=== PATIENT | female | born 1985 | race Caucasian/White ===

== ENCOUNTER 2023-05-28 19:14 | Emergency (ER) | payer OTHER, SELFPAY ==
[2023-05-28 19:17] VITALS: BP 128/92; PULSE 118; RESP 18; TEMP 36.4; O2SAT 99; BMI 18.2
[2023-05-28 19:20] VITALS: BP 128/92
--- NOTE | 2023-05-28 19:26 | ED.GENADUL1 ---
HPI - General Adult General Chief complaint: Extremity Problem, Nontraumatic Stated complaint: Lower leg Pain Time Seen by Provider: 05/28/23 19:17 Source: patient Mode of arrival: walk-in Limitations: no limitations History of Present Illness HPI narrative: Patient presents with bruising to both thighs that suddenly appeared today. She has been evaluated by other provider for bruising that she developed on her feet but no one has made a diagnosis . She denied any recent injury - no fall or accidents. She said that she is essentially sedentary at home, her mother takes her anywhere she need to go, but she feeds herself and cooks for herself. her description of her oral intake sounds way too low, from a caloric and fluid standpoint, for her age. Patient told me that she has numerous complaints for which she is either being currently evaluated or has previously been evaluated - without getting any answers. Symptoms and complaints include syncopal episodes, persistent tachycardia, diffuse weakness, especially of the lower extremities, hypokalemia, decreased appetite and chronic pain. She is also on suboxone. All of her evaluations have been done at OSHs. No recent visits to [facility]. This includes out-patient MRI in [place], EMG studies at [facility] in [place], Cardiology evals in [place], Numerous out-patient tests - none of which, according to the patient, are indicating why she is having these symptoms and findings. Related Data Home Medications Medication Instructions Recorded Confirmed atorvastatin 40 mg tablet 40 mg PO DAILY 05/28/23 05/28/23 baclofen 20 mg tablet 20 mg 05/28/23 buprenorphine 2 mg-naloxone 0.5 mg 1 tab sublingual DAILY 05/28/23 05/28/23 sublingual tablet cholecalciferol (vitamin D3) 50 50 mcg PO BID 05/28/23 05/28/23 mcg (2,000 unit) tablet desogestrel 0.15 mg-ethinyl tab 05/28/23 estradiol 0.03 mg tablet (Enskyce) dextroamphetamine-amphetamine 20 20 mg PO BID 05/28/23 05/28/23 mg tablet diltiazem HCl 120 mg 120 mg PO DAILY 05/28/23 05/28/23 capsule,extended release 24 hr, controlled (DILT-XR) folic acid 1 mg tablet 1 mg PO DAILY 05/28/23 05/28/23 gabapentin 800 mg tablet 800 mg PO TID 05/28/23 05/28/23 levalbuterol tartrate 45 inhalation 05/28/23 mcg/actuation aerosol inhaler (Xopenex HFA) magnesium oxide 400 mg (241.3 mg 400 mg PO DAILY 05/28/23 05/28/23 magnesium) tablet midodrine 10 mg tablet 10 mg PO TID 05/28/23 05/28/23 potassium chloride 20 mEq 20 meq PO BID 05/28/23 05/28/23 tablet,extended release prednisone 5 mg tablet mg 05/28/23 pyridostigmine bromide 30 mg tablet 30 mg PO TID 05/28/23 05/28/23 venlafaxine 150 mg 150 mg PO DAILY 05/28/23 05/28/23 capsule,extended release 24 hr Allergies Allergy/AdvReac Type Severity Reaction Status Date / Time No Known Drug Allergies Allergy Verified 05/28/23 19:22 [facility] Social History Smoking status: Current some day smoker Exam Narrative Exam Narrative: Nurses notes and vital signs reviewed and patient is not hypoxic. afebrile General: Well-appearing and in no apparent distress. Skin: Warm, dry, no pallor noted. Numerous small areas of ecchymosis to the forearms, thighs and fading ecchymosis on both feet. no petechiae. No bulla. No pustules or vesicles. No erythema or erythematous rash Head: Normocephalic, atraumatic. Neck: Supple, no meningismus. Eye: Pupils are equal, round and EOMI. No scleral icterus. Ears, Nose, Mouth, and Throat: Oral mucosa is dry Cardiovascular: tachycardia without murmur, gallop or rub. Respiratory: No accessory muscle use or respiratory distress. Lungs are clear to auscultation, no wheezing, rales or rhonchi Musculoskeletal: normal ROM, no calf or popliteal tenderness, no lower extremity edema/swelling GI: Abdomen is soft, non-distended. Normal bowel sounds. No masses appreciated. No tenderness to palpation. No rebound, guarding, or rigidity noted. Neurological: A&O x4. No cranial nerve dysfunction observed. No truncal ataxia. Moves all extremities. Sensation intact. Psychiatric: Cooperative and interactive. Normal mood and affect. Constitutional Vital Signs, click to edit/add: Last Vital Signs Temp 97.5 F L 05/28/23 19:17 Pulse 94 H 05/28/23 20:40 Resp 20 05/28/23 20:40 BP 128/92 H 05/28/23 19:20 Pulse Ox 100 05/28/23 20:40 O2 Del Method Room Air 05/28/23 19:17 Course Vital Signs Vital signs: Vital Signs Temperature 97.5 F L 05/28/23 19:17 Pulse Rate 118 H 05/28/23 19:17 Respiratory Rate 18 05/28/23 19:17 Blood Pressure 128/92 H 05/28/23 19:17 Pulse Oximetry 99 05/28/23 19:17 Oxygen Delivery Method Room Air 05/28/23 19:17 Temperature 97.5 F L 05/28/23 19:17 Pulse Rate 94 H 05/28/23 20:40 Respiratory Rate 20 05/28/23 20:40 Blood Pressure 128/92 H 05/28/23 19:20 Pulse Oximetry 100 05/28/23 20:40 Oxygen Delivery Method Room Air 05/28/23 19:17 Medical Decision Making MDM Narrative Medical decision making narrative: the patient has undergone extensive evaluation on an outpatient basis for her other complaints. We will be focusing today on the patient's ecchymosis, which she says new-onset. Since these appeared she has not had any blood testing - instead her bioinformatician, who 1st noticed these, told her that she might have a vascular problem and referred her to a vascular surgeon. The patient says that her appointment is in the [facility] in a few weeks. Patient was placed on ekg monitor tech and EKG obtained. Blood drawn and sent for evaluation. evaluation was essentially negative. She has mild elevation of white blood cell count at 12k with left shift noted but no identifiable source of infection. Sedimentation rate and CRP are elevated. She said that this is chronic. PT, PTT and INR all normal. LFTs are normal. Lactate was negative. Electrolytes and kidney function were also normal as was her glucose. Her tachycardia resolved once she received a liter of normal saline IV fluid. I had a talk with the patient about nutrition, proper hydration, following up with the specialists as already scheduled and recommended. She was understanding and appreciative of our ability to rule out certain worrisome conditions. She was discharged home. No change in medication at this time. . Lab Data Lab results reviewed: Yes I reviewed the patient's lab results Labs: Lab Results 05/28/23 Range/Units 19:40 WBC 12.0 H (4.0-11.0) 10^3/uL RBC 4.23 (4.20-5.40) 10^6/uL Hgb 13.1 (12.0-16.0) g/dL Hct 39.8 (36.0-48.0) % MCV 94.1 (81.0-99.0) fL MCH 31.0 (26.7-34.0) pg MCHC 32.9 (29.9-35.2) g/dL RDW 12.6 (11.0-15.0) % Plt Count 369 (150-450) 10^3/uL MPV 9.2 L (9.5-13.5) fL Neut % (Auto) 84.5 H (43.0-75.0) % Lymph % (Auto) 7.4 L (20.5-60.0) % Scurry % (Auto) 6.8 (1.7-12.0) % Eos % (Auto) 0.3 L (0.9-7.0) % Baso % (Auto) 0.6 (0.2-2.0) % Neut # (Auto) 10.1 H (1.4-6.5) 10^3/uL Lymph # (Auto) 0.9 L (1.2-3.8) 10^3/uL Scurry # (Auto) 0.8 (0.3-0.8) 10^3/uL Eos # (Auto) 0.0 (0.0-0.7) 10^3/uL Baso # (Auto) 0.1 (0.0-0.1) 10^3/uL Abs Immat Gran (auto) 0.05 H (0.00-0.03) 10^3/uL Imm/Tot Granulo (auto) 0.4 (0.0-0.5) % ESR 47 H (<=20) mm/hr PT 9.3 (9.0-11.6) sec INR <0.93 APTT 23.2 (22.3-36.2) sec Sodium 136 (136-145) mmol/L Potassium 3.9 (3.5-5.1) mmol/L Chloride 100 (98-107) mmol/L Carbon Dioxide 22.4 (21.0-32.0) mmol/L Anion Gap 17.5 BUN 17.0 (7.0-18.0) mg/dL Creatinine 0.92 (0.55-1.02) mg/dL Est GFR ( Amer) >60 (>=60) Est GFR (Non-Af Amer) >60 (>=60) BUN/Creatinine Ratio 18.5 Glucose 103 (74-106) mg/dL Lactate 1.6 (0.4-2.0) mmol/L Calcium 8.7 (8.5-10.1) mg/dL Total Bilirubin 0.2 (0.2-1.0) mg/dL AST 29 (15-37) U/L ALT 35 (14-59) U/L Alkaline Phosphatase 72 (46-116) U/L C-Reactive Protein 0.41 H (<=0.30) mg/dL Total Protein 7.7 (6.4-8.2) g/dL Albumin 3.5 (3.4-5.0) g/dL Globulin 4.2 g/dL Albumin/Globulin Ratio 0.8 Discharge Plan Discharge Chief Complaint: Extremity Problem, Nontraumatic Clinical Impression: Acute dehydration, Orthostasis, Ecchymosis Time of Disposition Decision: 21:30 Prescriptions / Home Meds: No Action diltiazem HCl [DILT-XR] 120 mg capsule,ext.rel 24h degradable 120 mg PO DAILY magnesium oxide 400 mg (241.3 mg magnesium) tablet 400 mg PO DAILY baclofen 20 mg tablet 20 mg potassium chloride 20 mEq tablet extended release 20 meq PO BID venlafaxine 150 mg capsule,extended release 24hr 150 mg PO DAILY levalbuterol tartrate [Xopenex HFA] 45 mcg/actuation HFA aerosol inhaler INHALATION folic acid 1 mg tablet 1 mg PO DAILY midodrine 10 mg tablet 10 mg PO TID pyridostigmine bromide 30 mg tablet 30 mg PO TID cholecalciferol (vitamin D3) 50 mcg (2,000 unit) tablet 50 mcg PO BID atorvastatin 40 mg tablet 40 mg PO DAILY desogestrel-ethinyl estradiol [Enskyce] 0.15-0.03 mg tablet buprenorphine-naloxone 2-0.5 mg tablet, sublingual 1 tab SUBLINGUAL DAILY prednisone 5 mg tablet dextroamphetamine-amphetamine 20 mg tablet 20 mg PO BID gabapentin 800 mg tablet 800 mg PO TID Instructions: Ecchymosis (ED) Stand Alone Forms: Portal Instructions Referrals: David Schaefer MD [Primary Care Provider] - 1 week
[2023-05-28] MEDS: 0.9 % SODIUM CHLORIDE 1,000 ML 1000 ML IV (19:43)
--- NOTE | 2023-05-28 19:52 | PC.NURSE ---
Patient comes today for unusual bruising to lower extremities. patient states she was taking her weekly bath when she noticed increased bruising to bilateral legs from foot to groin and a couple on her arms. she is concerned because she states she is normally on bedrest due to increased weakness so she states it is unusual for her to have bruising caused by injury. light healing bruising noticed on bilateral ankles. no petechiae noticed. light bumps on legs appear to be similar to razor burn, light red raised bumps on legs. patient is on many medications and sees many specialist. normal pedal pulses. denies pain
--- NOTE | 2023-05-28 20:03 | ECG_ITS ---
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
[2023-05-28 20:12] VITALS: PULSE 97; RESP 22
[2023-05-28 20:14] LABS: Basophils Absolute Auto 0.1 10^3/uL (0.0-0.1); Basophils Percent Auto 0.6 % (0.2-2.0); Eosinophils Percent Auto 0.3 % (0.9-7.0); Hematocrit 39.8 % (36.0-48.0); Hemoglobin 13.1 g/dL (12.0-16.0); Immature Granulocytes Abs Auto 0.05 10^3/uL (0.00-0.03); Immature Granulocytes Pct Auto 0.4 % (0.0-0.5); Lymphocytes Absolute Auto 0.9 10^3/uL (1.2-3.8); Lymphocytes Percent Auto 7.4 % (20.5-60.0); Mean Corpuscular HGB Conc 32.9 g/dL (29.9-35.2); Mean Corpuscular Volume 94.1 fL (81.0-99.0); Mean Platelet Volume 9.2 fL (9.5-13.5); Monocytes Absolute Auto 0.8 10^3/uL (0.3-0.8); Monocytes Percent Auto 6.8 % (1.7-12.0); Neutrophils Absolute Auto 10.1 10^3/uL (1.4-6.5); Neutrophils Percent Auto 84.5 % (43.0-75.0); Platelet Count 369 10^3/uL (150-450); Red Blood Count 4.23 10^6/uL (4.20-5.40); Red Cell Distribution Width 12.6 % (11.0-15.0)
[2023-05-28 20:20] VITALS: PULSE 90; RESP 14; O2SAT 100
[2023-05-28 20:22] LABS: Erythrocyte Sedimentation Rate 47 mm/hr (<=20)
[2023-05-28 20:25] LABS: Prothrombin Time 9.3 sec (9.0-11.6)
[2023-05-28 20:28] LABS: INR <0.93; Lactate/Lactic Acid 1.6 mmol/L (0.4-2.0); Partial Thromboplastin Time 23.2 sec (22.3-36.2)
[2023-05-28 20:30] VITALS: PULSE 98; RESP 21; O2SAT 99
[2023-05-28 20:35] LABS: Alanine Aminotransferase 35 U/L (14-59); Albumin Globulin Ratio 0.8; Albumin Level 3.5 g/dL (3.4-5.0); Alkaline Phosphatase 72 U/L (46-116); Anion Gap 17.5; Aspartate Amino Transferase 29 U/L (15-37); BUN Creatinine Ratio 18.5; Bilirubin Total 0.2 mg/dL (0.2-1.0); Calcium 8.7 mg/dL (8.5-10.1); Carbon Dioxide 22.4 mmol/L (21.0-32.0); Chloride 100 mmol/L (98-107); Estimated GFR (African America >60 (>=60); Estimated GFR (Non-African Ame >60 (>=60); Globulin 4.2 g/dL; Glucose 103 mg/dL (74-106); Potassium 3.9 mmol/L (3.5-5.1); Sodium 136 mmol/L (136-145); Total Protein 7.7 g/dL (6.4-8.2)
[2023-05-28 20:40] VITALS: PULSE 94; RESP 20; O2SAT 100
[2023-06-08 08:43] LABS: C Reactive Protein <0.50 mg/dL (<=0.50)
== END 2023-05-28 21:41 | disposition home or self-care (01) ==
LOC: ER 19:19
PROVIDERS: Emergency Provider Emergency Medicine; PCP Family Medicine
DX: E86.0 Dehydration (principal); I95.1 Orthostatic hypotension; R58 Hemorrhage, not elsewhere classified; Z79.899 Other long term (current) drug therapy; F17.210 Nicotine dependence, cigarettes, uncomplicated
CPT/HCPCS: 36415; 80053; 83605; 85025; 85610; 85652; 85730; 86140; 87040; 93005; 96360; 99285

== ENCOUNTER 2023-11-20 14:01 | Outpatient (OUT) | payer OTHER, SELFPAY ==
--- NOTE | 2023-11-20 14:04 | US_ITS ---
The [address] [address] Patient Name: KALEN PLAZA MRN: [id number] date: 1985 Sex: F Assigned Patient Location: US Current Patient Location: Accession/Order Number: [id number] Exam Date: 11/20/2023 14:49 Report Date: 11/21/2023 06:54 At the request of: LANEY PENN Procedure: US pelvis w/ transvaginal EXAMINATION: US pelvis w/ transvaginal HISTORY: Menorrhagia with regular cycle N92.0 COMPARISON: No relevant comparison available. TECHNIQUE: Transabdominal and/or transvaginal sonographic examination was performed as indicated by examination type. FINDINGS: UTERUS: Normal size and appearance. Small nabothian cysts within cervix. Uterus size: 7.4 x 3.3 x 4.1 cm ENDOMETRIUM: Thin linear slightly hypoechoic heterogeneous area within endometrial cavity, possibly blood products. Endometrial thickness: 8 mm RIGHT OVARY: Contains a 1.2 cm dominant follicle versus cyst. Duplex Doppler demonstrates normal waveform and flow; resistive index 0.5. Ovary size: 3.4 x 2.3 x 2.9 cm LEFT OVARY: Normal size and appearance. Duplex Doppler demonstrates normal waveform and flow; resistive index 0.6. Ovary size: 2.6 x 1.4 x 1.8 cm CUL-DE-SAC: Unremarkable. No significant free fluid. BLADDER: Unremarkable. OTHER: None. US/US pelvis w/ transvaginal IMPRESSION: 1. Nonspecific hypoechoic area or material within endometrial cavity, likely blood products. Given patient's history consider follow-up imaging in 6 weeks to document clearing. Electronically authenticated by: GERI CARABALLO Date: 11/21/2023 06:54
== END 2023-11-20 14:02 | disposition home or self-care (01) ==
LOC: US 14:01
PROVIDERS: PCP Family Medicine; Visit Provider Obstetrics & Gynecology
DX: N92.0 Excessive and frequent menstruation with regular cycle (principal); R10.2 Pelvic and perineal pain
CPT/HCPCS: 76830; 76856

== ENCOUNTER 2024-01-29 15:52 | Outpatient (OUT) | payer OTHER, SELFPAY ==
--- NOTE | 2024-01-29 15:57 | US_ITS ---
The [address] [address] Patient Name: KALEN PLAZA MRN: [id number] date: 1985 Sex: F Assigned Patient Location: Current Patient Location: Accession/Order Number: [id number] Exam Date: 01/29/2024 16:30 Report Date: 01/30/2024 07:12 At the request of: LANEY PENN Procedure: US pelvis w/ transvaginal EXAMINATION: US pelvis w/ transvaginal HISTORY: Female Pelvic Pain R10.2 COMPARISON: 11/20/2023 FINDINGS: The uterus is normal in size, contour and echotexture measuring 7.4 x 3.0 x 4.1 cm, anteverted. No focal myometrial mass. The endometrium measures 3.6 mm, within normal limits The right ovary measures 2.2 x 1.6 x 1.6 cm. Normal color and Doppler flow. 1.2 cm area of anechoic echogenicity, cyst versus follicle The left ovary is not visualized No free fluid US/US pelvis w/ transvaginal IMPRESSION: Nonvisualization of the left ovary, otherwise normal exam Electronically authenticated by: MITCH LEVIN Date: 01/30/2024 07:12
== END 2024-01-29 15:53 | disposition home or self-care (01) ==
LOC: US 15:53
PROVIDERS: PCP Obstetrics & Gynecology; Visit Provider Obstetrics & Gynecology
DX: R10.2 Pelvic and perineal pain (principal); N92.0 Excessive and frequent menstruation with regular cycle
CPT/HCPCS: 76830; 76856

== ENCOUNTER 2024-04-05 13:54 | Outpatient (OUT) | payer OTHER, SELFPAY ==
--- NOTE | 2024-04-05 13:58 | US_ITS ---
The [address] [address] Patient Name: KALEN PLAZA MRN: [id number] date: 1985 Sex: F Assigned Patient Location: Current Patient Location: US Accession/Order Number: [id number] Exam Date: 04/05/2024 14:06 Report Date: 04/05/2024 16:11 At the request of: PRECIOUS KERR Procedure: US carotid duplex BI EXAM: US carotid duplex BI. HISTORY: Dizziness, Sherri Danlos Syndrome. COMPARISON: None. HISTORY / INDICATIONS: Dizziness. TECHNIQUE: Bilateral common carotid arteries, extracranial internal and external carotid arteries are evaluated with jang-scale imaging, color Doppler, and spectral analysis according to a standard protocol. ICA-CCA ratios are calculated with solar manufacturer's representative peak-systolic velocities and recorded. Vertebral arteries are evaluated in one segment to evaluate for patency and character of flow. Comparison with previous evaluation is performed when available. Unless otherwise specified, all velocities are measured in cm/sec. Carotid stenosis is reported according to validated velocity parameters, similar to NASCET criteria. FINDINGS: Right Carotid: Mild plaque was noted. Velocity measurements as follows: Internal Carotid Artery 85/27 and 93/35. ICA to CCA ratio: 1.4. Left Carotid: Mild plaque was noted. Velocity measurements as follows: Internal Carotid Artery 104/39 and 100/43. ICA to CCA ratio: 1.2. Antegrade flow was seen in both vertebral arteries. CONCLUSION: 1. Less than 50% stenosis of the right ICA. 2. Less than 50% stenosis of the left ICA. 3. Vertebral arteries are patent and demonstrate antegrade flow. Electronically authenticated by: Heather GEE Date: 04/05/2024 16:11
--- OUTSIDE RECORDS SUMMARY | 2024-04-05 14:08 | XMS_ITS | CCD ---
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 Name Role Phone Omley, Tayo H Unavailable Unavailable Omley, Tayo H Unavailable Unavailable Provider, None Unavailable Unavailable Omley, Tayo H Unavailable Unavailable Omley, Tayo H Unavailable Unavailable Provider, None Unavailable Unavailable David Laguerre Unavailable Unavailable Unavailable DAVID LAGUERRE Primary Care Physician SHADE, DR DAVID Hunter Admitting Unavailable NADEREMiriam, DR DAVID Hunter Attending Unavailable NADSUNDAR, DR DAVID Hunter Primary Care Unavailable SHADE, DR DAVID Hunter Consulting Unavailable REMEDIOS, DR DAVISON Admitting Unavailable REMEDIOS, DR DAVISON Attending Unavailable NADSUNDAR, DR DAVID Hunter Primary Care Unavailable REMEDIOS, DR DAVISON Consulting Unavailable Traboulpraful, Dr. Huynh Attending Unavaila ble Shade, Dr. David Yang Primary Care Martha Suazo, Dr. Huynh Attending Unavaila ble Shade, Dr. David Yang Primary Care Martha Laguerre, Dr. David Yang Primary Care Corryvaivett Suazo, Dr. Huynh Attending Unavaila ble Gabriele, Dr. Huynh Referring Unavaila David Finley MD Primary Care Provider Robbie Disla Unavailable YOU Cabrera Attending Provider MD David Laguerre Primary Care Provider MD David Laguerre Referring Provider David Laguerre MD Primary Care Provider MD Robbie Disla Attending Provider [phone] YOU Cabrera Attending Provider MD David Laguerre Primary Care Provider [phone] MD David Laguerre Referring Provider [phone] MD Robbie Disla Attending Provider Keira Heller CNP Unavailable David Laguerre Primary Care Provider David Laguerre Primary Care Provider KEIRA HELLER Referring Unavailable KEIRA HELLER Primary Care Unavailable ROSMERY MACK Attending Unavailable DHRUV BUSTILLOS Attending Unavailable NADEREMiriam, DAVID Referring Unavailable NADEREMiriam, DAVID Primary Care Unavailable KIKA EDMONDS Attending Unavailable DAVID LAGUERRE Referring Unavailable SHADE, DAVID Primary Care Unavailable MD David Laguerre Primary Care Provider MD Robbie Disla Attending Provider Mauricio KITCHEN Attending Unavailable DANY TOVAR Attending Unavailab Mauricio Garcia Attending Unavailable REMEDIOS, BRENT Attending Unavailable NADEREMiriam, DAVID Attending Unavailable REMEDIOS, BRENT Attending Unavailable NADEREMiriam, DAVID Attending Unavailable REMEDIOS, BRENT Attending Unavailable NADERER, DAVID Attending Unavailable KEIRA HELLER Attending Unavailable REMEDIOS, BRENT Attending Unavailable FRANCIS LEVINE Attending Unavailable SHADE, DAVID Referring Unavailable PRASANNAEREMiriam, DAVID Primary Care Unavailable FRANCIS LEVINE Attending Unavailable DAVID LAGUERRE Referring Unavailable SHADE, DAVID Primary Care Unavailable MD David Laguerre Primary Care Provider MD David Laguerre Referring Provider DO Tayo Barajas II Attending Provider DANIEL Heller Attending Provider DANIEL Heller Referring Provider Robbie Disla Attending Unavailable David Laguerre Primary Care Unavailable Robbie Disla Admitting Unavailable Keira Heller Admitting Unavailable Keira Heller Attending Unavailable Keira Heller Referring Unavailable Naderer, David Primary Care Unavailable Naderer, David Primary Care Unavailable NadererDavid Referring Unavailable Adamowicz II, Tayo J Admitting Unavaila ble Adamowicz II, Tayo J Attending Unavaila ble Asaad, Imad Admitting Unavailable Asaad, Imad Attending Unavailable Naderer, David Primary Care Unavailable Asaad, Imad Admitting Unavailable Asaad, Imad Attending Unavailable Shade, David Primary Care Unavailable MARTY RICHARDSON Attending Unavailable NADEREDAVID Pineda Referring Unavailable NADERER, DAVID Primary Care Unavailable CHLOE TESFAYE Attending Unavailable NADERER, DAVID Referring Unavailable NADERER, DAVID Primary Care Unavailable REF PROV, NOT IN SYSTEM Referring Unavaila ble NADEREMiriam, DAVID Primary Care Unavailable KEIRA HELLER Referring Unavailable NADERER, DAVID Primary Care Unavailable DHRUV BUSTILLOS Referring Unavailable PRASANNAERER, DAVID Primary Care Unavailable TAYO BARAJAS Referring Unavailable NADERER, DAVID Primary Care Unavailable KIKA EDMONDS Referring Unavailable NADERER, DAVID Primary Care Unavailable NADEREDAVID Pineda Referring Unavailable NADERER, DAVID Primary Care Unavailable NADERERDAVID Referring Unavailable NADERER, DAVID Primary Care Unavailable NADERER, DAVID Primary Care Unavailable ZULMA CUELLO Attending Unavailable ZULMA CUELLO Attending Unavailable ZULMA CUELLO Referring Unavailable NADERER, DAVID Primary Care Unavailable MICHELL HART Referring Unavailable PRASANNAERER, DAVID Primary Care Unavailable FRANCIS LEVINE Referring Unavailable PRASANNAEREDAVID Pineda Primary Care Unavailable MARTY RICHARDSON Attending Unavailable DAVID LAGUERRE Referring Unavailable NADERER, DAVID Primary Care Unavailable KEIRA HELLER Referring Unavailable NADERER, DAVID Primary Care Unavailable MARTY RICHARDSON Attending Unavailable DAVID LAGUERRE Referring Unavailable NADERER, DAVID Primary Care Unavailable ASAAD, IMAD Referring Unavailable NADEREMiriam, DAVID Primary Care Unavailable NADEREMiriam, DAVID Referring Unavailable NADERER, DAVID Primary Care Unavailable NADERER, DAVID Referring Unavailable NADERER, DAVID Primary Care Unavailable NADERER, DAVID Referring Unavailable NADERER, DAVID Primary Care Unavailable LEEROY, AHMAD F Referring Unavailable NADERER, DAVID Primary Care Unavailable KEIRA HELLER Referring Unavailable NADERER, DAVID Primary Care Unavailable NADERER, DAVID Primary Care Unavailable DONI MIMS Attending Unavailable DONI MIMS Attending Unavailable DONI MIMS Referring Unavailable DAVID LAGUERRE Primary Care Unavailable Allergies Allergy Classification Reported Allergen(s) Allergy Type Date of Onset Reaction(s) Facility (1 source) No Known Medication Allergies; Translations: [No Known Medication Allergies] Propensity to adverse reactions to drug (disorder) [facility] Repository Medications Current Medications Medication Drug Class(es) Dates Sig (Normalized) Sig (Original) amphetamine aspartate 5 mg / amphetamine sulfate 5 mg / dextroamphetamine saccharate 5 mg / dextroamphetamine sulfate 5 mg oral tablet (20 sources) Central Nervous System Stimulant Start: 08-11-2023 take 2 tablets by mouth once daily in the morning, then take 1 tablet by mouth once amphetamine-dextr oamphetamine (Adderall) 20 MG tablet Indications: Postural orthostatic tachycardia syndrome 2 PO every morning, 1 PO every afternoon 90 tablet 0 08/11/2023 Active Start: 07-05-2023 Dextroamphetam ine-Amphetamine (Adderall) 20 mg Tablet Active 20 MG PO As Directed July 05, 2023 1:00am Start: 06-13-2022 Adderall Oral, BID, Refill(s) 0 Start Date: 06/13/22 Status: Ordered Start: 02-01-2022 [facility] Amphetamine-Dextroamphet ER 20 MG Oral Capsule Extended Release 24 Hour TAKE 1 CAPSULE DAILY FOR ADHD. Quantity: 0 Refills: 0 Ordered: 03-Feb-2022 DO Start : 01-Feb-2022 Active Comment on above: As Directed ARIPiprazole 5 mg oral tablet (2 sources) Atypical Antipsychotic Start: 2 take 1 mg by mouth once daily Abilify 5 mg Tab mg tab(s), Oral, Daily, Refills(s) 0 Start Date: 06/13/22 Status: Ordered atorvastatin 40 mg oral tablet (20 sources) HMG-CoA Reductase Inhibitor Start: 4 take 40 mg by mouth once daily Atorvastatin Active 40 MG PO Daily July 05, 2023 1:00am Atorvastatin Ronaldo cium 40mg Active Comment on above: Take 40 mg by mouth daily at bedtime. bisoprolol fumarate 5 mg oral tablet (17 sources) beta-Adrenergic Ayad Start: 4 take 5 mg by mouth once daily Bisoprolol Fumarate Active 5 MG PO daily July 28, 2023 1:00am Comment on above: Take 5 mg by mouth e very morning. buprenorphine 2 mg / naloxone 0.5 mg sublingual film (20 sources) Partial Opioid Agonist, Opioid Antagonist Start: buprenorphine-nalox one (SUBOXONE) 2-0.5 mg film dissolve 1/8 FILM under the tongue once daily if needed 0 10/03/2023 Active Start: 08-22-2023 Buprenorphine- Naloxone Active 0.25 FILM SUBLINGUAL Daily August 22, 2023 1:00am FreeTextSi film under the tongue and allow to dissolve Sublingual Once a day; Note: Source Status: Taking; Provider: Naif Avalos ( ) Start: 07-05-2023 End: 08-22-2023 Buprenorphine-Naloxone (Subo xone) 2-0.5 mg Tablet, Sublingual Discontinued 1 TAB SUBLINGUAL Daily July 05, 2023 1:00am August 22, 2023 1:40pm Start: 06-13-2022 Suboxone SubLi ngual, Daily, Refill(s) 0 Start Date: 06/13/22 Status: Ordered Start: 10-06-2021 Buprenorphine HCl-Naloxone HCl - 2-0.5 MG Sublingual Tablet Sublingual 1/4 tablet daily Quantity: 0 Refills: 0 Ordered: 06-Oct-2021 DO Start : 06-Oct-2021 Active buprenorphine-na loxone (SUBOXONE) 2-0.5 mg per SL tablet Place 1 tablet under the tongue in the morning. 0 Active buprenorphine-na loxone (Suboxone) 2-0.5 MG per sublingual film 1 (one) time each day at the same time. 0 Active Comment on above: dissolve 1/8 FILM un pito the tongue once daily if needed cholecalciferol 0.05 mg oral tablet (12 sources) Vitamin D Start: 07-05-19 take 1 tablet by mouth once daily Cholecalciferol (Vitamin D3) (Vitamin D3) 50 mcg (2,000 unit) Tablet Active 50 MCG PO Daily July 05, 2023 1:00am Start: 09-28-2021 take 1 tablet by once daily Vitamin D3 50 MCG (2000 UT) Oral Tablet Take 1 tablet daily Quantity: 0 Refills: 0 Ordered: 30-Sep-2021 DO Start : 28-Sep-2021 Active take 1 tablet by fabricio th every twenty-four hours Vitamin D 25 MCG (1000 UT) 1 tablet Orally Once a day 50mcg Active Comment on above: Daily cholecalciferol (Vitamin D3) 200 Unit tablet split tablet (3 sources) cholecalciferol (Vitamin D3) 200 Unit tablet split tablet Take 50 mcg by mouth in the morning. 0 Active cholecalciferol, vitamin D3, (VITAMIN D3 ORAL) (7 sources) take 50 ug by mouth in the morning cholecalciferol, vitamin D3, (VITAMIN D3 ORAL) Take 50 mcg by mouth in the morning. 0 Active Cyclosporine (Restasis) 0.05 % dropperette (3 sources) Start: 09-28-2023 take 1 drop(s) into the eye(s) every twelve hours Cyclosporine (Restasis) 0.05 % dropperette Active 1 DROPS EYE-BOTH Every 12 hours September 28, 2023 12:00am cycloSPORINE (RESTASIS) 0.05 % ophthalmic emulsion (6 sources) Start: 09-28-2023 cycloSPORINE (RESTASIS) 0.05 % ophthalmic emulsion Every 12 hours 0 09/28/2023 Active take 1 drop(s) into the eye(s) in the morning cycloSPORINE (RESTASIS) 0.05 % ophthalmi c emulsion Administer 1 drop to both eyes in the morning and 1 drop before bedtime. 0 Active Comment on above: Every 12 hours Desogestrel / Ethinyl Estradiol (16 sources) Progestin, Estrogen Start: 08-07-2023 take 1 tablet by mouth once daily ENSKYCE 0.15-0.03 mg per tablet take 1 tablet by mouth once daily 0 08/07/2023 Active Start: 07-05-2023 Desogestrel-Et hinyl Estradiol (Enskyce) 0.15-0.03 mg tablet Active 1 TAB PO Daily July 05, 2023 1:00am Start: 07-05-2023 Desogestrel-Et hinyl Estradiol (Enskyce) 0.15-0.03 mg tablet Active 1 TAB PO Daily July 05, 2023 12:00am take 1 tablet by fabricio th once daily in the morning, then take 0.15 tablet by mouth once Desogestrel-Ethinyl Estradiol (ENSKYCE) 0.15-0.03 mg per tablet Take 1 tablet by mouth every morning. 0 Active take 1 tablet by fabricio th in the morning Enskyce 0.15-30 MG-MCG tablet Take 1 tablet by mouth in the morning. 0 Active Comment on above: Take 1 tablet by fabricio th every morning. Estradiol (7 sources) Estrogen take 1 tablet by mouth in the morning ESTRADIOL ORAL Take 1 tablet by mouth in the morning. 0 Active fludrocortisone acetate 0.1 mg oral tablet (3 sources) Start: 06-13-20 take 1 mg by mouth once daily fludrocortisone 0.1 mg Tab mg tab(s), Oral, Daily, Refills(s) 0 Start Date: 06/13/22 Status: Ordered Start: 02-24-2022 take 1 tablet by fabricio th once daily Fludrocortisone Acetate 0.1 MG Oral Tablet Take 1 tablet daily Quantity: 90 Refills: 3 Ordered: 24-Feb-2022 Lino Suazo MD Start : 24-Feb-2022 Active New start folic acid 1 mg oral tablet (20 sources) Start: 01-09-2023 take 1 mg by mouth once daily Folic Acid Active 1 MG PO Daily July 05, 2023 1:00am Folic Acid 1mg A ctive Comment on above: Take 1 tablet by fabricoi th every afternoon. gabapentin 800 mg oral tablet (20 sources) Anti-epileptic Agent Start: 06-13-2022 gabapentin Oral, Refills(s) 0 Start Date: 06/13/22 Status: Ordered Start: 07-14-2021 take 800 mg by mouth three times daily Gabapentin Active 800 MG PO Three times daily July 05, 2023 1:00am take 1 tablet by fabricio th every twenty-four hours Gabapentin 800 MG 1 tablet Orally Once a day tid Active Comment on above: Take 800 mg by mouth three times a day. 200 actuat levalbuterol 0.045 mg/actuat metered dose inhaler (17 sources) beta2-Adrenergic Agonist Start: 07-05-2023 Levalbuterol Tartrate (Xopenex Hfa) 45 mcg/actuation HFA aerosol inhaler Active 2 PUFF INHALATION As Directed July 05, 2023 1:00am Start: 04-23-2023 levalbuterol t artrate HFA 45 mcg/actuation inhaler As Directed 0 04/23/2023 Active take 2 puff(s) by in halation once daily as needed levalbuterol (Xopenex) 45 MCG/ACT inhaler Inhale 2 puffs Daily as needed. 0 Active Xopenex Active Comment on above: As Directed levalbuterol tartrate (XOPENEX HFA INHL) (7 sources) levalbuterol tar trate (XOPENEX HFA INHL) Inhale 2 puffs as needed. 0 Active Magnesium (1 source) Magnesium 400 MG as directed Orally Active magnesium oxide 400 mg oral tablet (20 sources) Start: 3 take 400 mg by mouth once daily Magnesium Oxide Active 400 MG PO Daily July 05, 2023 1:00am midodrine hydrochloride 10 mg oral tablet (20 sources) alpha-Adrenergic Agonist Start: 4 take 10 mg by mouth three times daily Midodrine Active 10 MG PO Three times daily July 05, 2023 1:00am take 1 tablet by fabricio th every twelve hours Midodrine HCl 10 MG 1 tablet Orally Twic e a day Active Comment on above: Take 10 mg by mouth three times a day. mirtazapine 30 mg oral tablet (3 sources) Start: 06-13-2022 take 1 mg by mouth once daily at bedtime mirtazapine 30 mg Tab mg tab(s), Oral, Once a day (at bedtime), Refills(s) 0 Start Date: 06/13/22 Status: Ordered Start: 12-29-2021 Mirtazapine 45 MG Oral Tablet Disintegrating TAKE 1 TABLET AT NIGHT NEEDED Quantity: 0 Refills: 0 Ordered: 02-Feb-2022 DO Start : 29-Dec-2021 Active Multi Vitamin+ (2 sources) Start: 06-13-2022 Multi Vitamin+ Refill(s) 0 Start Date: 06/13/22 Status: Ordered Polyethylene Glycol 3350 (Miralax) 17 gram/dose powder (2 sources) Start: 11-22-2023 Polyethylene G lycol 3350 (Miralax) 17 gram/dose powder Active 17 GM PO Twice daily 1020 30 November 22, 2023 12:00am potassium chloride 20 meq extended release oral tablet (20 sources) Start: 07-18-2023 take 1 tablet by mouth every twelve hours potassium chloride 20 mEq TbER Take 1 tablet by mouth every 12 hours. 0 07/18/2023 Active Start: 07-05-2023 take 20 mEq by mouth twice jovani ly Potassium Chloride Active 20 MEQ PO Twice daily July 05, 2023 1:00am take 1 tablet by fabricio th in the morning, then take 2 tablets by mouth once daily potassium chloride (KLOR-CON) 20 mEq packet Take 1 packet (20 mEq total) by mouth in the morning. 2 tablets daily. 0 Active Potassium Chlori de 20mg Active Comment on above: Take 1 tablet by fabricio th every 12 hours. predniSONE 5 mg oral tablet (20 sources) Start: 02-03-2022 Prednisone Active 5 MG PO As Directed July 05, 2023 1:00am prednisone 5mg A ctive Comment on above: take 1 tablet by fabricio th every morning then take 1/2 tablet every evening pyridostigmine bromide 30 mg oral tablet (20 sources) Start: 4 take 1 tablet by mouth once daily in the morning, then take 1 tablet by mouth once daily in the evening, then take 1 tablet by mouth at bedtime pyRIDostigmine bromide 30 mg tab take 1 tablet by mouth every morning 1 tablet every evening and 1 tablet at bedtime 0 10/03/2023 Active Start: 07-05-2023 take 30 mg by mouth three times daily Pyridostigmine [place] Active 30 MG PO Three times daily July 05, 2023 1:00am take 1 tablet by fabricio th five times daily pyRIDostigmine [place] 30 MG 1 tablet Orally Five times a day tid Active Comment on above: take 1 tablet by fabricio th every morning 1 tablet every evening and 1 tablet at bedtime varenicline 1 mg oral tablet (18 sources) Partial Cholinergic Nicotinic Agonist Start: take 1 tablet by mouth every twelve hours varenicline (CHANTIX) 1 mg tablet Take 1 tablet by mouth every 12 hours. 0 07/13/2023 Active Start: 07-05-2023 take 1 tablet by fabricio th once daily Varenicline (Chantix) 1 mg Tablet Active 1 MG PO Daily July 05, 2023 1:00am Chantix 1mg bid Active varenicline (DOE NTIX TALIA) 0.5 mg (11)- 1 mg (42) tablet Indications: smoking cessation Take 0.5 tablets by mouth in the morning and 0.5 tablets before bedtime. Indications: stop smoking. Take 0.5 mg one daily on days 1-3 and 0.5 mg twice daily on days 4-7. Then 1 mg twice daily for a total of 12 weeks.. 0 Active Comment on above: [facility] 24 hr venlafaxine 150 mg extended release oral capsule (20 sources) Serotonin and Norepinephrine Reuptake Inhibitor Start: 07-27-2023 End: 07-26-2024 venlafaxine ER (EFFEXOR XR) 150 mg 24 hr capsule Start: 07-05-2023 take 150 mg by mouth once jacob y Venlafaxine Active 150 MG PO Daily July 05, 2023 1:00am Start: 03-02-2023 [facility]four hours in the morning venlafaxine XR (EFFEXOR XR) 75 mg 24 hr capsule Take 1 capsule (75 mg total) by mouth in the morning. 0 03/02/2023 Active Effexor 150mg Ac tive Vitamin D 1000 intl units (25 mcg) Tab (2 sources) Start: 06-13-2022 take 1 tablet by mouth once daily Vitamin D 1000 intl units (25 mcg) Tab mcg tab(s), Oral, Daily, Refills(s) 0 Start Date: 06/13/22 Status: Ordered Completed/Discontinued Medications Medication Drug Class(es) Dates Sig (Normalized) Sig (Original) baclofen 20 mg oral tablet (14 sources) gamma-Aminobutyri c Acid-ergic Agonist Start: 03-20-2023 End: 08-22-2023 Baclofen Discontinued 20 MG PO As Directed July 05, 2023 1:00am August 22, 2023 1:39pm take 1 dose by mouth three times daily as needed Baclofen 20 MG 1 packet as needed Orally Three times a day Active ciprofloxacin 500 mg oral tablet (1 source) Quinolone Antimicrobial Start: 06-15-2022 take 1 tablet by mouth every twenty-four hours Cipro 500 mg Tab 500 mg = 1 tab(s), Oral, q24hr, Take 1 pill the day before the procedure and 1 pill after the procedure., # 2 tab(s), Refills(s) 0, Pharmacy: [facility] #[id number], 162, cm, 06/13/22 14:55:00 EST, Height/Length Dosing, 50, kg, 06/13/22 14:55:00 EST, Weight Dosing Start Date: 06/15/22 Status: Ordered dilTIAZem hydrochloride 120 mg oral tablet (9 sources) Calcium Channel Ayad Start: 07-05-2023 End: 08-22-2023 take 120 mg by mouth once daily Diltiazem Hcl Discontinued 120 MG PO Daily July 05, 2023 1:00am August 22, 2023 1:41pm Start: 05-15-2023 End: 07-19-2023 take 1 capsule by mouth every twenty-four hours in the morning dilTIAZem XR (DILACOR XR) 120 mg 24 hr capsule Take 1 capsule (120 mg total) by mouth in the morning. 30 capsule 11 05/15/2023 07/19/2023 Discontinued pantoprazole 40 mg delayed release oral tablet (13 sources) Proton Pump Inhibitor Start: 08-23-2023 End: 01-26-2024 take 40 mg by mouth once daily Pantoprazole Discontinued 40 MG PO Daily 30 November 22, 2023 12:00am January 26, 2024 2:11pm Comment on above: Take 1 tablet by fabricio th every afternoon. polyethylene glycol 3350 33685 mg powder for oral solution (6 sources) Osmotic Laxative Start: 09-26-2023 End: 09-28-2023 Polyethylene Glycol 3350 (Miralax) 17 gram/dose powder Discontinued 17 GM PO Daily 238 September 26, 2023 12:00am September 28, 2023 8:48am Problems Active Problems Problem Classification Problem Date Documented Da te Episodic/Chronic Anxiety disorders (6 sources) Generalized anxiety disorder; Translations: [Generalized anxiety disorder] Onset: 06-13-2023 06-13-2023 Chronic Attention-deficit, conduct, and disruptive behavior disorders (1 source) Attention deficit hyperactivity disorder; Translations: [Attention deficit disorder with hyperactivity] Chronic Cancer of cervix (3 sources) High grade squamous intraepithelial lesion on cervical Papanicolaou smear; Translations: [High grade squamous intraepithelial lesion on cytologic smear of cervix (HGSIL)] Onset: 06-13-2023 06-13-2023 Episodic Cardiac dysrhythmias (20 sources) Postural orthostatic tachycardia syndrome ; Translations: [POTS (postural orthostatic tachycardia syndrome)] Onset: 05-18-2023 05-18-2023 Chronic Coagulation and hemorrhagic disorders (1 source) Spontaneous ecchymoses; Translations: [Spontaneous ecchymoses] Onset: 02-07-2024 Episodic Conditions associated with dizziness or vertigo (3 sources) Dizziness; Translations: [Dizziness and giddiness] Onset: 08-05-2023 Episodic Diseases of white blood cells (1 source) Elevated white blood cell count, unspecified; Translations: [Elevated white blood cell count, unspecified] Onset: 07-07-2023 Chronic Disorders of lipid metabolism (8 sources) Mixed hyperlipidemia; Translations: [Mixed hyperlipidemia] Onset: 06-13-2023 07-19-2023 Chronic Fluid and electrolyte disorders (3 sources) Hypokalemia; Translations: [Hypokalemia] Onset: 06-13-2023 06-13-2023 Episodic Genitourinary symptoms and ill-defined conditions (11 sources) Proteinuria; Translations: [Proteinuria, unspecified] Onset: 05-05-2022 Episodic Headache; including migraine (1 source) Headache; including migraine; Translations: [Headache, unspecified] Onset: 08-05-2023 Immunity disorders (7 sources) Ethan light chain disease; Translations: [Other specified disorders involving the immune mechanism, not elsewhere classified] Onset: 06-13-2023 06-13-2023 Chronic Immunizations and screening for infectious disease (15 sources) Encounter for screening for human papillomavirus (HPV); Translations: [Other specified abnormal immunological findings in serum] Onset: 07-14-2022 07-07-2023 Episodic Mood disorders (12 sources) Depressed bipolar I disorder; Translations: [Bipolar disorder, unspecified] Onset: 06-13-2023 06-13-2023 Chronic Nonspecific chest pain (2 sources) Other chest pain; Translations: [Chest pain, unspecified] Onset: 02-24-2024 Episodic Nutritional deficiencies (6 sources) Vitamin D deficiency; Translations: [Vitamin D deficiency, unspecified] Onset: 06-13-2023 06-13-2023 Chronic Other circulatory disease (1 source) History of hypotension; Translations: [Personal history of other diseases of circulatory system] Episodic Other connective tissue disease (3 sources) Muscle pain; Translations: [Myalgia, unspecified site] Onset: 06-13-2023 06-13-2023 Episodic Other diseases of veins and lymphatics (1 source) Venous insufficiency of leg; Translations: [Venous insufficiency (chronic) (peripheral)] 07-30-2023 Episodic Other endocrine disorders (1 source) Stewart's disease; 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 Other endocrine disorders (6 sources) 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 disorder; 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] Onset: 06-13-2023 06-13-2023 Chronic Other endocrine disorders (1 source) Other adrenocortical insufficiency; 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] Onset: 08-02-2023 Chronic Other eye disorders (1 source) Disorder of eye region; Translations: [Ocular pain, bilateral] 10-18-2023 Episodic Other female genital disorders (3 sources) Abnormal uterine bleeding; Translations: [Other specified abnormal uterine and vaginal bleeding] Onset: 06-13-2023 06-13-2023 Chronic Other gastrointestinal disorders (1 source) Diarrhea; Translations: [Diarrhea, unspecified] Episodic Other gastrointestinal disorders (1 source) Constipation; Translations: [Constipation, unspecified] Episodic Other gastrointestinal disorders (2 sources) Chronic constipation; Translations: [Other constipation] 11-22-2023 Episodic Other gastrointestinal disorders (2 sources) Mucus in stool; Translations: [Other fecal abnormalities] 11-22-2023 Episodic Other liver diseases (1 source) Lesion of liver; Translations: [Liver disease, unspecified] Chronic Other liver diseases (2 sources) Liver disease, unspecified; Translations: [Liver disease, unspecified] Onset: 07-20-2023 Chronic Other lower respiratory disease (2 sources) Rib pain Onset: 02-24-2024 Episodic Other lower respiratory disease (1 source) Chronic cough; Translations: [Chronic cough] Onset: 02-07-2024 Episodic Other nervous system disorders (4 sources) Paresthesia; Translations: [Paresthesia of skin] Onset: 06-13-2023 06-13-2023 Episodic Other nervous system disorders (1 source) Tremor; Translations: [Tremor, unspecified] 10-18-2023 Episodic Other nervous system disorders (1 source) Other lack of coordination; Translations: [Other lack of coordination] Onset: 03-15-2024 Episodic Other non-traumatic joint disorders (3 sources) Joint pain; Translations: [Pain in unspecified joint] Onset: 06-13-2023 06-13-2023 Episodic Other nutritional; endocrine; and metabolic disorders (1 source) Body mass index less than 20; Translations: [Body mass index (BMI) 19.9 or less, adult] Episodic Other screening for suspected conditions (not mental disorders or infectious disease) (4 sources) Encounter for screening for malignant neoplasm of cervix; Translations: [ENC SCREENING MALIG NEOPLASM CERV] Onset: 07-12-2022 Episodic Residual codes; unclassified (3 sources) Hypersomnia; Translations: [Hypersomnia, unspecified] Onset: 06-13-2023 06-13-2023 Chronic Residual codes; unclassified (3 sources) Obstructive sleep apnea syndrome; Translations: [Obstructive sleep apnea (adult) (pediatric)] Onset: 09-05-2023 09-05-2023 Chronic Residual codes; unclassified (2 sources) Obstructive sleep apnea (adult) (pediatric); Translations: [Obstructive sleep apnea (adult) (pediatric)] Onset: 09-05-2023 Chronic Spondylosis; intervertebral disc disorders; other back problems (6 sources) Cervical radiculopathy; Translations: [Radiculopathy, cervical region] Onset: 06-13-2023 06-13-2023 Episodic Substance-related disorders (9 sources) Smoker; Translations: [Tobacco use disorder] Onset: 06-13-2023 08-02-2022 Chronic Comment on above: 1 ppd; Added secondary to d ocumentation in Social History. 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, unspecified] Onset: 10-26-2023 Unclassified (1 source) Bilateral Feet Swelling and Pain Onset: 10-26-2023 Urinary tract infections (3 sources) Urinary tract infectious disease; Translations: [Urinary tract infection, site not specified] Onset: 06-13-2022 Episodic Past or Other Problems Problem Classification Problem Date Documented Da te Episodic/Chronic Abdominal pain (8 sources) Generalized abdominal pain; Translations: [Pain in female pelvis] Onset: 07-20-2023 Episodic Cardiac dysrhythmias (12 sources) Tachycardia; Translations: [Tachycardia, unspecified] Onset: 05-15-2023 05-15-2023 Episodic Headache; including migraine (1 source) Headache Onset: 08-05-2023 Episodic Malaise and fatigue (4 sources) Fatigue; Translations: [Other fatigue] Onset: 06-13-2023 06-13-2023 Episodic Nausea and vomiting (4 sources) Nausea; Translations: [Nausea] Onset: 07-20-2023 Episodic Nutritional deficiencies (6 sources) Folic acid deficiency (non anemic); Translations: [Deficiency of other specified B group vitamins] Onset: 06-13-2023 06-13-2023 Episodic Other circulatory disease (1 source) Postural orthostatic tachycardia syndrome ; Translations: [Postural orthostatic tachycardia syndrome (POTS)] Onset: 05-18-2023 Episodic Other circulatory disease (1 source) Other specified symptoms and signs involving the circulatory and respiratory systems; Translations: [Other specified symptoms and signs involving the circulatory and respiratory systems] Onset: 07-18-2023 Episodic Other connective tissue disease (1 source) Pain in leg, unspecified; Translations: [Pain in leg, unspecified] Onset: 07-18-2023 Episodic Other connective tissue disease (1 source) Other specified soft tissue disorders; Translations: [Other specified soft tissue disorders] Onset: 07-18-2023 Episodic Other connective tissue disease (1 source) Other symptoms and signs involving the musculoskeletal system; Translations: [Other symptoms and signs involving the musculoskeletal system] Onset: 07-10-2023 Episodic Other gastrointestinal disorders (2 sources) Change in bowel habit; Translations: [Change in bowel habit] Onset: 07-20-2023 Episodic Other gastrointestinal disorders (2 sources) Other constipation; Translations: [Constipation, unspecified] Onset: 11-22-2023 11-22-2023 Episodic Other gastrointestinal disorders (1 source) Constipation, unspecified; Translations: [Constipation, unspecified] Onset: 09-28-2023 Episodic Other nutritional; endocrine; and metabolic disorders (2 sources) Abnormal weight loss; Translations: [Abnormal weight loss] Onset: 07-20-2023 Episodic Other skin disorders (1 source) Disorder of pigmentation, unspecified; Translations: [Disorder of pigmentation, unspecified] Onset: 07-18-2023 Episodic Varicose veins of lower extremity (9 sources) Varicose veins of lower extremity; Translations: [Varicose veins of bilateral lower extremities with pain] Onset: 05-15-2023 05-15-2023 Episodic Results Test Name Value Interpretation Reference Range Facility MR head/brain wo/w conon MR head/brain wo/w con [facility] [place] [address] MRI Report Signed Patient: Kalen Plzaa MR#: [id number] : 1985 Acct:[id number] Age/Sex: 38 / F ADM Date: 03/15/24 Loc: MR Room: Type: [facility] Attending Dr: Keira SANCHEZ Copies to: DANIEL Turner Ordering Provider: DANIEL Turner Date of Service: 03/15/24 MR/MR head/brain wo/w con: R20.2 MR head/brain wo/w con 03/15/2024 7:22 AM SIGN AND SYMPTOMS: Syncopal episodes, migraine headaches, pressure in ears and eyes PROTOCOL: Multiplanar multisequence MR images of the brain were obtained with and without IV contrast CONTRAST: 10 mL of intravenous ProHance COMPARISON: 08/05/2023 and 10/14/2022 FINDINGS: Extra axial spaces: Age appropriate. Hemorrhage: None. Ventricular system: Within normal limits. Basal cisterns: Within normal limits and not effaced. Cerebral parenchyma: Normal in signal. Midline shift: None.. Cerebellum: Within normal limits. Brainstem: Within normal limits. OTHER: Calvarium: Normal marrow signal. Vascular system: Satisfactory flow voids within the anterior and posterior circulation. 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 This is better demonstrated on the current study most likely secondary to the use of a 3 Laura imaging system and improved technique. Visualized Paranasal sinuses: Their is polypoid mucosal thickening in the left sphenoid sinus. Visualized Orbits: Within normal limits. Visualized upper cervical spine: Within normal limits. Sella and skull base: Within normal limits. MR/MR head/brain wo/w con IMPRESSION: No acute intracranial pathology or abnormal postcontrast enhancement. 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 This is better demonstrated on the current study most likely secondary to the use of a 3 Laura imaging system and improved technique. Impression dictated by: Duran Rodríguez M.D.03/15/2024 9:22 AM Dictation Location: [place] [address] Transcribed By: [facility] 03/15/24921 Dictated By: Duran Rodríguez II, MD 03/15/2448 Signed By: 03/15/24921 Normal [facility] BASIC METABOLIC PANLon 02-25 Anion gap [Moles/Vol] 11 mmol/L Normal 5-15 [facility] Comment on above: Performed By: #### C BCA, 4679-7, 2063-10, CMP, FEPR, 2532-0, 2276-4, 2284-8, 2132-9, LLPH #### [facility] ([id number]) [address] [place] [address], [address] [place] [address] #### 11527-9, 9622-2 #### [facility] ([id number]) [address] [place] [address] 04206 Calcium [Mass/Vol] 9.1 mg/dL Normal 8.5-10.[address] [facility] Comment on above: Performed By: #### C BCA, 4679-7, 2063-10, CMP, FEPR, 2532-0, 2276-4, 2284-8, 2-9, LLPH #### [facility] ([id number]) [address] [place] [address], [address] [place] [address] #### 89238-9, 9622-2 #### [facility] ([id number]) [address] [place] [address] 68754 Chloride [Moles/Vol] 102 mmol/L Normal 98-109 [facility] Comment on above: Performed By: #### C BCA, 4679-7, 2064-4, CMP, FEPR, 2532-0, 2276-4, 2284-8, 2-9, LLPH #### [facility] ([id number]) [address], [address] [place] [address] #### 57092-2, 9622-2 #### [facility] ([id number]) [address] [place] [address] 33802 CO2 [Moles/Vol] 26 mmol/L Normal 22-32 [facility] Comment on above: Performed By: #### C BCA, 4679-7, 2063-4, CMP, FEPR, 2532-0, 2276-4, 2284-8, 2131-9, LLPH #### [facility] ([id number]) [address] [place] [address], [address] [address] #### 44354-7, 9622-2 #### [facility] ([id number]) [address] [place] [address] 53467 Creatinine [Mass/Vol] 0.94 mg/dL Normal 0.40-1.00 [facility] Comment on above: Result Comment: METH OD TRACEABLE TO IDMS STANDARD Performed By: #### C BCA, 4679-7, 2063-4, CMP, FEPR, 2532-0, 2276-4, 2284-8, 2-9, LLPH #### [facility] ([id number]) [address] [place] [address], [address] [place] [address] #### 20608-7, 9622-2 #### [facility] ([id number]) [address] [place] [address] 50077 GFR/1.73 sq M.predicted among non-blacks MDRD (S/P/Bld) [Vol rate/Area] 80 mL/min/{1.73_m2} Normal >59 [facility] Comment on above: Result Comment: Reported eGFR is based on the CKD-EPI 2020 equation that does not use a race coefficient. Performed By: #### C BCA, 4679-7, 2063-4, CMP, FEPR, 2532-0, 2276-4, 2283-8, 9, LLPH #### [facility] ([id number]) [address], [address] [place] [address] #### 15746-3, 9622-2 #### [facility] ([id number]) [address] [place] [address] 62204 Glucose [Mass/Vol] 103 mg/dL High 65-[address] [facility] Comment on above: Performed By: #### C BCA, 4679-7, 4, CMP, FEPR, 2532-0, 6-4, 2283-8, 2132-03, LLPH #### [facility] ([id number]) [address] [facility] [facility], [address] [place] [address] #### 98880-3, 9622-2 #### [facility] ([id number]) [address] [place] [address] 67578 Potassium [Moles/Vol] 3.4 mmol/L Low 3.5-5.0 [facility] Comment on above: Performed By: #### C BCA, 4679-7, 2063-10, CMP, FEPR, 2532-0, 6-4, 2283-8, 2132-03, LLPH #### [facility] ([id number]) [address] [facility] [facility], [address] [place] [address] #### 83416-4, 9622-2 #### [facility] ([id number]) [address] [place] [address] 05202 Sodium [Moles/Vol] 139 mmol/L Normal 134-[address] [facility] Comment on above: Performed By: #### C BCA, 4679-7, 4, CMP, FEPR, 2532-0, 2276-4, 2284-8, 2132-9, LLPH #### [facility] ([id number]) [address], [address] [place] [address] #### 22174-7, 9622-2 #### [facility] ([id number]) [address] [place] [address] 13717 Urea nitrogen [Mass/Vol] 16 mg/dL Normal 5-23 [facility] Comment on above: Performed By: #### C BCA, 4679-7, 2063-4, CMP, FEPR, 2532-0, 2276-4, 2284-8, 2131-9, LLPH #### [facility] ([id number]) [address], [address] [place] [address] #### 60674-5, 9622-2 #### [facility] ([id number]) [address] [place] [address] 89933 PROTEIN CREAT RATIOon 2023 RANDOM URINE PROTEIN 250 mg/L High <120 [facility] Comment on above: Performed By: #### C BCA, 4679-7, 2063-4, CMP, FEPR, 2532-0, 2276-4, 4-8, 2131-9, LLPH #### [facility] ([id number]) [address], [address] [place] [address] #### 30437-7, 9622-2 #### [facility] ([id number]) [address] [place] [address] 37596 U/PRO/ANALYST BUSINESS ANALYSIS RATIO CALC 0.08 Normal <0.2 [facility] Comment on above: Result Comment: Neph rotic Syndrome is associated with ratios >3.5 Performed By: #### C BCA, 4679-7, 2063-4, CMP, FEPR, 2532-0, 2276-4, 2284-8, 2-9, LLPH #### [facility] ([id number]) [address], [address] [place] [address] #### 96053-9, 9622-2 #### [facility] ([id number]) [address] [place] [address] 47032 URINE CREATININE,RDM 330.55 mg/dL Normal [facility] Comment on above: Performed By: #### C BCA, 4679-7, 4-4, CMP, FEPR, 2532-0, 2276-4, 4-8, 2131-9, LLPH #### [facility] ([id number]) [address], [address] [place] [address] #### 82510-4, 9622-2 #### [facility] ([id number]) [address] [place] [address] 49434 URINALYSISon 02-26-2024 Bilirubin Ql (U) Negative Normal NEG [facility] Comment on above: Performed By: #### C BCA, 4679-7, 2063-4, CMP, FEPR, 2532-0, 2276-4, 4-8, 2131-9, LLPH #### [facility] ([id number]) [address], [address] [place] [address] #### 70033-2, 9622-2 #### [facility] ([id number]) [address] [place] [address] 36954 BLOOD/HGB Small Abnormal NEG [facility] Comment on above: Performed By: #### C BCA, 4679-7, 4-4, CMP, FEPR, 2532-0, 2276-4, 4-8, 2131-9, LLPH #### [facility] ([id number]) [address], [address] [place] [address] #### 44931-0, 9622-2 #### [facility] ([id number]) [address] [place] [address] 47241 CA OXALATE CRYSTALS PRESENT Abnormal NONE [facility] Comment on above: Performed By: #### C BCA, 4679-7, 4, CMP, FEPR, 2532-0, 2276-4, 2284-8, 2132-9, LLPH #### [facility] ([id number]) [address], [address] [place] [address] #### 14494-5, 9622-2 #### [facility] ([id number]) [address] [place] [address] 48435 Color (U) YELLOW Normal YELLOW [facility] Comment on above: Performed By: #### C ESTHRE, 4678-, 2063-10, CMP, FEPR, 2532-0, 2276-4, 2284-8, 2-9, LLPH #### [facility] ([id number]) [address] [facility] [facility], [address] [place] [address] #### 80735-2, 9622-2 #### [facility] ([id number]) [address] [place] [address] 03807 Glucose Ql (U) Negative Normal NEG [facility] Comment on above: Performed By: #### C ESTHER, 46-, 2063-10, CMP, FEPR, 2532-0, 2276-4, 2284-8, 2132-9, LLPH #### [facility] ([id number]) [address], [address] [place] [address] #### 86135-1, 9622-2 #### [facility] ([id number]) [address] [place] [address] 29559 Ketones Ql (U) Negative Normal NEG [facility] Comment on above: Performed By: #### C BCA, 4679-7, 2064-4, CMP, FEPR, 2532-0, 2276-4, 2284-8, 2132-9, LLPH #### [facility] ([id number]) [address], [address] [place] [address] #### 50718-4, 9622-2 #### [facility] ([id number]) [address] [place] [address] 08806 Leukocyte esterase Test strip Ql (U) Negative Normal NEG [facility] Comment on above: Performed By: #### C BCA, 4679-7, 4-4, CMP, FEPR, 2532-0, 2276-4, 2284-8, 2132-9, LLPH #### [facility] ([id number]) [address], [address] [place] [address] #### 00088-5, 9622-2 #### [facility] ([id number]) [address] [place] [address] 56847 MUCOUS PRESENT Abnormal NONE [facility] Comment on above: Performed By: #### C BCA, 4679-7, 4-4, CMP, FEPR, 2532-0, 2276-4, 2284-8, 2132-9, LLPH #### [facility] ([id number]) [address], [address] [place] [address] #### 13867-6, 9622-2 #### [facility] ([id number]) [address] [place] [address] 23859 Nitrite Ql (U) Negative Normal NEG [facility] Comment on above: Performed By: #### C BCA, 4679-7, 4-4, CMP, FEPR, 2532-0, 2276-4, 2284-8, 2132-9, LLPH #### [facility] ([id number]) [address], [address] [place] [address] #### 27548-7, 9622-2 #### [facility] ([id number]) [address] [place] [address] 31076 pH (U) 6.0 [pH] Normal 5.0-8.5 [facility] Comment on above: Performed By: #### C BCA, 4679-7, 4-4, CMP, FEPR, 2532-0, 2276-4, 2284-8, 2132-9, LLPH #### [facility] ([id number]) [address], [address] [place] [address] #### 66105-1, 9622-2 #### [facility] ([id number]) [address] [place] [address] 55216 Protein Ql (U) 50 mg/dL Abnormal NEG [facility] Comment on above: Performed By: #### C BCA, 4679-7, 2063-4, CMP, FEPR, 2532-0, 2276-4, 2284-8, 2-9, LLPH #### [facility] ([id number]) [address], [address] [place] [address] #### 02216-3, 9622-2 #### [facility] ([id number]) [address] [place] [address] 73343 R.B.CELLS 1 /hpf Normal 0-5 [facility] Comment on above: Performed By: #### C BCA, 4679-7, 4-4, CMP, FEPR, 2532-0, 2276-4, 2284-8, 2132-9, LLPH #### [facility] ([id number]) [address], [address] [place] [address] #### 48226-4, 9622-2 #### [facility] ([id number]) [address] [place] [address] 34649 Specific gravity (U) [Rel density] 1.033 Normal 1.003-1.03 5 [facility] Comment on above: Performed By: #### C ESTHER, 4679-7, 2063-10, CMP, FEPR, 2532-0, 2276-4, 2284-8, 2-9, LLPH #### [facility] ([id number]) [address], [address] [place] [address] #### 63794-5, 9622-2 #### [facility] ([id number]) [address] [place] [address] 96131 SQUAMOUS EPITHELIUM 1 /hpf Normal 0-5 [facility] Comment on above: Performed By: #### C ESTHER, 79-, 2063-10, CMP, FEPR, 2532-0, 2276-4, 2284-8, 2131-9, LLPH #### [facility] ([id number]) [address], [address] [place] [address] #### 39992-8, 9622-2 #### [facility] ([id number]) [address] [place] [address] 33839 TURBIDITY CLOUDY Abnormal CLEAR [facility] Comment on above: Performed By: #### C ESTHER, 4679-7, 2063-10, CMP, FEPR, 2532-0, 2276-4, 4-8, 2131-9, LLPH #### [facility] ([id number]) [address], [address] [place] [address] #### 61353-9, 9622-2 #### [facility] ([id number]) [address] [place] [address] 71730 Urobilinogen (U) [Mass/Vol] mg/dL Normal <1.1 [facility] Comment on above: Performed By: #### C ESTHER, 4679-7, 2063-4, CMP, FEPR, 2532-0, 2276-4, 2284-8, 2131-9, LLPH #### [facility] ([id number]) [address] [facility], [address] [place] [address] #### 97741-7, 9622-2 #### [facility] ([id number]) [address] [place] [address] 43785 W.B.CELLS 2 /hpf Normal 0-5 [facility] Comment on above: Performed By: #### C BCA, 4679-7, 2063-4, CMP, FEPR, 2532-0, 2276-4, 4-8, 2131-9, LLPH #### [facility] ([id number]) [address] [place] [address], [place] [address] #### 41351-5, 9622-2 #### [facility] ([id number]) [address] [place] [address] 60489 CBC AND AUTO DIFFon 24- 24 ABSOLUTE BASOPHIL 0.0 X10E9/L Normal 0.0-0.[address] [facility] Comment on above: Performed By: #### C BCA, 4679-7, 2063-4, CMP, FEPR, 2532-0, 2276-4, 4-8, 2131-9, LLPH #### [facility] ([id number]) [address] [place] [address], [address] [place] [address] #### 18056-5, 9622-2 #### [facility] ([id number]) [address] [place] [address] 99160 ABSOLUTE NEUTROPHIL 6.8 X10E9/L High 1.5-6.6 [facility] Comment on above: Performed By: #### C BCA, 4679-7, 2063-4, CMP, FEPR, 2532-0, 2276-4, 2284-8, 2131-9, LLPH #### [facility] ([id number]) [address], [address] [address] #### 17441-2, 9622-2 #### [facility] ([id number]) [address] [place] [address] 14111 Basophils/100 WBC (Bld) 0.6 % Normal [facility] Comment on above: Performed By: #### C BCA, 4679-7, 2063-4, CMP, FEPR, 2532-0, 2276-4, 2284-8, 2131-9, LLPH #### [facility] ([id number]) [address] [facility], [address] [address] #### 88692-0, 9622-2 #### [facility] ([id number]) [address] [place] [address] 92460 Eosinophils (Bld) [#/Vol] 0.0 10*3/uL Normal 0.0-0.4 [facility] Comment on above: Performed By: #### C BCA, 4679-7, 2063-10, CMP, FEPR, 2532-0, 2276-4, 2284-8, 2131-9, LLPH #### [facility] ([id number]) [address], [address] [address] #### 45505-6, 9622-2 #### [facility] ([id number]) [address] [place] [address] 38518 Eosinophils/100 WBC (Bld) 0.5 % Normal [facility] Comment on above: Performed By: #### C BCA, 4679-7, 2063-4, CMP, FEPR, 2532-0, 2276-4, 2284-8, 2-9, LLPH #### [facility] ([id number]) [address], [address] [place] [address] #### 04234-1, 9622-2 #### [facility] ([id number]) [address] [place] [address] 12618 Erythrocyte distribution width (RBC) [Ratio] 12.7 % Normal 11.5-15.0 [facility] Comment on above: Performed By: #### C BCA, 4679-7, 2063-4, CMP, FEPR, 2532-0, 2276-4, 2284-8, 2132-9, LLPH #### [facility] ([id number]) [address], [address] [place] [address] #### 06295-6, 9622-2 #### [facility] ([id number]) [address] [place] [address] 55468 Hematocrit (Bld) [Volume fraction] 37.5 % Normal 35-47 [facility] Comment on above: Performed By: #### C BCA, 4679-7, 2063-4, CMP, FEPR, 2532-0, 2276-4, 2284-8, 2131-9, LLPH #### [facility] ([id number]) [address], [address] [place] [address] #### 21131-2, 9622-2 #### [facility] ([id number]) [address] [place] [address]1146 Hemoglobin (Bld) [Mass/Vol] 12.8 g/dL Normal 11.7-15.5 [facility] Comment on above: Performed By: #### C BCA, 4679-7, 2063-4, CMP, FEPR, 2532-0, 2276-4, 2284-8, 2132-9, LLPH #### [facility] ([id number]) [address], [address] [place] [address] #### 10254-0, 9622-2 #### [facility] ([id number]) [address] [place] [address]8213 Lymphocytes (Bld) [#/Vol] 0.7 10*3/uL Low 1.0-3.5 [facility] Comment on above: Performed By: #### C BCA, 4679-7, 4-4, CMP, FEPR, 2532-0, 2276-4, 2284-8, 2132-9, LLPH #### [facility] ([id number]) [address], [address] [place] [address] #### 30369-9, 9622-2 #### [facility] ([id number]) [address] [place] [address] Lymphocytes/100 WBC (Bld) 8.9 % Normal [facility] Comment on above: Performed By: #### C BCA, 4679-7, 2063-4, CMP, FEPR, 2532-0, 2276-4, 2284-8, 2131-9, LLPH #### [facility] ([id number]) [address] [facility], [address] [place] [address] #### 00975-8, 9622-2 #### [facility] ([id number]) [address] [place] [address] 96487 MCH (RBC) [Entitic mass] 30.2 pg Normal 27-34 [facility] Comment on above: Performed By: #### C BCA, 4679-7, 4-4, CMP, FEPR, 2532-0, 2276-4, 2284-8, 2132-9, LLPH #### [facility] ([id number]) [address], [address] [place] [address] #### 06191-2, 9622-2 #### [facility] ([id number]) [address] [place] [address] 60943 MCHC (RBC) [Mass/Vol] 34.2 g/dL Normal 32-36 [facility] Comment on above: Performed By: #### C ESTHER, 4679-7, 2063-4, CMP, FEPR, 2532-0, 2276-4, 4-8, 2131-9, LLPH #### [facility] ([id number]) [address], [address] [place] [address] #### 55116-1, 9622-2 #### [facility] ([id number]) [address] [place] [address] 13272 MCV (RBC) [Entitic vol] 88 fL Normal 80-100 [facility] Comment on above: Performed By: #### C ESTHER, 4679-7, 2063-10, CMP, FEPR, 2532-0, 6-4, 2283-8, 9, LLPH #### [facility] ([id number]) [address], [address] [place] [address] #### 99593-3, 9622-2 #### [facility] ([id number]) [address] [place] [address] 32766 Monocytes (Bld) [#/Vol] 0.5 10*3/uL Normal 0-0.9 [facility] Comment on above: Performed By: #### C ESTHER, 4679-7, 2063-10, CMP, FEPR, 2532-0, 2276-4, 4-8, 2131-9, LLPH #### [facility] ([id number]) [address], [address] [place] [address] #### 69853-8, 9622-2 #### [facility] ([id number]) [address] [place] [address] 98202 Monocytes/100 WBC (Bld) 5.8 % Normal [facility] Comment on above: Performed By: #### C BCA, 4679-7, 2063-4, CMP, FEPR, 2532-0, 2276-4, 2284-8, 2131-9, LLPH #### [facility] ([id number]) [address], [address] [place] [address] #### 67053-0, 9622-2 #### [facility] ([id number]) [address] [place] [address] 74068 Neutrophils/100 WBC (Bld) 84.2 % Normal [facility] Comment on above: Performed By: #### C BCA, 4679-7, 2063-4, CMP, FEPR, 2532-0, 2276-4, 2283-8, 9, LLPH #### [facility] ([id number]) [address], [address] [place] [address] #### 03098-6, 9622-2 #### [facility] ([id number]) [address] [place] [address] 19901 Platelet mean volume (Bld) [Entitic vol] 7.0 fL Normal 7-12 [facility] Comment on above: Performed By: #### C BCA, 4679-7, 2063-4, CMP, FEPR, 2532-0, 2276-4, 2283-8, 2132-03, LLPH #### [facility] ([id number]) [address], [address] [place] [address] #### 90241-1, 9622-2 #### [facility] ([id number]) [address] [place] [address] 52407 Platelets (Bld) [#/Vol] 381 10*3/uL Normal 150-450 [facility] Comment on above: Performed By: #### C BCA, 4679-7, 2063-4, CMP, FEPR, 2532-0, 2276-4, 2284-8, 2132-9, LLPH #### [facility] ([id number]) [address], [address] [place] [address] #### 66832-3, 9622-2 #### [facility] ([id number]) [address] [place] [address] RBC COUNT 4.25 X10E12/L Normal 3.80-5.20 [facility] Comment on above: Performed By: #### C BCA, 4679-7, 4-4, CMP, FEPR, 2532-0, 2276-4, 2284-8, 2-9, LLPH #### [facility] ([id number]) [address], [address] [place] [address] #### 86002-3, 9622-2 #### [facility] ([id number]) [address] [place] [address] 88313 WBC (Bld) [#/Vol] 8.0 10*3/uL Normal 4.0-11.[address] [facility] Comment on above: Performed By: #### C BCA, 4679-7, 4-4, CMP, FEPR, 2532-0, 2276-4, 2284-8, 2132-9, LLPH #### [facility] ([id number]) [address], [address] [place] [address] #### 10751-9, 9622-2 #### [facility] ([id number]) [address] [place] [address] 23281 COMPREHENSIVE METABOLIC PANE Cyrus 02-24-2024 Albumin [Mass/Vol] 4.0 g/dL Normal 3.2-5.[address] [facility] Comment on above: Performed By: #### C BCA, 4679-7, 4-4, CMP, FEPR, 2532-0, 2276-4, 2284-8, 2132-9, LLPH #### [facility] ([id number]) [address], [address] [place] [address] #### 64663-0, 9622-2 #### [facility] ([id number]) [address] [place] [address] 24162 ALP [Catalytic activity/Vol] 104 U/L Normal 39-130 [facility] Comment on above: Performed By: #### C BCA, 4679-7, 4-4, CMP, FEPR, 2532-0, 2276-4, 2284-8, 2131-9, LLPH #### [facility] ([id number]) [address], [address] [place] [address] #### 92992-8, 9622-2 #### [facility] ([id number]) [address] [place] [address] 75014 ALT [Catalytic activity/Vol] 34 U/L High 0-31 [facility] Comment on above: Performed By: #### C BCA, 4679-7, 2063-4, CMP, FEPR, 2532-0, 2276-4, 2284-8, 2131-9, LLPH #### [facility] ([id number]) [address], [address] [place] [address] #### 49717-0, 9622-2 #### [facility] ([id number]) [address] [place] [address] 99367 Anion gap [Moles/Vol] 6 mmol/L Normal 5-15 [facility] Comment on above: Performed By: #### C BCA, 4679-7, 4-4, CMP, FEPR, 2532-0, 2276-4, 2284-8, 2131-9, LLPH #### [facility] ([id number]) [address], [address] [place] [address] #### 08294-8, 9622-2 #### [facility] ([id number]) [address] [place] [address] 38953 AST [Catalytic activity/Vol] 40 U/L Normal 0-41 [facility] Comment on above: Performed By: #### C BCA, 4679-7, 4-4, CMP, FEPR, 2532-0, 2276-4, 2284-8, 2132-9, LLPH #### [facility] ([id number]) [address], [address] [place] [address] #### 57286-8, 9622-2 #### [facility] ([id number]) [address] [place] [address] 18226 Bilirubin [Mass/Vol] 0.3 mg/dL Normal 0.3-1.2 [facility] Comment on above: Performed By: #### C BCA, 4679-7, 2063-4, CMP, FEPR, 2532-0, 2276-4, 2284-8, 2-9, LLPH #### [facility] ([id number]) [address], [address] [place] [address] #### 16546-4, 9622-2 #### [facility] ([id number]) [address] [place] [address] 10438 Calcium [Mass/Vol] 9.2 mg/dL Normal 8.5-10.[address] [facility] Comment on above: Performed By: #### C BCA, 4679-7, 4-4, CMP, FEPR, 2532-0, 2276-4, 2284-8, 2132-9, LLPH #### [facility] ([id number]) [address], [address] [place] [address] #### 63393-8, 9622-2 #### [facility] ([id number]) [address] [place] [address] Chloride [Moles/Vol] 99 mmol/L Normal 98-109 [facility] Comment on above: Performed By: #### C BCA, 4679-7, 2063-4, CMP, FEPR, 2532-0, 2276-4, 2284-8, 2132-9, LLPH #### [facility] ([id number]) [address] [facility] [place] [address] #### 52583-8, 9622-2 #### [facility] ([id number]) [address] [place] [address] 19033 CO2 [Moles/Vol] 26 mmol/L Normal 22-32 [facility] Comment on above: Performed By: #### C BCA, 4679-7, 2063-4, CMP, FEPR, 2532-0, 2276-4, 2284-8, 2132-9, LLPH #### [facility] ([id number]) [address] [facility] [facility] [place] [address] #### 72137-5, 9622-2 #### [facility] ([id number]) [address] [place] [address] 96837 Creatinine [Mass/Vol] 0.89 mg/dL Normal 0.40-1.00 [facility] Comment on above: Result Comment: METH OD TRACEABLE TO IDMS STANDARD Performed By: #### C BCA, 4679-7, 2063-4, CMP, FEPR, 2532-0, 2276-4, 2284-8, 2132-9, LLPH #### [facility] ([id number]) [address], [address] [place] [address] #### 26337-2, 9622-2 #### [facility] ([id number]) [address] [place] [address] 25353 GFR/1.73 sq M.predicted among non-blacks MDRD (S/P/Bld) [Vol rate/Area] 85 mL/min/{1.73_m2} Normal >59 [facility] Comment on above: Result Comment: Reported eGFR is based on the CKD-EPI 2020 equation that does not use a race coefficient. Performed By: #### C BCA, 4679-7, 4-4, CMP, FEPR, 2532-0, 2276-4, 2284-8, 2131-9, LLPH #### [facility] ([id number]) [address], [address] [place] [address] #### 61154-1, 9622-2 #### [facility] ([id number]) [address] [place] [address] 33071 Glucose [Mass/Vol] 104 mg/dL High 65-[address] [facility] Comment on above: Performed By: #### C BCA, 4679-7, 2063-4, CMP, FEPR, 2532-0, 2276-4, 4-8, 2131-9, LLPH #### [facility] ([id number]) [address] [facility], [address] [place] [address] #### 33104-9, 9622-2 #### [facility] ([id number]) [address] [place] [address] 15303 Potassium [Moles/Vol] 4.7 mmol/L Normal 3.5-5.0 [facility] Comment on above: Performed By: #### C BCA, 4679-7, 2063-4, CMP, FEPR, 2532-0, 2276-4, 2284-8, 2131-9, LLPH #### [facility] ([id number]) [address] [facility] [place] [address] #### 00548-8, 9622-2 #### [facility] ([id number]) [address] [place] [address] 04404 Protein [Mass/Vol] 8.0 g/dL Normal 6.0-8.[address] [facility] Comment on above: Performed By: #### C BCA, 4679-7, 4-4, CMP, FEPR, 2532-0, 2276-4, 2284-8, 2132-9, LLPH #### [facility] ([id number]) [address], [address] [place] [address] #### 53490-0, 9622-2 #### [facility] ([id number]) [address] [place] [address] 81043 Sodium [Moles/Vol] 131 mmol/L Low 134-[address] [facility] Comment on above: Performed By: #### C BCA, 4679-7, 2063-4, CMP, FEPR, 2532-0, 2276-4, 2284-8, 2-9, LLPH #### [facility] ([id number]) [address], [address] [place] [address] #### 26264-3, 9622-2 #### [facility] ([id number]) [address] [place] [address] 34314 Urea nitrogen [Mass/Vol] 16 mg/dL Normal 5-23 [facility] Comment on above: Performed By: #### C BCA, 4679-7, 2063-4, CMP, FEPR, 2532-0, 2276-4, 2284-8, 2-9, LLPH #### [facility] ([id number]) [address], [address] [place] [address] #### 55286-7, 9622-2 #### [facility] ([id number]) [address] [place] [address] 15233 Fibrin D-dimer DDU (PPP) [Ma ss/Vol]on 02-24-2024 D DIMER <150 Normal <255 [facility] Comment on above: Result Comment: Results <255 ng/mL DDU: The presence of a VTE can safely be excluded with a negative D-Dimer result and Wells score. A negative result doesn't exclude the possibility of DIC. The test be repeated along with other diagnostic tests if the patient's symptoms persist or worsen. [email or web address] Performed By: #### C BCA, 4679-7, 2063-4, CMP, FEPR, 2532-0, 2276-4, 2284-8, 2132-9, LLPH #### [facility] ([id number]) [address] [place] [address], [address] [place] [address] #### 59834-6, 9622-2 #### [facility] ([id number]) [address] [place] [address] 69749 Troponin I.cardiac High sens itivity method [Mass/Vol]on 02-24-2024 TROPONIN I, HIGH SENSITIVITY <2 Normal <16 [facility] Comment on above: Performed By: #### C BCA, 4679-7, 2063-4, CMP, FEPR, 2532-0, 2276-4, 2284-8, 2132-9, LLPH #### [facility] ([id number]) [address] [place] [address], [address] [place] [address] #### 83103-4, 9622-2 #### [facility] ([id number]) [address] [place] [address] 61320 XR CHEST 1 VWon 02-24-2024 XR CHEST 1 VW XR CHEST 1 VW HISTORY: Chest pain COMPARISON: Chest x-ray 02/07/2024 FINDINGS: Portable AP upright view of the chest was performed. Cardiac silhouette is within normal limits. No airspace consolidation or vascular congestion. No pleural effusion or pneumothorax. IMPRESSION: * No acute abnormality. Finalized by Giovanni Phelan MD on 02/24/2024 9:08 PM Normal [facility] XR CHEST 2 VWSon 02-08-2024 XR CHEST 2 VWS XR CHEST 2 VWS Clinical history: Chronic cough. Comparisons: 08/13/2017 through 12/25/2022. Findings: 2 views of the chest obtained. Heart size and pulmonary vasculature appear within normal limits. There is no pulmonary parenchymal consolidation. No pleural effusion nor pneumothorax. IMPRESSION: No evidence for acute cardiopulmonary disease. Finalized by Wicho Frank MD on 02/08/2024 12:53 PM Normal [facility] CBC AND AUTO DIFFon 02-07-20 ABSOLUTE BASOPHIL 0.1 X10E9/L Normal 0.0-0.[address] [facility] Comment on above: Performed By: #### C ESTHER, 4679-7, 2063-10, CMP, FEPR, 2532-0, 2276-4, 2284-8, 2132-9, LLPH #### [facility] ([id number]) [address] [place] [address], [address] [place] [address] #### 70336-8, 9622-2 #### [facility] ([id number]) [address] [place] [address] 92254 ABSOLUTE NEUTROPHIL 7.3 X10E9/L High 1.5-6.6 [facility] Comment on above: Performed By: #### C ESTHER, 4679-7, 2063-10, CMP, FEPR, 2532-0, 2276-4, 2284-8, 2132-9, LLPH #### [facility] ([id number]) [address] [facility], [address] [place] [address] #### 21792-8, 9622-2 #### [facility] ([id number]) [address] [place] [address] 65940 Basophils/100 WBC (Bld) 1.1 % Normal [facility] Comment on above: Performed By: #### C ESTHER, 4679-7, 2064-4, CMP, FEPR, 2532-0, 2276-4, 2284-8, 2132-9, LLPH #### [facility] ([id number]) [address] [place] [address], [address] [place] [address] #### 81240-9, 9622-2 #### [facility] ([id number]) [address] [place] [address] 30586 Eosinophils (Bld) [#/Vol] 0.1 10*3/uL Normal 0.0-0.4 [facility] Comment on above: Performed By: #### C BCA, 4679-7, 4, CMP, FEPR, 2532-0, 2276-4, 2284-8, 2131-9, LLPH #### [facility] ([id number]) [address] [place] [address], [address] [place] [address] #### 96996-6, 9622-2 #### [facility] ([id number]) [address] [place] [address] 55362 Eosinophils/100 WBC (Bld) 0.9 % Normal [facility] Comment on above: Performed By: #### C BCA, 4679-7, 2063-4, CMP, FEPR, 2532-0, 2276-4, 2284-8, 2131-9, LLPH #### [facility] ([id number]) [address] [place] [address], [address] [place] [address] #### 93270-9, 9622-2 #### [facility] ([id number]) [address] [place] [address] 34780 Erythrocyte distribution width (RBC) [Ratio] 12.7 % Normal 11.5-15.0 [facility] Comment on above: Performed By: #### C BCA, 4679-7, 2063-4, CMP, FEPR, 2532-0, 2276-4, 2284-8, 2132-9, LLPH #### [facility] ([id number]) [address], [address] [place] [address] #### 07467-4, 9622-2 #### [facility] ([id number]) [address] [place] [address] 69312 Hematocrit (Bld) [Volume fraction] 38.2 % Normal 35-47 [facility] Comment on above: Performed By: #### C BCA, 4679-7, 2063-4, CMP, FEPR, 2532-0, 2276-4, 2284-8, 9, LLPH #### [facility] ([id number]) [address], [address] [place] [address] #### 71540-8, 9622-2 #### [facility] ([id number]) [address] [place] [address] 59482 Hemoglobin (Bld) [Mass/Vol] 12.8 g/dL Normal 11.7-15.5 [facility] Comment on above: Performed By: #### C BCA, 4679-7, 2063-4, CMP, FEPR, 2532-0, 2276-4, 4-8, 9, LLPH #### [facility] ([id number]) [address], [address] [place] [address] #### 87003-3, 9622-2 #### [facility] ([id number]) [address] [place] [address] 42988 Lymphocytes (Bld) [#/Vol] 1.0 10*3/uL Normal 1.0-3.5 [facility] Comment on above: Performed By: #### C BCA, 4679-7, 2063-4, CMP, FEPR, 2532-0, 2276-4, 2284-8, 2131-9, LLPH #### [facility] ([id number]) [address] [place] [address] #### 89754-5, 9622-2 #### [facility] ([id number]) [address] [place] [address] 02562 Lymphocytes/100 WBC (Bld) 11.3 % Normal [facility] Comment on above: Performed By: #### C BCA, 4679-7, 4-4, CMP, FEPR, 2532-0, 2276-4, 2284-8, 2-9, LLPH #### [facility] ([id number]) [address], [address] [place] [address] #### 22797-1, 9622-2 #### [facility] ([id number]) [address] [place] [address] 39507 MCH (RBC) [Entitic mass] 30.5 pg Normal 27-34 [facility] Comment on above: Performed By: #### C BCA, 4679-7, 2063-4, CMP, FEPR, 2532-0, 2276-4, 2284-8, 2131-9, LLPH #### [facility] ([id number]) [address], [address] [place] [address] #### 03499-1, 9622-2 #### [facility] ([id number]) [address] [place] [address] 98956 MCHC (RBC) [Mass/Vol] 33.6 g/dL Normal 32-36 [facility] Comment on above: Performed By: #### C BCA, 4679-7, 4-4, CMP, FEPR, 2532-0, 2276-4, 2284-8, 2132-9, LLPH #### [facility] ([id number]) [address], [address] [place] [address] #### 35204-7, 9622-2 #### [facility] ([id number]) [address] [place] [address] 99368 MCV (RBC) [Entitic vol] 91 fL Normal 80-100 [facility] Comment on above: Performed By: #### C BCA, 4679-7, 4-4, CMP, FEPR, 2532-0, 2276-4, 2284-8, 2132-9, LLPH #### [facility] ([id number]) [address] [place] [address], [address] [place] [address] #### 24870-2, 9622-2 #### [facility] ([id number]) [address] [place] [address] 79325 Monocytes (Bld) [#/Vol] 0.6 10*3/uL Normal 0-0.9 [facility] Comment on above: Performed By: #### C BCA, 4679-7, 2063-4, CMP, FEPR, 2532-0, 2276-4, 2284-8, 2131-9, LLPH #### [facility] ([id number]) [address] [place] [address], [address] [address] #### 20182-7, 9622-2 #### [facility] ([id number]) [address] [place] [address] 92756 Monocytes/100 WBC (Bld) 6.5 % Normal [facility] Comment on above: Performed By: #### C BCA, 4679-7, 2063-4, CMP, FEPR, 2532-0, 2276-4, 2284-8, 2131-9, LLPH #### [facility] ([id number]) [address] [place] [address], [address] [place] [address] #### 47716-4, 9622-2 #### [facility] ([id number]) [address] [place] [address] 91974 Neutrophils/100 WBC (Bld) 80.2 % Normal [facility] Comment on above: Performed By: #### C ESTHER, 4679-7, 2063-4, CMP, FEPR, 2532-0, 2276-4, 2284-8, 2-9, LLPH #### [facility] ([id number]) [address], [address] [place] [address] #### 07170-3, 9622-2 #### [facility] ([id number]) [address] [place] [address] 52846 Platelet mean volume (Bld) [Entitic vol] 7.9 fL Normal 7-12 [facility] Comment on above: Performed By: #### C ESTHER, 4679-7, 2063-4, CMP, FEPR, 2532-0, 2276-4, 2284-8, 2131-9, LLPH #### [facility] ([id number]) [address], [address] [place] [address] #### 68527-1, 9622-2 #### [facility] ([id number]) [address] [place] [address] 62421 Platelets (Bld) [#/Vol] 389 10*3/uL Normal 150-450 [facility] Comment on above: Performed By: #### C ESTHER, 4679-7, 2063-4, CMP, FEPR, 2532-0, 2276-4, 2284-8, 2131-9, LLPH #### [facility] ([id number]) [address] [place] [address] #### 82222-0, 9622-2 #### [facility] ([id number]) [address] [place] [address] 24119 RBC COUNT 4.21 X10E12/L Normal 3.80-5.20 [facility] Comment on above: Performed By: #### C ESTHER, 4679-7, 2063-4, CMP, FEPR, 2532-0, 2276-4, 2284-8, 2-9, LLPH #### [facility] ([id number]) [address] [facility], [address] [place] [address] #### 42942-4, 9622-2 #### [facility] ([id number]) [address] [place] [address] 33442 WBC (Bld) [#/Vol] 9.1 10*3/uL Normal 4.0-11.[address] [facility] Comment on above: Performed By: #### C BCA, 4679-7, 2063-4, CMP, FEPR, 2532-0, 2276-4, 2284-8, 2131-9, LLPH #### [facility] ([id number]) [address] [place] [address], [address] [place] [address] #### 18573-3, 9622-2 #### [facility] ([id number]) [address] [place] [address]1082 M. tuberculosis stim IFN-g p yara (Bld)on 02-07-2024 Mitogen minus Nil Result 1.20 IU/mL Normal [facility] Comment on above: Performed By: #### C BCA, 4679-7, 2063-4, CMP, FEPR, 2532-0, 2276-4, 2284-8, 2131-9, LLPH #### [facility] ([id number]) [address] [place] [address], [address] [place] [address] #### 47833-1, 9622-2 #### [facility] ([id number]) [address] [place] [address] Nil Result 0.01 IU/mL Normal [facility] Comment on above: Result Comment: NOTE Test Performed by: [facility]– [place][Note 2] [address] [place] [address] Printer Floor Covering Assistant: Kimberly York Ph.D.; [facility]# [id number] Performed By: #### C BCA, 4679-7, 2063-4, CMP, FEPR, 2532-0, 2276-4, 4-8, 9, LLPH #### [facility] ([id number]) [address] [facility] [address], [address] [place] [address] #### 39149-5, 9622-2 #### [facility] ([id number]) [address] [place] [address] 61009 QuantiFERON-Tb Gold Plus Result Negative Normal Negative [facility] Comment on above: Result Comment: NOTE No interferon-gamma response to M. tuberculosis antigens was detected. Latent infection with M. tuberculosis is unlikely. A single negative result does not exclude infection with M. tuberculosis. In patients at high risk for M.tuberculosis infection, a second test should be considered in accordance with the 2017 ATS/IDSA/CDC Clinical Practice Guidelines for Diagnosis of Tuberculosis in Adults and Children [Amy INTERIANO et. al. Clin. Infect. Dis. 2017;64(2):111-115]. The reference range for the 'TB1 Ag minus Nil Result' and 'TB2 Ag minus Nil Result' is an Interferon-gamma level <0.35 IU/mL. Performed By: #### C BCA, 4679-7, 4, CMP, FEPR, 2532-0, 2276-4, 2283-8, 2132-03, LLPH #### [facility] ([id number]) [address] [facility], [address] [place] [address] #### 28836-6, 9622-2 #### [facility] ([id number]) [address] [place] [address] 42069 TB1 Ag minus Nil Result 0.01 IU/mL Normal [facility] Comment on above: Performed By: #### C BCA, 4679-7, 2063-4, CMP, FEPR, 2532-0, 2276-4, 2283-8, 2131-9, LLPH #### [facility] ([id number]) [address], [address] [place] [address] #### 40461-0, 9622-2 #### [facility] ([id number]) [address] [place] [address] 11348 TB2 Ag minus Nil Result 0.00 IU/mL Normal [facility] Comment on above: Performed By: #### C BCA, 4679-7, 2063-4, CMP, FEPR, 2532-0, 2276-4, 2284-8, 2131-9, LLPH #### [facility] ([id number]) [address] [facility], [place] [id number] #### 78862-1, 9622-2 #### [facility] ([id number]) [address] [place] [address]959 PROTIME AND INRon 02-07-2024 INR Coag (PPP) [Relative time] 0.9 {INR} Normal 0.8-1.1 [facility] Comment on above: Performed By: #### C BCA, 4679-7, 2063-4, CMP, FEPR, 2532-0, 2276-4, 2284-8, 2131-9, LLPH #### [facility] ([id number]) [address], [address] [place] [address] #### 05307-9, 9622-2 #### [facility] ([id number]) [address] [place] [address] 71131 PT Coag (PPP) [Time] 10.8 s Normal 9.8-13.2 [facility] Comment on above: Result Comment: NEW REFERENCE RANGE Performed By: #### C BCA, 4679-7, 2063-4, CMP, FEPR, 2532-0, 2276-4, 2284-8, 2132-9, LLPH #### [facility] ([id number]) [address], [address] [address] #### 15479-2, 9622-2 #### [facility] ([id number]) [address] [place] [address] 47524 aPTT Coag (PPP) [Time]on aPTT Coag (Bld) [Time] 30 s Normal 26-37 [facility] Comment on above: Result Comment: NEW REFERENCE RANGE Performed By: #### C BCA, 4679-7, 2063-4, CMP, FEPR, 2532-0, 2276-4, 2284-8, 2131-9, LLPH #### [facility] ([id number]) [address] [facility], [place] [id number] #### 33091-5, 9622-2 #### [facility] ([id number]) [address] [place] [address] 70502 CBC AND AUTO DIFFon 01-24-20 ABSOLUTE BASOPHIL 0.1 X10E9/L Normal 0.0-0.[address] [facility] Comment on above: Performed By: #### C BCA, 4679-7, 2063-4, CMP, FEPR, 2532-0, 2276-4, 2284-8, 2131-9, LLPH #### [facility] ([id number]) [address] [facility] [facility], [address] [address] #### 58800-4, 9622-2 #### [facility] ([id number]) [address] [place] [address] 85926 ABSOLUTE NEUTROPHIL 5.4 X10E9/L Normal 1.5-6.6 [facility] Comment on above: Performed By: #### C BCA, 4679-7, 2063-4, CMP, FEPR, 2532-0, 2276-4, 2284-8, 2132-9, LLPH #### [facility] ([id number]) [address], [address] [place] [address] #### 60604-0, 9622-2 #### [facility] ([id number]) [address] [place] [address] 95353 Basophils/100 WBC (Bld) 0.9 % Normal [facility] Comment on above: Performed By: #### C BCA, 4679-7, 2063-4, CMP, FEPR, 2532-0, 2276-4, 4-8, 2132-03, LLPH #### [facility] ([id number]) [address], [address] [place] [id number] #### 47941-3, 9622-2 #### [facility] ([id number]) [address] [place] [address] 45657 Eosinophils (Bld) [#/Vol] 0.2 10*3/uL Normal 0.0-0.4 [facility] Comment on above: Performed By: #### C BCA, 4679-7, 2063-4, CMP, FEPR, 2532-0, 2276-4, 4-8, 2132-03, LLPH #### [facility] ([id number]) [address], [address] [place] [address] #### 20164-6, 9622-2 #### [facility] ([id number]) [address] [place] [address] 47821 Eosinophils/100 WBC (Bld) 2.4 % Normal [facility] Comment on above: Performed By: #### C BCA, 4679-7, 2063-4, CMP, FEPR, 2532-0, 2276-4, 4-8, 2131-9, LLPH #### [facility] ([id number]) [address], [address] [place] [address] #### 30586-8, 9622-2 #### [facility] ([id number]) [address] [place] [address] 82977 Erythrocyte distribution width (RBC) [Ratio] 12.3 % Normal 11.5-15.0 [facility] Comment on above: Performed By: #### C BCA, 4679-7, 4-4, CMP, FEPR, 2532-0, 2276-4, 2284-8, 2132-9, LLPH #### [facility] ([id number]) [address], [address] [place] [address] #### 42575-5, 9622-2 #### [facility] ([id number]) [address] [place] [address] 90697 Hematocrit (Bld) [Volume fraction] 38.2 % Normal 35-47 [facility] Comment on above: Performed By: #### C BCA, 4679-7, 2063-4, CMP, FEPR, 2532-0, 2276-4, 2284-8, 2131-9, LLPH #### [facility] ([id number]) [address], [address] [place] [address] #### 47446-3, 9622-2 #### [facility] ([id number]) [address] [place] [address] 76167 Hemoglobin (Bld) [Mass/Vol] 13.1 g/dL Normal 11.7-15.5 [facility] Comment on above: Performed By: #### C BCA, 4679-7, 4-4, CMP, FEPR, 2532-0, 2276-4, 2284-8, 2-9, LLPH #### [facility] ([id number]) [address], [address] [place] [address] #### 79257-7, 9622-2 #### [facility] ([id number]) [address] [place] [address] 22061 Lymphocytes (Bld) [#/Vol] 2.2 10*3/uL Normal 1.0-3.5 [facility] Comment on above: Performed By: #### C BCA, 4679-7, 4-4, CMP, FEPR, 2532-0, 2276-4, 2284-8, 2132-9, LLPH #### [facility] ([id number]) [address], [address] [place] [address] #### 62016-8, 9622-2 #### [facility] ([id number]) [address] [place] [address] 48792 Lymphocytes/100 WBC (Bld) 25.9 % Normal [facility] Comment on above: Performed By: #### C BCA, 4679-7, 2063-4, CMP, FEPR, 2532-0, 2276-4, 2284-8, 2131-9, LLPH #### [facility] ([id number]) [address], [address] [place] [address] #### 47327-3, 9622-2 #### [facility] ([id number]) [address] [place] [address] 16084 MCH (RBC) [Entitic mass] 31.0 pg Normal 27-34 [facility] Comment on above: Performed By: #### C BCA, 4679-7, 2063-4, CMP, FEPR, 2532-0, 2276-4, 2284-8, 2132-9, LLPH #### [facility] ([id number]) [address], [address] [place] [address] #### 52586-9, 9622-2 #### [facility] ([id number]) [address] [place] [address] 55600 MCHC (RBC) [Mass/Vol] 34.4 g/dL Normal 32-36 [facility] Comment on above: Performed By: #### C ESTHER, 4679-7, 2063-4, CMP, FEPR, 2532-0, 2276-4, 4-8, 2131-9, LLPH #### [facility] ([id number]) [address], [address] [place] [address] #### 62792-9, 9622-2 #### [facility] ([id number]) [address] [place] [address] 89298 MCV (RBC) [Entitic vol] 90 fL Normal 80-100 [facility] Comment on above: Performed By: #### C ESTHER, 4679-, 2063-10, CMP, FEPR, 2532-0, 6-4, 2283-8, 2131-9, LLPH #### [facility] ([id number]) [address], [address] [place] [address] #### 98368-6, 9622-2 #### [facility] ([id number]) [address] [place] [address] 74040 Monocytes (Bld) [#/Vol] 0.5 10*3/uL Normal 0-0.9 [facility] Comment on above: Performed By: #### C ESTHER, 4679-7, 2063-10, CMP, FEPR, 2532-0, 2276-4, 4-8, 2131-9, LLPH #### [facility] ([id number]) [address], [address] [place] [address] #### 15821-0, 9622-2 #### [facility] ([id number]) [address] [place] [address] 73759 Monocytes/100 WBC (Bld) 5.7 % Normal [facility] Comment on above: Performed By: #### Bro SANTANA, 4679-7, 4-4, CMP, FEPR, 2532-0, 2276-4, 2284-8, 2-9, LLPH #### [facility] ([id number]) [address], [address] [place] [address] #### 05621-6, 9622-2 #### [facility] ([id number]) [address] [place] [address] 68939 Neutrophils/100 WBC (Bld) 65.1 % Normal [facility] Comment on above: Performed By: #### C BCA, 4679-7, 2063-4, CMP, FEPR, 2532-0, 2276-4, 2284-8, 2131-9, LLPH #### [facility] ([id number]) [address], [address] [place] [address] #### 12018-9, 9622-2 #### [facility] ([id number]) [address] [place] [address] 40167 Platelet mean volume (Bld) [Entitic vol] 7.3 fL Normal 7-12 [facility] Comment on above: Performed By: #### C BCA, 4679-7, 2063-4, CMP, FEPR, 2532-0, 2276-4, 2284-8, 2131-9, LLPH #### [facility] ([id number]) [address], [address] [place] [address] #### 11499-1, 9622-2 #### [facility] ([id number]) [address] [place] [address] 89981 Platelets (Bld) [#/Vol] 480 10*3/uL High 150-450 [facility] Comment on above: Performed By: #### C BCA, 4679-7, 2063-4, CMP, FEPR, 2532-0, 2276-4, 2284-8, 2131-9, LLPH #### [facility] ([id number]) [address], [address] [place] [address] #### 73591-0, 9622-2 #### [facility] ([id number]) [address] [place] [address] RBC COUNT 4.24 X10E12/L Normal 3.80-5.20 [facility] Comment on above: Performed By: #### C BCA, 4679-7, 4-4, CMP, FEPR, 2532-0, 2276-4, 2284-8, 2131-9, LLPH #### [facility] ([id number]) [address], [address] [place] [address] #### 14104-0, 9622-2 #### [facility] ([id number]) [address] [place] [address] 04565 WBC (Bld) [#/Vol] 8.4 10*3/uL Normal 4.0-11.[address] [facility] Comment on above: Performed By: #### C BCA, 4679-7, 2063-4, CMP, FEPR, 2532-0, 2276-4, 2284-8, 2131-9, LLPH #### [facility] ([id number]) [address], [address] [place] [address] #### 24504-0, 9622-2 #### [facility] ([id number]) [address] [place] [address] 46576 COMPREHENSIVE METABOLIC PANE Cyrus 01-24-2024 Albumin [Mass/Vol] 4.2 g/dL Normal 3.2-5.[address] [facility] Comment on above: Performed By: #### C BCA, 4679-7, 4-4, CMP, FEPR, 2532-0, 2276-4, 2284-8, 2131-9, LLPH #### [facility] ([id number]) [address], [address] [place] [address] #### 41879-4, 9622-2 #### [facility] ([id number]) [address] [place] [address] 51679 ALP [Catalytic activity/Vol] 87 U/L Normal 39-130 [facility] Comment on above: Performed By: #### C BCA, 4679-7, 4-4, CMP, FEPR, 2532-0, 2276-4, 2284-8, 2131-9, LLPH #### [facility] ([id number]) [address], [address] [place] [address] #### 11477-2, 9622-2 #### [facility] ([id number]) [address] [place] [address] 72005 ALT [Catalytic activity/Vol] 17 U/L Normal 0-31 [facility] Comment on above: Performed By: #### C BCA, 4679-7, 2063-4, CMP, FEPR, 2532-0, 2276-4, 2284-8, 2131-9, LLPH #### [facility] ([id number]) [address], [address] [place] [address] #### 09103-8, 9622-2 #### [facility] ([id number]) [address] [place] [address] 90765 Anion gap [Moles/Vol] 10 mmol/L Normal 5-15 [facility] Comment on above: Performed By: #### C BCA, 4679-7, 4-4, CMP, FEPR, 2532-0, 2276-4, 2284-8, 2131-9, LLPH #### [facility] ([id number]) [address], [address] [place] [address] #### 40379-9, 9622-2 #### [facility] ([id number]) [address] [place] [address] 17818 AST [Catalytic activity/Vol] 22 U/L Normal 0-41 [facility] Comment on above: Performed By: #### C BCA, 4679-7, 2064-4, CMP, FEPR, 2532-0, 2276-4, 2284-8, 2132-9, LLPH #### [facility] ([id number]) [address], [address] [place] [address] #### 07426-9, 9622-2 #### [facility] ([id number]) [address] [place] [address] 93770 Bilirubin [Mass/Vol] 0.3 mg/dL Normal 0.3-1.2 [facility] Comment on above: Performed By: #### C BCA, 4679-7, 4-4, CMP, FEPR, 2532-0, 2276-4, 2284-8, 2132-9, LLPH #### [facility] ([id number]) [address] [facility] [place] [address] #### 36975-2, 9622-2 #### [facility] ([id number]) [address] [place] [address] 34675 Calcium [Mass/Vol] 9.1 mg/dL Normal 8.5-10.[address] [facility] Comment on above: Performed By: #### C BCA, 4679-7, 4-4, CMP, FEPR, 2532-0, 2276-4, 2284-8, 2132-9, LLPH #### [facility] ([id number]) [address], [address] [place] [address] #### 26503-0, 9622-2 #### [facility] ([id number]) [address] [place] [address] 75764 Chloride [Moles/Vol] 100 mmol/L Normal 98-109 [facility] Comment on above: Performed By: #### C BCA, 4679-7, 2063-4, CMP, FEPR, 2532-0, 2276-4, 2284-8, 2132-9, LLPH #### [facility] ([id number]) [address], [address] [place] [address] #### 05998-7, 9622-2 #### [facility] ([id number]) [address] [place] [address] 37375 CO2 [Moles/Vol] 29 mmol/L Normal 22-32 [facility] Comment on above: Performed By: #### C BCA, 4679-7, 2063-4, CMP, FEPR, 2532-0, 2276-4, 2284-8, 2132-9, LLPH #### [facility] ([id number]) [address], [address] [place] [address] #### 47428-7, 9622-2 #### [facility] ([id number]) [address] [place] [address] 37369 Creatinine [Mass/Vol] 0.94 mg/dL Normal 0.40-1.00 [facility] Comment on above: Result Comment: METH OD TRACEABLE TO IDMS STANDARD Performed By: #### C BCA, 4679-7, 2063-4, CMP, FEPR, 2532-0, 2276-4, 2284-8, 2132-9, LLPH #### [facility] ([id number]) [address], [address] [place] [address] #### 68495-6, 9622-2 #### [facility] ([id number]) [address] [place] [address] 91201 GFR/1.73 sq M.predicted among non-blacks MDRD (S/P/Bld) [Vol rate/Area] 80 mL/min/{1.73_m2} Normal >59 [facility] Comment on above: Result Comment: Reported eGFR is based on the CKD-EPI 2020 equation that does not use a race coefficient. Performed By: #### C BCA, 4679-7, 2063-4, CMP, FEPR, 2532-0, 2276-4, 2284-8, 2131-9, LLPH #### [facility] ([id number]) [address] [place] [address], [facility] [address] [place] [address] #### 42028-3, 9622-2 #### [facility] ([id number]) [address] [place] [address] 40903 Glucose [Mass/Vol] 97 mg/dL Normal 65-[address] [facility] Comment on above: Performed By: #### C BCA, 4679-7, 4, CMP, FEPR, 2532-0, 2276-4, 2284-8, 2131-9, LLPH #### [facility] ([id number]) [address] [place] [address], [address] [address] #### 98150-4, 9622-2 #### [facility] ([id number]) [address] [place] [address] 97464 Potassium [Moles/Vol] 3.1 mmol/L Low 3.5-5.0 [facility] Comment on above: Performed By: #### C BCA, 4679-7, 2063-4, CMP, FEPR, 2532-0, 2276-4, 2284-8, 213-9, LLPH #### [facility] ([id number]) [address] [place] [address], [address] [place] [address] #### 35376-0, 9622-2 #### [facility] ([id number]) [address] [place] [address] 16098 Protein [Mass/Vol] 7.4 g/dL Normal 6.0-8.[address] [facility] Comment on above: Performed By: #### C BCA, 4679-7, 4-4, CMP, FEPR, 2532-0, 2276-4, 2284-8, 2132-9, LLPH #### [facility] ([id number]) [address], [address] [place] [address] #### 21152-9, 9622-2 #### [facility] ([id number]) [address] [place] [address] 08342 Sodium [Moles/Vol] 139 mmol/L Normal 134-[address] [facility] Comment on above: Performed By: #### C BCA, 4679-7, 4-4, CMP, FEPR, 2532-0, 2276-4, 2284-8, 2-9, LLPH #### [facility] ([id number]) [address], [address] [place] [address] #### 42676-4, 9622-2 #### [facility] ([id number]) [address] [place] [address] 69130 Urea nitrogen [Mass/Vol] 13 mg/dL Normal 5-23 [facility] Comment on above: Performed By: #### C BCA, 4679-7, 4-4, CMP, FEPR, 2532-0, 2276-4, 2284-8, 2132-9, LLPH #### [facility] ([id number]) [address] [place] [address] #### 61279-3, 9622-2 #### [facility] ([id number]) [address] [place] [address] 32679 ESR Photometric method (Bld) [Velocity]on 01-24-2024 ESR, ERYTHROCYTE SEDIMENTATION RATE 7 mm/h Normal 0-20 [facility] Comment on above: Performed By: #### C BCA, 4679-7, 4, CMP, FEPR, 2532-0, 2276-4, 4-8, 2131-9, LLPH #### [facility] ([id number]) [address] [place] [address] #### 69339-7, 9622-2 #### [facility] ([id number]) [address] [place] [address] 95447 FREE LIGHT CHAINSon 01-23- 24 FREE KAYCEE/LAMBD RATIO 1.32 Normal 0.26-1.65 [facility] Comment on above: Performed By: #### C BCA, 4679-7, 2063-10, CMP, FEPR, 2532-0, 6-4, 4-8, 9, LLPH #### [facility] ([id number]) [address], [address] [place] [address] #### 48921-1, 9622-2 #### [facility] ([id number]) [address] [place] [address] 68525 FREE KAPPA LT CHAINS 2.17 mg/dL High 0.33-1.94 [facility] Comment on above: Performed By: #### C BCA, 4679-7, 2063-10, CMP, FEPR, 2532-0, 6-4, 2283-8, 9, LLPH #### [facility] ([id number]) [address] [place] [address] #### 38918-8, 9622-2 #### [facility] ([id number]) [address] [place] [address] 99822 FREE LAMBDA LT CHAINS 1.64 mg/dL Normal 0.57-2.63 [facility] Comment on above: Performed By: #### C BCA, 4679-7, 2064-4, CMP, FEPR, 2532-0, 2276-4, 2284-8, 2132-9, LLPH #### [facility] ([id number]) [address] [place] [address] #### 04966-3, 9622-2 #### [facility] ([id number]) [address] [place] [address] 24127 IMMUNOGLOBULINSon 01-24-2024 IgA [Mass/Vol] 183 mg/dL Normal 68-378 [facility] Comment on above: Performed By: #### C BCA, 4679-7, 2063-4, CMP, FEPR, 2532-0, 2276-4, 2284-8, 2132-9, LLPH #### [facility] ([id number]) [address], [address] [place] [address] #### 22289-2, 9622-2 #### [facility] ([id number]) [address] [place] [address] 01272 IgG [Mass/Vol] 1042 mg/dL Normal 635-1741 [facility] Comment on above: Performed By: #### C BCA, 4679-7, 2063-4, CMP, FEPR, 2532-0, 2276-4, 2284-8, 2132-9, LLPH #### [facility] ([id number]) [address], [address] [place] [address] #### 98248-0, 9622-2 #### [facility] ([id number]) [address] [place] [address] 74004 IgM [Mass/Vol] 67 mg/dL Normal 45-281 [facility] Comment on above: Performed By: #### C BCA, 4679-7, 4-4, CMP, FEPR, 2532-0, 2276-4, 2284-8, 2132-9, LLPH #### [facility] ([id number]) [address] [place] [address], [facility] [address] [place] [address] #### 54408-4, 9622-2 #### [facility] ([id number]) [address] [place] [address] 85421 LDH [Catalytic activity/Vol] on 01-24-2024 LDH 194 U/L Normal 100-235 [facility] Comment on above: Performed By: #### C BCA, 4679-7, 2063-4, CMP, FEPR, 2532-0, 2276-4, 2284-8, 213-9, LLPH #### [facility] ([id number]) [address] [place] [address], [address] [address] #### 08507-8, 9622-2 #### [facility] ([id number]) [address] [place] [address] 19541 SERUM PROTEIN ELECTROPHORESI Son 01-24-2024 Albumin [Mass/Vol] 4.0 g/dL Normal 3.4-5.[address] [facility] Comment on above: Performed By: #### C BCA, 4679-7, 4, CMP, FEPR, 2532-0, 2276-4, 2284-8, 2131-9, LLPH #### [facility] ([id number]) [address] [place] [address], [facility] [address] [place] [address] #### 01723-0, 9622-2 #### [facility] ([id number]) [address] [place] [address] 21158 ALPHA 1 GLOBULIN 0.4 g/dL Normal 0.1-0.4 [facility] Comment on above: Performed By: #### C BCA, 4679-7, 2063-4, CMP, FEPR, 2532-0, 2276-4, 2284-8, 2132-9, LLPH #### [facility] ([id number]) [address] [place] [address], [address] [place] [address] #### 66877-4, 9622-2 #### [facility] ([id number]) [address] [place] [address] 28919 ALPHA 2 GLOBULIN 0.8 g/dL Normal 0.4-1.1 [facility] Comment on above: Performed By: #### C BCA, 4679-7, 2063-4, CMP, FEPR, 2532-0, 2276-4, 2284-8, 2131-9, LLPH #### [facility] ([id number]) [address] [place] [address] #### 79013-9, 9622-2 #### [facility] ([id number]) [address] [place] [address] 52570 BETA GLOBULIN 0.9 g/dL Normal 0.5-1.2 [facility] Comment on above: Performed By: #### C BCA, 4679-7, 2063-4, CMP, FEPR, 2532-0, 2276-4, 2284-8, 2131-9, LLPH #### [facility] ([id number]) [address] [place] [address] #### 52408-0, 9622-2 #### [facility] ([id number]) [address] [place] [address] 06727 GAMMA GLOBULIN 1.0 g/dL Normal 0.5-1.6 [facility] Comment on above: Performed By: #### C BCA, 4679-7, 2063-4, CMP, FEPR, 2532-0, 2276-4, 2284-8, 2131-9, LLPH #### [facility] ([id number]) [address] [place] [address] #### 77097-5, 9622-2 #### [facility] ([id number]) [address] [place] [address] PROT. ELECTROPHORESIS INTERP Unremarkable protein distribution, no monoclonal bands. Normal [facility] Comment on above: Performed By: #### C BCA, 4679-7, 2063-4, CMP, FEPR, 2532-0, 2276-4, 2284-8, 2132-9, LLPH #### [facility] ([id number]) [address] [place] [address], [address] [place] [address] #### 19239-1, 9622-2 #### [facility] ([id number]) [address] [place] [id number] Protein [Mass/Vol] 7.1 g/dL Normal 6.0-8.[address] [facility] Comment on above: Performed By: #### C BCA, 4679-7, 2063-4, CMP, FEPR, 2532-0, 2276-4, 2284-8, 2132-9, LLPH #### [facility] ([id number]) [address] [place] [address], [address] [place] [address] #### 35077-7, 9622-2 #### [facility] ([id number]) [address] [place] [id number] Auth for Release of Medical Recordson 12-27-2023 Auth for Release of Medical Records [id number] Normal [facility] Thyrotropin [Units/volume] i n Serum or PlasmaOrdered By: Robbie Disla on 11-22-2023 TSH Qn 1.31 m[IU]/L Normal 0.45-5.33 [facility] Comment on above: Result Comment: PERF ORMED BY: [address] [place] [address] PATHOLOGIST LEI SELLER ADELINE CHANDRA M.D. Performed By: #### T SH3 #### [address] [place] [address] [facility] Mine 10-25-2023 CNPN Telephone ([facility]) KALEN PLAZA ([id number]) 1985 F Date Time Provider Department 10/25/23 ROSMERY MACK [facility] During your visit today, we recorded the following information about you: Carola Funez MA 10/25/2023 3:48 PM Signed Patient records received via electronic fax. Uploaded to eOriginal via [employer]. Please review in scanned documents tab of chart review. Please view--- Medical Records-[facility] IncVivek Funez MA Allergies As of Date: 10/25/2023 (No Known Allergies) Date Reviewed: 10/18/2023 Reviewed by: Magi Cristina MA - Fully Assessed Reason for Visit: Medical Records-[facility] [Other] Prescriptions as of 10/25/2023 - gabapentin (NEURONTIN) 800 mg tablet Take 800 mg by mouth three times a day. - buprenorphine-naloxone (SUBOXONE) 2-0.5 mg film dissolve 1/8 FILM under the tongue once daily if needed - midodrine (PROAMATINE) 10 mg tablet Take 10 mg by mouth three times a day. - cycloSPORINE (RESTASIS) 0.05 % ophthalmic emulsion Every 12 hours - Desogestrel-Ethinyl Estradiol (ENSKYCE) 0.15-0.03 mg per tablet Take 1 tablet by mouth every morning. - pantoprazole DR (PROTONIX) 40 mg tablet Take 1 tablet by mouth every afternoon. - bisoprolol (ZEBETA) 5 mg tablet Take 5 mg by mouth every morning. - varenicline (CHANTIX) 1 mg tablet Take 1 tablet by mouth every 12 hours. - magnesium oxide (MAG-OX) 400 mg (241.3 mg magnesium) tablet - potassium chloride 20 mEq TbER Take 1 tablet by mouth every 12 hours. - levalbuterol tartrate HFA 45 mcg/actuation inhaler As Directed - venlafaxine ER (EFFEXOR XR) 150 mg 24 hr capsule - folic acid 1 mg tablet Take 1 tablet by mouth every afternoon. - pyRIDostigmine bromide 30 mg tab take 1 tablet by mouth every morning 1 tablet every evening and 1 tablet at bedtime - cholecalciferol (VITAMIN D3) 50 mcg (2,000 unit) tablet Daily - atorvastatin (LIPITOR) 40 mg tablet Take 40 mg by mouth daily at bedtime. - predniSONE (DELTASONE) 5 mg tablet take 1 tablet by mouth every morning then take 1/2 tablet every evening - dextroamphetamine-amphetamine (ADDERALL) 20 mg tablet As Directed Problem List As Of Date: 10/25/2023 (None) Encounter Status:Closed by CAROLA FUNEZ on 10/25/23 [facility] Mine 10-19-2023 LUBNAN Telephone ([facility]) KALEN PLAZA ([id number]) 1985 F Date Time Provider Department 10/19/23 ROSMERY MACK During your visit today, we recorded the following information about you: Valerie Perez RN 10/19/2023 9:12 AM Signed Letter printed and mailed as requested by provider. Allergies As of Date: 10/19/2023 (No Known Allergies) Date Reviewed: 10/18/2023 Reviewed by: Magi Cristina MA - Fully Assessed Reason for Visit: Letter [Other] Prescriptions as of 10/19/2023 - gabapentin (NEURONTIN) 800 mg tablet Take 800 mg by mouth three times a day. - buprenorphine-naloxone (SUBOXONE) 2-0.5 mg film dissolve 1/8 FILM under the tongue once daily if needed - midodrine (PROAMATINE) 10 mg tablet Take 10 mg by mouth three times a day. - cycloSPORINE (RESTASIS) 0.05 % ophthalmic emulsion Every 12 hours - Desogestrel-Ethinyl Estradiol (ENSKYCE) 0.15-0.03 mg per tablet Take 1 tablet by mouth every morning. - pantoprazole DR (PROTONIX) 40 mg tablet Take 1 tablet by mouth every afternoon. - bisoprolol (ZEBETA) 5 mg tablet Take 5 mg by mouth every morning. - varenicline (CHANTIX) 1 mg tablet Take 1 tablet by mouth every 12 hours. - magnesium oxide (MAG-OX) 400 mg (241.3 mg magnesium) tablet - potassium chloride 20 mEq TbER Take 1 tablet by mouth every 12 hours. - levalbuterol tartrate HFA 45 mcg/actuation inhaler As Directed - venlafaxine ER (EFFEXOR XR) 150 mg 24 hr capsule - folic acid 1 mg tablet Take 1 tablet by mouth every afternoon. - pyRIDostigmine bromide 30 mg tab take 1 tablet by mouth every morning 1 tablet every evening and 1 tablet at bedtime - cholecalciferol (VITAMIN D3) 50 mcg (2,000 unit) tablet Daily - atorvastatin (LIPITOR) 40 mg tablet Take 40 mg by mouth daily at bedtime. - predniSONE (DELTASONE) 5 mg tablet take 1 tablet by mouth every morning then take 1/2 tablet every evening - dextroamphetamine-amphetamine (ADDERALL) 20 mg tablet As Directed Problem List As Of Date: 10/19/2023 (None) Encounter Status:Closed by VALERIE PEREZ on 10/19/23 [facility] Angeli 10-18-2023 LUCRETIA Office Visit (GEMMA ) KALEN PLAZA ([id number]) 1985 F Date Time Provider Department 10/18/23 1:00 PM ROSMERY MACK During your visit today, we recorded the following information about you: Temperature Pulse Blood pressure Weight 96.8 degrees 73/minute 113/69 50.6 kg Height Last Period 1.65 m 09/27/23 Rosmery Mack MD 10/18/2023 9:18 PM Signed [facility] New Patient Evaluation Consulting Provider: Keira Heller [address] [facility] [address] The patient presents with a chief complaint as listed below and is seen in consultation requested by HEALTH SERVICES MANAGER . Keira Heller for an opinion regarding these symptoms. My final recommendations will be communicated back to the requesting physician by way of shared medical record or letter via US mail. Dear Keira Heller, Thank you for the referral. Please let me know if you have any questions. Individuals who were included in, or assisted with the encounter were: Kalen Plaza Rosmery Mack MD Chief Complaint/Issues: Kalen Plaza is a 38 year old RH female with hx of ADHD, HLD, history of depression, fatigue and all these symptoms below, seen in the [facility] for: Paresthesia Fatigue Tremoring in the legs Fainting Eye and Ear pressure, was told that she may have intracranial HTN and want an LP HPI: 2 yrs ago had lightheadedness, Tremoring in legs, muscle pain and weakness in legs and feet, some vertigo and numbness in her hands. Now she has eye pressure and ear pressure bilateral and bad headaches. Fainting now, they initially thought it was POTS but now not thought to be POTS. She is not working because she faints. She has been going to multiple doctors and no one can figure out what is going on with her. She tried physical therapy for 11 weeks and it did not do anything except make her worse and she is still fatigued. She has sleep apnea apparently obstructive sleep apnea and she is supposed to get CPAP soon. While talking she often throws out possible or suspected diagnosis as she claims she may have narcolepsy and rem behavior disorder but no records and assessment that I can look at. [facility] and saw Keira Laguerre and also saw physician there - MRI of brain, Cspine, Tspine and Lumbar spine and emg/ncs was apparently abnormal. She was worried about a L/S spine and a mass there, it looks like a cyst and in 2014 Mri of Lumbar spine, she had the same thing. She denies eating disorder including bulimia, and she has lost weight so seeing gastro. She was also sent to a cancer center and has high kappa light chains and tested for myeloma and leukemia are negative and no kidney issues. She saw a vascular doctor also nothing was found. No family hx of neurological disorder or mental health disorders. She has been on Suboxone for opiate use in the past and is being weaned off with help of Gabapentin. 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 She denies physical abuse. 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 General Examination: BP 113/69 (BP Site: Right Arm, BP Position: Sitting, BP Cuff Size: Regular Adult) Pulse 73 Temp 36 ?C (96.8 ?F) Ht 165 cm (5' 4.96 ) Wt 50.6 kg (111 lb 8.8 oz) LMP 09/27/2023 BMI 18.59 kg/m? General: Awake, alert, interactive, no acute distress, good nutritional status, normal development, well-kept No tremoring of legs Neurological Exam Mental Status Alert, fully oriented, attentive, with normal cognition, memory, speech and affect. Cranial Nerves Visual pittman intact. Fundi with normal discs and vasculature. Pupils reactive. Extraocular movements conjugate and full. No ptosis. No nystagmus. Facial sensation intact. Face symmetric and strong. Palate and tongue normal. XI normal. Motor Examination and Coordination Motor examination with normal bulk, strength and tone. No drift. Normal rapid alternating movements and coordination. No adventitious movements or significant tremor. As I examine her legs she starts tremoring, and it comes and goes during exam, stops when I am not examining her. Reflexes Deep tendon reflexes graded by MRC Deep Tendon Reflexes Right Left Biceps 2 2 Triceps 2 2 Brachioradialis 2 2 Patellar 2 2 Achilles 2 2 Plantar Downgoing Downgoing Sensation Sensation intact to light touch, pinprick, proprioception and vibration. Gait Arises easily. Casual gait, tandem, and Romberg are normal. Can rise on heels and toes. CV: RRR without any murmurs and clicks and no carotid bruit. Assessment AND Plan 10/18/2023 - General Neurology, Rosmery Mack MD ASSESSMENT Leg tremor Generalized weakness and fatigue Paresthesias PLAN (more content not included)... Normal [facility] Mine 10-18-2023 VISHAL Telephone (GEMMA) KALEN PLAZA ([id number]) 1985 F Date Time Provider Department 10/18/23 ROSMERY MACK During your visit today, we recorded the following information about you: Pedro Calle OCCA 10/18/2023 2:28 PM Signed Faxed a request for medical records (authorization to disclose) because they couldn't be reached on the phone including: MRI of spine and brain, sleep study and cardiology testing... transmission OK Allergies As of Date: 10/18/2023 (No Known Allergies) Date Reviewed: 10/18/2023 Reviewed by: Magi Cristina MA - Fully Assessed Prescriptions as of 10/19/2023 - gabapentin (NEURONTIN) 800 mg tablet Take 800 mg by mouth three times a day. - buprenorphine-naloxone (SUBOXONE) 2-0.5 mg film dissolve 1/8 FILM under the tongue once daily if needed - midodrine (PROAMATINE) 10 mg tablet Take 10 mg by mouth three times a day. - cycloSPORINE (RESTASIS) 0.05 % ophthalmic emulsion Every 12 hours - Desogestrel-Ethinyl Estradiol (ENSKYCE) 0.15-0.03 mg per tablet Take 1 tablet by mouth every morning. - pantoprazole DR (PROTONIX) 40 mg tablet Take 1 tablet by mouth every afternoon. - bisoprolol (ZEBETA) 5 mg tablet Take 5 mg by mouth every morning. - varenicline (CHANTIX) 1 mg tablet Take 1 tablet by mouth every 12 hours. - magnesium oxide (MAG-OX) 400 mg (241.3 mg magnesium) tablet - potassium chloride 20 mEq TbER Take 1 tablet by mouth every 12 hours. - levalbuterol tartrate HFA 45 mcg/actuation inhaler As Directed - venlafaxine ER (EFFEXOR XR) 150 mg 24 hr capsule - folic acid 1 mg tablet Take 1 tablet by mouth every afternoon. - pyRIDostigmine bromide 30 mg tab take 1 tablet by mouth every morning 1 tablet every evening and 1 tablet at bedtime - cholecalciferol (VITAMIN D3) 50 mcg (2,000 unit) tablet Daily - atorvastatin (LIPITOR) 40 mg tablet Take 40 mg by mouth daily at bedtime. - predniSONE (DELTASONE) 5 mg tablet take 1 tablet by mouth every morning then take 1/2 tablet every evening - dextroamphetamine-amphetamine (ADDERALL) 20 mg tablet As Directed Problem List As Of Date: 10/18/2023 (None) Encounter Status:Closed by PEDRO CALLE on 10/18/23 Normal [facility] Amphetamine Screen Ql (U)Ord ered By: Robbie Disla on 09-28-2023 Amphetamines Ql (U) Positive Negative [facility] Barbiturates [Presence] in U rine by Screen methodOrdered By: Robbie Disla on 09-28-2023 Barbiturates Screen Ql (U) Negative Negative [facility] Benzodiazepines Screen Ql (U )Ordered By: Robbie Disla on 09-28-2023 Benzodiazepines Ql (U) Negative Negative [facility] Benzoylecgonine [Presence] i n Urine by Screen methodOrdered By: ron Disla on 09-28-2023 Benzoylecgonine Screen Ql (U) Negative Negative [facility] Cannabinoids [Presence] in U rine by Screen methodOrdered By: Robbie Disla on 09-28-2023 Cannabinoids Screen Ql (U) Negative Negative [facility] Comment on above: These are unconfirme d results and should not be used for legal purposes. Drug Cut-Off Concentration: AMPH 1000 ng/mL PAULA 200 ng/mL ISAAC 200 ng/mL COCM 300 ng/mL OP 300 ng/mL PCP 25 ng/mL THC 20 ng/mL Drug Screen,Urineon 09-28-19 Amphetamine Screen,Urine Positive High Negative [facility] Comment on above: Performed By: #### U RDS #### [facility] [address] Barbiturate Screen,Urine Negative Normal Negative [facility] Comment on above: Performed By: #### U RDS #### [place] [address] [place] Benzodiazepines Screen,Urine Negative Normal Negative [facility] Comment on above: Performed By: #### U RDS #### [address] Cannabinoid Screen,Urine Negative Normal Negative [facility] Comment on above: Result Comment: Thes e are unconfirmed results and should not be used for legal purposes. Drug Cut-Off Concentration: AMPH 1000 ng/mL PAULA 200 ng/mL ISAAC 200 ng/mL COCM 300 ng/mL OP 300 ng/mL PCP 25 ng/mL THC 20 ng/mL PERFORMED BY: [place] [address] PATHOLOGIST LEI SELLER ADELINE CHANDRA M.D. Performed By: #### U RDS #### [place] [address] [place] Cocaine Screen,Urine Negative Normal Negative [facility] Comment on above: Performed By: #### U RDS #### [place] [address] [place] Opiate Screen,Urine Negative Normal Negative [facility] Comment on above: Performed By: #### U RDS #### [address] Phencyclidine Screen,Urine Negative Normal Negative [facility] Comment on above: Performed By: #### U RDS #### [place] [address] [place] HCG ( test) IA.rapi d Ql (U)Ordered By: Robbie Asaad on 09-28-2023 HCG ( test) Ql (U) Negative [facility] HCG,Urineon 09-28-2023 Beta HCG ( test) Ql (U) Negative Normal [facility] Comment on above: Result Comment: PERF ORMED BY: [place] [address] PATHOLOGIST LEI SELLER ADELINE CHANDRA M.D. Performed By: #### U HCG #### [address] [place] [address] [place] Opiates [Presence] in Urine by Screen methodOrdered By: Imad Asaad on 09-28-2023 Opiates Screen Ql (U) Negative Negative [facility] Phencyclidine Screen Ql (U)O rdered By: Imad Asaad on 09-28-2023 Phencyclidine Ql (U) Negative Negative [facility] Amphetamine Screen Ql (U)Ord ered By: Imad Asaad on 08-23-2023 Amphetamines Ql (U) Positive Negative [facility] Barbiturates [Presence] in U rine by Screen methodOrdered By: Imad Asaad on 08-23-2023 Barbiturates Screen Ql (U) Negative Negative [facility] Benzodiazepines Screen Ql (U )Ordered By: Imad Asaad on 08-23-2023 Benzodiazepines Ql (U) Negative Negative [facility] Benzoylecgonine [Presence] i n Urine by Screen methodOrdered By: Imad Asaad on 08-23-2023 Benzoylecgonine Screen Ql (U) Negative Negative [facility] Cannabinoids [Presence] in U rine by Screen methodOrdered By: Imad Asaad on 08-23-2023 Cannabinoids Screen Ql (U) Negative Negative [facility] Comment on above: These are unconfirme d results and should not be used for legal purposes. Drug Cut-Off Concentration: AMPH 1000 ng/mL PAULA 200 ng/mL ISAAC 200 ng/mL COCM 300 ng/mL OP 300 ng/mL PCP 25 ng/mL THC 20 ng/mL Drug Screen,Urineon 08-23-19 24 Amphetamine Screen,Urine Positive High Negative [facility] Comment on above: Performed By: #### U RDS #### [facility] [address] Barbiturate Screen,Urine Negative Normal Negative [facility] Comment on above: Performed By: #### U RDS #### [facility] [address] Benzodiazepines Screen,Urine Negative Normal Negative [facility] Comment on above: Performed By: #### U RDS #### [facility] [address] [place] [address] Cannabinoid Screen,Urine Negative Normal Negative [facility] Comment on above: Result Comment: Thes e are unconfirmed results and should not be used for legal purposes. Drug Cut-Off Concentration: AMPH 1000 ng/mL PAULA 200 ng/mL ISAAC 200 ng/mL COCM 300 ng/mL OP 300 ng/mL PCP 25 ng/mL THC 20 ng/mL PERFORMED BY: [place] [address] PATHOLOGIST LEI SELLER ADELINE CHANDRA M.D. Performed By: #### U RDS #### [address] Cocaine Screen,Urine Negative Normal Negative [facility] Comment on above: Performed By: #### U RDS #### [address] Opiate Screen,Urine Negative Normal Negative [facility] Comment on above: Performed By: #### U RDS #### [address] Phencyclidine Screen,Urine Negative Normal Negative [facility] Comment on above: Performed By: #### U RDS #### [address] HCG ( test) IA.rapi d Ql (U)Ordered By: Robbie Disla on 08-23-2023 HCG ( test) Ql (U) Negative [facility] HCG,Urineon 08-23-2023 Beta HCG ( test) Ql (U) Negative Normal [facility] Comment on above: Result Comment: PERF ORMED BY: [place] [address] PATHOLOGIST LEI SELLER ADELINE CHANDRA M.D. Performed By: #### U HCG #### [place] [address] [place] Cyrus 08-23-2023 L Specimen: [id number] R eceived: 08/23/23-1026 Status: SOUT Req Num: [id number] Spec Type: Surgical Subm Dr: Robbie Disla MD Tissues: A Colon Biopsy (DUODENAL BX R/O CELIAC) B GASTRIC FOR HP (GASTIRC BX R/O H.PYLORI) C Esophagus Biopsy (ESOPHAGUS BX R/O EOE) D Colon Biopsy (RANDOM COLON R/O MICROSCOPIC) Procedures: HE/8, Gross/Micro L4/4, H PYLORI Age/ Patient Sex Location Account Attending Physician Kalen Plaza 37/F [id number] Robbie Disla MD SPEC NUM: [id number] RECD: 08/23/23 STATUS: JOANNE MORRIS NUM: [id number] MONTY: 08/23/[address] [facility] [address]: Robbie Disla MD ENTERED: 08/23/[address] [facility] [address]: SPEC TYPE: Surgical DEPT: S ORDERED: HE/8, Gross/Micro L4/4, H PYLORI ORDERED: HE/8, Gross/Micro L4/4, H PYLORI Pathological Diagnosis A, duodenal biopsy: -Duodenal mucosa with minor degree of chronic duodenitis, but still with some preserved villous structures in at least 1 fragment, otherwise without active erosion, or any obvious lymphocytic exocytosis noted, therefore also no features or evidence of celiac sprue identified B, gastric biopsy: -Antral and oxyntic mucosa with mild chronic reactive gastropathy, including minor congestion of the lamina propria, otherwise without erosion, intestinal metaplasia, or any significant stromal chronic inflammation observed -H. pylori immunostain with appropriate control is also negative for identified Helicobacter organisms C, esophagus biopsy: -Esophageal squamous mucosa with mild squamous acanthosis and the occasionally associated lymphocytic exocytosis, otherwise without eosinophilic exocytosis or any other specific histopathological changes observed D, random colon biopsy: -Colonic mucosa with adequate mucosal glandular architecture including occasional small lymphoid aggregates, otherwise without any abnormal stromal chronic inflammation, or any other specific features of microscopic colitis identified ----- Specimen: [id number] Received: 08/23/23 Status: JOANNE Morris Num: [id number] Spec Type: Surgical Subm Dr: Robbie Disla MD Tissues: A Colon Biopsy (DUODENAL BX R/O CELIAC) B GASTRIC FOR HP (GASTIRC BX R/O H.PYLORI) C Esophagus Biopsy (ESOPHAGUS BX R/O EOE) D Colon Biopsy (RANDOM COLON R/O MICROSCOPIC) Procedures: HE/8, Gross/Micro L4/4, H PYLORI ----- Patient: Kalen Plaza [id number] (Continued) ----- Specimen: [id number] Received: 08/23/23 (Continued) Signed (signature on file) Pineda Bright MD 08/24/23 1424 ----- Specimen: [id number] Received: 08/23/23 Status: JOANNE Morris Num: [id number] Spec Type: Surgical Subm Dr: Robbie Disla MD Tissues: A Colon Biopsy (DUODENAL BX R/O CELIAC) B GASTRIC FOR HP (GASTIRC BX R/O H.PYLORI) C Esophagus Biopsy (ESOPHAGUS BX R/O EOE) D Colon Biopsy (RANDOM COLON R/O MICROSCOPIC) Procedures: HE/8, Gross/Micro L4/4, H PYLORI ----- Patient: Kalen Plaza [id number] (Continued) ----- Specimen: [id number] Received: 08/23/23-102 (Continued) Clinical Information Nausea, weight loss, change in bowel habits, abdominal pain; rule out celiac (A); rule out H. pylori (B); rule out EOE (C); rule out microscopic colitis (D) Gross Description A. Received in formalin labeled with the patient's name, date of and duodenal biopsy are 3 monet soft tissue fragments, 0.2-0.4 cm in greatest dimensions. Entirely submitted in one cassette labeled A1. B. Received in formalin labeled with the patient's name, date of and gastric biopsy are 2 monet soft tissue fragments, 0.4 and 0.5 cm in greatest dimensions. Entirely submitted in one cassette labeled B1. C. Received in formalin labeled with the patient's name, date of and esophagus biopsy are 4 white translucent soft tissue fragments, 0.2-0.5 cm in greatest dimensions. Entirely submitted in one cassette labeled C1. D. Received in formalin labeled with the patient's name, date of and random colon biopsy are 2 monet soft tissue fragments, each 0.4 cm in greatest dimensions. Entirely submitted in one cassette labeled D1. CPT Codes 52719a9 40881 ----- ----- Specimen: [id number] Received: (more content not included)... Normal [facility] Opiates [Presence] in Urine by Screen methodOrdered By: Robbie Disla on 08-23-2023 Opiates Screen Ql (U) Negative Negative [facility] Phencyclidine Screen Ql (U)O rdered By: Robbie Disla on 08-23-2023 Phencyclidine Ql (U) Negative Negative [facility] CT BRAIN WO CONTon CT BRAIN WO CONT CT BRAIN WO CONT Noncontrast head CT, 08/05/2023 History: Chronic headache with new features, ocular pressure Comparison: CT brain 06/05/2022 Technique: Multi-detector CT performed through the brain without IV contrast. Automated exposure control was utilized. Findings: There is no intracranial hemorrhage, extra-axial fluid collection, mass effect, or hydrocephalus. There is no midline shift. Basilar cisterns are patent. Ellis-white matter differentiation is appropriate. No definite acute infarct identified. The visualized orbits, paranasal sinuses and mastoid air cells are unremarkable. Osseous structures are intact. IMPRESSION: 1. No acute intracranial process. All CT scans at this facility use dose modulation, iterative reconstruction, and/or weight based dosing when appropriate to reduce radiation dose to as low as reasonably achievable. Finalized by Giovanni Phelan MD on 08/05/2023 8:50 PM Normal [facility] CBC AND AUTO DIFFon 08-02-19 ABSOLUTE BASOPHIL 0.1 X10E9/L Normal 0.0-0.[address] [facility] Comment on above: Performed By: #### C BCA, 4679-7, 2063-4, CMP, FEPR, 2532-0, 2276-4, 2284-8, 2132-9, LLPH #### [facility] ([id number]) [address] [place] [address], [place] [address] #### 10226-6, 9622-2 #### [facility] ([id number]) [address] [place] [address] ABSOLUTE NEUTROPHIL 5.1 X10E9/L Normal 1.5-6.6 [facility] Comment on above: Performed By: #### C BCA, 4679-7, 2063-10, CMP, FEPR, 2532-0, 2276-4, 2284-8, 2132-9, LLPH #### [facility] ([id number]) [address] [place] [address] #### 85943-7, 9622-2 #### [facility] ([id number]) [address] [place] [address] Basophils/100 WBC (Bld) 1.0 % Normal [facility] Comment on above: Performed By: #### C BCA, 4679-7, 2063-4, CMP, FEPR, 2532-0, 2276-4, 2284-8, 2132-9, LLPH #### [facility] ([id number]) [address] [place] [address], [facility] [address] [place] [address] #### 99352-7, 9622-2 #### [facility] ([id number]) [address] [place] [address] Eosinophils (Bld) [#/Vol] 0.1 10*3/uL Normal 0.0-0.4 [facility] Comment on above: Performed By: #### C BCA, 4679-7, 2063-4, CMP, FEPR, 2532-0, 2276-4, 2284-8, 2131-9, LLPH #### [facility] ([id number]) [address], [address] [place] [address] #### 22475-0, 9622-2 #### [facility] ([id number]) [address] [place] [address] 14945 Eosinophils/100 WBC (Bld) 1.4 % Normal [facility] Comment on above: Performed By: #### C ESTHER, 4679-, 2063-10, CMP, FEPR, 2532-0, 2276-4, 4-8, 2131-9, LLPH #### [facility] ([id number]) [address], [address] [place] [address] #### 03593-3, 9622-2 #### [facility] ([id number]) [address] [place] [address] Erythrocyte distribution width (RBC) [Ratio] 12.5 % Normal 11.5-15.0 [facility] Comment on above: Performed By: #### C ESTHER, 4679-7, 2063-10, CMP, FEPR, 2532-0, 2276-4, 4-8, 2131-9, LLPH #### [facility] ([id number]) [address], [address] [place] [address] #### 55211-4, 9622-2 #### [facility] ([id number]) [address] [place] [address] 10436 Hematocrit (Bld) [Volume fraction] 39.5 % Normal 35-47 [facility] Comment on above: Performed By: #### C ESTHER, 4679-7, 2063-4, CMP, FEPR, 2532-0, 2276-4, 2284-8, 2131-9, LLPH #### [facility] ([id number]) [address] [place] [address], [address] [place] [address] #### 65739-7, 9622-2 #### [facility] ([id number]) [address] [place] [address] Hemoglobin (Bld) [Mass/Vol] 13.5 g/dL Normal 11.7-15.5 [facility] Comment on above: Performed By: #### C BCA, 4679-7, 2063-4, CMP, FEPR, 2532-0, 2276-4, 4-8, 2131-9, LLPH #### [facility] ([id number]) [address] [place] [address], [address] [place] [address] #### 49490-6, 9622-2 #### [facility] ([id number]) [address] [place] [address] Lymphocytes (Bld) [#/Vol] 2.2 10*3/uL Normal 1.0-3.5 [facility] Comment on above: Performed By: #### C BCA, 4679-7, 4, CMP, FEPR, 2532-0, 2276-4, 4-8, 2131-9, LLPH #### [facility] ([id number]) [address] [place] [address], [address] [place] [address] #### 56390-6, 9622-2 #### [facility] ([id number]) [address] [place] [address] 38460 Lymphocytes/100 WBC (Bld) 27.4 % Normal [facility] Comment on above: Performed By: #### C BCA, 4679-7, 2063-4, CMP, FEPR, 2532-0, 2276-4, 2284-8, 2131-9, LLPH #### [facility] ([id number]) [address], [address] [place] [address] #### 20502-5, 9622-2 #### [facility] ([id number]) [address] [place] [address] 15920 MCH (RBC) [Entitic mass] 31.2 pg Normal 27-34 [facility] Comment on above: Performed By: #### C BCA, 4679-7, 2063-4, CMP, FEPR, 2532-0, 2276-4, 4-8, 2131-9, LLPH #### [facility] ([id number]) [address], [place] [address] #### 38997-6, 9622-2 #### [facility] ([id number]) [address] [place] [address] 68640 MCHC (RBC) [Mass/Vol] 34.0 g/dL Normal 32-36 [facility] Comment on above: Performed By: #### C BCA, 4679-7, 2063-4, CMP, FEPR, 2532-0, 2276-4, 4-8, 2131-9, LLPH #### [facility] ([id number]) [address] [place] [address] #### 44915-9, 9622-2 #### [facility] ([id number]) [address] [place] [address] 42582 MCV (RBC) [Entitic vol] 92 fL Normal 80-100 [facility] Comment on above: Performed By: #### C BCA, 4679-7, 2063-4, CMP, FEPR, 2532-0, 2276-4, 2284-8, 2132-9, LLPH #### [facility] ([id number]) [address] [place] [address] #### 51207-4, 9622-2 #### [facility] ([id number]) [address] [place] [address] 75743 Monocytes (Bld) [#/Vol] 0.6 10*3/uL Normal 0-0.9 [facility] Comment on above: Performed By: #### C BCA, 4679-7, 4-4, CMP, FEPR, 2532-0, 2276-4, 2284-8, 2132-9, LLPH #### [facility] ([id number]) [address] [place] [address] #### 64858-0, 9622-2 #### [facility] ([id number]) [address] [place] [address] 53852 Monocytes/100 WBC (Bld) 7.3 % Normal [facility] Comment on above: Performed By: #### C BCA, 4679-7, 4-4, CMP, FEPR, 2532-0, 2276-4, 2284-8, 2131-9, LLPH #### [facility] ([id number]) [address], [address] [place] [address] #### 39779-7, 9622-2 #### [facility] ([id number]) [address] [place] [address] 22253 Neutrophils/100 WBC (Bld) 62.9 % Normal [facility] Comment on above: Performed By: #### C BCA, 4679-7, 4-4, CMP, FEPR, 2532-0, 2276-4, 2284-8, 2-9, LLPH #### [facility] ([id number]) [address], [address] [place] [address] #### 30978-2, 9622-2 #### [facility] ([id number]) [address] [place] [address] 09121 Platelet mean volume (Bld) [Entitic vol] 8.2 fL Normal 7-12 [facility] Comment on above: Performed By: #### C BCA, 4679-7, 4-4, CMP, FEPR, 2532-0, 2276-4, 2284-8, 2132-9, LLPH #### [facility] ([id number]) [address] [place] [address], [address] [place] [address] #### 31363-5, 9622-2 #### [facility] ([id number]) [address] [place] [address] 46157 Platelets (Bld) [#/Vol] 424 10*3/uL Normal 150-450 [facility] Comment on above: Performed By: #### C BCA, 4679-7, 2063-4, CMP, FEPR, 2532-0, 2276-4, 2284-8, 2132-9, LLPH #### [facility] ([id number]) [address] [place] [address], [address] [place] [address] #### 24643-0, 9622-2 #### [facility] ([id number]) [address] [place] [address] 67861 RBC COUNT 4.31 X10E12/L Normal 3.80-5.20 [facility] Comment on above: Performed By: #### C BCA, 4679-7, 4-4, CMP, FEPR, 2532-0, 2276-4, 2284-8, 2132-9, LLPH #### [facility] ([id number]) [address] [place] [address], [address] [place] [address] #### 26149-4, 9622-2 #### [facility] ([id number]) [address] [place] [address] 01858 WBC (Bld) [#/Vol] 8.1 10*3/uL Normal 4.0-11.[address] [facility] Comment on above: Performed By: #### C BCA, 4679-7, 4-4, CMP, FEPR, 2532-0, 2276-4, 2284-8, 2132-9, LLPH #### [facility] ([id number]) [address], [address] [place] [address] #### 43767-6, 9622-2 #### [facility] ([id number]) [address] [place] [address] 14909 COMPREHENSIVE METABOLIC PANE Cyrus 08-02-2023 Albumin [Mass/Vol] 4.4 g/dL Normal 3.2-5.[address] [facility] Comment on above: Performed By: #### C BCA, 4679-7, 2063-4, CMP, FEPR, 2532-0, 2276-4, 2284-8, 2132-9, LLPH #### [facility] ([id number]) [address], [address] [place] [address] #### 56699-3, 9622-2 #### [facility] ([id number]) [address] [place] [address] 39459 ALP [Catalytic activity/Vol] 58 U/L Normal 39-130 [facility] Comment on above: Performed By: #### C BCA, 4679-7, 2063-4, CMP, FEPR, 2532-0, 2276-4, 2284-8, 2132-9, LLPH #### [facility] ([id number]) [address], [address] [place] [address] #### 24233-6, 9622-2 #### [facility] ([id number]) [address] [place] [address] 72406 ALT [Catalytic activity/Vol] 21 U/L Normal 0-31 [facility] Comment on above: Performed By: #### C BCA, 4679-7, 2063-4, CMP, FEPR, 2532-0, 2276-4, 2284-8, 2-9, LLPH #### [facility] ([id number]) [address], [address] [place] [address] #### 21640-5, 9622-2 #### [facility] ([id number]) [address] [place] [address] 63564 Anion gap [Moles/Vol] 10 mmol/L Normal 5-15 [facility] Comment on above: Performed By: #### C BCA, 4679-7, 2063-4, CMP, FEPR, 2532-0, 2276-4, 4-8, 2131-9, LLPH #### [facility] ([id number]) [address], [address] [place] [address] #### 36442-3, 9622-2 #### [facility] ([id number]) [address] [place] [address] 43665 AST [Catalytic activity/Vol] 23 U/L Normal 0-41 [facility] Comment on above: Performed By: #### C BCA, 4679-7, 2063-4, CMP, FEPR, 2532-0, 2276-4, 2284-8, 2131-9, LLPH #### [facility] ([id number]) [address], [address] [place] [address] #### 74899-0, 9622-2 #### [facility] ([id number]) [address] [place] [address] 32981 Bilirubin [Mass/Vol] 0.4 mg/dL Normal 0.3-1.2 [facility] Comment on above: Performed By: #### C BCA, 4679-7, 2063-4, CMP, FEPR, 2532-0, 2276-4, 2284-8, 2132-9, LLPH #### [facility] ([id number]) [address], [address] [place] [address] #### 18612-6, 9622-2 #### [facility] ([id number]) [address] [place] [address] 28717 Calcium [Mass/Vol] 9.3 mg/dL Normal 8.5-10.[address] [facility] Comment on above: Performed By: #### C BCA, 4679-7, 2063-4, CMP, FEPR, 2532-0, 2276-4, 2284-8, 2131-9, LLPH #### [facility] ([id number]) [address], [address] [place] [address] #### 00473-3, 9622-2 #### [facility] ([id number]) [address] [place] [address] 97112 Chloride [Moles/Vol] 104 mmol/L Normal 98-109 [facility] Comment on above: Performed By: #### C BCA, 4679-7, 2063-4, CMP, FEPR, 2532-0, 2276-4, 2284-8, 2-9, LLPH #### [facility] ([id number]) [address], [address] [place] [address] #### 71093-8, 9622-2 #### [facility] ([id number]) [address] [place] [address] 35313 CO2 [Moles/Vol] 26 mmol/L Normal 22-32 [facility] Comment on above: Performed By: #### C BCA, 4679-7, 2063-4, CMP, FEPR, 2532-0, 2276-4, 2284-8, 2132-9, LLPH #### [facility] ([id number]) [address] [place] [address], [address] [place] [address] #### 81623-6, 9622-2 #### [facility] ([id number]) [address] [place] [address] 65827 Creatinine [Mass/Vol] 0.93 mg/dL Normal 0.40-1.00 [facility] Comment on above: Result Comment: METH OD TRACEABLE TO IDMS STANDARD Performed By: #### C BCA, 4679-7, 2063-4, CMP, FEPR, 2532-0, 2276-4, 2284-8, 9, LLPH #### [facility] ([id number]) [address] [place] [address], [address] [place] [address] #### 63524-7, 9622-2 #### [facility] ([id number]) [address] [place] [address] 81515 GFR/1.73 sq M.predicted among non-blacks MDRD (S/P/Bld) [Vol rate/Area] 81 mL/min/{1.73_m2} Normal >59 [facility] Comment on above: Result Comment: Reported eGFR is based on the CKD-EPI 2020 equation that does not use a race coefficient. Performed By: #### C BCA, 4679-7, 2063-4, CMP, FEPR, 2532-0, 2276-4, 2283-8, 2132-03, LLPH #### [facility] ([id number]) [address] [place] [address], [address] [place] [address] #### 31619-7, 9622-2 #### [facility] ([id number]) [address] [place] [address] 43336 Glucose [Mass/Vol] 87 mg/dL Normal 65-[address] [facility] Comment on above: Performed By: #### C BCA, 4679-7, 2063-4, CMP, FEPR, 2532-0, 2276-4, 2284-8, 2131-9, LLPH #### [facility] ([id number]) [address], [address] [place] [address] #### 18803-6, 9622-2 #### [facility] ([id number]) [address] [place] [address] 34673 Potassium [Moles/Vol] 3.7 mmol/L Normal 3.5-5.0 [facility] Comment on above: Performed By: #### C BCA, 4679-7, 4-4, CMP, FEPR, 2532-0, 2276-4, 4-8, 2131-9, LLPH #### [facility] ([id number]) [address], [address] [place] [address] #### 19782-3, 9622-2 #### [facility] ([id number]) [address] [place] [address] 06907 Protein [Mass/Vol] 7.7 g/dL Normal 6.0-8.[address] [facility] Comment on above: Performed By: #### C BCA, 4679-7, 4-4, CMP, FEPR, 2532-0, 2276-4, 4-8, 2131-9, LLPH #### [facility] ([id number]) [address], [address] [place] [address] #### 92123-5, 9622-2 #### [facility] ([id number]) [address] [place] [address] 42773 Sodium [Moles/Vol] 140 mmol/L Normal 134-[address] [facility] Comment on above: Performed By: #### C BCA, 4679-7, 4-4, CMP, FEPR, 2532-0, 2276-4, 2284-8, 2131-9, LLPH #### [facility] ([id number]) [address], [address] [address] #### 01732-0, 9622-2 #### [facility] ([id number]) [address] [place] [address] 15953 Urea nitrogen [Mass/Vol] 11 mg/dL Normal 5-23 [facility] Comment on above: Performed By: #### C BCA, 4679-7, 2063-4, CMP, FEPR, 2532-0, 2276-4, 2284-8, 2131-9, LLPH #### [facility] ([id number]) [address], [address] [address] #### 99893-2, 9622-2 #### [facility] ([id number]) [address] [place] [address] 71200 ESR Photometric method (Bld) [Velocity]on 08-02-2023 ESR, ERYTHROCYTE SEDIMENTATION RATE 8 mm/h Normal 0-20 [facility] Comment on above: Performed By: #### C BCA, 4679-7, 2063-4, CMP, FEPR, 2532-0, 2276-4, 2284-8, 2131-9, LLPH #### [facility] ([id number]) [address] [address] #### 27952-6, 9622-2 #### [facility] ([id number]) [address] [place] [address] 67534 FREE LIGHT CHAINSon 08-02-19 24 FREE KAYCEE/LAMBD RATIO 1.61 Normal 0.26-1.65 [facility] Comment on above: Performed By: #### C BCA, 4679-7, 2063-4, CMP, FEPR, 2532-0, 2276-4, 2284-8, 2132-9, LLPH #### [facility] ([id number]) [address], [address] [place] [address] #### 04218-8, 9622-2 #### [facility] ([id number]) [address] [place] [address] FREE KAPPA LT CHAINS 2.81 mg/dL High 0.33-1.94 [facility] Comment on above: Performed By: #### C BCA, 4679-7, 2063-4, CMP, FEPR, 2532-0, 2276-4, 2284-8, 2132-9, LLPH #### [facility] ([id number]) [address] [facility], [address] [place] [address] #### 84541-8, 9622-2 #### [facility] ([id number]) [address] [place] [address] 65930 FREE LAMBDA LT CHAINS 1.74 mg/dL Normal 0.57-2.63 [facility] Comment on above: Performed By: #### C BCA, 4679-7, 2063-4, CMP, FEPR, 2532-0, 2276-4, 2284-8, 2132-9, LLPH #### [facility] ([id number]) [address], [address] [place] [address] #### 57497-5, 9622-2 #### [facility] ([id number]) [address] [place] [address] 67875 Insulin-like growth factor-I [Mass/Vol]on 08-02-2023 IGF 1 See Below Normal [facility] Comment on above: Result Comment: NOTE TEST RESULT FLAG UNIT REF.RANGE ---- Insulin Lik Gr Fac 1 175 ng/mL 80-277 Test Performed By: [place] [address] Hot [employer] Press Operator: Americo Flanagan III, M.D. CLIA #[id number] Performed By: #### C BCA, 4679-7, 2063-4, CMP, FEPR, 2532-0, 2276-4, 2284-8, 2131-9, LLPH #### [facility] ([id number]) [address] [place] [address], [facility] [address] [place] [address] #### 59173-4, 9622-2 #### [facility] ([id number]) [address] [place] [address] 67099 LDH [Catalytic activity/Vol] on 08-02-2023 LDH 139 U/L Normal 100-235 [facility] Comment on above: Performed By: #### C ESTHER, 4679-7, 2063-10, CMP, FEPR, 2532-0, 2276-4, 2283-8, 2132-03, LLPH #### [facility] ([id number]) [address] [place] [address], [address] [address] #### 77016-7, 9622-2 #### [facility] ([id number]) [address] [place] [address] 04111 PROTIME AND INRon 08-02-2023 INR Coag (PPP) [Relative time] 0.9 {INR} Normal 0.8-1.1 [facility] Comment on above: Performed By: #### C BCA, 4679-7, 4, CMP, FEPR, 2532-0, 2276-4, 2284-8, 2131-9, LLPH #### [facility] ([id number]) [address] [place] [address], [address] [place] [address] #### 00906-5, 9622-2 #### [facility] ([id number]) [address] [place] [address] 10769 PT Coag (PPP) [Time] 10.6 s Normal 9.8-13.2 [facility] Comment on above: Result Comment: NEW REFERENCE RANGE Performed By: #### C BCA, 4679-7, 4-4, CMP, FEPR, 2532-0, 2276-4, 2284-8, 2132-9, LLPH #### [facility] ([id number]) [address], [address] [place] [address] #### 77105-5, 9622-2 #### [facility] ([id number]) [address] [place] [address] 71604 SERUM IMMUNOFIXATIONon 08-02 IgA [Mass/Vol] 191 mg/dL Normal 68-378 [facility] Comment on above: Performed By: #### C BCA, 4679-7, 2063-4, CMP, FEPR, 2532-0, 2276-4, 2284-8, 2132-9, LLPH #### [facility] ([id number]) [address] [facility], [address] [place] [address] #### 40926-5, 9622-2 #### [facility] ([id number]) [address] [place] [address] 61361 IgG [Mass/Vol] 1057 mg/dL Normal 635-1741 [facility] Comment on above: Performed By: #### C BCA, 4679-7, 4-4, CMP, FEPR, 2532-0, 2276-4, 2284-8, 2132-9, LLPH #### [facility] ([id number]) [address], [address] [place] [address] #### 22490-7, 9622-2 #### [facility] ([id number]) [address] [place] [address] 28020 IgM [Mass/Vol] 72 mg/dL Normal 45-281 [facility] Comment on above: Performed By: #### C BCA, 4679-7, 2063-4, CMP, FEPR, 2532-0, 2276-4, 2284-8, 2-9, LLPH #### [facility] ([id number]) [address], [address] [place] [address] #### 64339-2, 9622-2 #### [facility] ([id number]) [address] [place] [address] 09931 IMMUNE PROFILE INTERP Unremarkable pattern and quantitation, no monoclonal bands. Normal [facility] Comment on above: Performed By: #### C BCA, 4679-7, 2063-10, CMP, FEPR, 2532-0, 2276-4, 2284-8, 2131-9, LLPH #### [facility] ([id number]) [address], [address] [place] [address] #### 94795-6, 9622-2 #### [facility] ([id number]) [address] [place] [address] 31734 Somatotropin [Mass/Vol]on GROWTH HORMONE 0.963 ng/mL Normal 0.010-3.60 7 [facility] Comment on above: Result Comment: This assay is calibrated to the WHO 2nd International Standard for Human Growth Hormone (98/754) Performed By: #### C BCA, 4679-7, 2063-4, CMP, FEPR, 2532-0, 2276-4, 2284-8, 2-9, LLPH #### [facility] ([id number]) [address], [address] [place] [address] #### 40320-9, 9622-2 #### [facility] ([id number]) [address] [place] [address] 99435 aPTT Coag (PPP) [Time]on aPTT Coag (Bld) [Time] 29 s Normal 26-37 [facility] Comment on above: Result Comment: NEW REFERENCE RANGE Performed By: #### C BCA, 4679-7, 2064-4, CMP, FEPR, 2532-0, 2276-4, 2284-8, 2132-9, LLPH #### [facility] ([id number]) [address] [facility], [address] [place] [address] #### 62417-2, 9622-2 #### [facility] ([id number]) [address] [facility] [place] [address] MR ABDOMEN W WO CONTon 07-30 MR ABDOMEN W WO CONT MR ABDOMEN W WO CONT CLINICAL INFORMATION: MRI is requested for further characterization of. Liver lesion identified on CT TECHNIQUE: Multiplanar, multisequence MR imaging of the abdomen was performed with and without intravenous contrast. COMPARISON: CT abdomen pelvis 12/25/2022 FINDINGS: Lung bases clear. Heart size normal. No pericardial effusion. Normal hepatic morphology. No focal intrahepatic lesions. Gallbladder is present. No biliary dilatation. Normal pancreaticobiliary junction. Pancreas and spleen are normal. The adrenal glands and kidneys are normal. Abdominal aorta nonaneurysmal. IVC right-sided. No enlarged abdominal lymph nodes. No bowel dilatation. No ascites. No peritoneal nodularity. Lung bases clear. No aggressive osseous lesions. Syrinx is redemonstrated in the visualized thoracic cord. IMPRESSION: * Negative MRI of the abdomen, specifically no hepatic lesions are identified. No follow-up imaging is indicated. * Partially visualized known syrinx in the thoracic cord. Finalized by Lopez Foss MD on 07/30/2023 9:11 AM Normal [facility] US PELVIC WITH TRANSVAGINALo n 07-25-2023 US PELVIC WITH TRANSVAGINAL US PELVIC WITH TRANSVAGINAL History: Elbow pain Exam/Technique: Pelvic ultrasound (transabdominal and endovaginal) Comparison: None Findings: The uterus appears normal with no focal endometrial or myometrial abnormalities. Overall dimensions of the uterus are 6.7 x 5.1 x 3.4 cm. Endometrial thickness is measured at 8 mm. Both ovaries appear normal. The right measures 4.4 x 2.3 x 2.1 cm and the left ovary 3.1 x 2.2 x 1.4 cm. There is no free intraperitoneal fluid, and no abnormal fluid collections or additional pelvic abnormalities. IMPRESSION: Normal pelvic ultrasound. Finalized by Mj Cohen MD on 07/25/2023 12:40 PM Normal [facility] CRP [Mass/Vol]on 07-20-2023 C REACTIVE PROTEIN 0.2 mg/dL Normal 0.000-0.7 4 4 [facility] Comment on above: Performed By: #### C BCA, 4679-7, 2064-4, CMP, FEPR, 2532-0, 2276-4, 2284-8, 2132-9, LLPH #### [facility] ([id number]) [address] [place] [address], [address] [place] [address] #### 09522-7, 9622-2 #### [facility] ([id number]) [address] [place] [address], [place] [address] Calprotectin (Stl) [Mass/Mas s]on 07-20-2023 CALPROTECTIN STOOL See Below Normal [facility] Comment on above: Result Comment: NOTE TEST RESULT FLAG UNIT REF.RANGE ---- CALPROTECTIN, FECAL QUANTITATIVE 10.9 ug/g <50 CALPROTECTIN, FECAL INTERP Normal Normal On November 22, 2022, [facility] [employer] implemented a new fecal calprotectin method, the [employer] Calprotectin assay. For assistance with interpretation of results in patients undergoing serial monitoring, contact Client Services at [phone] or [phone] to discuss options, preferably within 7 days of issuing this report. Interpretation: <50.0 ug/g: Normal 50.0 ug/g - 120.0 ug/g: Borderline elevated. Re-evaluation in 4-6 weeks is recommended if clinically indicated. >120.0 ug/g: Elevated Test Performed By: [place] [address] [place] [address] Hot Die Press Operator: Junie Morton IIIIA #[id number] Performed By: #### C BCA, 4679-7, 4, CMP, FEPR, 2532-0, 2276-4, 2284-8, 2131-9, LLPH #### [facility] ([id number]) [address] [facility], [address] [place] [address] #### 18917-0, 9622-2 #### [facility] ([id number]) [address] [place] [address] 74377 Cancer Ag 19-9 Qnon 07-20-19 24 CA 19 9 32.0 U/mL Normal 0.0-35.0 [facility] Comment on above: Result Comment: The method used for this test is [email or web address] DXI chemiluminescent immunoassay. Values obtained by different assay methods cannot be used interchangeably. Performed By: #### C BCA, 4679-7, 2063-10, CMP, FEPR, 2532-0, 2276-4, 2284-8, 2132-03, LLPH #### [facility] ([id number]) [address] [facility], [address] [place] [address] #### 31055-9, 9622-2 #### [facility] ([id number]) [address] [place] [address] 50559 HAV Ab IA Ql (S)on 4 Anti Hep A IgG Negative Normal NEG [facility] Comment on above: Performed By: #### C BCA, 4679-7, 2063-4, CMP, FEPR, 2532-0, 2276-4, 2284-8, 2139, LLPH #### [facility] ([id number]) [address] [place] [address], [address] [place] [address] #### 51446-5, 9622-2 #### [facility] ([id number]) [address] [place] [address] HAV IgM IA Qlon 07-20-2023 HEPATITIS A IGM Non-Reactive Normal [facility] Comment on above: Performed By: #### C BCA, 4679-7, 2063-10, CMP, FEPR, 2532-0, 6-4, 2283-8, 2132-03, LLPH #### [facility] ([id number]) [address] [place] [address], [address] [place] [address] #### 93204-7, 9622-2 #### [facility] ([id number]) [address] [place] [address] 25890 IgA [Mass/Vol]on 07-20-2023 CELIAC DISEASE SEROLOGY [place] SEE COMMENTS 07/21/2023 10:20 PM Normal [facility] Comment on above: Result Comment: NOTE Test Result Flag Unit RefValue Celiac Disease Serology [place] Immunoglobulin A (IgA), S 196 mg/dL 61 - 356 Celiac Disease Interpretation See Note See Comment: Negative serology. Celiac disease unlikely. However, approximately 10% of patients with celiac disease are seronegative. Also, patients who are already adhering to a gluten-free diet may be seronegative. If celiac disease is highly clinically suspected, consider HLA-DQ typing. Test Performed by: [facility] [place][Note 2] [address] [place] [address] Printer Floor Covering Assistant: Pedro Mitchell M.D. Ph.D.; CLIA# [id number] Performed By: #### C BCA, 4679-7, 4, CMP, FEPR, 2532-0, 2276-4, 2283-8, 2131-9, LLPH #### [facility] ([id number]) [address], [address] [place] [address] #### 48084-4, 9622-2 #### [facility] ([id number]) [address] [place] [address] Laboratory comment Florian (Antonio [email or web address])on 07-20-2023 UNLISTED LAB TEST Sent to reference lab Normal [facility] Comment on above: Performed By: #### C BCA, 4679-7, 4-4, CMP, FEPR, 2532-0, 2276-4, 2283-8, 2131-9, LLPH #### [facility] ([id number]) [address], [address] [place] [address] #### 29495-7, 9622-2 #### [facility] ([id number]) [address] [place] [address] [facility] GENERIC ORDERon TEST NAME A1APP ALPHA 1 ANTITRYPSIN Normal [facility] TEST RESULT SEE COMMENTS 024 01:51 PM Abnormal [facility] Comment on above: Result Comment: NOTE Test Result Flag Unit RefValue Ziztn-1-Lghdcpxaavy Phenotype MM bands A single M isoform is detected. In the context of a normal hltty-3-dolpodgroez concentration, this is consistent with an MM phenotype. ADDITIONAL INFORMATION Method: Isoelectric Focusing, This assay identifies the phenotype of the circulating brzem-7-oknjoyuwhud (A1A) protein. If the patient is on replacement therapy or has been recently transfused, the phenotype will detect patient and replacement or transfused plasma A1A protein. This test also cannot detect a null allele which could be responsible for an A1A deficiency. Riqfd-0-Gzkxbkjlebv, S 216 H mg/dL 100 - 190 ADDITIONAL INFORMATION Method: Nephelometry Test Performed by: [facility] [place][Note 2] [address] [id number] Printer Floor Covering Assistant: Pedro Mitchell M.D. Ph.D.; CLIA# [id number] Reference Lab Test IDon 07-[address] See Below Normal [facility] Comment on above: Result Comment: NOTE TEST RESULT FLAG UNIT REF.RANGE ---- Elastase-1 Concentration >800 ug/g >=200 Interpretation: <100 ug/g: Severe Exocrine Pancreatic Insufficiency 100-199 ug/g: Mild to Moderate Exocrine Pancreatic Insufficiency >=200 ug/g: Normal Elastase Interpretation Normal Normal Test Performed By: [facility] [address] [place] [address] Hot Die Press Operator: Americo Flanagan III, M.D. CLIA #[id number] Performed By: #### C BCA, 4679-7, 4-4, CMP, FEPR, 2532-0, 2276-4, 2284-8, 2132-9, LLPH #### [facility] ([id number]) [address] [place] [address], [address] [place] [address] #### 00823-3, 9622-2 #### [facility] ([id number]) [address] [place] [address], [place] [address] tTG IgA IA Qn (S)on 07-20-19 24 TTG AB IGA <1.2 Normal <4.0 (Negative) [facility] Comment on above: Result Comment: NOTE Test Performed by: [facility] [place][Note 2] [address] [place] [address] Printer Floor Covering Assistant: Pedro Mitchell M.D. Ph.D.; CLIA# [id number] Performed By: #### C BCA, 4679-7, 2063-4, CMP, FEPR, 2532-0, 2276-4, 2284-8, 2131-9, LLPH #### [facility] ([id number]) [address] [facility], [address] [place] [address] #### 97080-0, 9622-2 #### [facility] ([id number]) [address] [place] [address] POCT EKGon 07-19-2023 [facility] CBC AND AUTO DIFFon 07-07-19 ABSOLUTE BASOPHIL 0.1 X10E9/L Normal 0.0-0.[address] [facility] Comment on above: Performed By: #### C BCA, 4679-7, 2063-4, CMP, FEPR, 2532-0, 2276-4, 2284-8, 2131-9, LLPH #### [facility] ([id number]) [address], [address] [place] [address] #### 31742-6, 9622-2 #### [facility] ([id number]) [address] [place] [address] ABSOLUTE NEUTROPHIL 6.6 X10E9/L Normal 1.5-6.6 [facility] Comment on above: Performed By: #### C BCA, 4679-7, 2063-4, CMP, FEPR, 2532-0, 2276-4, 2284-8, 2131-9, LLPH #### [facility] ([id number]) [address] [facility], [address] [place] [address] #### 88322-0, 9622-2 #### [facility] ([id number]) [address] [place] [address] 51488 Basophils/100 WBC (Bld) 1.1 % Normal [facility] Comment on above: Performed By: #### C BCA, 4679-7, 4-4, CMP, FEPR, 2532-0, 2276-4, 2284-8, 2132-9, LLPH #### [facility] ([id number]) [address], [address] [place] [address] #### 59281-3, 9622-2 #### [facility] ([id number]) [address] [place] [address] 23950 Eosinophils (Bld) [#/Vol] 0.1 10*3/uL Normal 0.0-0.4 [facility] Comment on above: Performed By: #### C BCA, 4679-7, 2063-4, CMP, FEPR, 2532-0, 2276-4, 2284-8, 2-9, LLPH #### [facility] ([id number]) [address], [address] [place] [address] #### 18242-9, 9622-2 #### [facility] ([id number]) [address] [place] [address] 98762 Eosinophils/100 WBC (Bld) 1.2 % Normal [facility] Comment on above: Performed By: #### C BCA, 4679-7, 4-4, CMP, FEPR, 2532-0, 2276-4, 2284-8, 2132-9, LLPH #### [facility] ([id number]) [address], [address] [place] [address] #### 00894-1, 9622-2 #### [facility] ([id number]) [address] [place] [address] 88091 Erythrocyte distribution width (RBC) [Ratio] 12.6 % Normal 11.5-15.0 [facility] Comment on above: Performed By: #### C BCA, 4679-7, 2063-4, CMP, FEPR, 2532-0, 2276-4, 2284-8, 2132-9, LLPH #### [facility] ([id number]) [address], [address] [place] [address] #### 29411-3, 9622-2 #### [facility] ([id number]) [address] [place] [address] 99248 Hematocrit (Bld) [Volume fraction] 38.1 % Normal 35-47 [facility] Comment on above: Performed By: #### C BCA, 4679-7, 2063-4, CMP, FEPR, 2532-0, 2276-4, 2284-8, 2131-9, LLPH #### [facility] ([id number]) [address], [address] [place] [address] #### 63555-9, 9622-2 #### [facility] ([id number]) [address] [place] [address] 40619 Hemoglobin (Bld) [Mass/Vol] 13.1 g/dL Normal 11.7-15.5 [facility] Comment on above: Performed By: #### C BCA, 4679-7, 2063-4, CMP, FEPR, 2532-0, 2276-4, 2284-8, 2132-9, LLPH #### [facility] ([id number]) [address], [address] [place] [address] #### 57797-4, 9622-2 #### [facility] ([id number]) [address] [place] [address] 01928 Lymphocytes (Bld) [#/Vol] 1.7 10*3/uL Normal 1.0-3.5 [facility] Comment on above: Performed By: #### C BCA, 4679-7, 2063-, CMP, FEPR, 2532-0, 2276-4, 4-8, 2131-9, LLPH #### [facility] ([id number]) [address], [address] [place] [address] #### 59293-6, 9622-2 #### [facility] ([id number]) [address] [place] [address] 45554 Lymphocytes/100 WBC (Bld) 18.5 % Normal [facility] Comment on above: Performed By: #### C BCA, 4679-7, 2063-10, CMP, FEPR, 2532-0, 2276-4, 2283-8, 2132-03, LLPH #### [facility] ([id number]) [address], [address] [place] [address] #### 10528-6, 9622-2 #### [facility] ([id number]) [address] [place] [address] 37867 MCH (RBC) [Entitic mass] 31.5 pg Normal 27-34 [facility] Comment on above: Performed By: #### C BCA, 4679-7, 2063-10, CMP, FEPR, 2532-0, 2276-4, 2283-8, 9, LLPH #### [facility] ([id number]) [address], [address] [place] [address] #### 80815-6, 9622-2 #### [facility] ([id number]) [address] [place] [address] 62529 MCHC (RBC) [Mass/Vol] 34.4 g/dL Normal 32-36 [facility] Comment on above: Performed By: #### C BCA, 4679-7, 2064-4, CMP, FEPR, 2532-0, 2276-4, 2284-8, 2131-9, LLPH #### [facility] ([id number]) [address], [address] [place] [address] #### 76045-3, 9622-2 #### [facility] ([id number]) [address] [place] [address] 75248 MCV (RBC) [Entitic vol] 92 fL Normal 80-100 [facility] Comment on above: Performed By: #### C BCA, 4679-7, 2063-4, CMP, FEPR, 2532-0, 2276-4, 2283-8, 2132-03, LLPH #### [facility] ([id number]) [address] [facility] [facility], [place] [address] #### 63213-5, 9622-2 #### [facility] ([id number]) [address] [place] [address] 63482 Monocytes (Bld) [#/Vol] 0.6 10*3/uL Normal 0-0.9 [facility] Comment on above: Performed By: #### C BCA, 4679-7, 2063-4, CMP, FEPR, 2532-0, 2276-4, 2283-8, 9, LLPH #### [facility] ([id number]) [address] [place] [address], [address] [place] [address] #### 45277-7, 9622-2 #### [facility] ([id number]) [address] [place] [address] 98412 Monocytes/100 WBC (Bld) 6.7 % Normal [facility] Comment on above: Performed By: #### C BCA, 4679-7, 2063-4, CMP, FEPR, 2532-0, 2276-4, 2284-8, 2131-9, LLPH #### [facility] ([id number]) [address], [address] [place] [address] #### 64961-3, 9622-2 #### [facility] ([id number]) [address] [place] [address] 71017 Neutrophils/100 WBC (Bld) 72.5 % Normal [facility] Comment on above: Performed By: #### C BCA, 4679-7, 4-4, CMP, FEPR, 2532-0, 2276-4, 2284-8, 2131-9, LLPH #### [facility] ([id number]) [address], [address] [place] [address] #### 44755-0, 9622-2 #### [facility] ([id number]) [address] [place] [address] 75027 Platelet mean volume (Bld) [Entitic vol] 7.8 fL Normal 7-12 [facility] Comment on above: Performed By: #### C BCA, 4679-7, 2063-4, CMP, FEPR, 2532-0, 2276-4, 2284-8, 2131-9, LLPH #### [facility] ([id number]) [address], [address] [place] [address] #### 76994-1, 9622-2 #### [facility] ([id number]) [address] [place] [address] 04916 Platelets (Bld) [#/Vol] 384 10*3/uL Normal 150-450 [facility] Comment on above: Performed By: #### C BCA, 4679-7, 2063-4, CMP, FEPR, 2532-0, 2276-4, 2284-8, 2-9, LLPH #### [facility] ([id number]) [address], [address] [place] [address] #### 05698-0, 9622-2 #### [facility] ([id number]) [address] [place] [address] 09222 RBC COUNT 4.17 X10E12/L Normal 3.80-5.20 [facility] Comment on above: Performed By: #### C BCA, 4679-7, 4-4, CMP, FEPR, 2532-0, 2276-4, 2284-8, 2132-9, LLPH #### [facility] ([id number]) [address], [address] [place] [address] #### 36555-8, 9622-2 #### [facility] ([id number]) [address] [place] [address] 36321 WBC (Bld) [#/Vol] 9.1 10*3/uL Normal 4.0-11.[address] [facility] Comment on above: Performed By: #### C BCA, 4679-7, 4-4, CMP, FEPR, 2532-0, 2276-4, 2284-8, 2-9, LLPH #### [facility] ([id number]) [address], [address] [place] [address] #### 22425-8, 9622-2 #### [facility] ([id number]) [address] [place] [address] 03839 COMPREHENSIVE METABOLIC PANE Cyrus 07-07-2023 Albumin [Mass/Vol] 4.2 g/dL Normal 3.2-5.[address] [facility] Comment on above: Performed By: #### C BCA, 4679-7, 4-4, CMP, FEPR, 2532-0, 2276-4, 2284-8, 2132-9, LLPH #### [facility] ([id number]) [address], [address] [place] [address] #### 37305-2, 9622-2 #### [facility] ([id number]) [address] [place] [address] 90701 ALP [Catalytic activity/Vol] 79 U/L Normal 39-130 [facility] Comment on above: Performed By: #### C BCA, 4679-7, 4-4, CMP, FEPR, 2532-0, 2276-4, 2284-8, 2132-9, LLPH #### [facility] ([id number]) [address] [facility], [address] [place] [address] #### 11444-3, 9622-2 #### [facility] ([id number]) [address] [place] [address] 78471 ALT [Catalytic activity/Vol] 36 U/L High 0-31 [facility] Comment on above: Performed By: #### C BCA, 4679-7, 4-4, CMP, FEPR, 2532-0, 2276-4, 2284-8, 2-9, LLPH #### [facility] ([id number]) [address], [address] [place] [address] #### 87084-5, 9622-2 #### [facility] ([id number]) [address] [place] [address] 32924 Anion gap [Moles/Vol] 9 mmol/L Normal 5-15 [facility] Comment on above: Performed By: #### C BCA, 4679-7, 4-4, CMP, FEPR, 2532-0, 2276-4, 2284-8, 2132-9, LLPH #### [facility] ([id number]) [address] [facility], [address] [place] [address] #### 97834-1, 9622-2 #### [facility] ([id number]) [address] [place] [address] 27954 AST [Catalytic activity/Vol] 33 U/L Normal 0-41 [facility] Comment on above: Performed By: #### C BCA, 4679-7, 2063-4, CMP, FEPR, 2532-0, 2276-4, 2284-8, 2-9, LLPH #### [facility] ([id number]) [address], [address] [place] [address] #### 33129-9, 9622-2 #### [facility] ([id number]) [address] [place] [address] 69534 Bilirubin [Mass/Vol] 0.4 mg/dL Normal 0.3-1.2 [facility] Comment on above: Performed By: #### C BCA, 4679-7, 2063-, CMP, FEPR, 2532-0, 2276-4, 2284-8, 2131-9, LLPH #### [facility] ([id number]) [address], [address] [place] [address] #### 18005-5, 9622-2 #### [facility] ([id number]) [address] [place] [address] 25924 Calcium [Mass/Vol] 9.0 mg/dL Normal 8.5-10.[address] [facility] Comment on above: Performed By: #### C BCA, 4679-7, 2063-10, CMP, FEPR, 2532-0, 2276-4, 2284-8, 2131-9, LLPH #### [facility] ([id number]) [address], [address] [place] [address] #### 86305-5, 9622-2 #### [facility] ([id number]) [address] [place] [address] 76395 Chloride [Moles/Vol] 101 mmol/L Normal 98-109 [facility] Comment on above: Performed By: #### C BCA, 4679-7, 4-4, CMP, FEPR, 2532-0, 2276-4, 2284-8, 2132-9, LLPH #### [facility] ([id number]) [address] [place] [address] #### 25421-1, 9622-2 #### [facility] ([id number]) [address] [place] [address] 57193 CO2 [Moles/Vol] 28 mmol/L Normal 22-32 [facility] Comment on above: Performed By: #### C BCA, 4679-7, 2063-4, CMP, FEPR, 2532-0, 2276-4, 2284-8, 2131-9, LLPH #### [facility] ([id number]) [address], [address] [place] [address] #### 93331-2, 9622-2 #### [facility] ([id number]) [address] [place] [address] 57630 Creatinine [Mass/Vol] 1.05 mg/dL High 0.40-1.00 [facility] Comment on above: Result Comment: METH OD TRACEABLE TO IDMS STANDARD Performed By: #### C BCA, 4679-7, 4-4, CMP, FEPR, 2532-0, 2276-4, 2284-8, 2131-9, LLPH #### [facility] ([id number]) [address], [address] [place] [address] #### 45542-9, 9622-2 #### [facility] ([id number]) [address] [place] [address] 92364 GFR/1.73 sq M.predicted among non-blacks MDRD (S/P/Bld) [Vol rate/Area] 70 mL/min/{1.73_m2} Normal >59 [facility] Comment on above: Result Comment: Reported eGFR is based on the CKD-EPI 2020 equation that does not use a race coefficient. Performed By: #### C BCA, 4679-7, 2063-10, CMP, FEPR, 2532-0, 2276-4, 4-8, 9, LLPH #### [facility] ([id number]) [address] [facility] [facility] [place] [address] #### 70410-1, 9622-2 #### [facility] ([id number]) [address] [place] [address] 64277 Glucose [Mass/Vol] 138 mg/dL High 65-[address] [facility] Comment on above: Performed By: #### C BCA, 46-, 2063-10, CMP, FEPR, 2532-0, 6-4, 2283-8, 2132-03, LLPH #### [facility] ([id number]) [address] [facility] [facility], [address] [place] [address] #### 96296-0, 9622-2 #### [facility] ([id number]) [address] [place] [address] 34051 Potassium [Moles/Vol] 3.4 mmol/L Low 3.5-5.0 [facility] Comment on above: Performed By: #### C BCA, 46-, 2063-10, CMP, FEPR, 2532-0, 2276-4, 2283-8, 9, LLPH #### [facility] ([id number]) [address] [facility] [facility], [address] [place] [address] #### 91583-3, 9622-2 #### [facility] ([id number]) [address] [place] [address] 11389 Protein [Mass/Vol] 6.9 g/dL Normal 6.0-8.[address] [facility] Comment on above: Performed By: #### C BCA, 4679-7, 2064-4, CMP, FEPR, 2532-0, 2276-4, 2284-8, 2132-9, LLPH #### [facility] ([id number]) [address], [address] [place] [address] #### 11278-8, 9622-2 #### [facility] ([id number]) [address] [place] [address] 50902 Sodium [Moles/Vol] 138 mmol/L Normal 134-[address] [facility] Comment on above: Performed By: #### C BCA, 4679-7, 2063-4, CMP, FEPR, 2532-0, 2276-4, 2284-8, 2131-9, LLPH #### [facility] ([id number]) [address] [facility], [address] [place] [address] #### 13390-5, 9622-2 #### [facility] ([id number]) [address] [place] [address] 31412 Urea nitrogen [Mass/Vol] 13 mg/dL Normal 5-23 [facility] Comment on above: Performed By: #### C BCA, 4679-7, 2063-4, CMP, FEPR, 2532-0, 2276-4, 2284-8, 2-9, LLPH #### [facility] ([id number]) [address] [place] [address] #### 11052-6, 9622-2 #### [facility] ([id number]) [address] [place] [address] 36020 Ceruloplasmin [Mass/Vol]on 0 07-07-2023 CERULOPLASMIN 31 mg/dL Normal 18-58 [facility] Comment on above: Performed By: #### C BCA, 4679-7, 4-4, CMP, FEPR, 2532-0, 2276-4, 2284-8, 2132-9, LLPH #### [facility] ([id number]) [address] [place] [address], [address] [place] [address] #### 27866-5, 9622-2 #### [facility] ([id number]) [address] [facility] [place] [address] Clinical Pathology Blood Sme ar Reviewon 07-07-2023 Clinical Pathology Blood Smear Review Normal [facility] Comment on above: Result Comment: [facility] [address] [place] [address] Clinical Pathology Report Patient Name:KALEN PLAZA:1985 (Age: 37)Gender:FTaken:4Reported:07/11/2023hysician(s):Barbara Cabrera, [facility] To: Rec. #:[id number]: #[id number] Final Pathologic Diagnosis Peripheral blood smear: Essentially unremarkable peripheral blood smear. Report Electronically Signed Out sps/07/11/2023Desiree Santos MD Interpretation performed at [facility] [place] [address], License number: [id number]. Clinical History D72.829 BLOOD SMEAR EVALUATION CBC (07/07/2023 1443): WBC = 9.1 X10E9/L; HGB = 13.1 g/dL; HCT = 38.1%; MCV = 92 fL; PLT = 384 X10E9/L BLOOD SMEAR: Leukocytes: The lymphocytic, monocytic and granulocytic cells are morphologically unremarkable. There is no left shifting, toxic granulation or blasts. Erythrocytes: Normochromic, normocytic Platelets: Morphologically unremarkable, no clumping. Specimen(s) Received Blood Smear Review Fee Codes(s): 1; 76385 Copper [Mass/Vol]on 07-07-19 24 COPPER 115 ug/dL Normal 80-155 [facility] Comment on above: Result Comment: NOTE This test was developed and its performance characteristics determined by [facility] [place] [facility]). It has not been cleared or approved by the FDA. [facility] is regulated under CLIA as qualified to perform high-complexity testing. This test is used for clinical purposes. It should not be regarded as investigational or for research. Test Performed By: [place] [address] [employer] Operator: Americo Flanagan III, M.D. CLIA #[id number] Performed By: #### C BCA, 4679-7, 2063-4, CMP, FEPR, 2532-0, 2276-4, 2284-8, 2132-9, LLPH #### [facility] ([id number]) [address] [place] [address], [place] [address] #### 50765-1, 9622-2 #### [facility] ([id number]) [address] [place] [address] 18673 FERRITINon 07-07-2023 Ferritin [Mass/Vol] 28 ng/mL Normal 11-307 [facility] Comment on above: Performed By: #### C BCA, 4679-7, 2063-4, CMP, FEPR, 2532-0, 2276-4, 2284-8, 2132-9, LLPH #### [facility] ([id number]) [address] [place] [address], [address] [place] [address] #### 58341-5, 9622-2 #### [facility] ([id number]) [address] [place] [address] 39081 FLOW CYTOMETRYon 07-07-2023 FLOW CYTOMETRY SEE SEPARATE REPORT, REVIEWED BY PATHOLOGIST Normal [facility] Comment on above: Performed By: #### C BCA, 4679-7, 2063-4, CMP, FEPR, 2532-0, 2276-4, 2284-8, 2132-9, LLPH #### [facility] ([id number]) [address] [place] [address], [address] [place] [address] #### 66085-9, 9622-2 #### [facility] ([id number]) [address] [place] [address] 81372 Folate [Mass/Vol]on 07-07-19 24 FOLIC ACID >25.0 Normal >5.8 [facility] Comment on above: Result Comment: NEW REFERENCE RANGE Performed By: #### C BCA, 4679-7, 4-4, CMP, FEPR, 2532-0, 2276-4, 2284-8, 2132-9, LLPH #### [facility] ([id number]) [address], [address] [place] [address] #### 77407-2, 9622-2 #### [facility] ([id number]) [address] [place] [address] 06653 IRON PROFILEon 07-07-2023 Iron [Mass/Vol] 111 ug/dL Normal 50-170 [facility] Comment on above: Performed By: #### C BCA, 4679-7, 4-4, CMP, FEPR, 2532-0, 2276-4, 2284-8, 2132-9, LLPH #### [facility] ([id number]) [address], [address] [place] [address] #### 97355-5, 9622-2 #### [facility] ([id number]) [address] [place] [address] 16494 IRON BINDING 325 ug/dL Normal 250-425 [facility] Comment on above: Performed By: #### C BCA, 4679-7, 4-4, CMP, FEPR, 2532-0, 2276-4, 2284-8, 2132-9, LLPH #### [facility] ([id number]) [address] [place] [address] #### 83742-2, 9622-2 #### [facility] ([id number]) [address] [place] [address] 12477 IRON SATURATION 34 % SATURATION Normal 15-50 [facility] Comment on above: Performed By: #### C BCA, 4679-7, 2063-4, CMP, FEPR, 2532-0, 2276-4, 2284-8, 2132-9, LLPH #### [facility] ([id number]) [address] [place] [address], [address] [place] [address] #### 61945-8, 9622-2 #### [facility] ([id number]) [address] [place] [address] 30610 LDH [Catalytic activity/Vol] on 07-07-2023 LDH 159 U/L Normal 100-235 [facility] Comment on above: Performed By: #### C BCA, 4679-7, 2063-10, CMP, FEPR, 2532-0, 2276-4, 2284-8, 2132-9, LLPH #### [facility] ([id number]) [address] [place] [address], [address] [place] [address] #### 37874-5, 9622-2 #### [facility] ([id number]) [address] [place] [address] 87815 Narrative diagnostic report Molgen Florian (Bld/Tiss) [Interp]on 07-07-2023 BCR/ABL PCR w/Reflex SEE COMMENTS 07/11/2023 03:25 PM Normal [facility] Comment on above: Result Comment: NOTE Test Result Flag Unit RefValue BCR/ABL1 Reflex, Qual/Quant Specimen Type EDTA WHOLE BLOOD BCR/ABL1 Reflex Result see interpretation Interpretation See Note Peripheral blood, BCR/ABL1 mRNA analysis, qualitative: Negative. No BCR/ABL1 mRNA transcripts were detected. Method summary: The presence or absence of BCR/ABL1 mRNA transcripts was evaluated using a qualitative, reverse director marketing analytics PCR-based assay. The assay detects nearly all published and theoretical BCR/ABL1 fusion forms including the common e13/e14-a2 (p210) and e1-a2 (p190) transcripts, as well as other rarer variants (e.g. e19-a2 (p230), e13/e14-a3, e1-a3, etc.). The limit of detection for this assay is 0.1%. Please contact the lab at [phone] with questions or if additional testing is required. See [facility] [employer] Test Catalog for additional method details. Signing Pathologist: Jeannette Hoffman M.D. ADDITIONAL INFORMATION This test was developed and its performance characteristics determined by [facility] in a manner consistent with CLIA requirements. This test has not been cleared or approved by the U.S. Food and Drug Administration. Test Performed by: [facility] [place] [address] Printer Floor Covering Assistant: Pedro Mitchell M.D. Ph.D.; CLIA# [id number] Performed By: #### C BCA, 4679-7, 2064-4, CMP, FEPR, 2532-0, 2276-4, 2284-8, 2132-9, LLPH #### [facility] ([id number]) [address] [place] [address], [address] [place] [address] #### 70751-7, 9622-2 #### [facility] ([id number]) [address] [place] [address], [place] [address] comment (Bld) [Interp]on 07-07-2023 STAFF REVIEW NOTE Normal [facility] Comment on above: Result Comment: [facility] [address] [place] [address] Clinical Pathology Report Patient Name:KALEN PLAZA:1985 (Age: 37)Gender:FTaken:07/07/2023eported:07/11/2023hysician(s):Barbara Cabrera, [facility]Copy To: Rec. #:[id number]: #[id number] Final Pathologic Diagnosis Peripheral blood smear: Essentially unremarkable peripheral blood smear. Report Electronically Signed Out sps/07/11/2023Desiree Santos MD Interpretation performed at [facility], [address] [place] [address], License number: [id number]. Clinical History D72.829 BLOOD SMEAR EVALUATION CBC (07/07/2023 1443): WBC = 9.1 X10E9/L; HGB = 13.1 g/dL; HCT = 38.1%; MCV = 92 fL; PLT = 384 X10E9/L BLOOD SMEAR: Leukocytes: The lymphocytic, monocytic and granulocytic cells are morphologically unremarkable. There is no left shifting, toxic granulation or blasts. Erythrocytes: Normochromic, normocytic Platelets: Morphologically unremarkable, no clumping. Specimen(s) Received Blood Smear Review Fee Codes(s): 1; 04061 Phytonadione [Mass/Vol]on VITAMIN K1 0.56 nmol/L Normal 0.22-4.88 [facility] Comment on above: Result Comment: NOTE INTERPRETIVE INFORMATION: Vitamin K1, Serum Vitamin K concentration is reported as nanomoles per liter (nmol/L). To convert concentration to nanograms per milliliter (ng/mL), multiply the result by 0.45. This test was developed and its performance characteristics determined by [facility]. It has not been cleared or approved by the [place] Food and Drug Administration. This test was performed in a CLIA certified laboratory and is intended for clinical purposes. Performed By: [facility] [address] [place] [address] Hot Die Press Operator: Fan Cordoba MD, PhD CLIA Number: [id number] Performed By: #### C BCA, 4679-7, 2063-4, CMP, FEPR, 2532-0, 2276-4, 2284-8, 2132-9, LLPH #### [facility] ([id number]) [address] [place] [address], [address] [place] [address] #### 66193-6, 9622-2 #### [facility] ([id number]) [address] [place] [address] Reticulocytes/100 RBC (Bld)o n 07-07-2023 RETICULOCYTE COUNT 0.6 % Normal 0.4-2.[address] [facility] Comment on above: Performed By: #### C BCA, 4679-7, 2063-, CMP, FEPR, 2532-0, 2276-4, 2284-8, 2131-9, LLPH #### [facility] ([id number]) [address] [place] [address], [address] [place] [address] #### 92719-7, 9622-2 #### [facility] ([id number]) [address] [place] [address] Surgical Pathologyon 024 Surgical Pathology Normal [facility] Comment on above: Result Comment: [facility] [address] [address] Flow Cytometry Patient Name:KALEN PLAZAAccession #:[id number]. Rec. #:[id number]:[facility] FrTaken:4DOB:1985 (Age: 37)Location:LAB ([facility]) Received:07/08/2023Gender: FBill. Type:Outreach (E)Reported:Priority:RBilling #:[id number] Class:OFC Special Procedure OnlyPhysician(s): Physician Unknown Copy To: Specimen(s) Received Blood for Flowcytometry Status: Signed Out Interpretation Normal peripheral blood immunophenotyping study. Flow cytometric analysis of the peripheral blood leukocytes demonstrates mature hematolymphoid elements. Blasts are not increased on CD45/side scatter analysis or CD34 staining, immature cells are inconspicuous, and aberrant patterns of antigen expression are not seen. [place] on the lymphoid population demonstrates a mixed population of phenotypically unremarkable T-cells, natural killer cells, and polyclonal B-cells, without a detectable monoclonal population. Immunophenotyping antibodies tested: CD2, CD3, CD4, CD5, CD7, CD8, CD10, CD13, CD16, CD19, CD20, CD23, CD33, CD34, CD38, CD43, CD45, CD56, CD117, CD123, CD138, Ethan, and Lambda. Immunophenotyping Comment: Immunophenotyping has been used in this diagnostic evaluation. This test was developed and its performance characteristics determined by the [facility] Clinical Laboratories Department. It has not been cleared or approved by the U.S. Food and Drug Administration. The FDA has determined that such clearance or approval is not necessary. This test is used for clinical purposes. It should not be regarded as investigational or for research. This laboratory is certified under the Clinical Laboratory Improvement Amendments of 1988 ( CLIA ) as qualified to perform high-complexity clinical testing. Electronically Signed Out wa/07/08/2023 Marcus Monsalve MD VITAMIN B12on 07-07-2023 Cobalamin (Vitamin B12) [Mass/Vol] 670 pg/mL Normal 180-914 [facility] Comment on above: Performed By: #### C BCA, 4679-7, 2064-4, CMP, FEPR, 2532-0, 2276-4, 2284-8, 2132-9, LLPH #### [facility] ([id number]) [address] [place] [address], [address] [place] [address] #### 18141-6, 9622-2 #### [facility] ([id number]) [address] [facility], [place] [address] Ambulatory Visit Summaryon 07-23-2022 Ambulatory Visit Summary KALEN PLAZA :1985 Visit Date:05/23/2023 Ambulatory Visit Instructions Your Diagnosis Recurrent UTI Tests Performed Urnls Dip Stick Auto w/o Microscopy POC 24084 Your Care Team Attending Physician - FIDELINA SNOW, Mauricio Pineda Primary Care Physician - DAVID LAGUERRE MD This Is Your Medications List amphetamine-dextroamphetamine (Adderall) aripiprazole (Abilify 5 mg Tab) buprenorphine-naloxone (Suboxone) cholecalciferol (Vitamin D 1000 intl units (25 mcg) Tab) ciprofloxacin (Cipro 500 mg Tab) fludrocortisone (fludrocortisone 0.1 mg Tab) gabapentin mirtazapine (mirtazapine 30 mg Tab) multivitamin (Multi Vitamin+) predniSONE (predniSONE 5 mg Tab) Procedures Performed Cystoscopy (08/02/2022), Lymph, Tonsillectomy. What to do next Scheduled Follow-Up Appointments Monday 2:30 PM EST With: FIDELINA SNOW, Mauricio Pineda Where: [facility] Auth for Release of Medical Recordson 05-19-2023 Auth for Release of Medical Records [id number]#[id number] [facility] Consultation Noteon 05-17-20 23 Consultation Note [id number]#[id number] [facility] Transfer Inon 05-12-2023 Transfer In [id number]#1.00TIFF [facility] PAP ACOG PANEL 2: 30 to 65on 07-16-2022 . . [facility] Comment on above: Result Comment: Perf ormed at: WB Performed By: #### 4 [id number] #### [facility] [address] [address] [address] Eri Bright Age Gdln ACOG Testing 30-65 [facility] Comment on above: Performed By: #### 4 [id number] #### [facility] [address] [address] [address] Eri Bright DIAGNOSIS: Comment [facility] Comment on above: Result Comment: NEGA TIVE FOR INTRAEPITHELIAL LESION OR MALIGNANCY. Performed at: WB Performed By: #### 4 [id number] #### [facility] [address] [place] [address] Dr. Eri Bright HPV Aptima Negative Normal Negative [facility] Comment on above: Result Comment: This nucleic acid amplification test detects fourteen high-risk HPV types (16,18,31,33,35,39,45,51,52,56,58,59,66,68) without differentiation. Performed at: =G Performed By: #### 4 [id number] #### [facility] [address] [place] [address] Dr. Eri Bright HPV Genotype Reflex Comment Normal [facility] Comment on above: Result Comment: Crit eria not met, HPV Genotype not performed. Performed at: WB Performed By: #### 4 [id number] #### [facility] [address] [place] [address] Dr. Eri Bright Methodology: Comment Normal [facility] Comment on above: Result Comment: This liquid based ThinPrep(R) pap test was screened with the use of an image guided system. Performed at: WB Performed By: #### 4 [id number] #### [facility] [address] [place] [address] Dr. Eri Bright Note: Comment Normal [facility] Comment on above: Result Comment: The Pap smear is a screening test designed to aid in the detection of premalignant and malignant conditions of the uterine cervix. It is not a diagnostic procedure and should not be used as the sole means of detecting cervical cancer. Both false-positive and false-negative reports do occur. . Performed at: WB Performed By: #### 4 [id number] #### [facility] [address] [place] [address] Dr. Eri Bright Performed by: Comment Normal [facility] Comment on above: Result Comment: [employer] (ASCP) Performed at: WB Performed By: #### 4 [id number] #### [facility] [address] [place] [address] Dr. Eri Bright Specimen adequacy: Comment Normal [facility] Comment on above: Result Comment: Sati sfactory for evaluation. Endocervical and/or squamous metaplastic cells (endocervical component) are present. Performed at: WB Performed By: #### 4 [id number] #### [facility] [address] [address] [address] Eri Bright CULTURE URINEon 05-05-2022 CULTURE URINE Culture Observations : NO GROWTH. Normal [facility] Comment on above: Performed By: #### U RCX #### [facility] [address] [address] [address] 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 Though it is not easy, more than half of all adult smokers have quit. We encourage you to write down all the reasons you should quit smoking and set a quit date for yourself. Ask us how we can help. You may also call 1-357-IAHFNOW for free resources and assistance.; Status:Complete - Retrospective Authorization; Done: [id number] Tobacco Use Screening; Status:Complete; Done: [id number] Patient Instructions Please bring all medicines, vitamins, and herbal supplements with you when you come to the office. Prescriptions will not be filled unless you are compliant with your follow up appointments or have a follow up appointment scheduled as per instruction of your physician. Refills should be requested at the time of your visit. Increase sodium intake Increase fluids by drinking 1 liter to a gallon daily. Follow up in 2-3 months Chief Complaint KALEN PLAZA is being seen for an initial evaluation of dizziness. History of Present Illness Patient is here for cardiovascular evaluation for symptoms of dizziness, lightheadedness and presyncope. Patient is 36-year-old white female who had been complaining of recurrent episodes of lightheadedness, dizziness and a presyncopal symptomatology all of it is orthostatic in nature. The patient underwent extensive work-up and according to her she was diagnosed with hypoadrenal lesion. She had been started on prednisone but does not seem like this resulted in good improvement. The patient reported losing close to 30 pounds over the last several years. She reported relatively poor diet and poor oral intake. Patient described vague symptoms of lightheadedness palpitation tingling sensation with her episode. During the office visit the patient appears mildly orthostatic. Patient brought a copy of her work-up in the past including an echocardiogram that showed normal LV systolic function. Holter monitor showed mainly mild sinus tachycardia by noted significant tacky or bradycardia arrhythmia. Assessment 1. Dizziness, presyncope and orthostatic hypotension very likely to be due to adrenal insufficiency 2. Mildly underweight 3. Tobacco use 4. Patient report history of ADHD 5. Recent diagnosis of adrenal insufficiency unclear with his primary or secondary to followed by local desulfurizer machine Plan 1. I advised the patient to increase her fluid intake to 4-5 L/day and her salt intake to 15 g/day 2. I advised the patient to change her position gradually 3. I recommended the patient to initiated treatment with Florinef 0.1 mg daily 4. Considering the patient is symptomatic with clear orthostatic hypotension I told her that her table test will unlikely change our management decision. 5. Patient was advised to notify me if there is no improvement of her symptoms with the above recommendation 6. We will see her back in 2 to 3 months in follow-up Surgical History Problems Denied: History of Complete colonoscopy History of Neck tumor removal History of Tonsillectomy History of Uterine surgery Current Meds Medication NameInstruction Amphetamine-Dextroamphet ER 20 MG Oral Capsule Extended Release 24 HourTAKE 1 CAPSULE DAILY FOR ADHD. Buprenorphine HCl-Naloxone HCl - 2-0.5 MG Sublingual Tablet Sublingual1/4 tablet daily Gabapentin 800 MG Oral TabletTAKE 1 TABLET 3 TIMES DAILY. Mirtazapine 45 MG Oral Tablet DisintegratingTAKE 1 TABLET AT NIGHT NEEDED predniSONE 5 MG Oral TabletTAKE 1 TABLET DIRECTED. Vitamin D3 50 MCG (2000 UT) Oral TabletTake 1 tablet daily Patient did not bring medication list or bottles. Updated verbally with patient Allergies Medication No Known Drug Allergies Recorded By: Jacklyn Connors; 02/24/2022 1:52:50 PM Family History Mother Family history of hypothyroidism (V18.19) (Z83.49) Family history of schizophrenia (V17.0) (Z81.8) Father Family history of hepatitis (V18.8) (Z83.79) Sister Family history of hypothyroidism (V18.19) (Z83.49) Social History Problems Current smoker (305.1) (F17.200) 1 ppd Daily caffeine consumption pop 3 cans daily coffee 1 cup daily No alcohol use No illicit drug use Review of Systems Constitutional: not feeling tired. Eyes: no eyesight problems. ENT: no hearing loss and no nosebleeds. Cardiovascular: palpitations, but no intermittent leg claudication and as noted in HPI. Respiratory: shortness of breath, but no (more content not included)... Normal [employer] PHQ-2 VITALSon 02-24-2022 Adult depression screening assessment No [facility] stickK 250 DO Work Phone: Tobacco use status [facility]S a) Yes [facility] stickK 250 DO Work Phone: PHQ[facility]2 VITALS [facility] Phone: Outside Recordson 07-06-2017 Outside Records [id number]#[id number] [facility] Coding Summaryon 04-12-2017 Coding Summary CODING DATE: 017 [facility] STATUS: Home PAYOR: Medicaid HMO ADMIT DX: REASON FOR VISIT DX: R10.31 Right lower quadrant pain FINAL DX: PRINCIPAL: R10.2 Pelvic and perineal pain SECONDARY: PROCEDURES DOCTOR NAME DATE NOTE: The code number assigned matches the documented diagnosis and / or procedure in the patient's chart. However, the narrative phrase printed from the coding software may appear abbreviated, or result in slightly different terminology. Coded By: Juany Szymanski Date Saved: 04/12/2017 07:06 am [facility] Coding Summary CODING DATE: 017 [facility] STATUS: Eloped PAYOR: Medicaid HMO ADMIT DX: REASON FOR VISIT DX: R10.31 Right lower quadrant pain FINAL DX: PRINCIPAL: R10.2 Pelvic and perineal pain SECONDARY: PROCEDURES DOCTOR NAME DATE NOTE: The code number assigned matches the documented diagnosis and / or procedure in the patient's chart. However, the narrative phrase printed from the coding software may appear abbreviated, or result in slightly different terminology. Coded By: Juany Szymanski Date Saved: 04/12/2017 07:06 am Normal [facility] C Urineon 04-01-2017 C Urine Urine Culture ordere d as a result of parameters set on specific urine dip and urine microsopic results. 60,000 cfu/ml Mixed skin, or urogenital allan. Clinically insignificant [facility] Comment on above: Performed By: #### 3 [id number], [id number] ####[facility] (DEFAULT)[address] [place] [address] ED Clinical Summaryon 2016 ED Clinical Summary [facility] Emergency [address] [place] [address] ed Clinical SummaryPERSON INFORMATIONName: KALEN PLAZA Dale Age: 31 Years Sex: FEMALEDOB: [birth year] MRN: Acct#:Visit Reason: Pelvic pain; Pelvic pain; PELVIC PAIN Arrival:03/30/17 22:14:00 Discharge: 03/30/17 23:30:00LOS: 000 01:16 Check In: 03/30/17 22:14:00 Checkout:03/30/17 23:30:00Address:[address] [facility] [address]BVN: Provider, NonePROVIDER INFORMATIONProvider Role Assigned UnassignedJodee Martinez ED Nurse 03/30/17 22:17:20Tayo Smith DO ED Provider 03/30/17 22:50:26VITALS INFORMATIONVital Sign Triage LatestTemperature TympanicTemperature Temporal ArteryPulse Rate 111 bpm 111 bpmO2 Sat 100 % 100 %Respiratory Rate 20 br/min 20 br/minBlood Pressure 107 mmHg/79 mmHg 107 mmHg/79 mmHgMEDICAL INFORMATIONMedications Given:Allergy Information:No Known Medication AllergiesPHYSICIAN DOCUMENTATIONDISCHARGE INFORMATION:Discharge Disposition: ElopedDischarge Location: HomePATIENT EDUCATION INFORMATIONInstructions:Follo w-Up:DIAGNOSIS:Pain pelvicComment: Normal [facility] ED Note - Physicianon 2016 ED Note - Physician Patient: CONCHITA PLAZA : 31 years Sex: FEMALE : [birth year]Associated Diagnoses: Pain pelvicAuthor: Doraherrera Tayo Tonya DOBasic InformationTime seen: Date & time 03/30/17 22:51:00.History source: Patient.Arrival mode: Private vehicle.History limitation: None.History of Present IllnessThe patient presents with Patient notes pain that began today, stabbing pain, right lower quad, and typical of what she has experienced in the past; she took 3 Percocet today, and 2 Vicodin today, and it is not touching the pain; she is out of herPercocet;She denies fever, chills, uti sx; states she is not bleeding, that the pain is every month, and starts just before her period; she states that she was offerred surgery, but deferred.She admits to STD age 15, and not since;She states she and her boyfriend are 'safe' .Review of SystemsConstitutional symptoms: No fever, no chills.Skin symptoms: No jaundice,Eye symptoms: Vision unchanged.ENMT symptoms: No ear pain, no sore throat.Respiratory symptoms: No shortness of breath,Cardiovascular symptoms: No chest pain,Gastrointestinal symptoms: Abdominal pain, no nausea, no vomiting, no diarrhea, no constipation, no rectal bleeding.Genitourinary symptoms: No dysuria, no hematuria.Musculoskeletal symptoms: No back pain, no Muscle pain.Neurologic symptoms: No headache,Psychiatric symptoms: No anxiety,Endocrine symptoms: No polyuria,Hematologic/Lymphati c symptoms: Bleeding tendency negative,Allergy/immunologic symptoms: No seasonal allergies,Past Medical/ Family/ Social HistoryMedical history: Negative.Surgical history: endometriosis, no sx for same.Physical Examination Vital SignsPleasant, alert, oriented, rather contorted on the guerny in room no 8, open door exam;heent nl, face symmetric, pupils 3.0 mm arline, no nystagmus, phayrnx symmetric, lungs cta, hrrr, no m, abd softe, not tender except vague suprapubic. No rebound, not rigid;This was a pleasant conversation, but the patient decided to leave since we would provide no more narcotics..Medical Decision MakingOrders Launch OrdersLaboratory: Test Urine 1 (Order): Urine, Stat collect, 03/30/17 22:51 EDT, Nurse collectUrinalysis with Culture, if indicated Standard (Order): Urine, Stat collect, 03/30/17 22:51 EDT, Nurse collect.Results review: Interpretation Abnormal results clue cells in urine, patient informed she needed an antibiotic.Reexamination/ ReevaluationInterventions: Stood right up, got dressed and walked out in a fast manner, no distress, no ambulatory distress. 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 .Disposition: Eloped.Counseled: Patient, Friend, Regarding diagnosis, Regarding diagnostic results, Regarding treatment plan, Regarding prescription, Patient indicated understanding of instructions.[Electronically Signed on: 03/31/2017 01:54 EDT] Tayo Smith DO[Verified on: 03/31/2017 01:54 EDT] Tayo Smith DO [facility] ED Note-Nursingon 03-31-2017 ED Note-Nursing Patient leaves after speaking with doctor. Doctor Sarah states he would give her a shot of toradol for pain and she did not think that would help her pain. Patient leaves with boyfriend. No further needs. [facility] ED Note-Nursing Urine sent to lab. D madonna Smith in to see patient. [facility] ED Note-Nursing Patient arrives with c/o right sided pelvic pain that started today with the start of her menstrual cycle. Patient states history of endometriosis. Pain 04/11. Patient took 3 percocet and 2 vicodin this morning with no relief. Vitals stable. Informed doctor will be in to see her. No furt her needs. [facility] ED Patient Education Noteon 03-31-2017 ED Patient Education Note Education Materials [facility] ED Patient Summaryon 017 ED Patient Summary [facility] [address] [place], [place] [address] pATIENT DISCHARGE INSTRUCTIONSPatient InformationName: KALEN PLAZA Dale Age: 31 YearsDate of : [birth year]MRN: [id number] For Visit: Pelvic pain; Pelvic pain; PELVIC PAINArrival Time: 03/30/17 22:14:00Phone: [facility] Physician: Provider, NoneAttending Physician: Tayo Smith DOComment:Visit Diagnosis:Diagnoses This Visit Pain pelvic (R10.2) Pelvic pain ([id number]) Pelvic pain ([id number])If you received any narcotics, sedation, or any other medication that causes drowsiness for the next 24 hours, unless otherwise directed:? Do not drive a car.? Do not operate machinery such as power tools, lawn mowers, drills, sewing machines, or stoves? Avoid alcoholic beverages and drugs for allergies, nerves, or sleep? Do not make important personal or business decisions or sign any legal documentsMedication Information:The exam and treatment you received today in the [facility] Emergency Department were for an urgent problem and are not intended as complete care. It is important for you to follow up with a doctor, nurse practitioner, or physician?s assistant professor nurse education for ongoing care. If your symptoms become worse or you do not improve as expected and you are unable to reach your usual health care provider, you should return to the Emergency Department, we are available 24 hours a day.For those patients who have received Radiology results, the interpretation of your X-ray as given to you by our Emergency Department physician is only a preliminary report. The Radiologist will review your films and if there is a change in the diagnosis you will be notified by phone. Please make sure you have provided a working phone number so we can reach you if necessary.In the event that you had a lab culture while you were a patient in the Emergency Department, you will be notified by phone if there is a need to change your antibiotic. Please make sure you have provided a working phone number so we can reach you if necessary.[facility] Emergency Department has provided you with a complete list of medications post discharge. 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 Any specific questions regarding your chronic medications and dosages should be discussed with your primary care physician(s) and/or pharmacist. Medications to Continue That Have Not ChangedOther Medicationsacetaminophen-hydr ocodone (Vicodin) 1 tab(s) Oral every 6 hours.acetaminophen-oxycodone (Percocet 5/325) 1 tab(s) Oral every 6 hours.Visit InformationAllergies:Substanc e Reaction Symptoms Type CommentsNo Known Medication Allergies DrugVital Signs: Vitals and Measurements this Visit (last charted value for your 03/30/2017 visit) Vital Signs This Visit Temperature Temporal: 36.7 DegC Peripheral Pulse Rate: 111 bpm Respiratory Rate: 20 br/min Systolic Blood Pressure: 107 mmHg Diastolic Blood Pressure: 79 mmHg SpO2: 100 % Oxygen Therapy: Room air Measurements This Visit Height/Length Dosin.000 cm Height/Length Estimated: 162.000 cm Weight Dosin.990 kg Weight Estimated: 48.990 kgProblems List:Problem Onset CommentsNo Problems foundPatient Education Viruses or BacteriaWhat?s got you sick?Antibiotics only treat bacterial infections. Viral illnesses cannot be treated with antibiotics. When an antibiotic is not prescribed, ask your healthcare professional for tips on how to relieve symptoms and feel better. Usual CauseIllnessVirusesBacteria Antibiotic NeededCold/Runny Nose NOBronchitis/Chest Cold (in otherwise healthy children and adults) NOWhooping Cough YesFlu NOStrep Throat YesSore Throat (except strep) NOFluid in the middle ear (otitis media with effusion) NOUrinary Tract Infection YesAntibiotics Aren?t Always the Answerwww.cdc.gov/getsmart GET SMART Know When Antibiotics Millicent.S. Department of Health and Human ServicesCenters for Disease Control and Prevention March 2014 [facility] Test Urine 1on U Preg Negative [facility] Comment on above: Performed By: #### 3 [id number], [id number], [id number] ####[facility] (DEFAULT)[address] [place] [address] U Preg Internal Control Pass [facility] Comment on above: Performed By: #### 3 [id number] ####[facility] (DEFAULT)[address] [place] [address] UA [id number] 03-31-2017 UA Bacteria 1+ [facility] Comment on above: Order Comment: Urina lysis Microscopic order added on by Endra Expert Rules system. Performed By: #### 3 [id number] ####[facility] (DEFAULT)[address] [place] [id number] UA Comment. Clue Cells Seen [facility] Comment on above: Order Comment: Urina lysis Microscopic order added on by Endra Expert Rules system. Performed By: #### 3 [id number] ####[facility] (DEFAULT)[address] [place] [address] UA Squam Epi Moderate [facility] Comment on above: Order Comment: Urina lysis Microscopic order added on by Endra Expert Rules system. Performed By: #### 3 [id number] ####[facility] (DEFAULT)[address] [place] [address] UA WBC 0-2 Normal [facility] Comment on above: Order Comment: Urina lysis Microscopic order added on by Endra Expert Rules system. Performed By: #### 3 [id number] ####[facility] (DEFAULT)[address] [place] [address] Urine, erythrocytes 0-5 Normal [facility] Comment on above: Order Comment: Urina lysis Microscopic order added on by Endra Expert Rules system. Performed By: #### 3 [id number] ####[facility] (DEFAULT)[address] [place] [address] UA w Culture if Ind Standard on 03-31-2017 Breakpoint UA [facility] Comment on above: Performed By: #### 3 [id number] ####[facility] (DEFAULT)[address] [place] [address] Culture? Indicated Invalid Interpretation Code [facility] Comment on above: Performed By: #### 3 [id number] ####[facility] (DEFAULT)[address] [place] [address] Micro? Indicated Invalid Interpretation Code [facility] Comment on above: Performed By: #### 3 [id number] ####[facility] (DEFAULT)[address] [place] [address] UA Bilirubin Negative Normal [facility] Comment on above: Performed By: #### 3 [id number] ####[facility] (DEFAULT)[address] [place] [address] UA Blood TRACE Abnormal NEGATIVE [facility] Comment on above: Performed By: #### 3 [id number] ####[facility] (DEFAULT)[address] [place] [address] UA Clarity SL CLOUDY Abnormal CLEAR [facility] Comment on above: Performed By: #### 3 [id number] ####[facility] (DEFAULT)[address] [place] [address] UA Leuk Est Negative Normal NEGATIVE [facility] Comment on above: Performed By: #### 3 [id number] ####[facility] (DEFAULT)[address] [place] [address] UA Nitrite Negative Normal NEGATIVE [facility] Comment on above: Performed By: #### 3 [id number] ####[facility] (DEFAULT)[address] [place] [address] UA pH 6.0 Invalid Interpretation Code 5-8 [facility] Comment on above: Performed By: #### 3 [id number] ####[facility] (DEFAULT)[address] [place] [address] UA Protein Negative Normal [facility] Comment on above: Performed By: #### 3 [id number] ####[facility] (DEFAULT)[address] [place] [address] UA Spec Grav <=1.005 Invalid Interpretation Code 1.001-1.[address] [place] [address] Comment on above: Performed By: #### 3 [id number] ####[facility] (DEFAULT)[address] [place] [address] UA Urobilinogen 0.2 mg/dL Normal 0.2-1.0 [facility] Comment on above: Performed By: #### 3 [id number] ####[facility] (DEFAULT)[address] [place] [address] Urine Source Clean Catch Normal [facility] Comment on above: Performed By: #### 3 [id number] ####[facility] (DEFAULT)[address] [place] [address] Urine, color YELLOW Invalid Interpretation Code [facility] Comment on above: Performed By: #### 3 [id number] ####[facility] (DEFAULT)[address] [place] [address] Urine, glucose Negative Invalid Interpretation Code [facility] Comment on above: Performed By: #### 3 [id number] ####[facility] (DEFAULT)[address] [place] [address] Urine, ketones presence Negative Invalid Interpretation Code [facility] Comment on above: Performed By: #### 3 [id number] ####[facility] (DEFAULT)[address] [place] [address] Vital Signs Date Time Vital Sign Value Performing Clinician Temo hoffmann 03-15-2024 07:17-0400 Body height 162.56 cm MD David Laguerre Work Phone: [facility] 03-15-2024 07:17-0400 Body weight 49.89 kg MD David Laguerre Work Phone: [facility] 01-26-2024 13:58-0400 Body height 162.56 cm MD David Laguerre Work Phone: [facility] 01-26-2024 13:58-0400 Body mass index (BMI) [Ratio] 19.7 kg/m2 MD David Laguerre Work Phone: [facility] 01-26-2024 13:58-0400 Body temperature 97.2 [degF] MD David Laguerre Work Phone: [facility] 01-26-2024 13:58-0400 Body weight 52.16 kg MD David Laguerre Work Phone: [facility] 01-26-2024 13:58-0400 Diastolic blood pressure 81 mm[Hg] MD David Laguerre Work Phone: [facility] 01-26-2024 13:58-0400 Heart rate 88 /min MD David Laguerre Work Phone: [facility] 01-26-2024 13:58-0400 Respiratory rate 16 /min MD David Laguerre Work Phone: [facility] 01-26-2024 13:58-0400 SaO2% (BldA) [Mass fraction] 99 % MD David Laguerre Work Phone: [facility] 01-26-2024 13:58-0400 Systolic blood pressure 125 mm[Hg] MD David Laguerre Work Phone: [facility] 11-22-2023 13:54-0400 Body height 162.56 cm MD David Laguerre Work Phone: [facility] 11-22-2023 13:54-0400 Body mass index (BMI) [Ratio] 18.8 kg/m2 MD David Laguerre Work Phone: [facility] 11-22-2023 13:54-0400 Body weight 49.89 kg MD David Laguerre Work Phone: [facility] 11-22-2023 13:54-0400 Diastolic blood pressure 66 mm[Hg] MD David Laguerre Work Phone: [facility] 11-22-2023 13:54-0400 Heart rate 94 /min MD David Laguerre Work Phone: [facility] 11-22-2023 13:54-0400 Systolic blood pressure 105 mm[Hg] MD David Laguerre Work Phone: [facility] 10-18-2023 13:04-0400 Body height 165 cm Rosmery Mack MD Work Phone: [facility] 10-18-2023 13:04-0400 Body temperature 96.8 [degF] Rosmery Mack MD Work Phone: [facility] 10-18-2023 13:04-0400 Body weight 50.6 kg Rosmery Mack MD Work Phone: [facility] 10-18-2023 13:04-0400 Diastolic blood pressure 69 mm[Hg] Rosmery Mack MD Work Phone: [facility] 10-18-2023 13:04-0400 Heart rate 73 /min Rosmery Mack MD Work Phone: [facility] 10-18-2023 13:04-0400 Systolic blood pressure 113 mm[Hg] Rosmery Mack MD Work Phone: [facility] 09-28-2023 11:30-0400 Diastolic blood pressure 73 mm[Hg] MD David Laguerre Work Phone: [facility] 09-28-2023 11:30-0400 Heart rate 78 /min MD David Laguerre Work Phone: [facility] 09-28-2023 11:30-0400 Respiratory rate 16 /min MD David Laguerre Work Phone: [facility] 09-28-2023 11:30-0400 SaO2% (BldA) [Mass fraction] 98 % MD David Laguerre Work Phone: [facility] 09-28-2023 11:30-0400 Systolic blood pressure 93 mm[Hg] MD David Laguerre Work Phone: [facility] 09-28-2023 08:50-0400 Body height 162.56 cm MD David Laguerre Work Phone: [facility] 09-28-2023 08:50-0400 Body weight 49.89 kg MD David Laguerre Work Phone: [facility] 09-15-2023 08:57-0400 Body height 162.6 cm Marty Richardson MD Work Phone: [facility] 09-15-2023 08:57-0400 Body mass index (BMI) [Ratio] 19.19 kg/m2 Marty Richardson MD Work Phone: [facility] 09-15-2023 08:57-0400 Body weight 50.71 kg Marty Richardson MD Work Phone: [facility] 09-15-2023 08:57-0400 Diastolic blood pressure 76 mm[Hg] Marty Richardson MD Work Phone: [facility] 09-15-2023 08:57-0400 Heart rate 88 /min Marty Richardson MD Work Phone: [facility] 09-15-2023 08:57-0400 SaO2% (BldA) [Mass fraction] 99 % Marty Richardson MD Work Phone: [facility] 09-15-2023 08:57-0400 Systolic blood pressure 108 mm[Hg] Marty Richardson MD Work Phone: [facility] 08-23-2023 10:28-0500 Diastolic blood pressure 70 mm[Hg] MD David Laguerre Work Phone: [facility] 08-23-2023 10:28-0500 Heart rate 63 /min MD David Laguerre Work Phone: [facility] 08-23-2023 10:28-0500 Respiratory rate 16 /min MD David Laguerre Work Phone: [facility] 08-23-2023 10:28-0500 SaO2% (BldA) [Mass fraction] 100 % MD David Laguerre Work Phone: [facility] 08-23-2023 10:28-0500 Systolic blood pressure 126 mm[Hg] MD David Laguerre Work Phone: [facility] 08-23-2023 08:19-0500 Body height 162.56 cm MD David Laguerre Work Phone: [facility] 08-23-2023 08:19-0500 Body weight 49.89 kg MD David Laguerre Work Phone: [facility] 07-28-2023 14:54-0500 Body height 162.56 cm MD David Laguerre Work Phone: [facility] 07-28-2023 14:54-0500 Body mass index (BMI) [Ratio] 18.8 kg/m2 MD David Laguerre Work Phone: [facility] 07-28-2023 14:54-0500 Body temperature 98 [degF] MD David Laguerre Work Phone: [facility] 07-28-2023 14:54-0500 Body weight 49.89 kg MD David Laguerre Work Phone: [facility] 07-28-2023 14:54-0500 Diastolic blood pressure 81 mm[Hg] MD David Laguerre Work Phone: [facility] 07-28-2023 14:54-0500 Heart rate 88 /min MD David Laguerre Work Phone: [facility] 07-28-2023 14:54-0500 Respiratory rate 20 /min MD David Laguerre Work Phone: [facility] 07-28-2023 14:54-0500 SaO2% (BldA) [Mass fraction] 98 % MD David Laguerre Work Phone: [facility] 07-28-2023 14:54-0500 Systolic blood pressure 128 mm[Hg] MD David Laguerre Work Phone: [facility] 07-27-2023 14:17-0500 Diastolic blood pressure 82 mm[Hg] Kika Edmonds MD Work Phone: [facility] 07-27-2023 14:17-0500 Heart rate 76 /min Kika Edmonds MD Work Phone: [facility] [employer] 07-27-2023 14:17-0500 Systolic blood pressure 116 mm[Hg] Kika Edmonds MD Work Phone: [facility] 07-27-2023 14:16-0500 Body height 162.6 cm Kika Edmonds MD Work Phone: [facility] [employer] 07-27-2023 14:16-0500 Body mass index (BMI) [Ratio] 18.81 kg/m2 Kika Edmonds MD Work Phone: [facility] [employer] 07-27-2023 14:16-0500 Body weight 49.71 kg Kika Edmonds MD Work Phone: [facility] 07-27-2023 14:16-0500 Respiratory rate 18 /min Kika Edmonds MD Work Phone: [facility] [employer] 07-19-2023 14:15-0500 Body height Imad Asaad Other [employer] [facility] [employer] Other 07-19-2023 14:15-0500 Body height 162.56 cm MD David Laguerre Work Phone: [facility] 07-19-2023 14:15-0500 Body mass index (BMI) [Ratio] 19.81 kg/m2 Imad Asaad Other [employer] Other 07-19-2023 14:15-0500 Body weight 52.35 kg Imad Asaad Other [employer] Other 07-19-2023 14:15-0500 Body weight 52.34 kg MD David Laguerre Work Phone: [facility] 07-19-2023 09:09-0500 Body height 162.6 cm Marty Richardson MD Work Phone: [facility] 07-19-2023 09:09-0500 Body mass index (BMI) [Ratio] 19.57 kg/m2 Marty Richardson MD Work Phone: [facility] 07-19-2023 09:09-0500 Body weight 51.71 kg Marty Richardson MD Work Phone: [facility] 07-19-2023 09:09-0500 Diastolic blood pressure 80 mm[Hg] Marty Richardson MD Work Phone: [facility] 07-19-2023 09:09-0500 Heart rate 125 /min Marty Richardson MD Work Phone: [facility] 07-19-2023 09:09-0500 SaO2% (BldA) [Mass fraction] 98 % Marty Richardson MD Work Phone: [facility] 07-19-2023 09:09-0500 Systolic blood pressure 110 mm[Hg] Marty Richardson MD Work Phone: [facility] 07-05-2023 13:13-0500 Body temperature 98.5 [degF] MD David Laguerre Work Phone: [facility] 07-05-2023 13:13-0500 Diastolic blood pressure 75 mm[Hg] MD David Laguerre Work Phone: [facility] 07-05-2023 13:13-0500 Heart rate 105 /min MD David Laguerre Work Phone: [facility] 07-05-2023 13:13-0500 Respiratory rate 20 /min MD David Laguerre Work Phone: [facility] 07-05-2023 13:13-0500 SaO2% (BldA) [Mass fraction] 100 % MD David Laguerre Work Phone: [facility] 07-05-2023 13:13-0500 Systolic blood pressure 112 mm[Hg] MD David Laguerre Work Phone: [facility] 06-13-2022 14:52-0500 Blood Pressure Location Mauricio KITCHEN [facility] 06-13-2022 14:52-0500 Diastolic blood pressure 89 mm[Hg] Mauricio KITCHEN [facility] 06-13-2022 14:52-0500 Heart rate 103 /min Mauricio KITCHEN [facility] 06-13-2022 14:52-0500 Systolic blood pressure 124 mm[Hg] Mauricio KITCHEN [facility] 02-24-2022 14:10-0400 Diastolic blood pressure 70 mm[Hg] David Gaviriaerer Work Phone: [facility] DO Work Phone: 02-24-2022 14:10-0400 Diastolic blood pressure 60 mm[Hg] David Gaviriaerer Work Phone: [facility] 250 DO Work Phone: 02-24-2022 14:10-0400 Systolic blood pressure 100 mm[Hg] David Gaviriaerer Work Phone: [facility] 250 DO Work Phone: 02-24-2022 14:10-0400 Systolic blood pressure 90 mm[Hg] David Gaviriaerer Work Phone: [facility] 250 DO Work Phone: 02-24-2022 14:01-0400 Diastolic blood pressure 80 mm[Hg] David Hunter Naderer Work Phone: [facility] 250 DO Work Phone: 02-24-2022 14:01-0400 Systolic blood pressure 104 mm[Hg] David Hunter Naderer Work Phone: [facility] 250 DO Work Phone: 02-24-2022 13:56-0400 Body height 162.56 cm David Hunter Naderer Work Phone: [facility] 250 DO Work Phone: 02-24-2022 13:56-0400 Body mass index (BMI) [Ratio] 19.91 kg/m2 David Hunter Naderer Work Phone: [facility] 250 DO Work Phone: 02-24-2022 13:56-0400 Body surface area Derived from formula 1.55 m2 David Hunter Naderer Work Phone: [facility] 250 DO Work Phone: 02-24-2022 13:56-0400 Body weight 52.62 kg David Hunter Naderer Work Phone: [facility] DO Work Phone: 02-24-2022 13:56-0400 Diastolic blood pressure 88 mm[Hg] David Dale Naderer Work Phone: [facility] DO Work Phone: 02-24-2022 13:56-0400 Heart rate 97 /min David Dale Naderer Work Phone: [facility] 250 DO Work Phone: 02-24-2022 13:56-0400 Systolic blood pressure 110 mm[Hg] David A Naderer Work Phone: [facility] DO Work Phone: Encounters Encounter Date Encounter Type Care Provider Facility Start: 04-01-2024 End: 04-01-2024 ambulatory MARTY Mata HEVER [facility] Start: 03-20-2024 End: 03-22-2024 ambulatory FRANCIS [facility] Start: 03-15-2024 End: 03-15-2024 Patient encounter procedure MD David Laguerre Work Phone: [facility] Work Phone: Start: 03-15-2024 End: 03-15-2024 ambulatory MD David Laguerre Work Phone: [facility] Work Phone: Start: 03-07-2024 End: 03-07-2024 ambulatory [facility] Start: 02-26-2024 End: 02-26-2024 ambulatory MICHELL Miriam HART [facility] Start: 02-24-2024 End: 02-25-2024 Emergency department patient visit ZULMA Dale CUELLO [facility] Start: 02-21-2024 End: 02-21-2024 ambulatory KEIRA HELLER Not Available Start: 02-07-2024 End: 02-07-2024 ambulatory DAVID LAGUERRE [facility] Start: 02-07-2024 End: 02-07-2024 ambulatory DAVID LAGUERRE Not Available Start: 01-26-2024 End: 01-26-2024 Patient encounter procedure MD David Laguerre Work Phone: [facility] Work Phone: Start: 01-26-2024 Registered Recurring MD David joiner Work Phone: [facility] Work Phone: Start: 01-26-2024 ambulatory David Laguerre Facility:[facility] Start: 01-24-2024 End: 01-24-2024 ambulatory TAYO BARAJAS [facility] Start: 12-07-2023 End: 12-07-2023 ambulatory BRENT WHITTAKER Not Available Start: 11-28-2023 End: 11-28-2023 ambulatory [facility] Start: 11-22-2023 End: 11-22-2023 Patient encounter procedure MD David Laguerre Work Phone: [facility] Work Phone: Start: 11-22-2023 End: 11-22-2023 ambulatory MD David Laguerre Work Phone: [facility] Work Phone: Start: 11-22-2023 End: 11-22-2023 Patient encounter procedure MD David Laguerre Work Phone: [facility] Gastroenterology Work Phone: Start: 11-06-2023 End: 11-06-2023 ambulatory DAVID LAGUERRE Not Available Start: 10-26-2023 End: 10-26-2023 ambulatory [facility] Start: 10-25-2023 Telephone encounter Rosmery Mack MD Work Phone: [facility] Comment on above: Medical Records-[facility] Start: 10-19-2023 Telephone encounter Rosmery Mack MD Work Phone: [facility] Comment on above: Letter Start: 10-18-2023 End: 10-18-2023 ambulatory KEIRA PINA Facility:[facility] Start: 10-18-2023 Telephone encounter Rosmery Mack MD Work Phone: [facility] Start: 10-18-2023 End: 10-18-2023 Patient encounter procedure Rosmery Mack MD Work Phone: [facility] Comment on above: Paresthesia (Primary Dx); POTS (postural orthostatic tachycardia syndrome); Syncope, unspecified syncope type; Tremor, unspecified; Retro-orbital pain of both eyes Start: 09-28-2023 Non-patient / Non-visit MD David Laguerre Work Phone: [facility] Gastroenterology Work Phone: Start: 09-28-2023 End: 09-28-2023 Admission to same day surgery center MD David Laguerre Work Phone: [facility] Work Phone: Start: 09-28-2023 End: 09-28-2023 ambulatory MD David Laguerre Work Phone: [facility] Work Phone: Start: 09-18-2023 Telephone encounter Jeniffer PENA [facility] Start: 09-15-2023 End: 09-15-2023 Office outpatient visit 15 minutes Marty Richardson MD Work Phone: [facility] Comment on above: Sinus tachycardia (P rimary Dx) Start: 09-15-2023 End: 09-15-2023 ambulatory MARTY RICHARDSON [facility] Start: 09-14-2023 Telephone encounter [facility] Start: 09-05-2023 End: 09-05-2023 ambulatory [facility] Start: 08-23-2023 Non-patient / Non-visit MD David Laguerre Work Phone: [facility] Gastroenterology Work Phone: Start: 08-23-2023 End: 08-23-2023 Admission to same day surgery center MD David Laguerre Work Phone: [facility] Work Phone: Start: 08-23-2023 End: 08-23-2023 ambulatory MD David Laguerre Work Phone: [facility] Work Phone: Start: 08-14-2023 End: 08-14-2023 Phys/qhp telephone evaluation 5-10 min Brentluis Rusho DO Work Phone: [facility] Comment on above: Pelvic pain in femal e (Primary Dx) Start: 08-14-2023 End: 08-14-2023 ambulatory BRENT REMEDIOS Not Available Start: 08-11-2023 Refill David Ríos Work Phone: [facility] Comment on above: Postural orthostatic tachycardia syndrome Start: 08-07-2023 End: 08-07-2023 ambulatory DAVID LAGUERRE Not Available Start: 08-05-2023 End: 08-06-2023 Emergency department patient visit DONI MIMS [facility] Start: 08-03-2023 End: 09-01-2023 ambulatory KEIRA MANANMary HELLER [facility] Start: 08-02-2023 End: 08-02-2023 ambulatory ALEJANDRA UMAÑA [facility] Start: 07-28-2023 End: 07-28-2023 ambulatory MD David Laguerre Work Phone: [facility] Work Phone: Start: 07-28-2023 End: 07-28-2023 Patient encounter procedure MD David Laguerre Work Phone[facility] [place] [facility] Work Phone: Start: 07-28-2023 End: 07-28-2023 ambulatory DAVID LAGUERRE [facility] Start: 07-28-2023 Registered Recurring MD David joiner [facility] [place] [facility] Work Phone: Start: 07-27-2023 End: 07-29-2023 ambulatory [facility] Start: 07-27-2023 End: 07-27-2023 Office outpatient visit 15 minutes Kika Edmonds MD Work Phone: [facility] Comment on above: Varicose veins of bi lateral lower extremities with pain (Primary Dx); Sinus tachycardia; POTS (postural orthostatic tachycardia syndrome); PVC's (premature ventricular contractions); PAC (premature atrial contraction); Venous insufficiency of both lower extremities Start: 07-25-2023 End: 07-25-2023 ambulatory DANY TOVAR Facility:[facility] Start: 07-24-2023 End: 07-24-2023 ambulatory DAVID LAGUERRE [facility] Start: 07-20-2023 End: 07-20-2023 ambulatory [facility] Start: 07-19-2023 Office outpatient ne w 60 minutes [facility] Start: 07-19-2023 End: 07-19-2023 Office outpatient visit 25 minutes Marty Richardson MD Work Phone: [facility] Comment on above: Tachycardia (Primary Dx); PVC's (premature ventricular contractions); PAC (premature atrial contraction); Syncope, unspecified syncope type; Sinus tachycardia Start: 07-19-2023 End: 07-19-2023 ambulatory [facility] Other Start: 07-19-2023 End: 07-19-2023 Patient encounter procedure MD David Laguerre Work Phone: [facility] Start: 07-18-2023 Telephone encounter [facility]n [facility] Start: 07-18-2023 End: 07-18-2023 ambulatory KIKA EDMONDS [facility] Start: 07-10-2023 End: 08-03-2023 ambulatory KEIRA MANAN [facility] Start: 07-07-2023 End: 07-07-2023 ambulatory NOT IN SYSTEM REF PROV [facility] Start: 06-22-2023 End: 07-03-2023 ambulatory CHLOE TESFAYE [facility] Start: 06-15-2023 End: 07-03-2023 ambulatory KEIRA HINKLE [facility] Start: 05-23-2023 End: 05-23-2023 ambulatory Mauricio KITCHEN Facility:[facility] Start: 05-23-2023 End: 05-23-2023 Patient encounter procedure Mauricio R FIDELINA [facility] Start: 05-16-2023 End: 05-16-2023 ambulatory BRENT WHITTAKER Not Available Start: 02-03-2023 ambulatory Mauricio KITCHEN Facili ty:[facility] Start: 07-20-[address] Lino Suazo Facility: Start: 07-12-2022 End: 07-12-[address] BRENT WHITTAKER Facility: Start: 06-13-2022 End: 06-13-2022 Patient encounter procedure Mauricio Miriam KICTHEN [facility] Start: 05-31-[address] Lino Suazo Facility: Start: 05-05-2022 End: 05-05-[address] DAVID LAGUERRE Facility: Start: 02-24-[address] David Laguerre Facility: Start: 02-24-2022 Office outpatient ne w 60 minutes David Laguerre Work Phone: [facility] 250 DO Work Phone: Start: 03-31-2017 End: 03-31-2017 Ambulatory [facility] Facility:[facility] Start: 03-31-2017 End: 03-31-2017 Emergency department patient visit [facility] Facility:[facility] Procedures Date Procedure Procedure Detail Performing Clinician Start: 03-15-2024 MRI of head MD David mcclendon Work Phone: Start: 09-28-2023 Colonoscopy MD David mcclendon Work Phone: Start: 09-15-2023 Follow-up visit Follow-up MARTY RICHARDSON Start: 08-23-2023 Esophagogastroduodenoscopy MD David Laguerre Work Phone: Start: 07-27-2023 Follow-up visit Follow-up KIKA EDMONDS Start: 07-19-2023 Ecg routine ecg w/le ast 12 lds w/i&r Marty Richardson MD Work Phone: Start: 08-02-2022 Cystoscopy Mauriciomiller URIBE Start: 07-12-2022 Microscopic observat ion [Identifier] in Cervix by Cyto stain Kika Edmonds MD Work Phone: Excision of neoplasm David Laguerre Work Phone: Lymphocytes (Bld) [#/Vol] William KITCHEN Operation on uterus David joiner Work Phone: Tonsillectomy David Laguerre Work Phone: Tonsillectomy Mauriciomiller KITCHEN NEGATED: Highlighted row has not occurred! Total colonoscopy David Laguerre Work Phone: Plan of Treatment Date Care Activity Detail Author Start: 07-12-2027 Screening for malign ant neoplasm of cervix [facility] Start: 07-12-2025 Screening for malign ant neoplasm of cervix Pap Smear [facility] Start: 09-14-2024 Adult BMI Screening Adult BMI Screen ing [facility] Start: 09-14-2024 Tobacco Screening Tobacco Screening [facility] Start: 09-04-2024 Tobacco Screening Tobacco Screening [facility] Start: 08-05-2024 Adult BMI Screening Adult BMI Screen ing [facility] Start: 07-27-2024 Adult BMI Screening Adult BMI Screen ing [facility] Start: 07-27-2024 Tobacco Screening Tobacco Screening [facility] Start: 07-19-2024 Adult BMI Screening Adult BMI Screen ing [facility] Start: 07-19-2024 Tobacco Screening Tobacco Screening [facility] Start: 06-15-2024 Adult BMI Screening Adult BMI Screen ing [facility] Start: 06-02-2024 Tobacco Screening Tobacco Screening [facility] Start: 04-01-2024 End: 04-01-2024 Patient encounter procedure 04/01/2024 8:00 AM EDT Office Visit [facility] [address] [place] [id number] John Evans MD [address] [place] [address] [facility] Start: 03-03-2024 Influenza vaccination Influenz a Vaccine (Season Ended) [facility] Start: 01-10-2024 End: 01-10-2024 Patient encounter procedure 01/10/2024 2:00 PM EDT Office Visit [facility] [address] [place] [phone] Nadine Jimenez, SHOE HANDLER-HEALTH SERVICES MANAGER [address] [address] [facility] Start: 12-27-2023 End: 12-27-2023 Patient encounter procedure 12/27/2023 12:00 PM EDT Office Visit Neurology [facility] [address] [place], [place] [id number] [place] [address] [place] [address] Return in about 2 months (around 12/18/2023). [facility] Comment on above: Return in about 2 mo nths (around 12/18/2023). Start: 11-14-2023 End: 11-14-2023 Patient encounter procedure 11/14/2023 2:00 PM EDT Office Visit [facility] [address] [place] [place] [phone] Brent Whittaker, [address] [place] [address] [facility] Start: 11-06-2023 End: 11-06-2023 Patient encounter procedure 11/06/2023 1:30 PM EDT Office Visit [facility] [address] [place] [address] David Laguerre MD [address] [place] [address] [facility] Start: 10-26-2023 End: 10-26-2023 Patient encounter procedure 10/26/2023 11:10 AM EDT Office Visit [facility] [address] [place] [address] Dhruv Bustillos MD [address], [facility] [address] [place] [address] [facility] Start: 09-28-2023 [facility] Start: 09-15-2023 End: 09-15-2023 Patient encounter procedure 09/15/2023 9:15 AM EDT Office Visit [facility] [address] [facility] [address] [place] [phone] Marty Richardson MD [address] [place] [address] [facility] Start: 08-23-2023 [facility] Start: 08-14-2023 End: 08-14-2023 Telemedicine consultation with patient 08/14/2023 3:30 PM EST Telemedicine [facility] [address] [facility] [address] [place] [address] Airam Matthew MD [address] [facility] [address] [place] [address] [facility] Start: 08-03-2023 End: 08-03-2023 Patient encounter procedure 08/03/2023 1:45 PM EST Appointment [facility] [address] [place] [phone] [facility] Start: 07-27-2023 End: 07-27-2023 Patient encounter procedure 07/27/2023 10:50 AM EST Office Visit [facility] [address] [place] [address] Kika Edmonds MD [address] [place] [address] [facility] Start: 07-19-2023 End: 07-19-2023 Patient encounter procedure 07/19/2023 9:30 AM EST Office Visit [facility] [address] [facility] [address] [place] [address] Marty Richardson MD [address] [place] [address] [facility] Start: 07-18-2023 Subsequent hospital visit by physician 07/18/2023 2:00 PM EST Hospital Encounter [facility] [address] [place] [phone] [facility] Start: 07-03-2023 Behavioral Health Screening Behavioral Health Screening [facility] Start: 03-03-2023 Covid-19 Vaccine ( season) Covid-19 Vaccine ( season) [facility] Start: 03-03-2023 Influenza vaccination [facility] Start: 05-31-2022 FUV, Provider: Lino Suazo, Status: Pen, Time: 3:20 PM FUV, Provider: Lino Suazo, Status: Pen, Time: 3:20 PM [place] [address] DO Work Phone: Start: 10-08-2015 Screening for malign ant neoplasm of cervix HPV Testing [facility] Start: 2006 Screening for malign ant neoplasm of cervix [facility] Start: 2004 DTaP,Tdap and Td Vaccines (1 - Tdap) DTaP,Tdap and Td Vaccines (1 - Tdap) [facility] Start: 2004 Hepatitis B Vaccine (1 of 3 - 19+ 3-dose series) Hepatitis B Vaccine (1 of 3 - 19+ 3-dose series) [facility] Start: 2004 Urine microalbumin profile DTaP,Tdap,Td Vaccine (1 - Tdap) [facility] Start: 10-08-2003 HIV screening HIV Screening [facility] Start: 1997 Depression Screening Depression Scre kathryn [facility] Start: 1985 Tobacco Counseling Tobacco Counselin g [facility] aPTT in Platelet poo r plasma by Coagulation assay [facility] Ceruloplasmin [Mass/volume] in Serum or Plasma [facility] Comprehensive metabo lic 1999 panel - Serum or Plasma [facility] Comprehensive metabo lic 1999 panel - Serum or Plasma [facility] Copper measurement [facility] Patient Education [facility] ([place]) [facility] Work Phone: Phytonadione [Mass/volume] in Serum or Plasma [facility] Serum vitamin K measurement [facility] Immunizations Immunization Date Immunization Notes Care Provider Génesis griffith NEGATED: Highlighted row has not occurred!06-13-2022 SARS-CoV-2 mRNA (tozinameran 5y-11y) vaccine Mauricio KITCHEN [facility] Payers Date Payer Category Payer Self-pay [id number] 2017 Medicaid [id number] 2017 Unknown 2017 Medicaid [id number] 2. [id number] 1985 Unknown [id number] 2.16.84 0.1.088369.3.579.2.593 1985 Unknown [id number] 2.16.84 0.1.348895.3.579.2.593 1985 Unknown [id number] 2.16. 840.1.571192.3.579.2.356 1985 Unknown [id number] 2.16. 840.1.743543.3.579.2.356 1985 Unknown [id number] 2.16. 840.1.651421.3.579.2.356 1985 Unknown [id number] 2.16.8 40.1.793577.3.579.2.1286 1985 Unknown [id number] 2.16.8 40.1.381458.3.579.2.1286 1985 Unknown [id number] 2.16.8 40.1.145709.3.579.2.727 1985 Unknown [id number] 2.16.8 40.1.134189.3.579.2.727 1985 Unknown [id number] 2.16.8 40.1.912974.3.579.2.727 1985 Unknown [id number] 2.16.84 0.1.415597.3.579.2.1259 1985 Unknown [id number] 2.16.84 0.1.468119.3.579.2.1259 1985 Unknown [id number] 2.16.84 0.1.746234.3.579.2.1259 1985 Unknown [id number] 2.16.84 0.1.483672.3.579.2.1259 1985 Unknown [id number] 2.16.84 0.1.324992.3.579.2.1258 1985 Unknown [id number] 2.16.84 0.1.986099.3.579.2.1258 1985 Unknown [id number] 2.16.84 0.1.571106.3.579.2.1258 1985 Unknown [id number] 2.16.840. 1.654031.3.579.2.1258 1985 Unknown [id number] 2.16.8 40.1.358005.3.579.2.1285 1985 Unknown [id number] 2.16.8 40.1.073921.3.579.2.1285 1985 Unknown [id number] 2.16.8 40.1.259267.3.579.2.1285 1985 Unknown [id number] 2.16.8 40.1.198226.3.579.2.1285 1985 Unknown [id number] 2.16.8 40.1.064660.3.579.2.1285 1985 Unknown [id number] 2.16.8 40.1.711864.3.579.2.1285 1985 Unknown [id number] 2.16.8 40.1.017775.3.579.2.1285 1985 Unknown [id number] 2.16.8 40.1.720458.3.579.2.1285 1985 Unknown [id number] 2.16.8 40.1.739255.3.579.2.1285 1985 Unknown [id number] 2.16.8 40.1.118077.3.579.2.1285 1985 Unknown [id number] 2.16.8 40.1.352389.3.579.2.1285 1985 Unknown [id number] 2.16.8 40.1.955560.3.579.2.1285 1985 Unknown [id number] 2.16.8 40.1.009932.3.579.2.1285 1985 Unknown [id number] 2.16.8 40.1.467486.3.579.2.1285 1985 Unknown [id number] 2.16.8 40.1.830656.3.579.2.1285 1985 Unknown [id number] 2.16.8 40.1.416457.3.579.2.1285 1985 Unknown [id number] 2.16.8 40.1.185342.3.579.2.1285 1985 Unknown [id number] 2.16.8 40.1.316931.3.579.2.1285 1985 Unknown [id number] 2.16.84 0.1.873722.3.579.2.1285 1985 Unknown [id number] 2.16.84 0.1.656542.3.579.2.1285 1985 Unknown [id number] 2.16.84 0.1.940606.3.579.2.1285 1985 Unknown [id number] 2.16.84 0.1.833317.3.579.2.1285 1985 Unknown [id number] 2.16.8 40.1.660415.3.579.2.1285 1985 Unknown [id number] 2.16.84 0.1.249477.3.579.2.1285 1985 Unknown [id number] 2.16.84 0.1.091551.3.579.2.1285 1985 Unknown [id number] 2.16.84 0.1.728256.3.579.2.1285 1959 Medicaid [id number] Unknown [id number] 2.16.8 40.1.598400.3.579.2.531 Unknown [id number] 2.16.8 40.1.187866.3.579.2.531 Unknown [id number] 2.16.8 40.1.961847.3.579.2.531 Unknown [id number] 2.16.8 40.1.172328.3.579.2.531 Unknown [id number] 2.16.8 40.1.163938.3.579.2.531 Social History Date Type Detail Facility Start: 10-24-2022 End: 10-18-2023 No alcohol use No alcohol use [facility] Comment on above: pop 3 cans daily cof fee 1 cup daily; 1 ppd; Start: 06-13-2022 End: 08-02-2022 Tobacco smoking status Heavy tobacco smoker (finding) [facility] Start: 06-02-2023 End: 10-18-2023 Sex Assigned At Female [facility] End: 07-03-2023 Tobacco smoking status Smoker (finding) [facility] Tobacco smoking status Never [facility] Start: 07-05-2023 Tobacco smoking stat us NHIS Current some day smoker [facility] Start: 1985 Sex Assigned At Female [facility] Start: 10-24-2022 End: 08-07-2023 Tobacco smoking status NHIS Smokes tobacco daily [facility] End: 07-03-2023 History of tobacco use Cigarette Smoker [facility] Start: 10-24-2022 End: 10-18-2023 Tobacco use and exposure Smokeless tobacco non-user [facility] Start: 06-06-2023 End: 09-15-2023 Alcohol intake Current drinker of alcohol (finding) [facility] Start: 11-19-2020 Alcohol Comment RARELY [facility] Start: 1985 Sex Assigned At Not on file P [facility] Start: 08-23-2023 End: 01-26-2024 Tobacco smoking status NHIS Ex-smoker (finding) [facility] Start: 10-18-2023 Alcohol intake Lifetime non-d xenia (finding) [facility] Goals Date Patient Goal Desired Activity /State Functional Status Date Assessment Result Facility 06-13-2022 Functional Status N/A [facility] Clinical Notes 06-13-2022 to 11-22-2023 Note Date & Type Note Facility 11-22-2023 Evaluation note Authored November 22, 2023 2:29p m 38-year-old female referred to the gastroenterology clinic for evaluation of diarrhea Patient reports 1 loose bowel movement every 3 to 4 days. She also reports abdominal pain and nausea. She reports 25 pound unintentional weight loss over the last 1 to 2 years. She states that she has deficiencies in multiple electrolytes and vitamins and she is concerned that she has a malabsorption syndrome. CT in 12/2022 showed 0.8 cm indeterminate liver lesion and showed an opacity within the cecum which thought to be a pill. It also showed Mild asymmetric fullness right renal pelvis and ureter, indeterminate etiology. MRI on 07/28/23 showed no hepatic lesions. Colonoscopy was done on 08/23/2023 and 09/28/2023 and showed normal cecum however there was large amount of liquid stool throughout the colon and both colonoscopies. Random colonic biopsies were unremarkable. EGD on 08/23/2023 showed gastritis and LA grade a esophagitis, gastric biopsies were negative for H. pylori, duodenal biopsies were negative for celiac CRP fecal calprotectin and fecal elastase were normal Patient already follows with urology for abnormal urologic CT findings -There is no laboratory, imaging, endoscopic and histologic evidence of malabsorption syndrome. -I think patient has constipation leading to poor prep and infrequent bowel movements. Will recommend the patient to take tablespoon of Metamucil once daily, avoid dehydration, can add Miralax 17gm PO Qday and titrate up to twice or three times daily if needed. [facility] Work Phone: 1(217) 679-163004-24-2024 Telephone encounter Note* Telephone Encounter - Carola Funez MA - 10/25/2023 3:46 PM EDT Patient records received via electronic fax. Uploaded to eOriginal via [employer]. Please review in scanned documents tab of chart review. Please view--- Medical Records-[facility] Carola Funez MA [facility]04-24-2024 Miscellaneous Notes* Telephone Encounter - Carola Funez MA - 10/25/2023 3:46 PM EDT Patient records received via electronic fax. Uploaded to [employer]Original via [employer]. Please review in scanned documents tab of chart review. Please view--- Medical Records-[facility] Williamrukhsana Funez MARIANA documented in this encounter[facility]24 Miscellaneous Notes* Telephone Encounter - Valerie Perez RN - 10/19/2023 9:12 AM EDTSummary: Letter Letter printed and mailed as requested by provider. documented in this encounterOhio[facility]04-17-2024 NoteHNO ID: [id number] Author: ROSMERY MACK MD Service: ? Author Type: Physician Type: Progress Notes Filed: 10/18/2023 21:18 Note Text: [facility] New Patient Evaluation Consulting Provider: Keira Heller [address] [place] [address] The patient presents with a chief complaint as listed below and is seen in consultation requested by LUBNA Heller for an opinion regarding these symptoms. My final recommendations will be communicated back to the requesting physician by way of shared medical record or letter via US mail. Dear Ms. Keira Heller, Thank you for the referral. Please let me know if you have any questions. Individuals who were included in, or assisted with the encounter were: Kalen Plaza Rosmery Mack MD Chief Complaint/Issues: Kalen Plaza is a 38 year old RH female with hx of ADHD, HLD, history of depression, fatigue and all these symptoms below, seen in the [facility] for: Paresthesia Fatigue Tremoring in the legs Fainting Eye and Ear pressure, was told that she may have intracranial HTN and want an LP HPI: 2 yrs ago had lightheadedness, Tremoring in legs, muscle pain and weakness in legs and feet, some vertigo and numbness in her hands. Now she has eye pressure and ear pressure bilateral and bad headaches. Fainting now, they initially thought it was POTS but now not thought to be POTS. She is not working because she faints. She has been going to multiple doctors and no one can figure out what is going on with her. She tried physical therapy for 11 weeks and it did not do anything except make her worse and she is still fatigued. She has sleep apnea apparently obstructive sleep apnea and she is supposed to get CPAP soon. While talking she often throws out possible or suspected diagnosis as she claims she may have narcolepsy and rem behavior disorder but no records and assessment that I can look at. [facility] and saw Keira Laguerre and also saw physician there - MRI of brain, Cspine, Tspine and Lumbar spine and emg/ncs was apparently abnormal. She was worried about a L/S spine and a mass there, it looks like a cyst and in 2014 Mri of Lumbar spine, she had the same thing. She denies eating disorder including bulimia, and she has lost weight so seeing gastro. She was also sent to a cancer center and has high kappa light chains and tested for myeloma and leukemia are negative and no kidney issues. She saw a vascular doctor also nothing was found. No family hx of neurological disorder or mental health disorders. She has been on Suboxone for opiate use in the past and is being weaned off with help of Gabapentin. 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 She denies physical abuse. 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 General Examination: BP 113/69 (BP Site: Right Arm, BP Position: Sitting, BP Cuff Size: Regular Adult) Pulse 73 Temp 36 ?C (96.8 ?F) Ht 165 cm (5' 4.96 ) Wt 50.6 kg (111 lb 8.8 oz) LMP 09/27/2023 BMI 18.59 kg/m? General: Awake, alert, interactive, no acute distress, good nutritional status, normal development, well-kept No tremoring of legs Neurological Exam Mental Status Alert, fully oriented, attentive, with normal cognition, memory, speech and affect. Cranial Nerves Visual pittman intact. Fundi with normal discs and vasculature. Pupils reactive. Extraocular movements conjugate and full. No ptosis. No nystagmus. Facial sensation intact. Face symmetric and strong. Palate and tongue normal. XI normal. Motor Examination and Coordination Motor examination with normal bulk, strength and tone. No drift. Normal rapid alternating movements and coordination. No adventitious movements or significant tremor. As I examine her legs she starts tremoring, and it comes and goes during exam, stops when I am not examining her. Reflexes Deep tendon reflexes graded by MRC Deep Tendon Reflexes Right Left Biceps 2 2 Triceps 2 2 Brachioradialis 2 2 Patellar 2 2 Achilles 2 2 Plantar Downgoing Downgoing Sensation Sensation intact to light touch, pinprick, proprioception and vibration. Gait Arises easily. Casual gait, tandem, and Romberg are normal. Can rise on heels and toes. CV: RRR without any murmurs and clicks and no carotid bruit. Assessment AND Plan 10/18/2023 - General Neurology, Rosmery Mack MD ASSESSMENT Leg tremor Generalized weakness and fatigue Paresthesias PLAN She has come for a consult and we cannot get through to her neurologist's office to get her records, she has not brought any discs with images, she shows me the images on her phone and her MRI head is normal. She shows me results of the MRI of thoracic spine and lumbar spine on her phone and the thoracic spine syrinx has be (more content not included)...[facility]04-17-2024 Miscellaneous Notes* Telephone Encounter - Pedro Calle OCCA - 10/18/2023 2:23 PM EDT Faxed a request for medical records (authorization to disclose) because they couldn't be reached onthe phone including: MRI of spine and brain, sleep study and cardiology testing... transmission OK documented in this encounterOhiohealth [facility]04-17-2024 History of Present illness Narrative* Rosmery Mack MD - 10/18/2023 1:00 PM EDT Images from the original note were not included. [facility] New Patient Evaluation Consulting Provider: Keira Heller [address] [place] [address] The patient presents with a chief complaint as listed below and is seen in consultation requested by HEALTH SERVICES MANAGER Keira Heller for an opinion regarding these symptoms. My final recommendations will be communicated back to the requesting physician by way of shared medical record or letter via [place] mail. Dear MsVivek Keira Heller, Thank you for the referral. Please let me know if you have any questions. Individuals who were included in, or assisted with the encounter were: Kalen Plaza Rosmery Mack MD Chief Complaint/Issues: Kalen Plaza is a 38 year old RH female with hx of ADHD, HLD, history of depression, fatigue and all these symptoms below, seen in the [facility] for: Paresthesia Fatigue Tremoring in the legs Fainting Eye and Ear pressure, was told that she may have intracranial HTN and want an LP HPI: 2 yrs ago had lightheadedness, Tremoring in legs, muscle pain and weakness in legs and feet, some vertigo and numbness in her hands. Now she has eye pressure and ear pressure bilateral and bad headaches. Fainting now, they initially thought it was POTS but now not thought to be POTS. She is not working because she faints. She has been going to multiple doctors and no one can figureout what is going on with her. She tried physical therapy for 11 weeks and it did not do anything except make her worse and she is still fatigued. She has sleep apnea apparently obstructive sleep apnea and she is supposed to get CPAP soon. While talking she often throws out possible or suspected diagnosis as she claims she may have narcolepsy and rem behavior disorder but no records and assessment that I can look at. [facility] and saw Keira Shade and also saw physician there - MRI of brain,Cspine, Tspine and Lumbar spine and emg/ncs was apparently abnormal. She was worried about a L/S spine and a mass there, it looks like a cyst and in 2014 Mri of Lumbar spine, she had the same thing. She denies eating disorder including bulimia, and she has lost weight so seeing gastro. She was also sent to a cancer center and has high kappa light chains and tested for myeloma and leukemia are negative and no kidney issues. She saw a vascular doctor also nothing was found. No family hx of neurological disorder or mental health disorders. She has been on Suboxone for opiate use in the past and is being weaned off with help of Gabapentin. 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 She denies physical abuse. 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 General Examination: BP 113/69 (BP Site: Right Arm, BP Position: Sitting, BP Cuff Size: Regular Adult) Pulse 73 Temp36 C (96.8 F) Ht 165 cm (5' 4.96 ) Wt 50.6 kg (111 lb 8.8 oz) LMP 09/27/2023 BMI 18.59 kg/m General: Awake, alert, interactive, no acute distress, good nutritional status, normal development,well-kept No tremoring of legs Neurological Exam Mental Status Alert, fully oriented, attentive, with normal cognition, memory, speech and affect. Cranial Nerves Visual pittman intact. Fundi with normal discs and vasculature. Pupils reactive. Extraocular movements conjugate and full. No ptosis. No nystagmus. Facial sensation intact. Face symmetric and strong. Palate and tongue normal. XI normal. Motor Examination and Coordination Motor examination with normal bulk, strength and tone. No drift. Normal rapid alternating movementsand coordination. No adventitious movements or significant tremor. As I examine her legs she startstremoring, and it comes and goes during exam, stops when I am not examining her. Reflexes Deep tendon reflexes graded by MRC Deep Tendon Reflexes Right Left Biceps 2 2 Triceps 2 2 Brachioradialis 2 2 Patellar 2 2 Achilles 2 2 Plantar Downgoing Downgoing Sensation Sensation intact to light touch, pinprick, proprioception and vibration. Gait Arises easily. Casual gait, tandem, and Romberg are normal. Can rise on heels and toes. CV: RRR without any murmurs and clicks and no carotid bruit. Assessment & Plan 10/18/2023 - General Neurology, Rosmery Mack MD ASSESSMENT Leg tremor Generalized weakness and fatigue Paresthesias PLAN She has come for a consult and we cannot get through to her neurologist's office to get her records, she has not brought any discs with images, she shows me the images on her phone and her MRI head is normal. 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 She was worried about the mass in her Lumbar spine and she has had a cyst noted in the 2015 MR of Lumbar spine. Patient was told to collect everything and come back one more time to see me and indeed if all the workup has been done after my review and her exam is normal then she will be sent to Functional Neurology. We discussed that after my review of everything she may not clinically need an LP. She wants an LP to rule it out. Will see when she comes back. Encounter Diagnosis ICD-10-CM 1. Paresthesia R20.2 2. POTS (postural orthostatic tachycardia syndrome) G90.A 3. Syncope, unspecified syncope type R55 4. Tremor, unspecified R25.1 5. Retro-orbital pain of both eyes H57.13 Return in about 2 months (around 12/18/2023). Data Review Objective Current Outpatient Medications Medication Sig gabapentin (NEURONTIN) 800 mg tablet Take 800 mg by mouth three times a day. buprenorphine-naloxone (SUBOXONE) 2-0.5 mg film dissolve 1/8 FILM under the tongue once daily if needed midodrine (PROAMATINE) 10 mg tablet Take 10 mg by mouth three times a day. cycloSPORINE (RESTASIS) 0.05 % ophthalmic emulsion Every 12 hours Desogestrel-Ethinyl Estradiol (ENSKYCE) 0.15-0.03 mg per tablet Take 1 tablet by mouth every morning. pantoprazole DR (PROTONIX) 40 mg tablet Take 1 tablet by mouth every afternoon. bisoprolol (ZEBETA) 5 mg tablet Take 5 mg by mouth every morning. varenicline (CHANTIX) 1 mg tablet Take 1 tablet by mouth every 12 hours. magnesium oxide (MAG-OX) 400 mg (241.3 mg magnesium) tablet potassium chloride 20 mEq TbER Take 1 tablet by mouth every 12 hours. levalbuterol tartrate HFA 45 mcg/actuation inhaler As Directed venlafaxine ER (EFFEXOR XR) 150 mg 24 hr capsule folic acid 1 mg tablet Take 1 tablet by mouth every afternoon. pyRIDostigmine bromide 30 mg tab take 1 tablet by mouth every morning 1 tablet every evening and 1 tablet at bedtime cholecalciferol (VITAMIN D3) 50 mcg (2,000 unit) tablet Daily atorvastatin (LIPITOR) 40 mg tablet Take 40 mg by mouth daily at bedtime. predniSONE (DELTASONE) 5 mg tablet take 1 tablet by mouth every morning then take 1/2 tablet every evening dextroamphetamine-amphetamine (ADDERALL) 20 mg tablet As Directed No current facility-administered medications for this visit. There is no problem list on file for this patient. No past medical history on file. No past surgical history on file. Social History Tobacco Use Smoking status: Former Types: Cigarettes Quit date: 07/2023 Years since quittin.2 Smokeless tobacco: Never Vaping Use Vaping Use: Never used Substance Use Topics Alcohol use: Never Drug use: Not Currently Types: Marijuana, Opiates Comment: 7yrs ago No family history on file. Review of Systems Constitutional: Negative. Positive for recent unintentional weight loss. Skin: Negative. HENT: Negative. Musculoskeletal: Positive for back pain. Eyes: Negative. Respiratory: Negative. Cardiovascular: Negative. Gastrointestinal: Negative. Gastritis and esophagitis Endocrine: Negative. Genitourinary: Strong smelling, foamy and high protein and sometimes leaks, she is seeing a trim stencil maker at [facility] Hematologic/Lymphatic: Negative. Allergic/Immunologic: Negative. Psychiatric: Positive for dysphoric mood. Lab and Test Review: General Medical Labs: Last 3 sets of CBC, CMP, Lipids, HBA1C, TSH No data to display No data to display No data to display No data to display No data to display Common Neurology Labs: Last 3 sets of ESR, CRP, CK, Vitamin B12, MMA, Folate, Vitamin D, Copper No data to display No data to display No data to display No data to display No data to display No data to display No data to display No data to display MRI Head/Brain - Last 2 Impressions MRI BRAIN WO/W IVCON Exam End: 10/14/2022 1:10 PM (Final result) MRI Lumbar Spine - Last 2 Impressions MRI LUMBAR SPINE WO IVCON Exam End: 05/19/2023 8:31 AM (Final result) MRI LUMBAR SPINE WO/W IVCON Exam End: 01/28/2015 2:18 AM (Final result) MRI Thoracic Spine - Last 2 Impressions MRI THORACIC SPINE WO/W IVCON Exam End: 02/16/2023 4:23 PM (Final result) MRI THORACIC SPINE WO/W IVCON Exam End: 01/28/2015 2:18 AM (Final result) Outside Data/Labs: Subjective Patient-Entered Data: 10/17/23 - GENERAL NEUROLOGY SCORES No data to display No data to display No data to display No data to display No data to display I spent a total of 45 minutes on the date of the service which included preparing to see the patient, [id number] patient care, completing clinical documentation, obtaining and/or reviewing separately obtained history, performing a medically appropriate examination, counseling and educating the pat ient/family/caregiver, and communicating with other HCPs (not separately reported). Rosmery Mack MD documented in this encounterOhio[facility]-28-[facility] Miscellaneous Notes* Telephone Encounter - Jeniffer Valdez LPN - 09/18/2023 4:18 PM EDT Spoke with patient and apologized that Auto PAP order had not been faxed to [facility] in [facility] 09/05/23 after her video visit with SAURABH. Patient understanding and verified DME company of [facility] in [place] and notified that order will be faxed now. Auto PAP: 5-20 and supplies order, demographics, last office notes and PSG results faxed to [facility]. At [phone] documented in this encounterC[facility]03-18-2024 Telephone encounter Note* Telephone Encounter - Jeniffer Valdez LPN - 09/18/2023 4:18 PM EDT Spoke with patient and apologized that Auto PAP order had not been faxed to [facility] in [facility] 09/05/23 after her video visit with SAURABH. Patient understanding and verified DME company of [facility] in [place] and notified that order will be faxed now. Auto PAP: 5-20 and supplies order, demographics, last office notes and PSG results faxed to [facility] in [place]. At [phone] [facility] [id number] History of Present illness Narrative* Marty Richardson MD - 09/15/2023 9:15 AM EDT Kalen Plaza Date of visit: 09/15/2023 Date of : 1985 Age: 37 y.o. Patient Active Problem List Diagnosis Varicose veins of bilateral lower extremities with pain Sinus tachycardia POTS (postural orthostatic tachycardia syndrome) PVC's (premature ventricular contractions) PAC (premature atrial contraction) Syncope Mixed hyperlipidemia Depressed bipolar I disorder ([facility]) Folic acid deficiency (non anemic) Generalized anxiety disorder Ethan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[facility]) MDD (major depressive disorder), recurrent episode, mild ([facility]) Opioid abuse ([facility]) Secondary adrenal insufficiency ([facility]) Vitamin D deficiency POLO (obstructive sleep apnea) No Known Allergies Current Outpatient Medications Medication Sig Dispense Refill atorvastatin (LIPITOR) 40 mg tablet Take 1 tablet (40 mg total) by mouth in the morning. baclofen (LIORESAL) 20 mg tablet Take 1 tablet (20 mg total) by mouth daily as needed. bisoprolol (ZEBETA) 5 mg tablet Take 1 tablet (5 mg total) by mouth in the morning. 90 tablet 3 buprenorphine-naloxone (SUBOXONE) 2-0.5 [address] tablet [address] 1 tablet under the tongue in the morning. cholecalciferol, vitamin D3, (VITAMIN D3 ORAL) Take 50 mcg by mouth in the morning. cycloSPORINE (RESTASIS) 0.05 % ophthalmic emulsion Administer 1 drop to both eyes in the morning and 1 drop before bedtime. dextroamphetamine-amphetamine (ADDERALL) 20 mg tablet Take 1 tablet (20 mg total) by mouth in the morning. Takes 2 tablet in the am and 20 mg in pm.. ENSKYCE 0.15-0.03 mg per tablet take 1 tablet by mouth once daily ESTRADIOL ORAL Take 1 tablet by mouth in the morning. folic acid (FOLVITE) 1 mg tablet Take 1 tablet (1,000 mcg total) by mouth in the morning. gabapentin (NEURONTIN) 800 mg tablet Take 1 tablet (800 mg total) by mouth 3 (three) times a day. levalbuterol tartrate (XOPENEX HFA INHL) Inhale 2 puffs as needed. magnesium oxide (MAGOX) 400 mg tablet Take 1 tablet (400 mg total) by mouth in the morning. 90 tablet 3 midodrine (PROAMATINE) 10 mg tablet Take 1 tablet (10 mg total) by mouth 3 (three) times a day. pantoprazole (PROTONIX) 40 mg EC tablet Take 1 tablet (40 mg total) by mouth. potassium chloride (KLOR-CON) 20 mEq packet Take 1 packet (20 mEq total) by mouth in the morning. 2tablets daily. predniSONE (DELTASONE) 5 mg tablet Take 1 tablet (5 mg total) by mouth in the morning. Take 5 mg inthe am and 1/2 tablet in pm. pyRIDostigmine bromide 30 mg tablet Take 30 mg by mouth 3 (three) times a day. varenicline (CHANTIX TALIA) 0.5 mg (11)- 1 mg (42) tablet Take 0.5 tablets by mouth in the morning and 0.5 tablets before bedtime. Indications: stop smoking. Take 0.5 mg one daily on days 1-3 and 0.5 mg twice daily on days 4-7. Then 1 mg twice daily for a total of 12 weeks.. venlafaxine XR (EFFEXOR XR) 75 mg 24 hr capsule Take 1 capsule (75 mg total) by mouth in the morning. No current facility-administered medications for this visit. Chief Complaint Patient presents with Follow-up OV F/U SOB, SWEATING, HR ISSUES PER PT NO TESTS L/S LLD SCHED W/PT History of Present Illness I last saw this 37-year-old in July. She was seen in the ER in August for headache. She has been evaluated by Pulmonary for sleep and started auto PAP. She has previously shared that she has been off of nonprescription drugs (cocaine/methamphetamines/heroin) for eight years She is troubled by tachycardia with syncope. She has not tolerated the diltiazem with nausea She has stopped smoking which is to be congratulated She denies chest pain. She has intermittent shortness of breath and palpitations . She feels improved on the bisoprolol as to heart rate. She is not having episodes of presyncope that she associates with drops in her SpO2. Unrelated to heart rate or symptoms she is occasionally having diaphoresis She is unaccompanied today CV TESTING HISTORY: ECHO: Echo complete W/O contrast Result Date: 03/24/2023 Left Ventricle: Systolic function is normal with an ejection fraction of 55-60%. No obvious regional wall motion abnormalities. Right Ventricle: Systolic function is low normal. Abnormal tricuspid annular plane systolic excursion. Tricuspid Valve: The right ventricular systolic pressure normal. RVSP calculated at 16 mmHg. RVSP is based on RA pressure of 3 mmHg. STRESS: No results found. HOLTER: No results found. CARDIAC CATH: No results found. CAROTID: No results found. CXR: No results found. Lipid Profile: Lab Results Component Value Date Cholesterol 198 11/16/2022 Cholesterol:HDL Ratio 2.6 11/16/2022 HDL Cholesterol 76 11/16/2022 Triglycerides 93 11/16/2022 LDL (calc) 103 11/16/2022 Past Medical History: Diagnosis Date Anxiety Bipolar 1 disorder ([facility]) Depression Dyspareunia, female Endometriosis Endometriosis Gardnerella vaginitis Gastroenteritis, acute H/O LEEP Heroin addiction ([facility]) HPV (human papilloma virus) infection Lump of breast, right Opioid abuse with withdrawal ([facility]) Palpitations Right ovarian cyst Seizure disorder ([facility]) Past Surgical History: Procedure Laterality Date DILATION AND CURETTAGE OF UTERUS LAPAROSCOPY LYMPH NODE DISSECTION OVARIAN CYST REMOVAL TONSILLECTOMY Family History Problem Relation Age of Onset Hypertension Mother Hyperlipidemia Mother Bipolar disorder Mother Thyroid disease Mother Heart disease Father Hypertension Father Hepatitis Father Hyperlipidemia Father Kidney disease Father Thyroid disease Sister Breast cancer Neg Hx Social History Socioeconomic History Marital status: Single Spouse name: Not on file Number of children: Not on file Years of education: Not on file Highest education level: Not on file Occupational History Not on file Tobacco Use Smoking status: Former Packs/day: 1 Types: Cigarettes Quit date: 06/2023 Years since quittin.2 Smokeless tobacco: Never Vaping Use Vaping Use: Never used Substance and Sexual Activity Alcohol use: Yes Comment: RARELY Drug use: Not Currently Types: Cocaine, Methamphetamines, Heroin Comment: history of use, denies current Sexual activity: Defer Other Topics Concern Caffeine Use Yes Social History Narrative Not on file Social Determinants of Health Financial Resource Strain: Not on file Food Insecurity: No Food Insecurity (09/15/2023) Hunger Screening Food Insecurity - Worry: Never True Food Insecurity - Inability: Never True Transportation Needs: Not on file Physical Activity: Not on file Stress: Not on file Social Connections: Not on file Interpersonal Safety: Not on file Housing Instability: Not on file Review of Systems Review of Systems Constitutional: Positive for fever and malaise/fatigue. HENT: Negative. Eyes: Positive for double vision. Cardiovascular: Negative. Vascular: Negative. Respiratory: Positive for shortness of breath. Endocrine: Negative. Hematologic/Lymphatic: Bruises/bleeds easily. Skin: Negative. Musculoskeletal: Positive for back pain and muscle weakness. Gastrointestinal: Positive for change in bowel habit. Genitourinary: Negative. Neurological: Positive for dizziness, light-headedness, loss of balance and numbness. Psychiatric/Behavioral: Positive for depression. Allergic/Immunologic: Negative. CARDIOVASCULAR: Please review HPI. Physical Examination General appearance: Alert, oriented and cooperative. In no acute distress. Skin: Warm and dry to touch. Head: Normocephalic, without obvious abnormality, atraumatic. Respiratory: Clear to auscultation bilaterally, no use of accessory muscles. Cardiovascular: RRR with normal S1 and S2 with no murmurs. Musculoskeletal: No peripheral edema. VITAL SIGNS: BP 108/76 (BP Site: Left Arm, BP Postition: Sitting) Pulse 88 Ht 162.6 cm (5' 4 ) Wt 50.7 kg (111 lb 12.8 oz) SpO2 99% BMI 19.19 kg/m Orders Placed or Reconciled This Encounter Medications cycloSPORINE (RESTASIS) 0.05 % ophthalmic emulsion Sig: Administer 1 drop to both eyes in the morning and 1 drop before bedtime. There are no discontinued medications. IMPRESSIONS/PLAN There are no diagnoses linked to this encounter. 1. Tachycardia - POCT EKG 2. PVC's (premature ventricular contractions) - POCT EKG 3. PAC (premature atrial contraction) - POCT EKG 4. Syncope, unspecified syncope type - POCT EKG 5. Sinus tachycardia 1. Sinus tachycardia, improved on bisoprolol --intolerance of diltiazem with nausea --tachycardia likely exacerbated by Adderall but patient notes that tachycardia predates starting Adderall 1 year ago 2. Diagnosis of POTS 3. Hyperlipidemia -on atorvastatin 4. Medications with varying affects on heart rate and blood pressure including Adderall/ProAmatine 5. Syncope --she often wears a heart rate monitor with pulse ox; she finds this helpful as she notes when her heart rate is elevated that she may pass out so she is able to sit down first. -she describes syncopal episodes as very quick. She collapses and then is awake within a second --on ProAmatine and Mestinon 6. BMI of 19 7. Bipolar 1 disorder 8. History of heroin/cocaine/methamphetamines --patient endorses clean times greater than 8 years 9. Seizure disorder --per patient occurred 2 times while a child, was on Tegretol for short time 10. Normal lower extremity vascular Doppler/SANDY 06/25/2023 --lower extremity edema/varicose veins; saw Dr. Edmonds 06/15/2023 11. Normal left ventricular systolic function without significant valvulopathy on echocardiogram 03/2023 12. Sinus tachycardia on event monitor 10/2022 13. Holter monitor 03/2022 with sinus rhythm with average heart rate of 78 beats per minute with range of 56-178 14. Mild hypokalemia 07/07/2023 15. Tobacco abuse, patient again congratulated on discontinuing several months ago 16. Intolerance of beta-blockers with shortness of breath in the past --currently tolerating bisoprolol without difficulty 17. 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 Has seen Dr. Go 03/30/2023 15. Normal thyroid studies 04/20/2023 16. 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 Obstructive sleep apnea -auto PAP -managed by Pulmonary 18. Possible optic nerve inflammation --Neurology and Ophthalmology 19. Venous insufficiency of bilateral lower extremities -per vascular -recommended compression stockings 20. Denies the possibility of Patient does not drive TODAYS ORDERS No orders of the defined types were placed in this encounter. FOLLOW UP Return in about 6 months (around 03/17/2024). PCP: DAVID LAGUERRE MD Referring Physician: David Laguerre MD [address] [place] [address] documented in this encounterC[facility]03-14-2024 Miscellaneous Notes* Telephone Encounter - Jerilyn Santos CMA - 09/14/2023 3:53 PM EDT Left message for patient to remind them to bring their most current medication list with them to their appointment. documented in this encounterCleveland [facility]03-14-2024 Telephone encounter Note* Telephone Encounter - Jerilyn Santos CMA - 09/14/2023 3:53 PM EDT Left message for patient to remind them to bring their most current medication list with them to their appointment. [id number] Procedure [facility]02-12-2024 History of Present illness Narrative* Brent Whittaker DO - 08/14/2023 4:10 PM EST Reason for Appointment: Patient ID: Kalen Plaza is a 37 y.o. female who presents for No chief complaint on file. Patient presents today via telephone call for a telehealth appointment. Patients Phone #: [phone] (mobile) Current Medications: has a current medication list which includes the following prescription(s): amphetamine-dextroamphetamine, atorvastatin, bisoprolol, buprenorphine-naloxone, cholecalciferol, enskyce, folic acid, gabapentin, levalbuterol, magnesium oxide, midodrine, potassium chloride, prednisone, pyridostigmine, venlafaxine xr, and xopenex hfa. Medical History: Active Ambulatory Problems Diagnosis Date Noted Arthralgia 06/13/2023 Depressed bipolar I disorder (CMS/HCC) 06/13/2023 Neuropathy, cervical (radicular) 06/13/2023 Dysfunctional uterine bleeding 06/13/2023 Dyslipidemia (CMS/HCC) 06/13/2023 Fatigue 06/13/2023 Folic acid deficiency (non anemic) 06/13/2023 Generalized anxiety disorder (CMS/HCC) 06/13/2023 Papanicolaou smear of cervix with high grade squamous intraepithelial lesion (HGSIL) 06/13/2023 Hypersomnia, unspecified 06/13/2023 Hypokalemia 06/13/2023 Ethan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CMS/HCC) 06/13/2023 Myalgia 06/13/2023 Opioid abuse (CMS/HCC) 06/13/2023 Paresthesia 06/13/2023 Secondary adrenal insufficiency (CMS/HCC) 06/13/2023 Thoracic radiculopathy 06/13/2023 Vitamin D deficiency 06/13/2023 POTS (postural orthostatic tachycardia syndrome) 05/18/2023 MDD (major depressive disorder), recurrent episode, mild (HCC) ([facility]) 08/07/2023 Resolved Ambulatory Problems Diagnosis Date Noted No Resolved Ambulatory Problems Past Medical History: Diagnosis Date Abnormal finding on diagnostic imaging of kidney Autonomic dysfunction Bipolar 1 disorder (CMS/HCC) Cervical neuropathic pain Endometriosis Folic acid deficiency ZANDRA (generalized anxiety disorder) (CMS/HCC) High grade squamous intraepithelial cervical dysplasia Palpitation Right ovarian cyst Seizure disorder (CMS/HCC) Syncope Tobacco user Underweight Family History Problem Relation Name Age of Onset Thyroid disease Mother Hyperlipidemia Mother Mental illness Mother Bipolar disorder Mother Hyperlipidemia Father Mental illness Father Hypertension Father Heart disease Father Kidney disease Father Hepatitis Father Thyroid disease Sister Heart failure Maternal Grandfather Social History Tobacco Use Smoking status: Every Day Packs/day: 1 Types: Cigarettes Smokeless tobacco: Never Substance Use Topics Alcohol use: Not on file Drug use: Not on file Past Surgical History: Procedure Laterality Date CERVICAL BIOPSY W/ LOOP ELECTRODE EXCISION 2010 LAPAROTOMY OOPHERECTOMY 2018 LYMPH NODE DISSECTION 2013 TONSILLECTOMY 2000 No Known Allergies Vitals: Estimated body mass index is 19.05 kg/m as calculated from the following: Height as of 08/07/23: 5' 4 . Weight as of 08/07/23: 111 lb. BP: Patient's last menstrual period was 06/21/2023. Assessment/Plan Pelvic pain, ho ovarian cyst-ultrasound reviewed, pt states no issues, feeling great, pt will call if has issue in future otherwise rto for annual exam Documented by Brent Whittaker DO on behalf of: Brent Whittaker DO documented in this encounterSainte Genevieve County Memorial [id number] History of Present illness Narrative* Kika Edmonds MD - 07/27/2023 10:50 AM EST CHIEF COMPLAINT: Chief Complaint Patient presents with Follow-up Follow up with testing completed in [place]. Patient notes vericose and spider veins. Per patient she notices more bruising to her ankle areas. HISTORY OF PRESENT ILLNESS: Kalen Plaza is a 37 y.o. female who presents to the office today for evaluation of bilaterallower extremity aching and bruising. Patient reports that she continues to have aching and bruisingin both lower extremities. Patient reports that it is slightly better than before but it is still there. Patient denies any wounds on her lower extremities. She reports some mild swelling in her lower extremities. Patient denies any chest pain or shortness breath. Patient reports that she has some varicose veins and spider veins. She tries to elevate her lower extremities. She also tries to wear compression stockings. Patient has no other complaints. ALLERGIES: No Known Allergies MEDICATIONS: Current Outpatient Medications Medication Sig Dispense Refill atorvastatin (LIPITOR) 40 mg tablet Take 1 tablet (40 mg total) by mouth in the morning. baclofen (LIORESAL) 20 mg tablet Take 1 tablet (20 mg total) by mouth daily as needed. bisoprolol (ZEBETA) 5 mg tablet Take 1 tablet (5 mg total) by mouth in the morning. 90 tablet 3 buprenorphine-naloxone (SUBOXONE) 2-0.5 mg per [address] tablet Place 1 tablet under the tongue in the morning. cholecalciferol, vitamin D3, (VITAMIN D3 ORAL) Take 50 mcg by mouth in the morning. dextroamphetamine-amphetamine (ADDERALL) 20 mg tablet Take 1 tablet (20 mg total) by mouth in the morning. Takes 2 tablet in the am and 20 mg in pm.. ESTRADIOL ORAL Take 1 tablet by mouth in the morning. folic acid (FOLVITE) 1 mg tablet Take 1 tablet (1,000 mcg total) by mouth in the morning. gabapentin (NEURONTIN) 800 mg tablet Take 1 tablet (800 mg total) by mouth 3 (three) times a day. levalbuterol tartrate (XOPENEX HFA INHL) Inhale 2 puffs as needed. magnesium oxide (MAGOX) 400 mg tablet Take 1 tablet (400 mg total) by mouth in the morning. 90 tablet 3 midodrine (PROAMATINE) 10 mg tablet Take 1 tablet (10 mg total) by mouth 3 (three) times a day. potassium chloride (KLOR-CON) 20 mEq packet Take 1 packet (20 mEq total) by mouth in the morning. 2tablets daily. predniSONE (DELTASONE) 5 mg tablet Take 1 tablet (5 mg total) by mouth in the morning. Take 5 mg inthe am and 1/2 tablet in pm. pyRIDostigmine bromide 30 mg tablet Take 30 mg by mouth 3 (three) times a day. varenicline (CHANTIX TALIA) 0.5 mg (11)- 1 mg (42) tablet Take 0.5 tablets by mouth in the morning and 0.5 tablets before bedtime. Indications: stop smoking. Take 0.5 mg one daily on days 1-3 and 0.5 mg twice daily on days 4-7. Then 1 mg twice daily for a total of 12 weeks.. venlafaxine XR (EFFEXOR XR) 75 mg 24 hr capsule Take 1 capsule (75 mg total) by mouth in the morning. No current facility-administered medications for this visit. SOCIAL HISTORY: Social History Tobacco Use Smoking status: Every Day Packs/day: 1 Types: Cigarettes Smokeless tobacco: Never Substance Use Topics Alcohol use: Yes Comment: RARELY REVIEW OF SYSTEMS: Review of Systems Constitutional: Negative for activity change, appetite change, chills, fatigue, fever and unexpected weight change. HENT: Negative for facial swelling and trouble swallowing. Eyes: Negative for visual disturbance. Respiratory: Negative for chest tightness and shortness of breath. Cardiovascular: Positive for leg swelling. Negative for chest pain. Gastrointestinal: Negative for abdominal pain. Genitourinary: Negative for flank pain and frequency. Musculoskeletal: Positive for arthralgias and myalgias. Negative for back pain and joint swelling. Skin: Positive for color change. Negative for pallor, rash and wound. Neurological: Negative for dizziness, syncope, facial asymmetry, speech difficulty, weakness, light-headedness and numbness. Hematological: Negative for adenopathy. PHYSICAL EXAM: Physical Exam Vitals reviewed. Constitutional: General: She is not in acute distress. Neck: Vascular: No JVD. Cardiovascular: Rate and Rhythm: Normal rate. Pulses: Radial pulses are 2+ on the right side and 2+ on the left side. Dorsalis pedis pulses are 2+ on the right side and 2+ on the left side. Posterior tibial pulses are 2+ on the right side and 2+ on the left side. Heart sounds: No murmur heard. Comments: No carotid bruits. Pulmonary: Breath sounds: Normal breath sounds. Abdominal: Palpations: Abdomen is soft. There is no mass. Tenderness: There is no abdominal tenderness. Musculoskeletal: General: No tenderness. Cervical back: Neck supple. Right lower leg: Edema present. Left lower leg: Edema present. Skin: General: Skin is warm. Coloration: Skin is not pale. Findings: No erythema. Neurological: Mental Status: She is alert and oriented to person, place, and time. VASCULAR EXAM: Vascular: Right Lower Extremity Right lower extremity pulses DP: 2+ PT: 2+ Right lower extremity edema: 1+ and pitting Left Lower Extremity Left lower extremity pulses DP: 2+ PT: 2+ Left lower extremity edema: 1+ and pitting Right Upper Extremity Right upper extremity pulses Radial: 2+ Left Upper Extremity Left upper extremity pulses Radial: 2+ ASSESSMENT AND PLAN: Kalen was seen today for follow-up. Diagnoses and all orders for this visit: Varicose veins of bilateral lower extremities with pain Sinus tachycardia POTS (postural orthostatic tachycardia syndrome) PVC's (premature ventricular contractions) PAC (premature atrial contraction) Venous insufficiency of both lower extremities I told patient that she needs to try more aggressively to wear her compression stockings. I reviewed her lower extremity arterial Dopplers. There were all normal. I told her that her complaints most probably are from venous insufficiency. She needs to try to elevate her lower extremities and were her compression stockings. I will see her on an as-needed basis. documented in this encounterProctor HospitalFitnessManager01-17-2024 Evaluation note* Encounter Date Diagnosis Assessment Notes Treatment Notes Treatment Clinical Notes Jul, Weight loss (ICD-10 - R63.4) Labs and imaging ordered Pt to proceed with EGD/ colon Jul, Change in bowel habits (ICD-10 - R19.4) Jul, Nausea (ICD-10 - R11.0) Jul, Generalized abdominal pain (ICD-10 - R10.84) Jul, Liver lesion (ICD-10 - K76.9) [employer] Other 01-17-2024 History of Present illness Narrative* Marty iRchardson MD - 07/19/2023 9:30 AM EST [facility] Date of visit: 07/19/2023 Date of : 1985 Age: 37 y.o. Patient Active Problem List Diagnosis Varicose veins of bilateral lower extremities with pain Sinus tachycardia POTS (postural orthostatic tachycardia syndrome) PVC's (premature ventricular contractions) PAC (premature atrial contraction) Syncope Mixed hyperlipidemia No Known Allergies Current Outpatient Medications Medication Sig Dispense Refill atorvastatin (LIPITOR) 40 mg tablet Take 1 tablet (40 mg total) by mouth in the morning. baclofen (LIORESAL) 20 mg tablet Take 1 tablet (20 mg total) by mouth daily as needed. buprenorphine-naloxone (SUBOXONE) 2-0.[address] tablet [address] 1 tablet under the tongue in the morning. cholecalciferol, vitamin D3, (VITAMIN D3 ORAL) Take 50 mcg by mouth in the morning. dextroamphetamine-amphetamine (ADDERALL) 20 mg tablet Take 1 tablet (20 mg total) by mouth in the morning. Takes 2 tablet in the am and 20 mg in pm.. ESTRADIOL ORAL Take 1 tablet by mouth in the morning. folic acid (FOLVITE) 1 mg tablet Take 1 tablet (1,000 mcg total) by mouth in the morning. gabapentin (NEURONTIN) 800 mg tablet Take 1 tablet (800 mg total) by mouth 3 (three) times a day. levalbuterol tartrate (XOPENEX HFA INHL) Inhale 2 puffs as needed. magnesium oxide (MAGOX) 400 mg tablet Take 1 tablet (400 mg total) by mouth in the morning. 90 tablet 3 midodrine (PROAMATINE) 10 mg tablet Take 1 tablet (10 mg total) by mouth 3 (three) times a day. potassium chloride (KLOR-CON) 20 mEq packet Take 1 packet (20 mEq total) by mouth in the morning. 2tablets daily. predniSONE (DELTASONE) 5 mg tablet Take 1 tablet (5 mg total) by mouth in the morning. Take 5 mg inthe am and 1/2 tablet in pm. pyRIDostigmine bromide 30 mg tablet Take 30 mg by mouth 3 (three) times a day. varenicline (CHANTIX TALIA) 0.5 mg (11)- 1 mg (42) tablet Take 0.5 tablets by mouth in the morning and 0.5 tablets before bedtime. Indications: stop smoking. Take 0.5 mg one daily on days 1-3 and 0.5 mg twice daily on days 4-7. Then 1 mg twice daily for a total of 12 weeks.. venlafaxine XR (EFFEXOR XR) 75 mg 24 hr capsule Take 1 capsule (75 mg total) by mouth in the morning. bisoprolol (ZEBETA) 5 mg tablet Take 1 tablet (5 mg total) by mouth in the morning. 90 tablet 3 No current facility-administered medications for this visit. Chief Complaint Patient presents with Follow-up EST PT EARLY FU NEED TO DISCUSS LOOP RECORDER PER SER ONLY History of Present Illness I had the opportunity to meet this 37-year-old today She endorses that she has been off of nonprescription drugs (cocaine/methamphetamines/heroin) for 7years. She is troubled by tachycardia with syncope. There is no indication for a loop recorder at this time as she consistently notes tachycardia before her episodes of collapse She has not tolerated the diltiazem with nausea She has stopped smoking which is to be congratulated She denies chest pain. She has intermittent shortness of breath and palpitations She is unaccompanied today CV TESTING HISTORY: ECHO: Echo complete W/O contrast Result Date: 03/24/2023 Left Ventricle: Systolic function is normal with an ejection fraction of 55-60%. No obvious regional wall motion abnormalities. Right Ventricle: Systolic function is low normal. Abnormal tricuspid annular plane systolic excursion. Tricuspid Valve: The right ventricular systolic pressure normal. RVSP calculated at 16 mmHg. RVSP is based on RA pressure of 3 mmHg. STRESS: No results found. HOLTER: No results found. CARDIAC CATH: No results found. CAROTID: No results found. CXR: No results found. Lipid Profile: Lab Results Component Value Date Cholesterol 198 11/16/2022 Cholesterol:HDL Ratio 2.6 11/16/2022 HDL Cholesterol 76 11/16/2022 Triglycerides 93 11/16/2022 LDL (calc) 103 11/16/2022 No data recorded No data recorded No data recorded EK07/19/2023 Sinus tachycardia with RSR prime Past Medical History: Diagnosis Date Anxiety Bipolar 1 disorder ([facility]) Depression Dyspareunia, female Endometriosis Endometriosis Gardnerella vaginitis Gastroenteritis, acute H/O LEEP Heroin addiction ([facility]) HPV (human papilloma virus) infection Lump of breast, right Opioid abuse with withdrawal ([facility]) Palpitations Right ovarian cyst Seizure disorder ([facility]) Past Surgical History: Procedure Laterality Date DILATION AND CURETTAGE OF UTERUS LAPAROSCOPY LYMPH NODE DISSECTION OVARIAN CYST REMOVAL TONSILLECTOMY Family History Problem Relation Age of Onset Hypertension Mother Hyperlipidemia Mother Bipolar disorder Mother Thyroid disease Mother Heart disease Father Hypertension Father Hepatitis Father Hyperlipidemia Father Kidney disease Father Thyroid disease Sister Breast cancer Neg Hx Social History Socioeconomic History Marital status: Single Spouse name: Not on file Number of children: Not on file Years of education: Not on file Highest education level: Not on file Occupational History Not on file Tobacco Use Smoking status: Every Day Packs/day: 1 Types: Cigarettes Smokeless tobacco: Never Vaping Use Vaping Use: Never used Substance and Sexual Activity Alcohol use: Yes Comment: RARELY Drug use: Not Currently Types: Cocaine, Methamphetamines, Heroin Comment: history of use, denies current Sexual activity: Not on file Other Topics Concern Caffeine Use Yes Social History Narrative Not on file Social Determinants of Health Financial Resource Strain: Not on file Food Insecurity: No Food Insecurity (07/19/2023) Hunger Screening Food Insecurity - Worry: Never True Food Insecurity - Inability: Never True Transportation Needs: Not on file Physical Activity: Not on file Stress: Not on file Social Connections: Not on file Interpersonal Safety: Not on file Review of Systems Review of Systems Constitutional: Positive for fever and malaise/fatigue. Negative for chills. HENT: Negative for hearing loss, hoarse voice and nosebleeds. Eyes: Positive for blurred vision and double vision. Respiratory: Positive for shortness of breath. Negative for cough and wheezing. Hematologic/Lymphatic: Bruises/bleeds easily. Skin: Negative for color change and rash. Musculoskeletal: Positive for back pain and muscle weakness. Negative for joint swelling. Gastrointestinal: Negative for change in bowel habit, constipation and diarrhea. Neurological: Positive for dizziness, light-headedness, loss of balance, numbness and vertigo. Negative for headaches. Psychiatric/Behavioral: Positive for depression. The patient is not nervous/anxious. Allergic/Immunologic: Negative for environmental allergies. CARDIOVASCULAR: Please review HPI. Physical Examination General appearance: Alert, oriented and cooperative. In no acute distress. Pleasant Skin: Warm and dry to touch. Respiratory: Bilateral diminished without rales Cardiovascular: RRR with normal S1 and S2 with no murmurs. Musculoskeletal: No peripheral edema. VITAL SIGNS: BP 110/80 (BP Site: Left Arm, BP Postition: Sitting) Pulse (!) 125 Ht 162.6 cm (5' 4 ) Wt 51.7 kg (114 lb) SpO2 98% BMI 19.57 kg/m Orders Placed or Reconciled This Encounter Medications bisoprolol (ZEBETA) 5 mg tablet Sig: Take 1 tablet (5 mg total) by mouth in the morning. Dispense: 90 tablet Refill: 3 Medications Discontinued During This Encounter Medication Reason dilTIAZem XR (DILACOR XR) 120 mg 24 hr capsule IMPRESSIONS/PLAN 1. Tachycardia - POCT EKG 2. PVC's (premature ventricular contractions) - POCT EKG 3. PAC (premature atrial contraction) - POCT EKG 4. Syncope, unspecified syncope type - POCT EKG 5. Sinus tachycardia 1. Sinus tachycardia --intolerance of diltiazem with nausea --will try bisoprolol; has previously tried metoprolol and was found to have shortness of breath, patient today endorses that this was found not to be associated with the metoprolol --discussed the importance of conservative measures including compression socks/hydration/nutrition/adequate rest/adequate exercise 2. Diagnosis of POTS 3. Hyperlipidemia -on atorvastatin 4. Medications with varying affects on heart rate and blood pressure including Adderall/diltiazem/ProAmatine 5. Syncope, most recently last week --she has wearing a heart rate monitor with pulse ox; she finds this helpful as she notes when her heart rate is elevated that she may pass out so she is able to sit down first. -she describes syncopal episodes as very quick. She collapses and then is awake within a second --on ProAmatine and Mestinon 6. BMI of 19 7. Bipolar 1 disorder 8. History of heroin/cocaine/methamphetamines --patient endorses clean times greater than 8 years 9. Seizure disorder --per patient occurred 2 times while a child, was on Tegretol for short time 10. Normal lower extremity vascular Doppler/SANDY 06/25/2023 --lower extremity edema/varicose veins; saw Dr. Edmonds 06/15/2023 11. Normal left ventricular systolic function without significant valvulopathy on echocardiogram 03/2023 12. Sinus tachycardia on event monitor 10/2022 13. Holter monitor 03/2022 with sinus rhythm with average heart rate of 78 beats per minute with range of 56-178 14. Mild hypokalemia 07/07/2023 15. Tobacco abuse, , patient to be congratulated on discontinuing several months ago 16. Intolerance of beta-blockers with shortness of breath, per the patient since found not to be secondary to the metoprolol 17. 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 Has seen Dr. Go 03/30/2023 15. Normal thyroid studies 04/20/2023 16. 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 Denies the possibility Discussed with the patient that Adderall is less likely worsening her tachycardia. She endorses that issues started prior to the 1 year that she has been on the Adderall Patient does not drive TODAYS ORDERS Orders Placed This Encounter Procedures POCT EKG FOLLOW UP Return in about 3 months (around 10/18/2023). PCP: DAVID LAGUERRE MD Referring Physician: David Laguerre MD [address] [place] [address] documented in this encounterC[facility] Instructions* Patient Instructions* Marty Richardson MD - 07/19/2023 9:30 AM EST Great work on quitting smoking Attention to adequate hydration/compression socks/nutrition/exercise/adequate sleep Discontinue diltiazem Start bisoprolol Are You Ready To Kick The Habit? Free Tobacco Cessation Resources [facility] Services [facility] provide all employees with free tobacco cessation services that include: Counseling to understand nicotine addiction Education about medications that can help you successfully quit Assistance with developing a plan to quit Call to set up an individual appointment or find out when group classes will be held: [facility]: [phone] [facility]: [phone] [facility]: [phone] [facility]: [phone] Quit Smoking Action Plan and Resources [facility] offers an eight-week, online smoking cessation plan to all [facility] employees, regardless of whether [employer] is your medical insurance provider. Go to [email or web address] and click the Health Risk Assessment and Resources link to get started. In the [employer] menu, click Action Plans instead of Health Risk Assessment to access the Quit Smoking Action Plan. Additional smoking cessation resources are also available to all [facility] employees on the [employer]Bgu[employer] web page at [email or web address]. [employer] Tobacco Cessation Program If [employer] is your medical insurance provider, there are more free resources available to you, including: No copays or deductibles on local tobacco cessation counseling services to help you quit Prescription assistance for tobacco cessation medications to help you quit For details about the tobacco cessation program available to [employer] members, go to www.[employer]com (Search: Tobacco Cessation Program). [place] Tobacco Quit Line 4-548-QKGQ-NOW ( ) is a toll-free, telephonic service that helps [place] residents quit smoking and using tobacco. It is staffed by experts who tailor a quit plan for you and provide you with advice. [place] Tobacco Quit Line 7-361-LWFK-NOW ( ) is a toll-free, telephonic service that helps [place] residents quit smoking and using tobacco. It is staffed by experts who tailor a quit plan for you and provide you with advice. Two weeks of nicotine replacement therapy may be provided at no charge, if needed. Additional Resources These national organizations also offer free information and resources to help you quit tobacco: [place] [employer]--www.cancer.org/healthy/stayawayfromtobacco [place] [employer]--www.heart.org (Search: Quit Smoking) Centers for Disease Control and Prevention--www.cdc.gov/tobacco [place] [employer]--www.lungusa.org documented in this encounterC[facility]01-16-2024 Miscellaneous Notes* Telephone Encounter - Wilbur Sellers - 07/18/2023 10:05 AM EST Called patient to r/s with Dr costa. No answer, left vm. Can be added to 08/31 documented in this encounterCleveland Clinic [facility]01-16-2024 Telephone encounter Note* Telephone Encounter - Wilbur Sellers - 07/18/2023 10:05 AM EST Called patient to r/s with Dr costa. No answer, left vm. Can be added to 08/31 [facility] Miscellaneous Notes* Telephone Encounter - Jerilyn Santos CMA - 07/18/2023 9:43 AM EST Left message for patient to remind them to bring their most current medication list with them to their appointment. documented in this encounterMagruder Memorial HospitalPulpWorks [id number] Telephone encounter Note* Telephone Encounter - Jerilyn Santos CMA - 07/18/2023 9:43 AM EST Left message for patient to remind them to bring their most current medication list with them to their appointment. [facility] [id number] Hospital Discharge instructions Patient Education 06/13/2022 15:30:12 Urodynamic Testing Urodynamic Testing What is urodynamic testing? Urodynamic tests are done to determine how well your lower urinary tract is working. The lower urinary tract includes your bladder and the part of your body that drains urine from the bladder (urethra). When your kidneys filter your blood, urine is stored in your bladder until you feel the urge to urinate. Urination requires coordination between the nerves and muscles of your bladder and urethra. When your lower urinary tract is working well, you should be able to: Start urinating when your bladder is full. Empty your bladder completely. Control the flow of your urine. Why do I need urodynamic testing? You may need urodynamic testing to help find the cause of any of these problems: Leaking urine (incontinence). Problems starting or stopping your urine flow. Frequent or painful urination. Frequent urinary tract infections. Being unable to empty your bladder completely. Having strong urges to pass urine (urgency). Having a weak flow of urine. How do I prepare for the tests? Ask your health care provider about changing or stopping your regular medicines. This is especiallyimportant if you are taking diabetes medicines or blood thinners. You may be asked to avoid urinating before coming to the test so that you arrive with a full bladder. Tell a health care provider about: ?Any allergies you have. ?All medicines you are taking, including vitamins, herbs, eye drops, creams, and [id number] medicines. ?Whether you are or may be . What are the risks of this testing? Generally, these tests are safe. However, some of the tests have risks, including: Discomfort. Frequent urge to urinate. Bleeding. Infection. Allergic reactions to medicines or dyes (contrast material). How is urodynamic testing done? You may have various urodynamic tests. The tests may be done separately or may all be done during one testing visit. You may be given an antibiotic medicine before or after testing to help prevent infection. The types of tests that may be done include: Uroflowmetry This test measures how much urine you pass and how long it takes to pass. You will urinate into a certain type of toilet or device (flowmeter). The device will measure the volume and the time of your urine flow. These measurements will be sent to a computer that creates a graph of your urine flow. Postvoid residual measurement This test measures how much urine is left in your bladder after you urinate. The test may be done with ultrasound. In this method, sound waves and a computer will be used to create an image of your bladder. The test can also be done by inserting a thin, flexible tube (catheter) into your bladder after youurinate. The remaining urine will be removed through the catheter so it can be measured. Remaining urine will be measured in milliliters (mL). If you have more than 100 mL left in your bladder after you urinate, your bladder is not emptying as it should. Cystometric testing This test uses a type of bladder catheter that can measure pressure. You may be given a medicine to numb the area (local anesthetic). The area around the opening of your urethra will be cleaned. A urinary catheter will be passed through your urethra into your bladder and used to empty your bladder completely. Then a measuring catheter will be placed, and your bladder will be filled with warm, germ-free (sterile) water. Pressure measurements will be taken: ?As your bladder fills. ?When you feel the need to urinate. ?As your bladder is emptied. You may be asked to cough or bear down to check for leakage. In some cases, your bladder may be filled with a material that shows up on X- rays (contrast material) so that X-ray pictures can be taken during the test. Electromyogram This test measures the electrical activity of the nerves and muscles of your bladder and the opening of your urethra. Sticky patches (electrodes) will be placed near your rectum and urethra to measure electrical activity. The measurements will show how well your nerves are communicating with your muscles. What happens after the testing? You should be able to go home right away and do your usual activities. You may be told to drink a glass of water every 30 minutes for the first 2 hours after testing. Taking a warm bath or using warm, wet cloths (warm compresses) may relieve any discomfort near yoururethra. Contact your health care provider if you have: ?Pain. ?Blood in your urine. ?Chills. ?Fever. What do the results mean? Talk with your health care provider about what your results mean. Some common causes for abnormal results from urodynamic tests include: Enlarged prostate in men. Overactive bladder. Urinary tract infection. Nervous system diseases. Spinal cord damage. Questions to ask your health care provider Ask your health care provider, or the department that is doing the test: When will my results be ready? How will I get my results? What are my treatment options? What other tests do I need? What are my next steps? Summary Urodynamic tests are done to determine how well your lower urinary tract is working. The lower urinary tract includes your bladder and urethra. You may need urodynamic testing to help find the cause of various problems with urination, such as leaking urine (incontinence) or problems starting or stopping your urine flow. You may have various urodynamic tests. The tests may be done separately or may all be done during one testing visit. Talk with your health care provider about what your results mean. Contact your health care provider if you have pain, chills, a fever, or blood in your urine. This information is not intended to replace advice given to you by your health care provider. Make sure you discuss any questions you have with your health care provider. Document Released: 04/15/2008 Document Revised: 10/08/2019 Document Reviewed: 04/23/2018 Elsevier Patient Education 2020 Decurate. Follow Up Care 05/11/2022 11:42:46 With:FIDELINA SNOW, Mauricio Pineda, URL Address: [facility] [address] , [place] [address]- When: Unknown [facility] chief complaint Narrative - ReportedKALEN PLAZA is being seen for an initial evaluation of dizziness.[facility] DO Work Phone: Evaluation + Plan note Future Appointments Appointment Date:08/02/2022 02:30:00 PM Scheduled Provider:Mauricio KITCHEN MD Location:[facility] Appointment Type:URO Procedure 15 min [facility] evaluation + Plan note Future Appointments Appointment Date:07/24/2023 02:30:00 PM Scheduled Provider:Mauricio KITCHEN MD Location:[facility] Appointment Type:URO Office Visit [facility] evaluation noteNo assessment information available [facility] Work Phone: evaluation note* Diagnosis Tachycardia- Primary Unspecified tachycardia PVC's (premature ventricular contractions) Other premature beats PAC (premature atrial contraction) Supraventricular premature beats Syncope, unspecified syncope type Sinus tachycardia Other specified cardiac dysrhythmias [facility] Diagnosis Onset Date Resolution Status Elevated serum immunoglobulin free light chain level acute Elevated serum immunoglobulin free light chain level acute [facility] Work Phone: evaluation note* Diagnosis Varicose veins of bilateral lower extremities with pain- Primary Sinus tachycardia Other specified cardiac dysrhythmias POTS (postural orthostatic tachycardia syndrome) Unspecified tachycardia PVC's (premature ventricular contractions) Other premature beats PAC (premature atrial contraction) Supraventricular premature beats Venous insufficiency of both lower extremities [facility] Diagnosis Postural orthostatic tachycardia syndrome Unspecified tachycardia [facility] Diagnosis Pelvic pain in female- Primary Unspecified symptom associated with female genital organs [facility] Diagnosis Sinus tachycardia- Primary Other specified cardiac dysrhythmias [facility] Diagnosis Paresthesia- Primary Disturbance of skin sensation POTS (postural orthostatic tachycardia syndrome) Tachycardia, unspecified Syncope, unspecified syncope type Tremor, unspecified Retro-orbital pain of both eyes [facility] Diagnosis Onset Date Resolution Status Elevated serum immunoglobulin free light chain level acute [facility] Work Phone: History and physical note Author Robbie Disla [facility] August 23, 2023 9:15am Note Date/Time August 23, 2023 9:15am [facility] [address] [place] [address] Gastroenterology H&P Signed Patient: Kalen Plaza MR#: [id number] : 1985 Acct:[id number] Age/Sex: 37 / F Adm Date: 4 Loc: Room: Type: [facility] Attending Dr: Robbie Disla MD Copies to: MD David No MD~ Date of Service: 08/23/2023 HISTORY & PHYSICAL: Patient's history with special attention to the cardiovascular, pulmonary systems and the current problem was reviewed with the patient immediately prior to the procedure. Present medications and doses reviewed in the EMR. Allergies and pertinent laboratory tests were also reviewedat this time in the EMR. The physical examination, as below, was then performed. Indication, assessment and HPI: 37-year-old female here for EGD/colonoscopy for evaluation of abdominal pain nausea unintentional weight loss and abnormal CT findings Family history of GI malignancy? No PHYSICAL EXAMINATION Mouth and Pharynx : Moist mucus membranes, normal dentition Cardiac: Regular rate, regular rhythm Pulmonary: Clear to auscultation bilaterally, no wheezing Neurological: Alert and oriented x3, no focal deficits noted Abdomen: Abdomen soft, non-tender REVIEW OF SYSTEMS Constitutional: Denies malaise, fevers Cardiovascular: Denies chest pain, palpitations Respiratory: Denies shortness of breath, wheezing Gastrointestinal: Per HPI Genitourinary: Denies dysuria, polyuria Musculoskeletal: Denies joint swelling, joint stiffness Neurological: Denies numbness, tingling Integumentary: Denies rashes, skin lesions Endocrine: Denies fatigue, weight loss Written informed consent obtained from the patient. Risks (including but not limited to perforation, infection, bloating, bleeding, need for emergent surgeryand loss of life), benefits and alternatives explained and questions answered. The patient verbalized understanding. Based on history patient is an appropriate candidate for the procedure. Robbie Disla M.D. Documented By: Robbie Disla MD 08/23/23913 Signed By: <Electronically signed by Robbie Disla MD> 08/23/2315 [facility] Work Phone: History and physical note Author Robbie Disla [facility] September 28, 2023 10:38am Note Date/Time September 28, 2023 10: 38am [facility] [address] [place] [address] Gastroenterology H&P Signed Patient: Kalen Plaza MR#: [id number] : 1985 Acct:[id number] Age/Sex: 37 / F Adm Date: 4 Loc: Room: Type: [facility] Attending Dr: Robbie Disla MD Copies to: MD David No MD~ Date of Service: 09/28/2023 HISTORY & PHYSICAL: Patient's history with special attention to the cardiovascular, pulmonary systems and the current problem was reviewed with the patient immediately prior to the procedure. Present medications and doses reviewed in the EMR. Allergies and pertinent laboratory tests were also reviewedat this time in the EMR. The physical examination, as below, was then performed. Indication, assessment and HPI: 37-year-old female here for colonoscopy for evaluation of constipation abdominal pain nausea and abnormal CT(showed an opacity within the cecum which thought to be a pill) Family history of GI malignancy? No PHYSICAL EXAMINATION Mouth and Pharynx : Moist mucus membranes, normal dentition Cardiac: Regular rate, regular rhythm Pulmonary: Clear to auscultation bilaterally, no wheezing Neurological: Alert and oriented x3, no focal deficits noted Abdomen: Abdomen soft, non-tender REVIEW OF SYSTEMS Constitutional: Denies malaise, fevers Cardiovascular: Denies chest pain, palpitations Respiratory: Denies shortness of breath, wheezing Gastrointestinal: Per HPI Genitourinary: Denies dysuria, polyuria Musculoskeletal: Denies joint swelling, joint stiffness Neurological: Denies numbness, tingling Integumentary: Denies rashes, skin lesions Endocrine: Denies fatigue, weight loss Written informed consent obtained from the patient. Risks (including but not limited to perforation, infection, bloating, bleeding, need for emergent surgeryand loss of life), benefits and alternatives explained and questions answered. The patient verbalized understanding. Based on history patient is an appropriate candidate for the procedure. Robbie Disla M.D. Documented By: Robbie Disla MD 09/28/23 1036 Signed By: <Electronically signed by Robbie Disla MD> 09/28/[address] [facility] Work Phone: History general Narrative - Reported* Type Description Date Medical History manic depressive Medical History anxiety Medical History endometriosis Surgical History cervical sx 2009 Hospitalization History see above [facility] Other History of Present illness Narrative* Patient is here for cardiovascular evaluation for symptoms of dizziness, lightheadedness and presyncope. Patient is 36-year-old white female who had been complaining of recurrent episodes of lightheadedness, dizziness and a presyncopal symptomatology all of it is orthostatic in nature. The patient underwent extensive work-up and according to her she was diagnosed with hypoadrenal lesion. She had been started on prednisone but does not seem like this resulted in good improvement. The patient reported losing close to 30 pounds over the last several years. She reported relatively poor diet and poor oral intake. Patient described vague symptoms of lightheadedness palpitation tingling sensation with her episode. During the office visit the patient appears mildly orthostatic. Patient brought a copy of her work-up in the past including an echocardiogram that showed normal LV systolic function.Holter monitor showed mainly mild sinus tachycardia by noted significant tacky or bradycardia arrhythmia. * Assessment * 1. Dizziness, presyncope and orthostatic hypotension very likely to be due to adrenal insufficiency * 2. Mildly underweight * 3. Tobacco use * 4. Patient report history of ADHD * 5. Recent diagnosis of adrenal insufficiency unclear with his primary or secondary to followed by local desulfurizer machine * Plan * 1. I advised the patient to increase her fluid intake to 4-5 L/day and her salt intake to 15 g/day * 2. I advised the patient to change her position gradually * 3. I recommended the patient to initiated treatment with Florinef 0.1 mg daily * 4. Considering the patient is symptomatic with clear orthostatic hypotension I told her that her table test will unlikely change our management decision. * 5. Patient was advised to notify me if there is no improvement of her symptoms with the above recommendation * 6. We will see her back in 2 to 3 months in follow-up -[facility] 250 DO Work Phone: Hospital course Narrative No data available for this section [facility] Hospital Discharge instructions No data available for this section [facility] Hospital Discharge instructions Additional Instructions DISCHARGE INSTRUCTIONS FOR UPPER ENDOSCOPY WHAT TO EXPECT: - You may feel full, gassy or cramping after your procedure. In some cases, this may be from a few hours to a day. Walking may help relieve the discomfort. - Your throat may feel sore today from the scope that the doctor passed through your throat to visualize your stomach. Take a throat lozenge or suck on ice to ease the discomfort. - You may notice some streaks of blood in your sputum if the doctor has taken a biopsy. - You should begin to recover from anesthesia within 1 hour of the procedure, however may feel groggy for the next 24 hours. DO's AND DON'Ts: - Call your doctor right away if you have a hard abdomen, severe pain, vomiting or if you cough up large amounts of blood. - Call your doctor if you develop any rashes, hives or difficulty breathing. - If you take 81 mg aspirin for your heart it is safe to resume this medication. - If you take other blood thinner medications your doctor will instruct you when these can safely be resumed. - Do NOT drive for 24 hours. - Do NOT operate machinery such as power tools, lawn mowers, snow blowers, sewing machines, etc. for 24 hours. - Avoid alcoholic beverages and drugs for allergies, nerves, or sleep. - Do NOT stay alone. Do NOT leave your child unattended. - Do NOT make important personal or business decisions or sign any legal documents. - Eat solid foods and drink liquids in smaller amounts than usual until normal appetite returns. If you should experience an upset stomach, liquids high in sugar content (soda, Chicho-Aid, non-acid juices) are recommended. - Do NOT smoke. - Do take it easy today. You need not stay in bed, but avoid strenuous activities such as jogging or working out. DISCHARGE INSTRUCTIONS FOR COLONOSCOPY WHAT TO EXPECT: - You may feel full, gassy or cramping after your procedure. In some cases, this may be from a few hours to a day. Walking may help relieve the discomfort. - If you have polyp(s) removed you may note some minor bloody discharge after your first bowel movements. - You should begin to recover from anesthesia within 1 hour of the procedure, however may feel groggy for the next 24 hours. DO's AND DON'Ts: - Call your doctor right away if you have a hard abdomen, sever pain, are passing lots of bright red blood or clots. - Call your doctor if you develop any rashes, hives or difficulty breathing. - Let your doctor know if you have not had a bowel movement by 3 days after your procedure. - If you take 81 mg aspirin for your heart it is safe to resume this medication. - If you take other blood thinner medications your doctor will instruct you when these can safely be resumed. - Do NOT drive for 24 hours. - Do NOT operate machinery such as power tools, lawn mowers, snow blowers, sewing machines, etc. for 24 hours. - Avoid alcoholic beverages and drugs for allergies, nerves, or sleep. - Do NOT stay alone. Do NOT leave your child unattended. - Do NOT make important personal or business decisions or sign any legal documents. - Eat solid foods and drink liquids in smaller amounts than usual until normal appetite returns. If you should experience an upset stomach, liquids high in sugar content (soda, Chicho-Aid, non-acid juices) are recommended. - You can resume normal activities tomorrow. FOLLOW UP & RECOMMENDATIONS: -Notify the doctor if you have any problems. -Repeat colonoscopy due to inadequate prep -Follow up pathology -Follow up in the office -Start pantoprazole 40 mg daily - Office number [phone]. [facility] Work Phone: Hospital Discharge instructions Additional Instructions DISCHARGE INSTRUCTIONS FOR COLONOSCOPY WHAT TO EXPECT: - You may feel full, gassy or cramping after your procedure. In some cases, this may be from a few hours to a day. Walking may help relieve the discomfort. - You should begin to recover from anesthesia within 1 hour of the procedure, however may feel groggy for the next 24 hours. DO's AND DON'Ts: - Call your doctor right away if you have a hard abdomen, severe pain, are passing lots of bright red blood or clots. - Call your doctor if you develop any rashes, hives or difficulty breathing. - Let your doctor know if you have not had a bowel movement by 3 days after your procedure. - If you take 81 mg aspirin for your heart it is safe to resume this medication. - If you take other blood thinner medications your doctor will instruct you when these can safely be resumed. - Do NOT drive for 24 hours. - Do NOT operate machinery such as power tools, [employer] mowers, snow blowers, sewing machines, etc. for 24 hours. - Avoid alcoholic beverages and drugs for allergies, nerves, or sleep. - Do NOT stay alone. Do NOT leave your child unattended. - Do NOT make important personal or business decisions or sign any legal documents. - Eat solid foods and drink liquids in smaller amounts than usual until normal appetite returns. If you should experience an upset stomach, liquids high in sugar content (soda, Chicho-Aid, non-acid juices) are recommended. - You can resume normal activities tomorrow. FOLLOW UP & RECOMMENDATIONS: -Notify the doctor if you have any problems. -Regarding constipation, add tablespoon of Metamucil once daily if needed, avoid dehydration, maintain regular activity/exercise. Can add Miralax 17gm PO Qday and titrate up to twice or three times daily if needed. -Follow up with PCP. -Office number [phone]. [facility] Work Phone: InstructionsNot on filedocumented in this encounter [facility] filedocumented in this encounter [facility]ructions[facility] on filedocumented in this encounter [facility]ructionsNot on filedocumented in this encounter [facility]ructionsNot on filedocumented in this encounter [facility] No data available for this section [facility] reason for visit NarrativePATIENT IS HERE AT THE REQUEST OF DR LAGUERRE FOR DIARRHEA. LABS IN REFERRAL [facility] [employer] Other Summary Purpose Family History No Family History Records FoundUnknown Family Member Name Dates Details Family history of hypothyroi dism: Mother, Sister(V18.19, Z83.49) Status:Active Family history of schizophre tory: Mother(V17.0, Z81.8) Status:Active Family history of hepatitis: Father(V18.8, Z83.79) Status:Active Relationship Condition Age at Onset Recorded Date/T romero Not Specified Carine's thyroiditis Unknown Relationship Condition Age at Onset Recorded Date/T romero Not Specified Carine's thyroiditis Unknown father Unknown family member Family history of other condition Unknow n Relationship Condition Age at Onset Recorded Date/T romero mother Carine's thyroiditis Unknown father Unknown family member Family history of other condition Unknow n Advance Directives No Advanced Directives Records Found Advance Directive Response Recorded Date/ Time Advance Directives No June 3:59pm Advance Directive Response Recorded Date/ Time Advance Directives No June 4:59pm Chief Complaint and Reason for Visit Chief Complaint Ethan Light Chain Reason for Visit Elevated serum immun oglobulin free light chain level Elevated serum immunoglobulin free light chain level Chief Complaint Consult: Diarrhea Re f: Dr Laguerre Ethan Light Chain Nausea, Weight Loss, Change in Bowel Habits, Abd P Nausea, Weight Loss, Change in Bowel Habits, Abd P Reason for Visit Elevated serum immun oglobulin free light chain level Elevated serum immunoglobulin free light chain level Chief Complaint Consult: Diarrhea Re f: Dr Laguerre Ethan Light Chain Nausea, Weight Loss, Change in Bowel Habits, Abd P Nausea, Weight Loss, Change in Bowel Habits, Abd P abd. pain./nausea/wgt loss/abnormal ct scan abd. pain./nausea/wgt loss/abnormal ct scan Reason for Visit Elevated serum immun oglobulin free light chain level Elevated serum immunoglobulin free light chain level Chief Complaint abd. pain./nausea/wg t loss/abnormal ct scan abd. pain./nausea/wgt loss/abnormal ct scan FOLLOW UP SCOPE/LABS K59.09 Reason for Visit Constipation, chroni c Chief Complaint Ethan Light Chain R20.2 R29.898 R32 R27.8 Reason for Visit Elevated serum immun oglobulin free light chain level Reason for Referral Specialty Diagnoses / Procedures Referred By Leia ramirez Referred To Contact Diagnoses Postural orthostatic tachycardia syndrome David Laguerre MD [address] [place] [id number] Referral ID Status Reason Start Date Expiration Date V isits Requested Visits Authorized [id number] Pending Review 1 1 Additional Source Comments INFORMATION SOURCE (unrecogn ized section and content) DATE CREATED AUTHOR 12/26/2017 [facility] DATE CREATED AUTHOR AUTHOR'S ORGANIZ ATION 02/26/2022 [employer] DATE CREATED AUTHOR AUTHOR'S ORGANIZ ATION 07/18/2022 [facility] DATE CREATED AUTHOR AUTHOR'S ORGANIZ ATION 07/26/[address] [facility] DATE CREATED AUTHOR AUTHOR'S ORGANIZ ATION 10/27/2023 [facility] DATE CREATED AUTHOR AUTHOR'S ORGANIZ ATION 10/27/[address] [facility] DATE CREATED AUTHOR AUTHOR'S ORGANIZ ATION 12/28/2023 [facility] DATE CREATED AUTHOR AUTHOR'S ORGANIZ ATION 02/23/2024 [facility] EPIC DATE CREATED AUTHOR AUTHOR'S ORGANIZ ATION 03/09/2024 [facility] DATE CREATED AUTHOR AUTHOR'S ORGANIZ ATION 03/23/2024 [facility] DATE CREATED AUTHOR AUTHOR'S ORGANIZ ATION 04/01/2024 [facility] Patient Care team informatio n (unrecognized section and content) Team Status: Active Member Role Status Dates David Laguerre MD Primary Care Provider Active Team Status: Active Member Role Status Dates Barbara Cabrera , SHOE HANDLER Active Start: January 25 David Laguerre MD Primary Care Provide r, Referring Provider Active Start: January 26, 2024 Tayo Barajas II, DO Attending Provider Active Start: January 26, 2024 Team Status: Inactive Member Role Status Dates David Laguerre MD Primary Care Provider Active S tart: January 26, 2024 End: January 26, 2024 Tayo Barajas II, DO Attending Provider Active Start: January 26, 2024 End: January 26, 2024 Team Status: Inactive Member Role Status Dates David Laguerre MD Primary Care Provider Active S tart: March 15, 2024 End: March 15, 2024 Keira Heller SENIOR DEVOPS ENGINEER-C Attending Provide r, Referring Provider Active Start: March 15, 2024 End: March 15, 2024 Team Status: Inactive Member Role Status Dates Robbie Disla MD Attending Provider Active Start: July 19, 2023 End: July 19, 2023 Team Status: Active Member Role Status Dates Barbara Cabrera APRN Attending Provider Active Start: July 28, 2023 David Laguerre MD Primary Care Provide r, Referring Provider Active Start: July 28, 2023 Team Status: Inactive Member Role Status Dates David Laguerre MD Primary Care Provider Active S tart: July 28, 2023 End: July 28, 2023 Tayo Barajas II, DO Attending Provider Active Start: July 28, 2023 End: July 28, 2023 Team Status: Inactive Member Role Status Dates David Laguerre MD Primary Care Provider Active S tart: August 23, 2023 End: August 23, 2023 Robbie Disla MD Attending Provider Active Start: August 23, 2023 End: August 23, 2023 Team Status: Active Member Role Status Dates David Laguerre MD Primary Care Provider Active S tart: August 23, 2023 Robbie Disla MD Attending Provider, Other Provider Active Start: August 23, 2023 [employer] Inspection And Rep[employer] Relationship Specialty Start Date End Date David Laguerre MD [address] [place] [address] PCP - General Family Medicine 12/25/22 [employer] Inspection And Repair Manager Relationship Specialty Start Date End Date David Laguerre MD [address] [place] [address] PCP - General Family Medicine 12/25/22 [employer] Inspection And Repair Manager Relationship Specialty Start Date End Date David Laguerre MD [address] [place] [facility] [place] [address] PCP - General Family Medicine 12/25/22 [employer] Inspection And Repair Manager Relationship Specialty Start Date End Date David Laguerre MD [address] [place] [place] [address] PCP - General Family Medicine 12/25/22 [employer] Inspection And Repair Manager Relationship Specialty Start Date End Date David Laguerre MD PCP - General Family Medicine 01/27/23 [employer] Inspection And Repair Manager Relationship Specialty Start Date End Date David Laguerre MD PCP - General Family Medicine 01/27/23 Car Inspection And Repair Manager Relationship Specialty Start Date End Date David Laguerre MD [address] [place] [facility] [place] [address] PCP - General Family Medicine 12/25/22 [employer] Inspection And Repair Manager Relationship Specialty Start Date End Date David Laguerre MD [address] [place] [facility] [place] [address] PCP - General Family Medicine 12/25/22 [employer] Inspection And Repair Manager Relationship Specialty Start Date End Date David Laguerre MD [address] [place] [facility] [place] [address] PCP - General Family Medicine 12/25/22 Team Status: Inactive Member Role Status Dates David Laguerre MD Primary Care Provider Active S tart: September 28, 2023 End: September 28, 2023 Robbie Disla MD Attending Provider Active Start: September 28, 2023 End: September 28, 2023 Team Status: Active Member Role Status Dates David Laguerre MD Primary Care Provider Active S tart: September 28, 2023 Robbie Disla MD Attending Provider, Other Provider Act jordana Start: September 28, 2023 [employer]pection [employer] Relationship Specialty Start Date End Date David Laguerre [address] [place] [phone] PCP - General Family Medicine 10/18/23 Keira Heller CNP [address] [address] Referring Family Medicine 04/20/23 [employer] Inspection [employer] Manager Relationship Specialty Start Date End Date David Laguerre [address] [place] [phone] PCP - General Family Medicine 10/18/23 Keira Heller CNP [address] [address] Referring Family Medicine 04/20/23 Car Inspection And Rep[employer] Manager Relationship Specialty Start Date End Date David Laguerre [address] [place] [phone] PCP - General Family Medicine 10/18/23 Keira Heller CNP [address] [place] [id number] Referring Family Medicine 04/20/23 [employer] Inspection And Rep[employer] Manager Relationship Specialty Start Date End Date David Laguerre [address] [place] [phone] PCP - General Family Medicine 10/18/23 Keira Heller CNP [address] [place] [id number] Referring Family Medicine 04/20/23 Team Status: Inactive Member Role Status Dates David Laguerre MD Primary Care Provider Active S tart: November 22, 2023 End: November 22, 2023 Robbie Disla MD Attending Provider Active Start: November 22, 2023 End: November 22, 2023 Goals (unrecognized section and content) Goals may be documented in a n alternate section Reason for Visit (unrecogniz ed section and content) Reason Comments Follow-up EST PT EARLY FU NEED TO DISCUSS LOOP RECORDER PER SER MD ONLY Reason Comments Follow-up Follow up with miguel wagner completed in [place]. Patient notes vericose and spider veins. Per patient she notices more bruising to her ankle areas. Reason Onset Date Comments Med Refill 08/11/2023 Reason Comments Follow-up OV F/U SOB, SWEATING , HR ISSUES PER PT NO TESTS L/S LLD SCHED W/PT Reason Comments Parathese Reason Comments Letter Reason Comments Medical Records-[facility] Source Comments (unrecognize d section and content) In the event this informatio n is protected by the Federal Confidentiality of Alcohol and Drug Abuse Patient Records regulations: The Federal rules restrict any use of the information to criminally investigate or prosecute any alcohol or drug abuse patient.[facility] the event this information is protected by the Federal Confidentiality of Alcohol and Drug Abuse Patient Records regulations: The Federal rules restrict any use of the information to criminally investigate or prosecute any alcohol or drug abuse patient.[facility] the event this information is protected by the Federal Confidentiality of Alcohol and Drug Abuse Patient Records regulations: The Federal rules restrict any use of the information to criminally investigate or prosecute any alcohol or drug abuse patient.[facility] the event this information is protected by the Federal Confidentiality of Alcohol and Drug Abuse Patient Records regulations: The Federal rules restrict any use of the information to criminally investigate or prosecute any alcohol or drug abuse patient.[facility] FOR RECORDS PERTAINING TO PATIENTS WHO ARE OR HAVE BEEN ENROLLED IN A CHEMICAL DEPENDENCY/SUBSTANCEABUSE PROGRAM, SOME INFORMATION MAY BE OMITTED. This clinical summary was aggregated from multiple sources. Caution should be exercised in using it in the provision of clinical care. This summary normalizes information from multiple sources, and as a consequence, information in this document may materially change the coding, format and clinical context of patient data. In addition, data may be omitted in some cases. CLINICAL DECISIONS SHOULD BE BASED ON THE PRIMARY CLINICAL RECORDS. [facility] provides no warranty or guarantee of the accuracy or completeness of information in this document.
== END 2024-04-05 13:55 | disposition home or self-care (01) ==
LOC: US 13:54
PROVIDERS: Visit Provider Student in an Organized Health Care Education/Training Program
DX: R42 Dizziness and giddiness (principal); Q79.60 Ehlers-Danlos syndrome, unspecified
CPT/HCPCS: 93880

== ENCOUNTER 2024-07-18 08:30 | Outpatient (OUT) | payer OTHER, SELFPAY ==
--- NOTE | 2024-07-18 08:38 | US_ITS ---
The [address] [address] Patient Name: KALEN PLAZA MRN: [id number] date: 1985 Sex: F Assigned Patient Location: US Current Patient Location: US Accession/Order Number: [id number] Exam Date: 07/18/2024 08:40 Report Date: 07/18/2024 09:32 At the request of: LANEY PENN Procedure: US pelvis transvaginal EXAMINATION: US pelvis transvaginal HISTORY: Pelvic Pain Female COMPARISON: No relevant comparison available. FINDINGS: The uterus is normal in size, contour and echotexture measuring 6.9 x 3.9 x 3.2 cm. No focal myometrial mass The endometrium measures 5.1 mm, normal The ovaries were not visualized. There is a large amount of bowel throughout the pelvis. No free fluid US/US pelvis transvaginal IMPRESSION: Nonvisualization of the ovaries Normal appearance of uterus Electronically authenticated by: MITCH LEVIN Date: 07/18/2024 09:32
--- NOTE | 2024-07-18 08:39 | US_ITS ---
The [place] [id number] Patient Name: KALEN PLAZA MRN: [id number] date: 1985 Sex: F Assigned Patient Location: US Current Patient Location: US Accession/Order Number: [id number] Exam Date: 07/18/2024 08:40 Report Date: 07/18/2024 09:25 At the request of: LANEY PENN Procedure: US extremity nonvascular RT EXAMINATION: US extremity nonvascular LT, US extremity nonvascular RT HISTORY: Enlarged bilateral Lymph Node In Armpit R59.0 COMPARISON: No relevant comparison available. FINDINGS: Ultrasound of the right axilla demonstrates normal skin and subcutaneous fat and muscle. No focal lymph nodes are observed. No ultrasound mass Ultrasound of the left axilla demonstrates a normal size normal morphology lymph node measuring 1.7 x 0.7 x 0.4 cm. No ultrasound mass US/US extremity nonvascular RT IMPRESSION: Single normal size normal morphology left axillary lymph node Electronically authenticated by: MITCH LEVIN Date: 07/18/2024 09:25
--- NOTE | 2024-07-18 08:39 | US_ITS ---
The [place] [id number] Patient Name: KALEN PLAZA MRN: [id number] date: 1985 Sex: F Assigned Patient Location: US Current Patient Location: US Accession/Order Number: [id number] Exam Date: 07/18/2024 08:40 Report Date: 07/18/2024 09:25 At the request of: LANEY PENN Procedure: US extremity nonvascular LT EXAMINATION: US extremity nonvascular LT, US extremity nonvascular RT HISTORY: Enlarged bilateral Lymph Node In Armpit R59.0 COMPARISON: No relevant comparison available. FINDINGS: Ultrasound of the right axilla demonstrates normal skin and subcutaneous fat and muscle. No focal lymph nodes are observed. No ultrasound mass Ultrasound of the left axilla demonstrates a normal size normal morphology lymph node measuring 1.7 x 0.7 x 0.4 cm. No ultrasound mass US/US extremity nonvascular LT IMPRESSION: Single normal size normal morphology left axillary lymph node Electronically authenticated by: MITCH LEVIN Date: 07/18/2024 09:25
--- OUTSIDE RECORDS SUMMARY | 2024-07-18 08:39 | XMS_ITS | CCD ---
Author Organization [facility] Providers Care Manager Shell Name Role Phone Omley, Tayo H Unavailable Unavailable Omley, Tayo H Unavailable Unavailable Provider, None Unavailable Unavailable Omley, Tayo H Unavailable Unavailable Omley, Tayo H Unavailable Unavailable Provider, None Unavailable Unavailable David Laguerre Unavailable Unavailable Unavailable DAVID LAGUERRE Primary Care Physician SHADE, DR DAVID Hunter Admitting Unavailable NADSUNDAR, DR DAVID Hunter Attending Unavailable SHADE, DR DAVID Hunter Primary Care Unavailable NADSUNDAR, DR DAVID Hunter Consulting Unavailable REMEDIOS, DR DAVISON Admitting Unavailable REMEDIOS, DR DAVISON Attending Unavailable NADENMANUELR, DR DAVID Hunter Primary Care Unavailable REMEDIOS, DR DAVISON Consulting Unavailable Traboulpraful, Dr. Huynh Attending Unavaila ble Shade, Dr. David Yang Primary Care Corryvaivett Suazo, Dr. Huynh Attending Unavaila ble Shade, Dr. David Yang Primary Care Martha Laguerre, Dr. David Yang Primary Care Martha Suazo, Dr. Huynh Attending Unavaila ble Gabriele, Dr. Huynh Referring Unavaila David Finley MD Primary Care Provider Naif, Imron Unavailable YOU Cabrera Attending Provider MD David Laguerre Primary Care Provider [phone] MD David Laguerre Referring Provider [phone] David Laguerre MD Primary Care Provider [phone] MD Robbie Disla Attending Provider YOU Cabrera Attending Provider MD David Laguerre Primary Care Provider [phone] MD David Laguerre Referring Provider MD Robbie Disla Attending Provider Keira Heller CNP Unavailable David Laguerre Primary Care Provider David Laguerre Primary Care Provider [phone] DHRUV BUSTILLOS Attending Unavailable DAVID LAGUERRE Referring Unavailable SHADE, DAVID Primary Care Unavailable KIKA EDMONDS Attending Unavailable DAVID LAGUERRE Referring Unavailable DAVID LAGUERRE Primary Care Unavailable MD David Laguerre Primary Care Provider [phone] MD Robbie Disla Attending Provider Mauricio KITCHEN Attending Unavailable DANY TOVAR Attending Unavailab Mauricio Garcia Attending Unavailable FRANCIS LEVINE Attending Unavailable DAVID LAGUERRE Referring Unavailable DAVID LAGUERRE Primary Care Unavailable FRANCIS LEVINE Attending Unavailable DAVID LAGUERRE Referring Unavailable DAVID LAGUERRE Primary Care Unavailable MD David Laguerre Primary Care Provider MD David Laguerre Referring Provider DO Tayo Barajas II Attending Provider DANIEL Heller Attending Provider DANIEL Heller Referring Provider Asaad, Imad Attending Unavailable David Laguerre Primary Care Unavailable Asaad, Imad Admitting Unavailable Keira Heller Admitting Unavailable Keira Heller Attending Unavailable Keira Heller Referring Unavailable David Laguerre Primary Care Unavailable Shade, David Primary Care Unavailable Shade, David Referring Unavailable Magueicz IITayo Admitting Unavaila ble Adamowicz II, Tayo Romero Attending Unavaila ble Asaad, Imad Admitting Unavailable Asaad, Imad Attending Unavailable David Laguerre Primary Care Unavailable Asaad, Imad Admitting Unavailable Asaad, Imad Attending Unavailable Naderer, David Primary Care Unavailable Naderer , David Primary Care Provider [phone] Shade SNOW, David Primary Care Provider MARTY RICHARDSON Attending Unavailable NADERER, DAVID Referring Unavailable NADERER, DAVID Primary Care Unavailable CHLOE TESFAYE Attending Unavailable NADERER, DAVID Referring Unavailable NADERER, DAVID Primary Care Unavailable PHYSICIAN, UNKNOWN Referring Unavailable NADERER, DAVID Primary Care Unavailable KEIRA HELLER Referring Unavailable NADERER, DAVID Primary Care Unavailable DHRUV BUSTILLOS Referring Unavailable NADERER, DAVID Primary Care Unavailable TAYO BARAJAS Referring [...] Primary Care Unavailable MICHELL HART Referring Unavailable NADERER, DAVID Primary Care Unavailable FRANCIS LEVINE Referring Unavailable NADERER, DAVID Primary Care Unavailable MARTY RICHARDSON Attending Unavailable NADERER, DAVID Referring Unavailable NADERER, DAVID Primary Care Unavailable KEIRA HELLER Referring Unavailable NADERER, DAVID Primary Care Unavailable MARTY RICHARDSON Attending Unavailable NADEREMiriam, DAVID Referring Unavailable NADERER, DAVID Primary Care Unavailable ASAAD, IMAD Referring Unavailable NADERER, DAVID Primary Care Unavailable NADERER, DAVID Referring Unavailable NADERER, DAVID Primary Care Unavailable NADERER, DAVID Referring Unavailable NADERER, DAVID Primary Care Unavailable NADERER, DAVID Referring Unavailable NADERER, DAVID Primary Care Unavailable ALEJANDRA ONTIVEROS Referring Unavailable NADERER, DAVID Primary Care Unavailable KEIRA HELLER Referring Unavailable NADERER, DAVID Primary Care Unavailable NADERER, DAVID Primary Care Unavailable DONI MIMS Attending Unavailable DONI MIMS Attending Unavailable DONI MIMS Referring Unavailable NADERER, DAVID Primary Care Unavailable MICHELL HART Referring Unavailable NADERER, DAVID Primary Care Unavailable Keira Heller CNP Unavailable David Laguerre MD Primary Care Provider BRENT WHITTAKER Attending Unavailable DAVID LAGUERRE Attending Unavailable BRENT WHITTAKER Attending Unavailable DAVID LAGUERRE Attending Unavailable BRENT WHITTAKER Attending Unavailable DAVID LAGUERRE Attending Unavailable KEIRA HELLER Attending Unavailable DAVID LAGUERRE Attending Unavailable BRENT WHITTAKER Attending Unavailable RAJESH DOBSON Attending Unavailable DAVID LAGUERRE Primary Care Unavailable KEIRA HELLER Referring Unavailable KEIRA HELLER Primary Care Unavailable ROSMERY MACK Attending Unavailable Allergies Allergy Classification Reported Allergen(s) Allergy Type Date of Onset Reaction(s) Facility (1 source) No Known Medication Allergies; Translations: [No Known Medication Allergies] Propensity to adverse reactions to drug (disorder) [facility] Repository Medications Current Medications Medication Drug Class(es) Dates Sig (Normalized) Sig (Original) amphetamine aspartate 5 mg / amphetamine sulfate 5 mg / dextroamphetamine saccharate 5 mg / dextroamphetamine sulfate 5 mg oral tablet (20 sources) Central Nervous System Stimulant Start: 06-17-2024 take 2 tablets by mouth once daily in the morning, then take 1 tablet by mouth once amphetamine-dextr oamphetamine (Adderall) 20 MG tablet Indications: Postural orthostatic tachycardia syndrome 2 PO every morning, 1 PO every afternoon 90 tablet 06/17/2024 Active Start: 03-29-2024 take 2 tablets by mo ut once daily in the morning, then take 1 tablet by mouth once amphetamine-dextroamphetamine (Adderall) 20 MG tablet Indications: Postural orthostatic tachycardia syndrome 2 PO every morning, 1 PO every afternoon 90 tablet 03/29/2024 Active Start: 02-02-2024 End: 06-17-2024 take 2 tablets by mouth once daily in the morning, then take 1 tablet by mouth once amphetamine-dextroamphetamine (Adderall) 20 MG tablet Indications: Postural orthostatic tachycardia syndrome 2 PO every morning, 1 PO every afternoon 90 tablet 06/17/2024 Active Start: 08-11-2023 take 2 tablets by mo uth once daily in the morning, then take 1 tablet by mouth once amphetamine-dextroamphetamine (Adderall) 20 MG tablet Indications: Postural orthostatic tachycardia syndrome 2 PO every morning, 1 PO every afternoon 90 tablet 0 08/11/2023 Active Start: 07-05-2023 dextroamphetam ine-amphetamine (ADDERALL) 20 mg tablet As Directed 07/05/2023 Active Start: 06-13-2022 Adderall Oral, BID, Refill(s) 0 Start Date: 06/13/22 Status: Ordered Start: 02-01-2022 take 1 capsule by [facility] once daily Amphetamine-Dextroamphet ER 20 MG Oral Capsule Extended Release 24 Hour TAKE 1 CAPSULE DAILY FOR ADHD. Quantity: 0 Refills: 0 Ordered: 03-Feb-2022 DO Start : 01-Feb-2022 Active Comment on above: As Directed ARIPiprazole 5 mg oral tablet (2 sources) Atypical Antipsychotic Start: 06-13-20 take 1 mg by mouth once daily Abilify 5 mg Tab mg tab(s), Oral, Daily, Refills(s) 0 Start Date: 06/13/22 Status: Ordered atorvastatin 40 mg oral tablet (20 sources) HMG-CoA Reductase Inhibitor Start: 07-05-19 End: 10-31-19 take 1 tablet by mouth once daily at bedtime atorvastatin (LIPITOR) 40 mg tablet Take 40 mg by mouth daily at bedtime. 09/21/2023 Active Atorvastatin Ronaldo cium 40mg Active Comment on above: Take 40 mg by mouth daily at bedtime. bisoprolol fumarate 5 mg oral tablet (20 sources) beta-Adrenergic Ayad Start: 4 take 1 tablet by mouth in the morning bisoprolol (ZEBETA) 5 mg tablet Take 1 tablet (5 mg total) by mouth in the morning. 90 tablet 3 04/01/2024 Active Comment on above: Take 5 mg by mouth e very morning. buprenorphine 2 mg / naloxone 0.5 mg sublingual film (20 sources) Partial Opioid Agonist, Opioid Antagonist Start: 4 buprenorphine-nalox one (SUBOXONE) 2-0.5 mg film dissolve 1/8 FILM under the tongue once daily if needed 10/03/2023 Active Start: 08-22-2023 Buprenorphine- Naloxone Active [...] tablet under the tongue in the morning. Active Comment on above: dissolve 1/8 FILM un pito the tongue once daily if needed cholecalciferol 0.05 mg oral tablet (19 sources) Vitamin D Start: 07-05-2023 End: 04-26-2024 cholecalciferol (VITAMIN D3) 50 mcg (2,000 unit) tablet Daily 07/05/2023 Active Start: 09-28-2021 take 1 tablet by fabricio th once daily Vitamin D3 50 MCG (2000 UT) Oral Tablet Take 1 tablet daily Quantity: 0 Refills: 0 Ordered: 30-Sep-2021 DO Start : 28-Sep-2021 Active take 1 tablet by fabricio th every twenty-four hours Vitamin D 25 MCG (1000 UT) 1 tablet Orally Once a day 50mcg Active Comment on above: Daily cholecalciferol (Vitamin D3) 200 Unit tablet split tablet (16 sources) cholecalciferol (Vitamin D3) 200 Unit tablet split tablet Take 50 mcg by mouth in the morning. Active cholecalciferol (Vitamin D3) 200 Unit tablet split tablet Take 50 mcg by mouth in the morning. 0 Active cholecalciferol, vitamin D3, (VITAMIN D3 ORAL) (16 sources) take 50 ug by mouth in the morning cholecalciferol, vitamin D3, (VITAMIN D3 ORAL) Take 50 mcg by mouth in the morning. Active take [facility] cholecalciferol, vitamin D3, (VITAMIN D3 ORAL) Take 50 mcg by mouth in the morning. 0 Active cycloSPORINE 0.5 mg/ml ophthalmic suspension (13 sources) Calcineurin Inhibitor Immunosuppressant Start: 09-07-2023 Restasis 0.05 % ophthalmic emulsion 09/07/2023 Active Cyclosporine (Restasis) 0.05 % dropperette (3 sources) Start: 09-28-2023 take 1 drop(s) into the eye(s) every twelve hours Cyclosporine (Restasis) 0.05 % dropperette Active 1 DROPS EYE-BOTH Every 12 hours September 28, 2023 12:00am cycloSPORINE (RESTASIS) 0.05 % ophthalmic emulsion (17 sources) Start: 09-28-2023 cycloSPORINE (RESTASIS) 0.05 % ophthalmic emulsion Every 12 hours 09/28/2023 Active Start: 09-28-2023 cycloSPORINE ( RESTASIS) 0.05 % ophthalmic emulsion Every 12 hours 0 09/28/2023 Active take 1 drop(s) into the eye(s) in the morning cycloSPORINE (RESTASIS) 0.05 % ophthalmic emulsion Administer 1 drop to both eyes in the morning and 1 drop before bedtime. Active take 1 drop(s) into the eye(s) in the morning cycloSPORINE (RESTASIS) 0.05 % ophthalmic emulsion Administer 1 drop to both eyes in the morning and 1 drop before bedtime. 0 Active Comment on above: Every 12 hours desogestrel 0.15 mg / ethinyl estradiol 0.03 mg oral tablet (20 sources) Progestin, Estrogen Start: 11-21-2023 desogestrel-ethinyl estradiol (Enskyce) 0.15-30 MG-MCG tablet Indications: control counseling Take 1 tablet by mouth Daily 28 tablet 12 11/21/2023 Active Start: 08-07-2023 take 1 tablet by fabricio th once daily ENSKYCE 0.15-0.03 mg per tablet take 1 tablet by mouth once daily 08/07/2023 Active Start: 08-07-2023 take 1 tablet by fabricio th once daily ENSKYCE 0.15-0.03 mg per tablet [...] Take 1 tablet by mouth every morning. Active take 1 tablet by fabricio th once [...] tablet (20 sources) Start: 01-09-2023 take 1 tablet by mouth in the morning folic acid (FOLVITE) 1 mg tablet Take 1 tablet (1,000 mcg total) by mouth in the morning. 01/09/2023 Active Folic Acid 1mg A ctive Comment on above: Take 1 tablet by fabricio th every afternoon. gabapentin 800 mg oral tablet (20 sources) Anti-epileptic Agent Start: 06-13-2022 gabapentin Oral, Refills(s) 0 Start Date: 06/13/22 Status: Ordered Start: 07-14-2021 take 1 tablet by fabricio th three times daily gabapentin (NEURONTIN) 800 mg tablet Take 800 mg by mouth three times a day. 09/22/2023 Active take 1 tablet by fabricio th every twenty-four hours Gabapentin 800 MG 1 tablet Orally Once a day tid Active Comment on above: Take 800 mg by mouth three times a day. iv contrast (will be provided with radiology test) (3 sources) Start: End: inject 1 dose intravenously once iv contrast (will be provided with radiology test) Indications: Syncope and collapse CTA Head/Neck WO/W No IV access, insert saline lock prior to the sedation, infusion, injection for imaging exam. Discontinue saline lock post exam. If Pt. has a central line or IVAD, may access for administration according to line specific nursing protocol. Once exam is complete flush line and de-access according to line specific nursing protocol in the CT contrast administration guidelines link. 1 Each 05/24/2024 05/25/2024 Active Start: 05-24-2024 End: 05-25-2024 inject 1 dose intravenously once iv contrast (will be provided with radiology test) MRI TSP Inject, intravenously, once for 1 dose. No IV access, insert saline lock prior to the beginning of sedation, infusion, injection of imaging exam. Discontinue saline lock post exam. If Pt. has a central line or IVAD, may access for administration according to line specific nursing protocol. Once exam is complete flush line and de-access according to line specific nursing protocol in the MR contrast administration guidelines link. 1 Each 05/24/2024 05/25/2024 Active Start: 05-24-2024 End: 05-25-2024 iv contrast (will be provide d with radiology test) MRI LSP Inject, intravenously, once for 1 dose. No IV access, insert saline lock prior to the beginning of sedation, infusion, injection of imaging exam. Discontinue saline lock post exam. If Pt. has a central line or IVAD, may access for administration according to line specific nursing protocol. Once exam is complete flush line and de-access according to line specific nursing protocol in the MR contrast administration guidelines link. 1 Each 05/24/2024 05/25/2024 Active 200 actuat levalbuterol 0.045 mg/actuat metered dose inhaler (20 sources) beta2-Adrenergic Agonist Start: 07-05-2023 Leval buterol Tartrate (Xopenex Hfa) 45 mcg/actuation HFA aerosol inhaler Active 2 PUFF INHALATION As Directed July 05, 2023 1:00am Start: 04-23-2023 End: 04-26-2024 levalbuterol tartrate HFA 45 mcg/actuation inhaler As Directed 04/23/2023 Active take 2 puff(s) by in halation once daily as needed levalbuterol (Xopenex) 45 MCG/ACT inhaler Inhale 2 puffs Daily as needed. Active Xopenex Active Comment on above: As Directed levalbuterol tartrate (XOPEN EX HFA INHL) (16 sources) levalbuterol tar trate (XOPENEX HFA INHL) Inhale 2 puffs as needed. Active levalbuterol tar trate (XOPENEX HFA INHL) Inhale 2 puffs as needed. 0 Active Magnesium (1 source) Magnesium 400 MG as directed Orally Active magnesium oxide 400 mg oral tablet (20 sources) Start: 3 take 1 tablet by mouth in the morning magnesium oxide (MAGOX) 400 mg tablet Take 1 tablet (400 mg total) by mouth in the morning. 90 tablet 3 04/27/2023 Active midodrine hydrochloride 10 mg oral tablet (20 sources) alpha-Adrenergic Agonist Start: take 1 tablet by mouth three times daily midodrine (Proamatine) 10 MG tablet Indications: POTS (postural orthostatic tachycardia syndrome) TAKE 1 TABLET BY MOUTH THREE TIMES DAILY 90 tablet 3 06/24/2024 Active take 1 tablet by fabricio th [...] Refill(s) 0 Start Date: 06/13/22 Status: Ordered pantoprazole 40 mg delayed release oral tablet (15 sources) Proton Pump Inhibitor Start: 08-23-2023 End: 01-26-2024 take 1 tablet by mouth once pantoprazole DR (PROTONIX) 40 mg tablet Take 1 tablet by mouth every afternoon. 08/23/2023 Active Comment on above: Take 1 tablet by fabricio th every afternoon. Polyethylene Glycol 3350 (Miralax) 17 gram/dose powder (2 sources) Start: 11-22-2023 Polyethylene G lycol 3350 (Miralax) 17 gram/dose powder Active 17 GM PO Twice daily 1020 30 November 22, 2023 12:00am potassium chloride 20 meq extended release oral tablet (20 sources) Start: 02-19-2024 take 1 tablet by mouth once daily potassium chloride CR (K-Tab) 20 MEQ ER tablet Indications: Vitamin D deficiency TAKE 1 TABLET BY MOUTH EVERY DAY 30 tablet 3 02/19/2024 Active Start: 07-18-2023 take 1 tablet by fabricio th every twelve hours potassium chloride 20 mEq TbER Take 1 tablet by mouth every 12 hours. 07/18/2023 Active Start: 07-05-2023 take 20 mEq by mouth twice daily Potassium Chloride Active 20 MEQ PO Twice daily July 05, 2023 1:00am End: 04-26-2024 take 20 mEq by mouth in the morning potassium chloride (Klor-Con) 20 MEQ packet Take 20 mEq by mouth in the morning. 04/26/2024 Discontinued Potassium Chlori de 20mg Active Comment on above: Take 1 tablet by fabricio th every 12 hours. predniSONE 5 mg oral tablet (20 sources) Start: 02-03-2022 take 1 tablet by mouth once daily in the morning, then take 0.5 tablet by mouth once daily in the evening predniSONE (DELTASONE) 5 mg tablet take 1 tablet by mouth every morning then take 1/2 tablet every evening 09/26/2023 Active prednisone 5mg A ctive Comment on above: take 1 tablet by fabricio th every morning then take 1/2 tablet every evening pyridostigmine bromide 30 mg oral tablet (20 sources) Start: End: 09-17-202 5 take 1 tablet by mouth once daily in the morning, then take 1 tablet by mouth once daily in the evening, then take 1 tablet by mouth at bedtime pyRIDostigmine bromide 30 mg tab take 1 tablet by mouth every morning 1 tablet every evening and 1 tablet at bedtime 10/03/2023 Active Start: 07-05-2023 take 30 mg by mouth three times daily Pyridostigmine [place] Active 30 MG PO Three times daily July 05, 2023 1:00am take 1 tablet by fabricio th five times daily pyRIDostigmine Frederick 30 MG 1 tablet Orally Five times a day tid Active Comment on above: take 1 tablet by fabricio th every morning 1 tablet every evening and 1 tablet at bedtime varenicline 1 mg oral tablet (20 sources) Partial Cholinergic Nicotinic Agonist Start: take 1 tablet by mouth every twelve hours varenicline (CHANTIX) 1 mg tablet Take 1 tablet by mouth every 12 hours. 07/13/2023 Active Start: 07-05-2023 take 1 tablet by fabricio th once daily Varenicline (Chantix) 1 mg Tablet Active 1 MG PO Daily July 05, 2023 1:00am varenicline (DOE NTIX TALIA) 0.5 mg (11)- 1 mg (42) tablet Indications: smoking cessation Take 0.5 tablets by mouth in the morning and 0.5 tablets before bedtime. Indications: stop smoking. Take 0.5 mg one daily on days 1-3 and 0.5 mg twice daily on days 4-7. Then 1 mg twice daily for a total of 12 weeks.. Active Chantix 1mg bid Active varenicline (DOE NTIX [...] tablet by fabricio th every 12 hours. 24 hr venlafaxine 150 mg extended release oral capsule (20 sources) Serotonin and Norepinephrine Reuptake Inhibitor Start: 07-27-2023 End: 07-26-2024 venlafaxine ER (EFFEXOR XR) 150 mg 24 hr capsule 08/15/2023 Active Start: 07-05-2023 take 150 mg by mouth once jacob y Venlafaxine Active 150 MG PO Daily July 05, 2023 1:00am Start: 03-02-2023 take 1 capsule by [facility] every twenty-four hours in the morning venlafaxine XR (EFFEXOR XR) 75 mg 24 hr capsule Take 1 capsule (75 mg total) by mouth in the morning. 03/02/2023 Active Effexor 150mg Ac tive Vitamin [...] procedure., # 2 tab(s), Refills(s) 0, Pharmacy: [facility] [[email or web address]]Mary Witget #[id number], 162, cm, 06/13/22 14:55:00 EST, Height/Length Dosing, [...] morning. 30 capsule 11 05/15/2023 07/19/2023 Discontinued polyethylene glycol 3350 31126 mg powder for oral solution (6 sources) Osmotic Laxative Start: 09-26-2023 End: 09-28-2023 Polyethylene Glycol 3350 (Miralax) 17 gram/dose powder Discontinued 17 GM PO Daily 238 September 26, 2023 12:00am September 28, 2023 8:48am rOPINIRole 0.5 mg oral tablet (5 sources) Nonergot Dopamine Agonist Start: 02-07-2024 End: 04-26-2024 take 1 tablet by mouth at bedtime rOPINIRole (Requip) 0.5 MG tablet Indications: RLS (restless legs syndrome) Take 1 tablet (0.5 mg) by mouth at bedtime 30 tablet 5 02/07/2024 04/26/2024 Discontinued Problems Active Problems Problem Classification Problem Date Documented Da te Episodic/Chronic Abdominal pain (20 sources) Generalized abdominal pain; Translations: [Pain in female pelvis] Onset: 07-20-2023 Episodic Anxiety disorders (20 sources) Generalized anxiety disorder; Translations: [Generalized anxiety disorder] Onset: 06-13-2023 06-13-2023 Chronic Attention-deficit, conduct, and disruptive behavior disorders (1 source) Attention deficit hyperactivity disorder; Translations: [Attention deficit disorder with hyperactivity] Chronic Cardiac dysrhythmias (20 sources) Postural orthostatic tachycardia syndrome ; Translations: [POTS (postural orthostatic tachycardia syndrome)] Onset: 05-18-2023 05-18-2023 Chronic Chronic kidney disease (1 source) Chronic kidney disease stage 3; Translations: [Stage 3 chronic kidney disease, unspecified whether stage 3a or 3b CKD ([facility])] 05-01-2024 Chronic Chronic kidney disease (1 source) Chronic kidney disease; Translations: [Chronic kidney disease, stage 3 unspecified] Onset: 05-01-2024 Diseases of white blood cells (1 source) Elevated white blood cell count, unspecified; Translations: [Elevated white blood cell count, unspecified] Onset: 07-07-2023 Chronic Disorders of lipid metabolism (20 sources) Mixed hyperlipidemia; Translations: [Mixed hyperlipidemia] Onset: 06-13-2023 07-19-2023 Chronic Epilepsy; convulsions (1 source) Neurological finding; Translations: [Unspecified convulsions] 05-24-2024 Episodic Genitourinary symptoms and ill-defined conditions (2 sources) Urinary incontinence; Translations: [Unspecified urinary incontinence] 02-21-2024 Chronic Genitourinary symptoms and ill-defined conditions (20 sources) Proteinuria; Translations: [Proteinuria, unspecified] Onset: 05-05-2022 Episodic Headache; including migraine (1 source) Headache; including migraine; Translations: [Headache, unspecified] Onset: 08-05-2023 Immunity disorders (20 sources) [place] light chain disease; Translations: [Other specified disorders involving the immune mechanism, not elsewhere classified] Onset: 06-13-2023 06-13-2023 Chronic Immunizations and screening for infectious disease (20 sources) Encounter for screening for human papillomavirus (HPV); Translations: [Other specified abnormal immunological findings in serum] Onset: 07-14-2022 07-07-2023 Episodic Mood disorders (20 sources) Depressed bipolar I disorder; Translations: [Bipolar disorder, unspecified] Onset: 06-13-2023 Resolved: 06-12-2024 06-13-2023 Chronic Nonspecific chest pain (2 sources) Other chest pain; Translations: [Chest pain, unspecified] Onset: 02-24-2024 Episodic Nutritional deficiencies (20 sources) Vitamin D deficiency; Translations: [Vitamin D deficiency, unspecified] Onset: 06-13-2023 06-13-2023 Chronic Other and ill-defined cerebrovascular disease (1 source) Cerebral arterial aneurysm; Translations: [Cerebral aneurysm, nonruptured] 05-24-2024 Chronic Other and ill-defined cerebrovascular disease (1 source) Intracranial aneurysm; Translations: [Cerebral aneurysm, nonruptured] 05-24-2024 Chronic Other circulatory disease (1 source) History of hypotension; Translations: [Personal history of other diseases of circulatory system] Episodic Other circulatory disease (3 sources) Postural orthostatic tachycardia syndrome ; Translations: [Postural orthostatic tachycardia syndrome (POTS)] Onset: 05-18-2023 04-26-2024 Episodic Other congenital anomalies (20 sources) Sherri-Danlos syndrome; 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, unspecified] Onset: 10-26-2023 11-06-2023 Chronic Other diseases of veins and lymphatics (1 source) Venous insufficiency of leg; Translations: [Venous insufficiency (chronic) (peripheral)] 07-30-2023 Episodic Other endocrine disorders (1 source) Ionia's disease; 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 Other endocrine disorders (20 sources) 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 disorder; 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] Onset: 06-13-2023 06-13-2023 Chronic Other endocrine disorders (1 source) Other adrenocortical insufficiency; 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] Onset: 08-02-2023 Chronic Other eye disorders (1 source) Disorder of eye region; Translations: [Ocular pain, bilateral] 10-18-2023 Episodic Other female genital disorders (16 sources) Abnormal uterine bleeding; Translations: [Other specified abnormal uterine and vaginal bleeding] Onset: 06-13-2023 06-13-2023 Chronic Other female genital disorders (4 sources) Vaginal discharge; Translations: [Other specified noninflammatory disorders of vagina] Onset: 06-24-2024 06-24-2024 Episodic Other gastrointestinal disorders (1 source) Diarrhea; Translations: [Diarrhea, unspecified] Episodic Other gastrointestinal disorders (1 source) Constipation; Translations: [Constipation, unspecified] Episodic Other gastrointestinal disorders (2 sources) Mucus in stool; Translations: [Other fecal abnormalities] 11-22-2023 Episodic Other hereditary and degenerative nervous system conditions (20 sources) Restless legs; Translations: [Restless legs syndrome] Onset: 02-07-2024 Resolved: 06-12-2024 02-07-2024 Chronic Other liver diseases (1 source) Lesion of liver; Translations: [Liver disease, unspecified] Chronic Other liver diseases (2 sources) Liver disease, unspecified; Translations: [Liver disease, unspecified] Onset: 07-20-2023 Chronic Other lower respiratory disease (2 sources) Rib pain Onset: 02-24-2024 Episodic Other lower respiratory disease (1 source) Chronic cough; Translations: [Chronic cough] Onset: 02-07-2024 Episodic Other nervous system disorders (1 source) Syringomyelia and syringobulbia; Translations: [Syringomyelia and syringobulbia] 05-24-2024 Chronic Other nervous system disorders (1 source) Tremor; Translations: [Tremor, unspecified] 10-18-2023 Episodic Other nervous system disorders (1 source) Other lack of coordination; Translations: [Other lack of coordination] Onset: 03-15-2024 Episodic Other nutritional; endocrine; and metabolic disorders (1 source) Body mass index less than 20; Translations: [Body mass index (BMI) 19.9 or less, adult] Episodic Other screening for suspected conditions (not mental disorders or infectious disease) (5 sources) Encounter for screening for malignant neoplasm of cervix; Translations: [Patient encounter status] Onset: 07-12-2022 Episodic Residual codes; unclassified (16 sources) Hypersomnia; Translations: [Hypersomnia, unspecified] Onset: 06-13-2023 06-13-2023 Chronic Residual codes; unclassified (20 sources) Obstructive sleep apnea syndrome; Translations: [Obstructive sleep apnea (adult) (pediatric)] Onset: 09-05-2023 09-05-2023 Chronic Residual codes; unclassified (2 sources) Obstructive sleep apnea (adult) (pediatric); Translations: [Obstructive sleep apnea (adult) (pediatric)] Onset: 09-05-2023 Chronic Residual codes; unclassified (1 source) Periodic limb movement disorder; Translations: [Periodic limb movement disorder] Onset: 05-01-2024 Chronic Substance-related disorders (20 sources) Smoker; Translations: [Tobacco use disorder] Onset: 06-13-2023 08-02-2022 Chronic Comment on above: 1 ppd; Added secondary to d ocumentation in Social History. Unclassified (1 source) Sherri-Danlos syndrome, unspecified; 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, unspecified] Onset: 10-26-2023 Unclassified (1 source) Bilateral Feet Swelling and Pain Onset: 10-26-2023 Urinary tract infections (3 sources) Urinary tract infectious disease; Translations: [Urinary tract infection, site not specified] Onset: 06-13-2022 Episodic Past or Other Problems Problem Classification Problem Date Documented Da te Episodic/Chronic Cancer of cervix (16 sources) High grade squamous intraepithelial lesion on cervical Papanicolaou smear; Translations: [High grade squamous intraepithelial lesion on cytologic smear of cervix (HGSIL)] Onset: 06-13-2023 06-13-2023 Episodic Cardiac dysrhythmias (20 sources) Tachycardia; Translations: [Tachycardia, unspecified] Onset: 05-15-2023 05-15-2023 Episodic Coagulation and hemorrhagic disorders (20 sources) Easy bruising; Translations: [Spontaneous ecchymoses] Onset: 02-07-2024 02-07-2024 Episodic Conditions associated with dizziness or vertigo (12 sources) Dizziness; Translations: [Dizziness and giddiness] Onset: 08-05-2023 03-28-2024 Episodic Fluid and electrolyte disorders (16 sources) Hypokalemia; Translations: [Hypokalemia] Onset: 06-13-2023 06-13-2023 Episodic Headache; including migraine (1 source) Headache Onset: 08-05-2023 Episodic Lymphadenitis (20 sources) Axillary lymphadenopathy; Translations: [Localized enlarged lymph nodes] Onset: 12-12-2023 12-12-2023 Episodic Malaise and fatigue (17 sources) Fatigue; Translations: [Other fatigue] Onset: 06-13-2023 06-13-2023 Episodic Mood disorders (9 sources) Mood disorders Onset: 03-27-2024 03-27-2024 Nausea and vomiting (4 sources) Nausea; Translations: [Nausea] Onset: 07-20-2023 Episodic Nonmalignant breast conditions (20 sources) Breast lump; Translations: [Unspecified lump in the right breast, upper outer quadrant] Onset: 12-12-2023 12-12-2023 Episodic Nutritional deficiencies (20 sources) Folic acid deficiency (non anemic); Translations: [Deficiency of other specified B group vitamins] Onset: 06-13-2023 06-13-2023 Episodic Other circulatory disease (1 source) Other specified symptoms and signs involving the circulatory and respiratory systems; Translations: [Other specified symptoms and signs involving the circulatory and respiratory systems] Onset: 07-18-2023 Episodic Other connective tissue disease (16 sources) Muscle pain; Translations: [Myalgia, unspecified site] Onset: 06-13-2023 06-13-2023 Episodic Other connective tissue disease (1 source) Pain in leg, unspecified; Translations: [Pain in leg, unspecified] Onset: 07-18-2023 Episodic Other connective tissue disease (1 source) Other specified soft tissue disorders; Translations: [Other specified soft tissue disorders] Onset: 07-18-2023 Episodic Other connective tissue disease (3 sources) Other symptoms and signs involving the musculoskeletal system; Translations: [Other musculoskeletal symptoms referable to limbs] Onset: 07-10-2023 02-21-2024 Episodic Other gastrointestinal disorders (2 sources) Change in bowel habit; Translations: [Change in bowel habit] Onset: 07-20-2023 Episodic Other gastrointestinal disorders (11 sources) Chronic constipation; Translations: [Other constipation] Onset: 03-07-2024 11-22-2023 Episodic Other gastrointestinal disorders (2 sources) Other constipation; Translations: [Constipation, unspecified] Onset: 11-22-2023 11-22-2023 Episodic Other gastrointestinal disorders (1 source) Constipation, unspecified; Translations: [Constipation, unspecified] Onset: 09-28-2023 Episodic Other lower respiratory disease (13 sources) Dyspnea; Translations: [Dyspnea, unspecified] Onset: 12-12-2023 12-12-2023 Episodic Other lower respiratory disease (13 sources) Cough; Translations: [Cough] Onset: 02-07-2024 02-07-2024 Episodic Other nervous system disorders (19 sources) Paresthesia; Translations: [Paresthesia of skin] Onset: 06-13-2023 06-13-2023 Episodic Other nervous system disorders (2 sources) Sensory ataxia ; Translations: [Other lack of coordination] 02-21-2024 Episodic Other non-traumatic joint disorders (16 sources) Joint pain; Translations: [Pain in unspecified joint] Onset: 06-13-2023 06-13-2023 Episodic Other nutritional; endocrine; and metabolic disorders (2 sources) Abnormal weight loss; Translations: [Abnormal weight loss] Onset: 07-20-2023 Episodic Other skin disorders (1 source) Disorder of pigmentation, unspecified; Translations: [Disorder of pigmentation, unspecified] Onset: 07-18-2023 Episodic Spondylosis; intervertebral disc disorders; other back problems (20 sources) Cervical radiculopathy; Translations: [Radiculopathy, cervical region] Onset: 06-13-2023 06-13-2023 Episodic Syncope (19 sources) Syncope; Translations: [Syncope and collapse] Onset: 07-19-2023 07-19-2023 Episodic Varicose veins of lower extremity (18 sources) Varicose veins of lower extremity; Translations: [Varicose veins of bilateral lower extremities with pain] Onset: 05-15-2023 05-15-2023 Episodic Results Test Name Value Interpretation Reference Range Facility [facility] 07-12-2024 CNPN Telephone (NEURAV) KALEN PLAZA ([id number]) 1985 F Date Time Provider Department 07/12/24 RAJESH DOBSON NEURAV During your visit today, we recorded the following information about you: Jerilyn Mosquera LPN 07/12/2024 3:17 PM Signed 07/12/2024 Request for last last office visit note from Dr. Dobson to assist with PA for ordered MRI. Securely faxed to [phone] with confirmation of receipt received. Jerilyn Mosquera LPN July 12, 2024 3:16 PM Allergies As of Date: 07/12/2024 (No Known Allergies) Date Reviewed: 05/24/2024 Reviewed by: Jerilyn Mosquera LPN - Fully Assessed Prescriptions as of 07/12/2024 - gabapentin (NEURONTIN) 800 mg tablet Take [...] As Directed Problem List As Of Date: 07/12/2024 (None) Encounter Status:Closed by JERILYN MOSQUERA on 07/12/24 [facility] CNOVon 05-24-2024 CNOV Office Visit (NEURAV ) MELAKALEN CHOW ([id number]) 1985 F Date Time Provider Department 05/24/24 3:00 PM RAJESH DOBSON NEURAV During your visit today, we recorded the following information about you: Pulse Blood pressure Last Period 94/minute 112/89 05/19/24 Rajesh Dobson MD 05/24/2024 3:24 PM Signed Rajesh Dobson MD 05/24/2024 3:24 PM Signed NEUROLOGY CONSULT NOTE PATIENT NAME: Kalen Plaza DATE: May 24, 2024 PRIMARY CARE PHYSICIAN: David Laguerre MD REASON FOR CONSULT: Multiple symptoms REQUESTING PHYSICIAN: No ref. provider found My final recommendations will be communicated to the requesting health care provider by way of shared medical record for internal providers. ASSESSMENT: This is Kalen Plaza is a 38 year old female with a history of POTS, syncope, cerebral aneurysm, syringomyelia, lumbar cyst, seizure-like activity who presents with multiple symptoms. 1. 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 Syncope/seizure-like activity 3. Cerebral aneurysm 4. Ataxia/lower extremity tremor with tandem walking PLAN: MRI of the thoracic and lumbar spine with and without contrast ordered. EEG, CT angiogram of the head and neck ordered as well. Also discussed with patient today about functional movement disorder clinic which may be an option. Any problems or concerns to call me or primary care physician immediately or go straight to the emergency department HISTORY OF PRESENT ILLNESS: Kalen Plaza is a 38 year old female, with a history of POTS, syncope, cerebral aneurysm, syringomyelia, lumbar cyst, seizure-like activity who presents with multiple symptoms. Mom is here as well today. About the last year the patient had symptoms of fainting and passing out. There was note of seizure-like activity as well. She had been worked up at an outside facility at the local neurologist office. She was worked up with an MRI of the brain which per history came back unremarkable. She had an MRI of the cervical thoracic and lumbar spine questionably showing a syrinx and syringomyelia in the lumbar cyst. Initially she was diagnosed to have POTS she has seen cardiology and this may have been ruled out. She has seen numerous physicians. She was also told that she through the workup that she has a cerebral aneurysm. She would feel tremulous in her lower extremities and ataxia has difficulty tandem walking but able to walk normally otherwise. She actually has been seen by a colleague of [facility] in the past this is the first time I am seeing this patient.. COMPLETE REVIEW OF SYSTEMS: GENERAL: No weight loss, malaise or fevers RESPIRATORY: Negative for cough, hemoptysis, wheezing, COPD, dyspnea or shortness of breath CARDIOVASCULAR: Negative for chest pain, leg swelling, hypertension, CHF or palpitations GI: No nausea, vomiting, or diarrhea See HPI. All other systems reviewed and are negative. No past medical history on file. No past surgical history on file. No family history on file. Social History Tobacco Use Smoking status: Some Days Current packs/day: 0.00 Types: Cigarettes Last attempt to quit: 07/2023 Years since quittin.8 Smokeless tobacco: Never Vaping Use Vaping status: Never Used Substance Use Topics Alcohol use: Never Drug use: Not Currently Types: Marijuana, Opiates Comment: 7yrs ago MEDICATIONS: Current Outpatient Medications Medication Sig Dispense Refill gabapentin (NEURONTIN) 800 mg tablet Take 800 [...] evening dextroamphetamine-amphetamine (ADDERALL) 20 mg tablet As Dire (more content not included)... Normal [facility] HISTORY PHYSICALon HISTORY PHYSICAL HNO ID: [id number] Author: RAJESH DOBSON MD Service: ? Author Type: Physician Type: H&P Filed: 05/24/2024 15:24 Note Text: NEUROLOGY CONSULT NOTE PATIENT NAME: Kalen Plaza DATE: May 24, 2024 PRIMARY CARE PHYSICIAN: David Laguerre MD REASON FOR CONSULT: Multiple symptoms REQUESTING PHYSICIAN: No ref. provider found My final recommendations will be communicated to the requesting health care provider by way of shared medical record for internal providers. ASSESSMENT: This is Kalen Plaza is a 38 year old female with a history of POTS, syncope, cerebral aneurysm, syringomyelia, lumbar cyst, seizure-like activity who presents with multiple symptoms. 1. 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 Syncope/seizure-like activity 3. Cerebral aneurysm 4. Ataxia/lower extremity tremor with tandem walking PLAN: MRI of the thoracic and lumbar spine with and without contrast ordered. EEG, CT angiogram of the head and neck ordered as well. Also discussed with patient today about functional movement disorder clinic which may be an option. Any problems or concerns to call me or primary care physician immediately or go straight to the emergency department HISTORY OF PRESENT ILLNESS: Kalen Plaza is a 38 year old female, with a history of POTS, syncope, cerebral aneurysm, syringomyelia, lumbar cyst, seizure-like activity who presents with multiple symptoms. Mom is here as well today. About the last year the patient had symptoms of fainting and passing out. There was note of seizure-like activity as well. She had been worked up at an outside facility at the local neurologist office. She was worked up with an MRI of the brain which per history came back unremarkable. She had an MRI of the cervical thoracic and lumbar spine questionably showing a syrinx and syringomyelia in the lumbar cyst. Initially she was diagnosed to have POTS she has seen cardiology and this may have been ruled out. She has seen numerous physicians. She was also told that she through the workup that she has a cerebral aneurysm. She would feel tremulous in her lower extremities and ataxia has difficulty tandem walking but able to walk normally otherwise. She actually has been seen by a colleague of [facility] in the past this is the first time I am seeing this patient.. COMPLETE REVIEW OF SYSTEMS: GENERAL: No weight loss, malaise or fevers RESPIRATORY: Negative for cough, hemoptysis, wheezing, COPD, dyspnea or shortness of breath CARDIOVASCULAR: Negative for chest pain, leg swelling, hypertension, CHF or palpitations GI: No nausea, vomiting, or diarrhea See HPI. All other systems reviewed and are negative. No past medical history on file. No past surgical history on file. No family history on file. Social History Tobacco Use Smoking status: Some Days Current packs/day: 0.00 Types: Cigarettes Last attempt to quit: 07/2023 Years since quittin.8 Smokeless tobacco: Never Vaping Use Vaping status: Never Used Substance Use Topics Alcohol use: Never Drug use: Not Currently Types: Marijuana, Opiates Comment: 7yrs ago MEDICATIONS: Current Outpatient Medications Medication Sig Dispense Refill gabapentin (NEURONTIN) 800 mg tablet Take 800 [...] dextroamphetamine-amphetamine (ADDERALL) 20 mg tablet As Directed iv contrast (will be provided with radiology test) CTA Head/Neck WO/W No IV access, insert saline lock prior to the sedation, infusion, injection for imaging exam. Discontinue saline lock post exam. If Pt. has a central line or IVAD, may access for administration according to line specific nursing protocol (more content not included)... Normal [facility] BASIC METABOLIC PANLon 05-01 Anion gap [Moles/Vol] 12 mmol/L Normal 5-[address] [facility] Comment on above: Performed By: #### C BCA, 4679-7, 4-4, CMP, FEPR, 2532-0, 2276-4, 2284-8, 2-9, LLPH #### [facility] ([id number]) [address], [address] [place] [address] #### 81465-3, 9622-2 #### [facility] ([id number]) [address] [place] [address] Calcium [Mass/Vol] 8.7 mg/dL Normal 8.5-10.5 [facility] Comment on above: Performed By: #### C BCA, 4679-7, 2063-4, CMP, FEPR, 2532-0, 2276-4, 2284-8, 2131-9, LLPH #### [facility] ([id number]) [address], [address] [place] [address] #### 13044-8, 9622-2 #### [facility] ([id number]) [address] [place] [address]25 Chloride [Moles/Vol] 105 mmol/L Normal 98-[address] [facility] Comment on above: Performed By: #### C BCA, 4679-7, 2063-4, CMP, FEPR, 2532-0, 2276-4, 2284-8, 2-9, LLPH #### [facility] ([id number]) [address], [address] [place] [address] #### 02305-4, 9622-2 #### [facility] ([id number]) [address] [place] [address]182 CO2 [Moles/Vol] 22 mmol/L Normal 22-[address] [facility] Comment on above: Performed By: #### C BCA, 4679-7, 2063-4, CMP, FEPR, 2532-0, 2276-4, 2284-8, 213-9, LLPH #### [facility] ([id number]) [address] [place] [address] [address] [place] [address] #### 53114-3, 9622-2 #### [facility] ([id number]) [address] [place] [address]273 Creatinine [Mass/Vol] 0.92 mg/dL Normal 0.40-1.[address] [facility] Comment on above: Result Comment: METH OD TRACEABLE TO IDMS STANDARD Performed By: #### C BCA, 4679-7, 4, CMP, FEPR, 2532-0, 2276-4, 2284-8, 2131-9, LLPH #### [facility] ([id number]) [address] [place] [address] #### 12101-0, 9622-2 #### [facility] ([id number]) [address] [place] [address] GFR/1.73 sq M.predicted among non-blacks MDRD (S/P/Bld) [Vol rate/Area] 82 mL/min/{1.73_m2} Normal >[address] [facility] Comment on above: Result Comment: Reported eGFR is based on the CKD-EPI 2020 equation that does not use a race coefficient. Performed By: #### C BCA, 4679-7, 2063-4, CMP, FEPR, 2532-0, 2276-4, 2284-8, 2132-9, LLPH #### [facility] ([id number]) [address] [place] [address] [address] [place] [address] #### 93640-9, 9622-2 #### [facility] ([id number]) [address] [place] [address]683 Glucose [Mass/Vol] 76 mg/dL Normal 65-99 [facility] Comment on above: Performed By: #### C BCA, 4679-7, 4-4, CMP, FEPR, 2532-0, 2276-4, 2284-8, 2131-9, LLPH #### [facility] ([id number]) [address], [address] [place] [address] #### 73882-4, 9622-2 #### [facility] ([id number]) [address] [place] [address]286 Potassium [Moles/Vol] 3.6 mmol/L Normal 3.5-5.[address] [facility] Comment on above: Performed By: #### C BCA, 4679-7, 2063-4, CMP, FEPR, 2532-0, 2276-4, 2284-8, 2131-9, LLPH #### [facility] ([id number]) [address], [address] [place] [address] #### 11737-7, 9622-2 #### [facility] ([id number]) [address] [place] [address]196 Sodium [Moles/Vol] 139 mmol/L Normal 134-146 [facility] Comment on above: Performed By: #### C BCA, 4679-7, 4-4, CMP, FEPR, 2532-0, 2276-4, 2284-8, 2131-9, LLPH #### [facility] ([id number]) [address], [address] [place] [address] #### 36166-3, 9622-2 #### [facility] ([id number]) [address] [facility] [place] [address] Urea nitrogen [Mass/Vol] 14 mg/dL Normal 5-[address] [facility] Comment on above: Performed By: #### C BCA, 4679-7, 2063-10, CMP, FEPR, 2532-0, 2276-4, 2284-8, 2132-9, LLPH #### [facility] ([id number]) [address] [facility], [address] [place] [address] #### 52396-8, 9622-2 #### [facility] ([id number]) [address] [facility], [place] [address] CBC without diffon Erythrocyte distribution width (RBC) [Ratio] 13.2 % 11.5 - 15.0 % [facility] Hematocrit (Bld) [Volume fraction] 37.1 % 35 - 47 % [facility] Hemoglobin (Bld) [Mass/Vol] 12.6 g/dL 11.7 - 15.5 g/dL [facility] MCH (RBC) [Entitic mass] 30.8 pg 27 - 34 pg [facility] MCHC (RBC) [Mass/Vol] 33.9 g/dL 32 - 36 g/dL [facility] MCV (RBC) [Entitic vol] 91 fL 80 - 100 fL [facility] Platelet mean volume (Bld) [Entitic vol] 8 fL 7 - 12 fL [facility] Platelets (Bld) [#/Vol] 346 10*3/uL [facility] RBC (Bld) [#/Vol] 4.08 10*6/uL [facility] WBC corrected for nucl RBC Auto (Bld) [#/Vol] 9.4 [facility] COMPLETE BLOOD COUNTon 05-01 Erythrocyte distribution width (RBC) [Ratio] 13.2 % Normal 11.5-15.[address] [facility] Comment on above: Performed By: #### C BCA, 4679-7, 2063-10, CMP, FEPR, 2532-0, 2276-4, 2284-8, 2132-9, LLPH #### [facility] ([id number]) [address], [address] [place] [address] #### 67775-6, 9622-2 #### [facility] ([id number]) [address] [place] [address] Hematocrit (Bld) [Volume fraction] 37.1 % Normal 35-[address] [facility] Comment on above: Performed By: #### C BCA, 4679-7, 4-4, CMP, FEPR, 2532-0, 2276-4, 2284-8, 2131-9, LLPH #### [facility] ([id number]) [address], [address] [place] [id number] #### 11998-2, 9622-2 #### [facility] ([id number]) [address] [place] [address]226 Hemoglobin (Bld) [Mass/Vol] 12.6 g/dL Normal 11.7-15.[address] [facility] Comment on above: Performed By: #### C BCA, 4679-7, 4-4, CMP, FEPR, 2532-0, 2276-4, 2284-8, 2-9, LLPH #### [facility] ([id number]) [address], [address] [place] [address] #### 45806-2, 9622-2 #### [facility] ([id number]) [address] [place] [address] MCH (RBC) [Entitic mass] 30.8 pg Normal 27-[address] [facility] Comment on above: Performed By: #### C BCA, 4679-7, 2064-4, CMP, FEPR, 2532-0, 2276-4, 2284-8, 2132-9, LLPH #### [facility] ([id number]) [address], [address] [place] [address] #### 79653-3, 9622-2 #### [facility] ([id number]) [address] [place] [address]250 MCHC (RBC) [Mass/Vol] 33.9 g/dL Normal 32-[address] [facility] Comment on above: Performed By: #### C BCA, 4679-7, 2063-4, CMP, FEPR, 2532-0, 2276-4, 2284-8, 2131-9, LLPH #### [facility] ([id number]) [address], [address] [place] [address] #### 51138-4, 9622-2 #### [facility] ([id number]) [address] [place] [address]59 MCV (RBC) [Entitic vol] 91 fL Normal 80-[address] [facility] Comment on above: Performed By: #### C BCA, 4679-7, 2063-4, CMP, FEPR, 2532-0, 2276-4, 2284-8, 2131-9, LLPH #### [facility] ([id number]) [address], [address] [place] [address] #### 76831-6, 9622-2 #### [facility] ([id number]) [address] [place] [address] Platelet mean volume (Bld) [Entitic vol] 8.0 fL Normal 7-[address] [facility] Comment on above: Performed By: #### C BCA, 4679-7, 2063-4, CMP, FEPR, 2532-0, 2276-4, 2284-8, 2131-9, LLPH #### [facility] ([id number]) [address], [address] [place] [address] #### 10613-1, 9622-2 #### [facility] ([id number]) [address] [place] [address] 65882 Platelets (Bld) [#/Vol] 346 10*3/uL Normal 150-[address] [facility] Comment on above: Performed By: #### C BCA, 4679-7, 2064-4, CMP, FEPR, 2532-0, 2276-4, 2284-8, 2132-9, LLPH #### [facility] ([id number]) [address] [facility], [address] [place] [address] #### 18039-1, 9622-2 #### [facility] ([id number]) [address] [place] [address] 26301 RBC COUNT 4.08 X10E12/L Normal 3.80-5.[address] [facility] Comment on above: Performed By: #### C BCA, 4679-7, 4-4, CMP, FEPR, 2532-0, 2276-4, 2284-8, 2132-9, LLPH #### [facility] ([id number]) [address] [facility], [address] [place] [address] #### 79629-2, 9622-2 #### [facility] ([id number]) [address] [place] [address] 45675 WBC (Bld) [#/Vol] 9.4 10*3/uL Normal 4.0-11.0 [facility] Comment on above: Performed By: #### C BCA, 4679-7, 4-4, CMP, FEPR, 2532-0, 2276-4, 2284-8, 2132-9, LLPH #### [facility] ([id number]) [address] [facility], [address] [place] [address] #### 21962-8, 9622-2 #### [facility] ([id number]) [address] [place] [address] 08226 IRON PROFILEon 05-01-2024 Iron [Mass/Vol] 62 ug/dL Normal 50-[address] [facility] Comment on above: Performed By: #### C BCA, 4679-7, 2063-4, CMP, FEPR, 2532-0, 2276-4, 2284-8, 2132-9, LLPH #### [facility] ([id number]) [address] [place] [address], [address] [place] [address] #### 62182-4, 9622-2 #### [facility] ([id number]) [address] [place] [address] 66332 IRON BINDING 398 ug/dL Normal 250-[address] [facility] Comment on above: Performed By: #### C BCA, 4679-7, 2063-4, CMP, FEPR, 2532-0, 2276-4, 2284-8, 2-9, LLPH #### [facility] ([id number]) [address] [place] [address], [address] [place] [address] #### 97013-3, 9622-2 #### [facility] ([id number]) [address] [place] [address] 14819 IRON SATURATION 16 % SATURATION Normal 15-50 [facility] Comment on above: Performed By: #### C BCA, 4679-7, 2063-4, CMP, FEPR, 2532-0, 2276-4, 2284-8, 2132-9, LLPH #### [facility] ([id number]) [address] [place] [address], [address] [place] [address] #### 17048-8, 9622-2 #### [facility] ([id number]) [address] [place] [address] 60476 MAGNESIUMon 05-01-2024 Magnesium [Mass/Vol] 1.9 mg/dL Normal 1.8-2.[address] [facility] Comment on above: Performed By: #### C BCA, 4679-7, 2063-4, CMP, FEPR, 2532-0, 2276-4, 2284-8, 2131-9, LLPH #### [facility] ([id number]) [address], [address] [place] [address] #### 91749-8, 9622-2 #### [facility] ([id number]) [address] [place] [address] 13198 PHOSPHORUSon 05-01-2024 Phosphate [Mass/Vol] 3.5 mg/dL Normal 2.4-4.[address] [facility] Comment on above: Performed By: #### C BCA, 4679-7, 2063-4, CMP, FEPR, 2532-0, 2276-4, 4-8, 2131-9, LLPH #### [facility] ([id number]) [address], [address] [place] [address] #### 90314-8, 9622-2 #### [facility] ([id number]) [address] [place] [address] 83502 PROTEIN CREAT RATIOon 2023 RANDOM URINE PROTEIN 190 mg/L High <[address] [facility] Comment on above: Performed By: #### C BCA, 4679-7, 2063-4, CMP, FEPR, 2532-0, 2276-4, 2284-8, 9, LLPH #### [facility] ([id number]) [address], [address] [place] [address] #### 81681-5, 9622-2 #### [facility] ([id number]) [address] [place] [address] 38869 U/PRO/MANAGER EXPRESS RATIO CALC 0.10 Normal <0.[address] [facility] Comment on above: Result Comment: Neph rotic Syndrome is associated with ratios >3.5 Performed By: #### C BCA, 4679-7, 2063-4, CMP, FEPR, 2532-0, 2276-4, 2284-8, 2-9, LLPH #### [facility] ([id number]) [address], [address] [place] [address] #### 37939-6, 9622-2 #### [facility] ([id number]) [address] [place] [address] 98067 URINE CREATININE,RDM 186.61 mg/dL Normal [facility] Comment on above: Performed By: #### C BCA, 4679-7, 2063-4, CMP, FEPR, 2532-0, 2276-4, 4-8, 2131-9, LLPH #### [facility] ([id number]) [address], [address] [place] [address] #### 74264-6, 9622-2 #### [facility] ([id number]) [address] [place] [address] 87515 Parathyrin.intact [Mass/Vol] on 05-01-2024 PTH INTACT 47 pg/mL Normal 12-[address] [facility] Comment on above: Performed By: #### C BCA, 4679-7, 2063-4, CMP, FEPR, 2532-0, 2276-4, 2284-8, 2131-9, LLPH #### [facility] ([id number]) [address], [address] [place] [address] #### 41832-2, 9622-2 #### [facility] ([id number]) [address] [place] [address] 08189 Protein creat ratioon 2023 Creatinine (U) [Mass/Vol] 186.61 mg/dL [facility] Interpretation and review of laboratory results Abnormal [facility] Protein (U) [Mass/Vol] 190 mg/L High NINF - 120 mg/L [facility] Protein/Creatinine (U) [Ratio] 0.1 NINF - 0.2 [facility] Comment on above: Nephrotic Syndrome i s associated with ratios >3.5 [facility] URINALYSISon 05-01-2024 Bilirubin Ql (U) Negative Normal NEG [facility] Comment on above: Performed By: #### C BCA, 4679-7, 2063-4, CMP, FEPR, 2532-0, 2276-4, 2284-8, 2132-9, LLPH #### [facility] ([id number]) [address] [facility], [address] [place] [address] #### 69438-8, 9622-2 #### [facility] ([id number]) [address] [place] [address] 46820 BLOOD/HGB Trace Abnormal NEG [facility] Comment on above: Performed By: #### C BCA, 4679-7, 2063-4, CMP, FEPR, 2532-0, 2276-4, 2284-8, 2-9, LLPH #### [facility] ([id number]) [address] [facility], [address] [place] [address] #### 86537-8, 9622-2 #### [facility] ([id number]) [address] [place] [address] 79825 CA OXALATE CRYSTALS PRESENT Abnormal NONE [facility] Comment on above: Performed By: #### C BCA, 4679-7, 2063-4, CMP, FEPR, 2532-0, 2276-4, 2284-8, 2132-9, LLPH #### [facility] ([id number]) [address] [facility], [address] [place] [address] #### 65355-7, 9622-2 #### [facility] ([id number]) [address] [place] [address] 88750 Color (U) YELLOW Normal YELLOW [facility] Comment on above: Performed By: #### C ESTHER, 4679-7, 2063-4, CMP, FEPR, 2532-0, 2276-4, 2284-8, 2131-9, LLPH #### [facility] ([id number]) [address], [address] [place] [address] #### 61974-8, 9622-2 #### [facility] ([id number]) [address] [place] [address] 80787 Glucose Ql (U) Negative Normal NEG [facility] Comment on above: Performed By: #### C ESTHER, 4678-, 2063-10, CMP, FEPR, 2532-0, 6-4, 4-8, 2131-9, LLPH #### [facility] ([id number]) [address], [address] [place] [address] #### 39971-5, 9622-2 #### [facility] ([id number]) [address] [place] [address] 44928 Hyaline casts LM Ql (Urine sed) 1 /lpf Normal 0-[address] [facility] Comment on above: Performed By: #### C ESTHER, 4679-, 2063-10, CMP, FEPR, 2532-0, 6-4, 4-8, 2131-9, LLPH #### [facility] ([id number]) [address], [address] [place] [address] #### 69779-2, 9622-2 #### [facility] ([id number]) [address] [place] [address] 25374 Ketones Ql (U) Negative Normal NEG [facility] Comment on above: Performed By: #### C BCA, 4679-7, 2063-10, CMP, FEPR, 2532-0, 2276-4, 2284-8, 2132-9, LLPH #### [facility] ([id number]) [address], [address] [place] [address] #### 67340-0, 9622-2 #### [facility] ([id number]) [address] [place] [address] 68559 Leukocyte esterase Test strip Ql (U) Negative Normal NEG [facility] Comment on above: Performed By: #### C BCA, 4679-7, 4-4, CMP, FEPR, 2532-0, 2276-4, 2284-8, 2132-9, LLPH #### [facility] ([id number]) [address], [address] [place] [address] #### 98686-2, 9622-2 #### [facility] ([id number]) [address] [place] [address] 86770 MUCOUS PRESENT Abnormal NONE [facility] Comment on above: Performed By: #### C BCA, 4679-7, 4-4, CMP, FEPR, 2532-0, 2276-4, 2284-8, 2-9, LLPH #### [facility] ([id number]) [address], [address] [place] [address] #### 80687-0, 9622-2 #### [facility] ([id number]) [address] [place] [address] 26601 Nitrite Ql (U) Negative Normal NEG [facility] Comment on above: Performed By: #### C BCA, 4679-7, 4-4, CMP, FEPR, 2532-0, 2276-4, 2284-8, 2132-9, LLPH #### [facility] ([id number]) [address], [address] [place] [address] #### 74685-1, 9622-2 #### [facility] ([id number]) [address] [place] [address] 23501 pH (U) 6.0 [pH] Normal 5.0-8.[address] [facility] Comment on above: Performed By: #### C BCA, 4679-7, 2063-4, CMP, FEPR, 2532-0, 2276-4, 2284-8, 2132-9, LLPH #### [facility] ([id number]) [address] [facility], [address] [place] [address] #### 69242-1, 9622-2 #### [facility] ([id number]) [address] [place] [address] 45529 Protein Ql (U) Trace Abnormal NEG [facility] Comment on above: Performed By: #### C BCA, 4679-7, 2063-4, CMP, FEPR, 2532-0, 2276-4, 2284-8, 2132-9, LLPH #### [facility] ([id number]) [address] [facility], [address] [place] [address] #### 51165-1, 9622-2 #### [facility] ([id number]) [address] [place] [address] 09507 R.B.CELLS 2 /hpf Normal 0-[address] [facility] Comment on above: Performed By: #### C BCA, 4679-7, 2063-4, CMP, FEPR, 2532-0, 2276-4, 2284-8, 2132-9, LLPH #### [facility] ([id number]) [address] [facility], [address] [place] [address] #### 58871-9, 9622-2 #### [facility] ([id number]) [address] [place] [address] 78059 Specific gravity (U) [Rel density] 1.031 Normal 1.003-1.[address] [facility] Comment on above: Performed By: #### C BCA, 4679-7, 2063-4, CMP, FEPR, 2532-0, 2276-4, 2284-8, 2132-9, LLPH #### [facility] ([id number]) [address], [address] [place] [address] #### 77222-2, 9622-2 #### [facility] ([id number]) [address] [place] [address] 47144 SQUAMOUS EPITHELIUM 2 /hpf Normal 0-5 [facility] Comment on above: Performed By: #### C BCA, 4679-7, 2063-4, CMP, FEPR, 2532-0, 2276-4, 2284-8, 2131-9, LLPH #### [facility] ([id number]) [address], [address] [place] [address] #### 14144-3, 9622-2 #### [facility] ([id number]) [address] [place] [address] 95404 TURBIDITY CLEAR Normal CLEAR [facility] Comment on above: Performed By: #### C BCA, 4679-7, 2063-4, CMP, FEPR, 2532-0, 2276-4, 2284-8, 2131-9, LLPH #### [facility] ([id number]) [address], [address] [place] [address] #### 69357-9, 9622-2 #### [facility] ([id number]) [address] [place] [address] 77514 Urobilinogen (U) [Mass/Vol] mg/dL Normal <1.[address] [facility] Comment on above: Performed By: #### C BCA, 4679-7, 2063-4, CMP, FEPR, 2532-0, 2276-4, 2284-8, 9, LLPH #### [facility] ([id number]) [address], [address] [place] [address] #### 04663-7, 9622-2 #### [facility] ([id number]) [address] [facility] [place] [address] W.B.CELLS 1 /hpf Normal 0-[address] [facility] Comment on above: Performed By: #### C BCA, 4679-7, 4-4, CMP, FEPR, 2532-0, 6-4, 2283-8, 2131-9, LLPH #### [facility] ([id number]) [address] [facility], [address] [place] [address] #### 41083-5, 9622-2 #### [facility] ([id number]) [address] [place] [address], [place] [address] Urinalysison 05-01-2024 Bilirubin Ql (U) Negative Negative^N egative [facility] Calcium oxalate crystals LM Ql (Urine sed) PRESENT Abnormal NONE^NONE [facility] Color (U) YELLOW YELLOW^YEL LOW [facility] Epithelial cells Auto (Urine sed) [#/Area] 2 [facility] Glucose (U) [Mass/Vol] Negative Negative^N egative mg/dL [facility] Hemoglobin Auto test strip Ql (U) Trace Abnormal Negative^N egative [facility] Hyaline casts (Urine sed) [#/Area] 1 /[LPF] [facility] Interpretation and review of laboratory results Abnormal [facility] Ketones (U) [Mass/Vol] Negative Negative^N egative mg/dL [facility] Leukocyte esterase Auto test strip Ql (U) Negative Negative^N egative [facility] Mucus Ql (Urine sed) PRESENT Abnormal NONE^NONE [facility] Nitrite Auto test strip Ql (U) Negative Negative^N egative [facility] pH (U) 6 [pH] 5.0 - 8.5 [facility] Protein (U) [Mass/Vol] Trace Abnormal Negative^N egative mg/dL [facility] RBC Auto (Urine sed) [#/Area] 2 [facility] Specific gravity Refractometry automated (U) [Rel density] 1.031 1.003 - 1.035 [facility] Turbidity Ql (U) CLEAR CLEAR^RIAZ R [facility] Urobilinogen Qn (U) NINF [facility] WBC Auto (Urine sed) [#/Area] 1 [facility] Vitamin D+Metabolites [Mass/ Vol]on 05-01-2024 VITAMIN D 25 HYD TOT 39.4 ng/mL Normal 30-[address] [facility] Comment on above: Result Comment: Vitamin D status 25 [place] Vitamin D Deficiency <20 ng/mL Insufficiency 20-29 ng/mL Sufficiency 30-100 ng/mL Toxicity >100 ng/mL NOTE: A pediatric reference range has not been established by the quantitative strategy analyst of this kit. The [place] [employer] recommends a Vitamin D level of = or >20ng/mL in infants and children. Performed By: #### C BCA, 4679-7, 2064-4, CMP, FEPR, 2532-0, 2276-4, 2284-8, 2132-9, LLPH #### [facility] ([id number]) [address] [facility], [address] [place] [address] #### 86468-4, 9622-2 #### [facility] ([id number]) [address] [facility] [place] [address] MR head/brain wo/w [facility] MR head/brain wo/w [facility] [address] [place] [address] MRI Report Signed Patient: Kalen Plaza MR#: [id number] : 1985 Acct:[id number] Age/Sex: 38 / F ADM Date: 03/15/24 Loc: MR Room: Type: [facility] Attending Dr: Keira SANCHEZ Copies to: DANIEL [...] Duran Rodríguez M.D.03/15/2024 9:22 AM Dictation Location: [place] [address] Transcribed By: [facility] 03/15/24921 Dictated By: Duran Rodríguez II, MD 03/15/24847 Signed By: 03/15/[address] [facility] BASIC METABOLIC PANLon 02-25 Anion gap [Moles/Vol] 11 mmol/L Normal 5-[address] [facility] Comment on above: Performed By: #### C BCA, 4679-7, 2063-4, CMP, FEPR, 2532-0, 2276-4, 2284-8, 2132-9, LLPH #### [facility] ([id number]) [address], [address] [place] [address] #### 68472-0, 9622-2 #### [facility] ([id number]) [address] [place] [address] 11582 Calcium [Mass/Vol] 9.1 mg/dL Normal 8.5-10.5 [facility] Comment on above: Performed By: #### C BCA, 4679-7, 2063-4, CMP, FEPR, 2532-0, 2276-4, 4-8, 2131-9, LLPH #### [facility] ([id number]) [address], [address] [place] [address] #### 88079-0, 9622-2 #### [facility] ([id number]) [address] [place] [address] 89977 Chloride [Moles/Vol] 102 mmol/L Normal 98-[address] [facility] Comment on above: Performed By: #### C BCA, 4679-7, 2063-4, CMP, FEPR, 2532-0, 2276-4, 2284-8, 2-9, LLPH #### [facility] ([id number]) [address], [address] [place] [address] #### 36131-1, 9622-2 #### [facility] ([id number]) [address] [place] [address] 58174 CO2 [Moles/Vol] 26 mmol/L Normal 22-[address] [facility] Comment on above: Performed By: #### C BCA, 4679-7, 2063-4, CMP, FEPR, 2532-0, 2276-4, 2284-8, 2131-9, LLPH #### [facility] ([id number]) [address] [place] [address], [address] [place] [address] #### 93640-0, 9622-2 #### [facility] ([id number]) [address] [place] [address] 93407 Creatinine [Mass/Vol] 0.94 mg/dL Normal 0.40-1.[address] [facility] Comment on above: Result Comment: METH OD TRACEABLE TO IDMS STANDARD Performed By: #### C BCA, 4679-7, 4, CMP, FEPR, 2532-0, 2276-4, 2284-8, 2131-9, LLPH #### [facility] ([id number]) [address] [place] [address], [address] [address] #### 30944-0, 9622-2 #### [facility] ([id number]) [address] [place] [address]886 GFR/1.73 sq M.predicted among non-blacks MDRD (S/P/Bld) [Vol rate/Area] 80 mL/min/{1.73_m2} Normal >[address] [facility] Comment on above: Result Comment: Reported eGFR is based on the CKD-EPI 2020 equation that does not use a race coefficient. Performed By: #### C BCA, 4679-7, 2063-4, CMP, FEPR, 2532-0, 2276-4, 2284-8, 2131-9, LLPH #### [facility] ([id number]) [address] [place] [address], [address] [place] [address] #### 25021-6, 9622-2 #### [facility] ([id number]) [address] [place] [address] 35739 Glucose [Mass/Vol] 103 mg/dL High 65-99 [facility] Comment on above: Performed By: #### C BCA, 4679-7, 2063-4, CMP, FEPR, 2532-0, 2276-4, 2284-8, 2131-9, LLPH #### [facility] ([id number]) [address], [address] [place] [address] #### 37492-3, 9622-2 #### [facility] ([id number]) [address] [place] [address] 91181 Potassium [Moles/Vol] 3.4 mmol/L Low 3.5-5.[address] [facility] Comment on above: Performed By: #### C BCA, 4679-7, 2063-4, CMP, FEPR, 2532-0, 2276-4, 2284-8, 2131-9, LLPH #### [facility] ([id number]) [address] [facility], [address] [place] [address] #### 73905-7, 9622-2 #### [facility] ([id number]) [address] [place] [address] 20571 Sodium [Moles/Vol] 139 mmol/L Normal 134-146 [facility] Comment on above: Performed By: #### C BCA, 4679-7, 2063-4, CMP, FEPR, 2532-0, 2276-4, 2284-8, 2131-9, LLPH #### [facility] ([id number]) [address], [address] [place] [address] #### 76870-6, 9622-2 #### [facility] ([id number]) [address] [place] [address] 66729 Urea nitrogen [Mass/Vol] 16 mg/dL Normal 5-[address] [facility] Comment on above: Performed By: #### C BCA, 4679-7, 2063-4, CMP, FEPR, 2532-0, 2276-4, 2284-8, 2131-9, LLPH #### [facility] ([id number]) [address], [address] [place] [address] #### 04102-2, 9622-2 #### [facility] ([id number]) [address] [place] [address] 97986 PROTEIN CREAT RATIOon 2023 RANDOM URINE PROTEIN 250 mg/L High <[address] [facility] Comment on above: Performed By: #### C BCA, 4679-7, 4, CMP, FEPR, 2532-0, 2276-4, 4-8, 2131-9, LLPH #### [facility] ([id number]) [address], [address] [place] [address] #### 90717-1, 9622-2 #### [facility] ([id number]) [address] [place] [address]853 U/PRO/MANAGER EXPRESS RATIO CALC 0.08 Normal <0.[address] [facility] Comment on above: Result Comment: Neph rotic Syndrome is associated with ratios >3.5 Performed By: #### C BCA, 4679-7, 2063-4, CMP, FEPR, 2532-0, 2276-4, 4-8, 2131-9, LLPH #### [facility] ([id number]) [address], [address] [place] [address] #### 27618-9, 9622-2 #### [facility] ([id number]) [address] [place] [address]47 URINE CREATININE,RDM 330.55 mg/dL Normal [facility] Comment on above: Performed By: #### C BCA, 4679-7, 2063-4, CMP, FEPR, 2532-0, 2276-4, 2284-8, 2131-9, LLPH #### [facility] ([id number]) [address], [address] [place] [address] #### 44556-4, 9622-2 #### [facility] ([id number]) [address] [place] [address]161 URINALYSISon 02-26-2024 Bilirubin Ql (U) Negative Normal NEG [facility] Comment on above: Performed By: #### C BCA, 4679-7, 2063-4, CMP, FEPR, 2532-0, 2276-4, 4-8, 2131-9, LLPH #### [facility] ([id number]) [address], [address] [place] [address] #### 87335-6, 9622-2 #### [facility] ([id number]) [address] [place] [address] 34762 BLOOD/HGB Small Abnormal NEG [facility] Comment on above: Performed By: #### C BCA, 4679-7, 2063-4, CMP, FEPR, 2532-0, 2276-4, 2283-8, 2131-9, LLPH #### [facility] ([id number]) [address], [address] [place] [address] #### 71606-5, 9622-2 #### [facility] ([id number]) [address] [place] [address]803 CA OXALATE CRYSTALS PRESENT Abnormal NONE [facility] Comment on above: Performed By: #### C BCA, 4679-7, 2063-4, CMP, FEPR, 2532-0, 2276-4, 4-8, 2131-9, LLPH #### [facility] ([id number]) [address], [address] [place] [address] #### 16103-9, 9622-2 #### [facility] ([id number]) [address] [place] [address] Color (U) YELLOW Normal YELLOW [facility] Comment on above: Performed By: #### C BCA, 4679-7, 2063-4, CMP, FEPR, 2532-0, 2276-4, 2284-8, 2132-9, LLPH #### [facility] ([id number]) [address], [address] [place] [address] #### 06894-9, 9622-2 #### [facility] ([id number]) [address] [place] [address] 95040 Glucose Ql (U) Negative Normal NEG [facility] Comment on above: Performed By: #### C ESTHER, 4679-7, 2063-10, CMP, FEPR, 2532-0, 2276-4, 2284-8, 2132-9, LLPH #### [facility] ([id number]) [address], [address] [place] [address] #### 20614-9, 9622-2 #### [facility] ([id number]) [address] [place] [address] 21391 Ketones Ql (U) Negative Normal NEG [facility] Comment on above: Performed By: #### C ESTHER, 4679-7, 4, CMP, FEPR, 2532-0, 2276-4, 2284-8, 2132-9, LLPH #### [facility] ([id number]) [address], [address] [place] [address] #### 79205-9, 9622-2 #### [facility] ([id number]) [address] [place] [address] 33313 Leukocyte esterase Test strip Ql (U) Negative Normal NEG [facility] Comment on above: Performed By: #### C BCA, 4679-7, 4-4, CMP, FEPR, 2532-0, 2276-4, 2284-8, 2-9, LLPH #### [facility] ([id number]) [address], [address] [place] [address] #### 30601-3, 9622-2 #### [facility] ([id number]) [address] [place] [address]205 MUCOUS PRESENT Abnormal NONE [facility] [facility] Comment on above: Performed By: #### C BCA, 4679-7, 2063-4, CMP, FEPR, 2532-0, 2276-4, 4-8, 2131-9, LLPH #### [facility] ([id number]) [address], [address] [place] [address] #### 99699-1, 9622-2 #### [facility] ([id number]) [address] [place] [address] 70613 Nitrite Ql (U) Negative Normal NEG [facility] Comment on above: Performed By: #### C BCA, 4679-7, 2063-4, CMP, FEPR, 2532-0, 2276-4, 4-8, 2131-9, LLPH #### [facility] ([id number]) [address], [address] [place] [address] #### 91708-1, 9622-2 #### [facility] ([id number]) [address] [place] [address] 68589 pH (U) 6.0 [pH] Normal 5.0-8.[address] [facility] Comment on above: Performed By: #### C BCA, 4679-7, 2063-4, CMP, FEPR, 2532-0, 2276-4, 2284-8, 2131-9, LLPH #### [facility] ([id number]) [address], [address] [place] [address] #### 19612-2, 9622-2 #### [facility] ([id number]) [address] [place] [address] 32778 Protein Ql (U) 50 mg/dL Abnormal NEG [facility] Comment on above: Performed By: #### C BCA, 4679-7, 4-4, CMP, FEPR, 2532-0, 2276-4, 2284-8, 2132-9, LLPH #### [facility] ([id number]) [address], [address] [place] [address] #### 95792-3, 9622-2 #### [facility] ([id number]) [address] [place] [address] 51007 R.B.CELLS 1 /hpf Normal 0-[address] [facility] Comment on above: Performed By: #### C BCA, 4679-7, 2063-4, CMP, FEPR, 2532-0, 2276-4, 2284-8, 2-9, LLPH #### [facility] ([id number]) [address], [address] [place] [address] #### 89066-2, 9622-2 #### [facility] ([id number]) [address] [place] [address] 82613 Specific gravity (U) [Rel density] 1.033 Normal 1.003-1.[address] [facility] Comment on above: Performed By: #### C BCA, 4679-7, 4-4, CMP, FEPR, 2532-0, 2276-4, 2284-8, 2132-9, LLPH #### [facility] ([id number]) [address], [address] [place] [address] #### 28677-0, 9622-2 #### [facility] ([id number]) [address] [place] [address] 20406 SQUAMOUS EPITHELIUM 1 /hpf Normal 0-5 [facility] Comment on above: Performed By: #### C BCA, 4679-7, 2063-4, CMP, FEPR, 2532-0, 2276-4, 2284-8, 2132-9, LLPH #### [facility] ([id number]) [address], [address] [place] [address] #### 27087-7, 9622-2 #### [facility] ([id number]) [address] [place] [address] 38210 TURBIDITY CLOUDY Abnormal CLEAR [facility] Comment on above: Performed By: #### C ESTHER, 4679-7, 2063-4, CMP, FEPR, 2532-0, 2276-4, 2284-8, 2131-9, LLPH #### [facility] ([id number]) [address], [address] [place] [address] #### 73466-7, 9622-2 #### [facility] ([id number]) [address] [place] [address] 43541 Urobilinogen (U) [Mass/Vol] mg/dL Normal <1.[address] [facility] Comment on above: Performed By: #### C ESTHER, 4679-7, 2063-4, CMP, FEPR, 2532-0, 2276-4, 2284-8, 2-9, LLPH #### [facility] ([id number]) [address], [address] [place] [address] #### 60617-2, 9622-2 #### [facility] ([id number]) [address] [place] [address] 59803 W.B.CELLS 2 /hpf Normal 0-[address] [facility] Comment on above: Performed By: #### C ESTHER, 4679-7, 2063-4, CMP, FEPR, 2532-0, 2276-4, 2284-8, 2132-9, LLPH #### [facility] ([id number]) [address], [address] [place] [address] #### 13652-7, 9622-2 #### [facility] ([id number]) [address] [place] [address] 25884 CBC AND AUTO DIFFon 02-24-20 ABSOLUTE BASOPHIL 0.0 X10E9/L Normal 0.0-0.2 [facility] Comment on above: Performed By: #### C BCA, 4679-7, 2063-4, CMP, FEPR, 2532-0, 2276-4, 2284-8, 2131-9, LLPH #### [facility] ([id number]) [address], [address] [place] [address] #### 16996-3, 9622-2 #### [facility] ([id number]) [address] [place] [address] 81777 ABSOLUTE NEUTROPHIL 6.8 X10E9/L High 1.5-6.6 [facility] Comment on above: Performed By: #### C BCA, 4679-7, 2063-4, CMP, FEPR, 2532-0, 2276-4, 2284-8, 2131-9, LLPH #### [facility] ([id number]) [address], [address] [place] [address] #### 94062-2, 9622-2 #### [facility] ([id number]) [address] [place] [address] 10195 Basophils/100 WBC (Bld) 0.6 % Normal [facility] Comment on above: Performed By: #### C BCA, 4679-7, 2063-4, CMP, FEPR, 2532-0, 2276-4, 2284-8, 2-9, LLPH #### [facility] ([id number]) [address], [address] [place] [address] #### 27009-3, 9622-2 #### [facility] ([id number]) [address] [place] [address] 25999 Eosinophils (Bld) [#/Vol] 0.0 10*3/uL Normal 0.0-0.[address] [facility] Comment on above: Performed By: #### C BCA, 4679-7, 2063-4, CMP, FEPR, 2532-0, 2276-4, 2284-8, 2131-9, LLPH #### [facility] ([id number]) [address], [address] [place] [address] #### 09613-2, 9622-2 #### [facility] ([id number]) [address] [place] [address] 50572 Eosinophils/100 WBC (Bld) 0.5 % Normal [facility] Comment on above: Performed By: #### C BCA, 4679-7, 2063-4, CMP, FEPR, 2532-0, 2276-4, 4-8, 2131-9, LLPH #### [facility] ([id number]) [address], [address] [place] [address] #### 17610-2, 9622-2 #### [facility] ([id number]) [address] [place] [address] 12463 Erythrocyte distribution width (RBC) [Ratio] 12.7 % Normal 11.5-15.[address] [facility] Comment on above: Performed By: #### C BCA, 4679-7, 2063-4, CMP, FEPR, 2532-0, 2276-4, 2284-8, 2131-9, LLPH #### [facility] ([id number]) [address], [address] [place] [address] #### 72019-2, 9622-2 #### [facility] ([id number]) [address] [place] [address] 77674 Hematocrit (Bld) [Volume fraction] 37.5 % Normal 35-[address] [facility] Comment on above: Performed By: #### C BCA, 4679-7, 2063-4, CMP, FEPR, 2532-0, 2276-4, 2284-8, 2132-9, LLPH #### [facility] ([id number]) [address], [address] [place] [address] #### 71204-0, 9622-2 #### [facility] ([id number]) [address] [place] [address] 20845 Hemoglobin (Bld) [Mass/Vol] 12.8 g/dL Normal 11.7-15.[address] [facility] Comment on above: Performed By: #### C BCA, 4679-7, 2063-4, CMP, FEPR, 2532-0, 2276-4, 2284-8, 2131-9, LLPH #### [facility] ([id number]) [address], [address] [place] [address] #### 63042-8, 9622-2 #### [facility] ([id number]) [address] [place] [address] 43413 Lymphocytes (Bld) [#/Vol] 0.7 10*3/uL Low 1.0-3.[address] [facility] Comment on above: Performed By: #### C BCA, 4679-7, 2063-4, CMP, FEPR, 2532-0, 2276-4, 2284-8, 2132-9, LLPH #### [facility] ([id number]) [address], [address] [place] [address] #### 91431-4, 9622-2 #### [facility] ([id number]) [address] [place] [address] 57942 Lymphocytes/100 WBC (Bld) 8.9 % Normal [facility] Comment on above: Performed By: #### C BCA, 4679-7, 4-4, CMP, FEPR, 2532-0, 2276-4, 2284-8, 2131-9, LLPH #### [facility] ([id number]) [address], [address] [place] [address] #### 79212-2, 9622-2 #### [facility] ([id number]) [address] [place] [address] 70782 MCH (RBC) [Entitic mass] 30.2 pg Normal 27-[address] [facility] Comment on above: Performed By: #### C BCA, 4679-7, 2063-4, CMP, FEPR, 2532-0, 2276-4, 4-8, 2131-9, LLPH #### [facility] ([id number]) [address], [address] [place] [address] #### 48427-1, 9622-2 #### [facility] ([id number]) [address] [place] [address] 39600 MCHC (RBC) [Mass/Vol] 34.2 g/dL Normal 32-[address] [facility] Comment on above: Performed By: #### C BCA, 4679-7, 2063-4, CMP, FEPR, 2532-0, 2276-4, 2284-8, 2131-9, LLPH #### [facility] ([id number]) [address], [address] [place] [address] #### 15673-8, 9622-2 #### [facility] ([id number]) [address] [place] [address] 35516 MCV (RBC) [Entitic vol] 88 fL Normal 80-[address] [facility] Comment on above: Performed By: #### C BCA, 4679-7, 2063-4, CMP, FEPR, 2532-0, 2276-4, 2284-8, 2132-9, LLPH #### [facility] ([id number]) [address], [address] [place] [address] #### 16003-7, 9622-2 #### [facility] ([id number]) [address] [place] [address] 85163 Monocytes (Bld) [#/Vol] 0.5 10*3/uL Normal 0-0.[address] [facility] Comment on above: Performed By: #### C BCA, 4679-7, 2063-4, CMP, FEPR, 2532-0, 2276-4, 2284-8, 2131-9, LLPH #### [facility] ([id number]) [address], [address] [place] [address] #### 46666-3, 9622-2 #### [facility] ([id number]) [address] [place] [address] 26009 Monocytes/100 WBC (Bld) 5.8 % Normal [facility] Comment on above: Performed By: #### C BCA, 4679-7, 2063-4, CMP, FEPR, 2532-0, 2276-4, 2284-8, 2-9, LLPH #### [facility] ([id number]) [address], [address] [place] [address] #### 82170-7, 9622-2 #### [facility] ([id number]) [address] [place] [address] 68731 Neutrophils/100 WBC (Bld) 84.2 % Normal [facility] Comment on above: Performed By: #### C BCA, 4679-7, 2063-4, CMP, FEPR, 2532-0, 2276-4, 2284-8, 2131-9, LLPH #### [facility] ([id number]) [address], [address] [place] [address] #### 74184-8, 9622-2 #### [facility] ([id number]) [address] [place] [address] 61250 Platelet mean volume (Bld) [Entitic vol] 7.0 fL Normal 7-[address] [facility] Comment on above: Performed By: #### C BCA, 4679-7, 2063-4, CMP, FEPR, 2532-0, 2276-4, 4-8, 2131-9, LLPH #### [facility] ([id number]) [address], [address] [place] [address] #### 15081-7, 9622-2 #### [facility] ([id number]) [address] [place] [address] 00687 Platelets (Bld) [#/Vol] 381 10*3/uL Normal 150-[address] [facility] Comment on above: Performed By: #### C BCA, 4679-7, 2063-10, CMP, FEPR, 2532-0, 2276-4, 4-8, 2131-9, LLPH #### [facility] ([id number]) [address], [address] [place] [address] #### 16840-3, 9622-2 #### [facility] ([id number]) [address] [place] [address] 93397 RBC COUNT 4.25 X10E12/L Normal 3.80-5.[address] [facility] Comment on above: Performed By: #### C BCA, 4679-7, 2064-4, CMP, FEPR, 2532-0, 2276-4, 2284-8, 2-9, LLPH #### [facility] ([id number]) [address], [address] [place] [address] #### 99896-8, 9622-2 #### [facility] ([id number]) [address] [place] [address] 11886 WBC (Bld) [#/Vol] 8.0 10*3/uL Normal 4.0-11.0 [facility] Comment on above: Performed By: #### C BCA, 4679-7, 4-4, CMP, FEPR, 2532-0, 2276-4, 2284-8, 2131-9, LLPH #### [facility] ([id number]) [address], [address] [place] [address] #### 38604-6, 9622-2 #### [facility] ([id number]) [address] [place] [address] 06908 COMPREHENSIVE METABOLIC PANE Cyrus 02-24-2024 Albumin [Mass/Vol] 4.0 g/dL Normal 3.2-5.3 [facility] Comment on above: Performed By: #### C BCA, 4679-7, 4-4, CMP, FEPR, 2532-0, 2276-4, 2284-8, 2131-9, LLPH #### [facility] ([id number]) [address], [address] [place] [address] #### 24718-1, 9622-2 #### [facility] ([id number]) [address] [place] [address] 96608 ALP [Catalytic activity/Vol] 104 U/L Normal 39-[address] [facility] Comment on above: Performed By: #### C BCA, 4679-7, 2064-4, CMP, FEPR, 2532-0, 2276-4, 2284-8, 2132-9, LLPH #### [facility] ([id number]) [address], [address] [place] [address] #### 70709-3, 9622-2 #### [facility] ([id number]) [address] [place] [address] 23362 ALT [Catalytic activity/Vol] 34 U/L High 0-[address] [facility] Comment on above: Performed By: #### C BCA, 4679-7, 4-4, CMP, FEPR, 2532-0, 2276-4, 2284-8, 2132-9, LLPH #### [facility] ([id number]) [address], [address] [place] [address] #### 62257-2, 9622-2 #### [facility] ([id number]) [address] [place] [address] 82664 Anion gap [Moles/Vol] 6 mmol/L Normal 5-[address] [facility] Comment on above: Performed By: #### C BCA, 4679-7, 4-4, CMP, FEPR, 2532-0, 2276-4, 2284-8, 2132-9, LLPH #### [facility] ([id number]) [address], [address] [place] [address] #### 79838-7, 9622-2 #### [facility] ([id number]) [address] [place] [address] 10852 AST [Catalytic activity/Vol] 40 U/L Normal 0-[address] [facility] Comment on above: Performed By: #### C BCA, 4679-7, 4-4, CMP, FEPR, 2532-0, 2276-4, 2284-8, 2132-9, LLPH #### [facility] ([id number]) [address], [address] [place] [address] #### 38850-7, 9622-2 #### [facility] ([id number]) [address] [place] [address] 48919 Bilirubin [Mass/Vol] 0.3 mg/dL Normal 0.3-1.[address] [facility] Comment on above: Performed By: #### C BCA, 4679-7, 4-4, CMP, FEPR, 2532-0, 2276-4, 2284-8, 2-9, LLPH #### [facility] ([id number]) [address], [address] [place] [address] #### 31381-8, 9622-2 #### [facility] ([id number]) [address] [place] [address] 17942 Calcium [Mass/Vol] 9.2 mg/dL Normal 8.5-10.5 [facility] Comment on above: Performed By: #### C BCA, 4679-7, 2063-4, CMP, FEPR, 2532-0, 2276-4, 2284-8, 2131-9, LLPH #### [facility] ([id number]) [address], [address] [place] [address] #### 29362-0, 9622-2 #### [facility] ([id number]) [address] [place] [address] 67895 Chloride [Moles/Vol] 99 mmol/L Normal 98-[address] [facility] Comment on above: Performed By: #### C BCA, 4679-7, 4-4, CMP, FEPR, 2532-0, 2276-4, 2284-8, 2-9, LLPH #### [facility] ([id number]) [address], [address] [place] [address] #### 84008-0, 9622-2 #### [facility] ([id number]) [address] [place] [address] 39921 CO2 [Moles/Vol] 26 mmol/L Normal 22-[address] [facility] Comment on above: Performed By: #### C BCA, 4679-7, 2063-4, CMP, FEPR, 2532-0, 2276-4, 2284-8, 2132-9, LLPH #### [facility] ([id number]) [address], [address] [place] [address] #### 74851-7, 9622-2 #### [facility] ([id number]) [address] [place] [address] 12638 Creatinine [Mass/Vol] 0.89 mg/dL Normal 0.40-1.[address] [facility] Comment on above: Result Comment: METH OD TRACEABLE TO IDMS STANDARD Performed By: #### C BCA, 4679-7, 2063-10, CMP, FEPR, 2532-0, 2276-4, 2284-8, 2131-9, LLPH #### [facility] ([id number]) [address] [place] [address], [address] [address] #### 87780-6, 9622-2 #### [facility] ([id number]) [address] [place] [address] 75274 GFR/1.73 sq M.predicted among non-blacks MDRD (S/P/Bld) [Vol rate/Area] 85 mL/min/{1.73_m2} Normal >[address] [facility] Comment on above: Result Comment: Reported eGFR is based on the CKD-EPI 2020 equation that does not use a race coefficient. Performed By: #### C BCA, 4679-7, 2063-4, CMP, FEPR, 2532-0, 2276-4, 2284-8, 2132-9, LLPH #### [facility] ([id number]) [address], [address] [place] [address] #### 55071-2, 9622-2 #### [facility] ([id number]) [address] [place] [address] 15406 Glucose [Mass/Vol] 104 mg/dL High 65-99 [facility] Comment on above: Performed By: #### C BCA, 4679-7, 4-4, CMP, FEPR, 2532-0, 2276-4, 2284-8, 2-9, LLPH #### [facility] ([id number]) [address] [facility], [address] [place] [address] #### 73674-1, 9622-2 #### [facility] ([id number]) [address] [place] [address] 96708 Potassium [Moles/Vol] 4.7 mmol/L Normal 3.5-5.[address] [facility] Comment on above: Performed By: #### C BCA, 4679-7, 4-4, CMP, FEPR, 2532-0, 2276-4, 2284-8, 2131-9, LLPH #### [facility] ([id number]) [address] [facility], [address] [place] [address] #### 10721-6, 9622-2 #### [facility] ([id number]) [address] [place] [address] 91838 Protein [Mass/Vol] 8.0 g/dL Normal 6.0-8.0 [facility] Comment on above: Performed By: #### C BCA, 4679-7, 4-4, CMP, FEPR, 2532-0, 2276-4, 2284-8, 2-9, LLPH #### [facility] ([id number]) [address] [facility], [address] [place] [address] #### 49530-2, 9622-2 #### [facility] ([id number]) [address] [place] [address] 44520 Sodium [Moles/Vol] 131 mmol/L Low 134-146 [facility] Comment on above: Performed By: #### C BCA, 4679-7, 2063-4, CMP, FEPR, 2532-0, 2276-4, 2284-8, 2131-9, LLPH #### [facility] ([id number]) [address] [place] [address], [address] [place] [address] #### 84341-4, 9622-2 #### [facility] ([id number]) [address] [place] [address] 89129 Urea nitrogen [Mass/Vol] 16 mg/dL Normal 5-[address] [facility] Comment on above: Performed By: #### C BCA, 4679-7, 2063-10, CMP, FEPR, 2532-0, 2276-4, 2283-8, 9, LLPH #### [facility] ([id number]) [address] [place] [address], [address] [place] [address] #### 67776-5, 9622-2 #### [facility] ([id number]) [address] [place] [address] 85734 Fibrin D-dimer DDU (PPP) [Ma ss/Vol]on 02-24-2024 D DIMER <150 Normal <[address] [facility] Comment on above: Result Comment: Results <255 ng/mL DDU: The presence of a VTE can safely be excluded with a negative D-Dimer result and Wells score. A negative result doesn't exclude the possibility of DIC. The test be repeated along with other diagnostic tests if the patient's symptoms persist or worsen. [email or web address] Performed By: #### C BCA, 4679-7, 2063-4, CMP, FEPR, 2532-0, 2276-4, 2284-8, 9, LLPH #### [facility] ([id number]) [address], [address] [place] [address] #### 74724-8, 9622-2 #### [facility] ([id number]) [address] [place] [address] 56248 Troponin I.cardiac High sens itivity method [Mass/Vol]on 02-24-2024 TROPONIN I, HIGH SENSITIVITY <2 Normal <[address] [facility] Comment on above: Performed By: #### C BCA, 4679-7, 4-4, CMP, FEPR, 2532-0, 6-4, 2283-8, 9, LLPH #### [facility] ([id number]) [facility] [facility], [address] [place] [address] #### 27951-0, 9622-2 #### [facility] ([id number]) [address] [place] [address]263 XR CHEST 1 VWon 02-24-2024 XR CHEST 1 VW XR CHEST 1 VW HISTORY: Chest pain COMPARISON: Chest x-ray 02/07/2024 FINDINGS: Portable AP upright view of the chest was performed. Cardiac silhouette is within normal limits. No airspace consolidation or vascular congestion. No pleural effusion or pneumothorax. IMPRESSION: * No acute abnormality. Finalized by Giovanni Phelan MD on 02/24/2024 9:08 PM Normal [facility] XR CHEST 2 VWSon 02-08-2024 XR CHEST 2 VWS XR CHEST 2 VWS Clinical history: Chronic cough. Comparisons: 08/13/2017 through 12/25/2022. Findings: 2 views of the chest obtained. Heart size and pulmonary vasculature appear within normal limits. There is no pulmonary parenchymal consolidation. No pleural effusion nor pneumothorax. IMPRESSION: No evidence for acute cardiopulmonary disease. Finalized by iWcho Frank MD on 02/08/2024 12:53 PM Normal [facility] CBC AND AUTO DIFFon 02-07-20 24 ABSOLUTE BASOPHIL 0.1 X10E9/L Normal 0.0-0.2 [facility] Comment on above: Performed By: #### C BCA, 4679-7, 2063-4, CMP, FEPR, 2532-0, 2276-4, 2284-8, 2131-9, LLPH #### [facility] ([id number]) [address], [address] [place] [address] #### 60988-6, 9622-2 #### [facility] ([id number]) [address] [place] [address] ABSOLUTE NEUTROPHIL 7.3 X10E9/L High 1.5-6.6 [facility] Comment on above: Performed By: #### C BCA, 4679-7, 4, CMP, FEPR, 2532-0, 6-4, 2283-8, 2131-9, LLPH #### [facility] ([id number]) [address] [facility], [address] [place] [address] #### 79075-5, 9622-2 #### [facility] ([id number]) [address] [place] [address]126 Basophils/100 WBC (Bld) 1.1 % Normal [facility] Comment on above: Performed By: #### C BCA, 4679-7, 4, CMP, FEPR, 2532-0, 2276-4, 4-8, 2131-9, LLPH #### [facility] ([id number]) [address] [facility], [address] [place] [address] #### 39950-0, 9622-2 #### [facility] ([id number]) [address] [place] [address]879 Eosinophils (Bld) [#/Vol] 0.1 10*3/uL Normal 0.0-0.[address] [facility] Comment on above: Performed By: #### C BCA, 4679-7, 2063-4, CMP, FEPR, 2532-0, 2276-4, 2284-8, 2131-9, LLPH #### [facility] ([id number]) [address], [address] [place] [address] #### 21289-8, 9622-2 #### [facility] ([id number]) [address] [place] [address] 83818 Eosinophils/100 WBC (Bld) 0.9 % Normal [facility] Comment on above: Performed By: #### C BCA, 4679-7, 2063-4, CMP, FEPR, 2532-0, 2276-4, 4-8, 2131-9, LLPH #### [facility] ([id number]) [address], [address] [place] [address] #### 98548-6, 9622-2 #### [facility] ([id number]) [address] [place] [address] Erythrocyte distribution width (RBC) [Ratio] 12.7 % Normal 11.5-15.[address] [facility] Comment on above: Performed By: #### C BCA, 4679-7, 2063-4, CMP, FEPR, 2532-0, 2276-4, 4-8, 2131-9, LLPH #### [facility] ([id number]) [address], [address] [place] [address] #### 76688-5, 9622-2 #### [facility] ([id number]) [address] [place] [address]13 Hematocrit (Bld) [Volume fraction] 38.2 % Normal 35-[address] [facility] Comment on above: Performed By: #### C BCA, 4679-7, 2063-4, CMP, FEPR, 2532-0, 2276-4, 4-8, 2131-9, LLPH #### [facility] ([id number]) [address] [facility], [address] [place] [address] #### 51434-6, 9622-2 #### [facility] ([id number]) [address] [place] [address]68 Hemoglobin (Bld) [Mass/Vol] 12.8 g/dL Normal 11.7-15.[address] [facility] Comment on above: Performed By: #### C BCA, 4679-7, 2063-4, CMP, FEPR, 2532-0, 2276-4, 4-8, 9, LLPH #### [facility] ([id number]) [address] [facility], [address] [place] [address] #### 54101-8, 9622-2 #### [facility] ([id number]) [address] [place] [address] 35746 Lymphocytes (Bld) [#/Vol] 1.0 10*3/uL Normal 1.0-3.[address] [facility] Comment on above: Performed By: #### C BCA, 4679-7, 2063-4, CMP, FEPR, 2532-0, 2276-4, 4-8, 2131-9, LLPH #### [facility] ([id number]) [address], [address] [place] [address] #### 80709-1, 9622-2 #### [facility] ([id number]) [address] [place] [address] 94269 Lymphocytes/100 WBC (Bld) 11.3 % Normal [facility] Comment on above: Performed By: #### C BCA, 4679-7, 2063-4, CMP, FEPR, 2532-0, 2276-4, 4-8, 2131-9, LLPH #### [facility] ([id number]) [address], [address] [place] [address] #### 25747-4, 9622-2 #### [facility] ([id number]) [address] [place] [address] 43431 MCH (RBC) [Entitic mass] 30.5 pg Normal 27-[address] [facility] Comment on above: Performed By: #### C BCA, 4679-7, 2063-4, CMP, FEPR, 2532-0, 2276-4, 2284-8, 2131-9, LLPH #### [facility] ([id number]) [address], [address] [place] [address] #### 64178-5, 9622-2 #### [facility] ([id number]) [address] [place] [address] 35072 MCHC (RBC) [Mass/Vol] 33.6 g/dL Normal 32-[address] [facility] Comment on above: Performed By: #### C BCA, 4679-7, 2063-4, CMP, FEPR, 2532-0, 2276-4, 4-8, 2131-9, LLPH #### [facility] ([id number]) [address], [address] [place] [address] #### 97213-6, 9622-2 #### [facility] ([id number]) [address] [place] [address] 91991 MCV (RBC) [Entitic vol] 91 fL Normal 80-[address] [facility] Comment on above: Performed By: #### C BCA, 4679-7, 2063-4, CMP, FEPR, 2532-0, 2276-4, 2284-8, 2131-9, LLPH #### [facility] ([id number]) [address], [address] [place] [address] #### 12641-5, 9622-2 #### [facility] ([id number]) [address] [place] [address] 86430 Monocytes (Bld) [#/Vol] 0.6 10*3/uL Normal 0-0.[address] [facility] Comment on above: Performed By: #### C BCA, 4679-7, 4-4, CMP, FEPR, 2532-0, 2276-4, 2284-8, 2132-9, LLPH #### [facility] ([id number]) [address], [address] [place] [address] #### 22072-2, 9622-2 #### [facility] ([id number]) [address] [place] [address] 68735 Monocytes/100 WBC (Bld) 6.5 % Normal [facility] Comment on above: Performed By: #### C BCA, 4679-7, 2063-4, CMP, FEPR, 2532-0, 2276-4, 2284-8, 2-9, LLPH #### [facility] ([id number]) [address], [address] [place] [address] #### 56801-9, 9622-2 #### [facility] ([id number]) [address] [place] [address] 13725 Neutrophils/100 WBC (Bld) 80.2 % Normal [facility] Comment on above: Performed By: #### C BCA, 4679-7, 2063-4, CMP, FEPR, 2532-0, 2276-4, 2284-8, 2132-9, LLPH #### [facility] ([id number]) [address], [address] [place] [address] #### 72498-5, 9622-2 #### [facility] ([id number]) [address] [place] [address] 57510 Platelet mean volume (Bld) [Entitic vol] 7.9 fL Normal 7-[address] [facility] Comment on above: Performed By: #### C BCA, 4679-7, 2063-4, CMP, FEPR, 2532-0, 2276-4, 2284-8, 2132-9, LLPH #### [facility] ([id number]) [address] [facility], [address] [place] [address] #### 99962-9, 9622-2 #### [facility] ([id number]) [address] [place] [address] 77024 Platelets (Bld) [#/Vol] 389 10*3/uL Normal 150-[address] [facility] Comment on above: Performed By: #### C ESTHER, 4679-7, 4, CMP, FEPR, 2532-0, 2276-4, 2284-8, 2131-9, LLPH #### [facility] ([id number]) [address] [facility], [address] [place] [address] #### 62896-6, 9622-2 #### [facility] ([id number]) [address] [place] [address] 13627 RBC COUNT 4.21 X10E12/L Normal 3.80-5.[address] [facility] Comment on above: Performed By: #### C BCA, 4679-7, 2063-4, CMP, FEPR, 2532-0, 2276-4, 2284-8, 2-9, LLPH #### [facility] ([id number]) [address] [facility], [address] [place] [address] #### 88836-1, 9622-2 #### [facility] ([id number]) [address] [place] [address] 69012 WBC (Bld) [#/Vol] 9.1 10*3/uL Normal 4.0-11.0 [facility] Comment on above: Performed By: #### C BCA, 4679-7, 4-4, CMP, FEPR, 2532-0, 2276-4, 4-8, 2131-9, LLPH #### [facility] ([id number]) [address] [facility], [address] [place] [address] #### 19083-6, 9622-2 #### [facility] ([id number]) [address] [place] [address] 55344 M. tuberculosis stim IFN-g p yara (Bld)on 02-07-2024 Mitogen minus Nil Result 1.20 IU/mL Normal [facility] Comment on above: Performed By: #### C BCA, 4679-7, 2063-4, CMP, FEPR, 2532-0, 6-4, 2283-8, 9, LLPH #### [facility] ([id number]) [address] [facility], [address] [place] [address] #### 71845-9, 9622-2 #### [facility] ([id number]) [address] [place] [address] 69122 Nil Result 0.01 IU/mL Normal [facility] Comment on above: Result Comment: NOTE Test Performed by: [facility] [address] [place] [address] Flatwork Washer: Kimberly York Ph.D.; CLIA# [id number] Performed By: #### C BCA, 4679-7, 2063-4, CMP, FEPR, 2532-0, 2276-4, 4-8, 2131-9, LLPH #### [facility] ([id number]) [address] [facility], [address] [place] [address] #### 62090-5, 9622-2 #### [facility] ([id number]) [address] [place] [address] 36527 QuantiFERON-Tb Gold Plus Result Negative Normal Negative [facility] Comment on above: Result Comment: NOTE [...] level <0.35 IU/mL. Performed By: #### C ESTHER, 4679-7, 2063-10, CMP, FEPR, 2532-0, 2276-4, 2284-8, 2-9, LLPH #### [facility] ([id number]) [address] [place] [address], [place] [address] #### 38040-8, 9622-2 #### [facility] ([id number]) [address] [place], [place] [address] TB1 Ag minus Nil Result 0.01 IU/mL Normal [facility] Comment on above: Performed By: #### C ESTHER, 4679-7, 2063-10, CMP, FEPR, 2532-0, 2276-4, 2284-8, 2131-9, LLPH #### [facility] ([id number]) [address] [place] [address], [address] [place] [address] #### 74006-6, 9622-2 #### [facility] ([id number]) [address] [place] [address] 10532 TB2 Ag minus Nil Result 0.00 IU/mL Normal [facility] Comment on above: Performed By: #### C BCA, 4679-7, 4, CMP, FEPR, 2532-0, 2276-4, 2284-8, 2-9, LLPH #### [facility] ([id number]) [address], [address] [place] [address] #### 07236-2, 9622-2 #### [facility] ([id number]) [address] [place] [address] 44154 PROTIME AND INRon 02-07-2024 INR Coag (PPP) [Relative time] 0.9 {INR} Normal 0.8-1.[address] [facility] Comment on above: Performed By: #### C BCA, 4679-7, 2063-, CMP, FEPR, 2532-0, 2276-4, 2284-8, 2131-9, LLPH #### [facility] ([id number]) [address], [address] [place], [place] [address] #### 62030-2, 9622-2 #### [facility] ([id number]) [address] [place] [address] 21896 PT Coag (PPP) [Time] 10.8 s Normal 9.8-13.[address] [facility] Comment on above: Result Comment: NEW REFERENCE RANGE Performed By: #### C BCA, 4679-7, 2063-10, CMP, FEPR, 2532-0, 2276-4, 2284-8, 2131-9, LLPH #### [facility] ([id number]) [address], [address] [place] [address] #### 92621-8, 9622-2 #### [facility] ([id number]) [address] [place] [address] 41842 aPTT Coag (PPP) [Time]on aPTT Coag (Bld) [Time] 30 s Normal 26-[address] [facility] Comment on above: Result Comment: NEW REFERENCE RANGE Performed By: #### C BCA, 4679-7, 2064-4, CMP, FEPR, 2532-0, 2276-4, 2284-8, 2132-9, LLPH #### [facility] ([id number]) [address], [address] [place] [address] #### 01579-1, 9622-2 #### [facility] ([id number]) [address] [place] [address] 79989 CBC AND AUTO DIFFon 01-23- 24 ABSOLUTE BASOPHIL 0.1 X10E9/L Normal 0.0-0.2 [facility] Comment on above: Performed By: #### C BCA, 4679-7, 2063-4, CMP, FEPR, 2532-0, 2276-4, 2284-8, 2-9, LLPH #### [facility] ([id number]) [address] [facility], [address] [place] [address] #### 18730-3, 9622-2 #### [facility] ([id number]) [address] [place] [address] 54132 ABSOLUTE NEUTROPHIL 5.4 X10E9/L Normal 1.5-6.6 [facility] Comment on above: Performed By: #### C BCA, 4679-7, 2063-4, CMP, FEPR, 2532-0, 2276-4, 2284-8, 2-9, LLPH #### [facility] ([id number]) [address] [facility], [address] [place] [address] #### 11190-6, 9622-2 #### [facility] ([id number]) [address] [place] [address] 89407 Basophils/100 WBC (Bld) 0.9 % Normal [facility] Comment on above: Performed By: #### C BCA, 4679-7, 2063-4, CMP, FEPR, 2532-0, 2276-4, 2284-8, 2132-9, LLPH #### [facility] ([id number]) [address], [address] [place] [address] #### 40034-9, 9622-2 #### [facility] ([id number]) [address] [place] [address] 03206 Eosinophils (Bld) [#/Vol] 0.2 10*3/uL Normal 0.0-0.[address] [facility] Comment on above: Performed By: #### C BCA, 4679-7, 2063-4, CMP, FEPR, 2532-0, 2276-4, 4-8, 2131-9, LLPH #### [facility] ([id number]) [address], [address] [place] [address] #### 69973-1, 9622-2 #### [facility] ([id number]) [address] [place] [address] 05951 Eosinophils/100 WBC (Bld) 2.4 % Normal [facility] Comment on above: Performed By: #### C BCA, 4679-7, 2063-4, CMP, FEPR, 2532-0, 2276-4, 2283-8, 2131-9, LLPH #### [facility] ([id number]) [address], [address] [place] [address] #### 88466-2, 9622-2 #### [facility] ([id number]) [address] [place] [address] 18358 Erythrocyte distribution width (RBC) [Ratio] 12.3 % Normal 11.5-15.[address] [facility] Comment on above: Performed By: #### C BCA, 4679-7, 2063-4, CMP, FEPR, 2532-0, 2276-4, 2284-8, 2131-9, LLPH #### [facility] ([id number]) [address], [address] [place] [address] #### 27219-0, 9622-2 #### [facility] ([id number]) [address] [place] [address] 53790 Hematocrit (Bld) [Volume fraction] 38.2 % Normal 35-[address] [facility] Comment on above: Performed By: #### C BCA, 4679-7, 2063-4, CMP, FEPR, 2532-0, 2276-4, 2284-8, 2131-9, LLPH #### [facility] ([id number]) [address], [address] [place] [address] #### 17007-0, 9622-2 #### [facility] ([id number]) [address] [place] [address] 39409 Hemoglobin (Bld) [Mass/Vol] 13.1 g/dL Normal 11.7-15.[address] [facility] Comment on above: Performed By: #### C BCA, 4679-7, 2063-4, CMP, FEPR, 2532-0, 2276-4, 2284-8, 2131-9, LLPH #### [facility] ([id number]) [address], [address] [place] [address] #### 96931-2, 9622-2 #### [facility] ([id number]) [address] [place] [address] 62874 Lymphocytes (Bld) [#/Vol] 2.2 10*3/uL Normal 1.0-3.[address] [facility] Comment on above: Performed By: #### C BCA, 4679-7, 2063-4, CMP, FEPR, 2532-0, 2276-4, 2284-8, 2-9, LLPH #### [facility] ([id number]) [address], [address] [place] [address] #### 61479-8, 9622-2 #### [facility] ([id number]) [address] [place] [address] 29059 Lymphocytes/100 WBC (Bld) 25.9 % Normal [facility] Comment on above: Performed By: #### C BCA, 4679-7, 4-4, CMP, FEPR, 2532-0, 2276-4, 2284-8, 2132-9, LLPH #### [facility] ([id number]) [address], [address] [place] [address] #### 62451-1, 9622-2 #### [facility] ([id number]) [address] [place] [address] 35463 MCH (RBC) [Entitic mass] 31.0 pg Normal 27-[address] [facility] Comment on above: Performed By: #### C BCA, 4679-7, 2063-4, CMP, FEPR, 2532-0, 2276-4, 2284-8, 2131-9, LLPH #### [facility] ([id number]) [address], [address] [place] [address] #### 78708-1, 9622-2 #### [facility] ([id number]) [address] [place] [address] 08472 MCHC (RBC) [Mass/Vol] 34.4 g/dL Normal 32-[address] [facility] Comment on above: Performed By: #### C BCA, 4679-7, 4-4, CMP, FEPR, 2532-0, 2276-4, 2284-8, 2132-9, LLPH #### [facility] ([id number]) [address], [address] [place] [address] #### 00035-1, 9622-2 #### [facility] ([id number]) [address] [place] [address] MCV (RBC) [Entitic vol] 90 fL Normal 80-[address] [facility] Comment on above: Performed By: #### C ESTHER, 4679-7, 2063-4, CMP, FEPR, 2532-0, 2276-4, 2284-8, 2-9, LLPH #### [facility] ([id number]) [address], [address] [place] [address] #### 31817-1, 9622-2 #### [facility] ([id number]) [address] [place] [address] 66289 Monocytes (Bld) [#/Vol] 0.5 10*3/uL Normal 0-0.[address] [facility] Comment on above: Performed By: #### C ESTHER, 4679-7, 4, CMP, FEPR, 2532-0, 2276-4, 4-8, 2131-9, LLPH #### [facility] ([id number]) [address] [facility], [address] [place] [address] #### 04789-9, 9622-2 #### [facility] ([id number]) [address] [place] [address] 38188 Monocytes/100 WBC (Bld) 5.7 % Normal [facility] Comment on above: Performed By: #### C ESTHER, 4679-7, 2063-4, CMP, FEPR, 2532-0, 2276-4, 2284-8, 2131-9, LLPH #### [facility] ([id number]) [address], [address] [place] [address] #### 13416-6, 9622-2 #### [facility] ([id number]) [address] [place] [address] 24575 Neutrophils/100 WBC (Bld) 65.1 % Normal [facility] Comment on above: Performed By: #### C BCA, 4679-7, 2063-4, CMP, FEPR, 2532-0, 2276-4, 2284-8, 2131-9, LLPH #### [facility] ([id number]) [address], [address] [place] [address] #### 27968-8, 9622-2 #### [facility] ([id number]) [address] [place] [address] 03414 Platelet mean volume (Bld) [Entitic vol] 7.3 fL Normal 7-[address] [facility] Comment on above: Performed By: #### C BCA, 4679-7, 2063-4, CMP, FEPR, 2532-0, 2276-4, 4-8, 2131-9, LLPH #### [facility] ([id number]) [address], [address] [place] [address] #### 12209-4, 9622-2 #### [facility] ([id number]) [address] [place] [address] 66983 Platelets (Bld) [#/Vol] 480 10*3/uL High 150-[address] [facility] Comment on above: Performed By: #### C BCA, 4679-7, 2063-4, CMP, FEPR, 2532-0, 2276-4, 2284-8, 2131-9, LLPH #### [facility] ([id number]) [address], [address] [place] [address] #### 14533-8, 9622-2 #### [facility] ([id number]) [address] [place] [address] 51506 RBC COUNT 4.24 X10E12/L Normal 3.80-5.[address] [facility] Comment on above: Performed By: #### C BCA, 4679-7, 2063-4, CMP, FEPR, 2532-0, 2276-4, 2284-8, 2132-9, LLPH #### [facility] ([id number]) [address] [facility], [address] [place] [address] #### 57430-9, 9622-2 #### [facility] ([id number]) [address] [place] [address] 96836 WBC (Bld) [#/Vol] 8.4 10*3/uL Normal 4.0-11.0 [facility] Comment on above: Performed By: #### C BCA, 4679-7, 4-4, CMP, FEPR, 2532-0, 2276-4, 2284-8, 2-9, LLPH #### [facility] ([id number]) [address] [place] [address], [address] [place] [address] #### 27586-8, 9622-2 #### [facility] ([id number]) [address] [place] [address] 94121 COMPREHENSIVE METABOLIC PANE Cyrus 01-24-2024 Albumin [Mass/Vol] 4.2 g/dL Normal 3.2-5.3 [facility] Comment on above: Performed By: #### C BCA, 4679-7, 4-4, CMP, FEPR, 2532-0, 2276-4, 2284-8, 2132-9, LLPH #### [facility] ([id number]) [address] [place] [address], [address] [place] [address] #### 37063-3, 9622-2 #### [facility] ([id number]) [address] [place] [address] 32622 ALP [Catalytic activity/Vol] 87 U/L Normal 39-[address] [facility] Comment on above: Performed By: #### C BCA, 4679-7, 2064-4, CMP, FEPR, 2532-0, 2276-4, 2284-8, 2132-9, LLPH #### [facility] ([id number]) [address], [address] [place] [address] #### 18175-0, 9622-2 #### [facility] ([id number]) [address] [place] [address] 16541 ALT [Catalytic activity/Vol] 17 U/L Normal 0-[address] [facility] Comment on above: Performed By: #### C BCA, 4679-7, 4-4, CMP, FEPR, 2532-0, 2276-4, 2284-8, 2131-9, LLPH #### [facility] ([id number]) [address] [facility], [address] [place] [address] #### 16092-5, 9622-2 #### [facility] ([id number]) [address] [place] [address] 75427 Anion gap [Moles/Vol] 10 mmol/L Normal 5-[address] [facility] Comment on above: Performed By: #### C BCA, 4679-7, 2063-4, CMP, FEPR, 2532-0, 2276-4, 2284-8, 2131-9, LLPH #### [facility] ([id number]) [address] [facility], [address] [place] [address] #### 12240-0, 9622-2 #### [facility] ([id number]) [address] [place] [address] 59810 AST [Catalytic activity/Vol] 22 U/L Normal 0-[address] [facility] Comment on above: Performed By: #### C BCA, 4679-7, 2063-4, CMP, FEPR, 2532-0, 2276-4, 2284-8, 2-9, LLPH #### [facility] ([id number]) [address], [address] [place] [address] #### 22890-0, 9622-2 #### [facility] ([id number]) [address] [place] [address] 13801 Bilirubin [Mass/Vol] 0.3 mg/dL Normal 0.3-1.[address] [facility] Comment on above: Performed By: #### C BCA, 4679-7, 4-4, CMP, FEPR, 2532-0, 2276-4, 2284-8, 2131-9, LLPH #### [facility] ([id number]) [address] [facility], [address] [place] [address] #### 58938-1, 9622-2 #### [facility] ([id number]) [address] [place] [address] 06216 Calcium [Mass/Vol] 9.1 mg/dL Normal 8.5-10.5 [facility] Comment on above: Performed By: #### C BCA, 4679-7, 2063-4, CMP, FEPR, 2532-0, 2276-4, 2284-8, 2131-9, LLPH #### [facility] ([id number]) [address] [facility], [address] [place] [address] #### 05361-9, 9622-2 #### [facility] ([id number]) [address] [place] [address] 81768 Chloride [Moles/Vol] 100 mmol/L Normal 98-[address] [facility] Comment on above: Performed By: #### C BCA, 4679-7, 4-4, CMP, FEPR, 2532-0, 2276-4, 2284-8, 2131-9, LLPH #### [facility] ([id number]) [address] [facility], [address] [place] [address] #### 09189-2, 9622-2 #### [facility] ([id number]) [address] [place] [address] 95167 CO2 [Moles/Vol] 29 mmol/L Normal 22-[address] [facility] Comment on above: Performed By: #### C BCA, 4679-7, 2063-4, CMP, FEPR, 2532-0, 2276-4, 2284-8, 2132-9, LLPH #### [facility] ([id number]) [address], [address] [place] [address] #### 38092-6, 9622-2 #### [facility] ([id number]) [address] [place] [address] 18757 Creatinine [Mass/Vol] 0.94 mg/dL Normal 0.40-1.[address] [facility] Comment on above: Result Comment: METH OD TRACEABLE TO IDMS STANDARD Performed By: #### C BCA, 4679-7, 4, CMP, FEPR, 2532-0, 2276-4, 2284-8, 2131-9, LLPH #### [facility] ([id number]) [address] [facility], [address] [address] #### 11419-7, 9622-2 #### [facility] ([id number]) [address] [place] [address] GFR/1.73 sq M.predicted among non-blacks MDRD (S/P/Bld) [Vol rate/Area] 80 mL/min/{1.73_m2} Normal >[address] [facility] Comment on above: Result Comment: Reported eGFR is based on the CKD-EPI 2020 equation that does not use a race coefficient. Performed By: #### C BCA, 4679-7, 2063-4, CMP, FEPR, 2532-0, 2276-4, 2284-8, 2132-9, LLPH #### [facility] ([id number]) [address], [address] [place] [address] #### 61224-6, 9622-2 #### [facility] ([id number]) [address] [place] [address] 23068 Glucose [Mass/Vol] 97 mg/dL Normal 65-99 [facility] Comment on above: Performed By: #### C BCA, 4679-7, 4-4, CMP, FEPR, 2532-0, 2276-4, 2284-8, 2132-9, LLPH #### [facility] ([id number]) [address], [address] [place] [address] #### 19639-4, 9622-2 #### [facility] ([id number]) [address] [place] [address]2577 Potassium [Moles/Vol] 3.1 mmol/L Low 3.5-5.[address] [facility] Comment on above: Performed By: #### C BCA, 4679-7, 2063-4, CMP, FEPR, 2532-0, 2276-4, 2284-8, 2-9, LLPH #### [facility] ([id number]) [address], [address] [place] [address] #### 89116-0, 9622-2 #### [facility] ([id number]) [address] [place] [address] 14932 Protein [Mass/Vol] 7.4 g/dL Normal 6.0-8.0 [facility] Comment on above: Performed By: #### C BCA, 4679-7, 4-4, CMP, FEPR, 2532-0, 2276-4, 2284-8, 2132-9, LLPH #### [facility] ([id number]) [address], [address] [place] [address] #### 73471-1, 9622-2 #### [facility] ([id number]) [address] [place] [address] Sodium [Moles/Vol] 139 mmol/L Normal 134-146 [facility] Comment on above: Performed By: #### C BCA, 4679-7, 2063-4, CMP, FEPR, 2532-0, 2276-4, 2284-8, 2132-9, LLPH #### [facility] ([id number]) [address], [address] [place] [address] #### 16622-0, 9622-2 #### [facility] ([id number]) [address] [place] [address]9840 Urea nitrogen [Mass/Vol] 13 mg/dL Normal 5-[address] [facility] Comment on above: Performed By: #### C BCA, 4679-7, 4, CMP, FEPR, 2532-0, 2276-4, 2284-8, 2131-9, LLPH #### [facility] ([id number]) [address], [address] [place] [address] #### 27457-0, 9622-2 #### [facility] ([id number]) [address] [place] [address]14 ESR Photometric method (Bld) [Velocity]on 01-24-2024 ESR, ERYTHROCYTE SEDIMENTATION RATE 7 mm/h Normal 0-[address] [facility] Comment on above: Performed By: #### C BCA, 4679-7, 2063-4, CMP, FEPR, 2532-0, 2276-4, 2284-8, 2132-9, LLPH #### [facility] ([id number]) [address], [address] [place] [address] #### 15781-7, 9622-2 #### [facility] ([id number]) [address] [place] [address] FREE LIGHT CHAINSon 07-24-20 24 FREE KAYCEE/LAMBD RATIO 1.32 Normal 0.26-1.[address] [facility] Comment on above: Performed By: #### C BCA, 4679-7, 2063-4, CMP, FEPR, 2532-0, 2276-4, 2284-8, 2-9, LLPH #### [facility] ([id number]) [address], [address] [place] [address] #### 48351-7, 9622-2 #### [facility] ([id number]) [address] [place] [address] FREE KAPPA LT CHAINS 2.17 mg/dL High 0.33-1.[address] [facility] Comment on above: Performed By: #### C BCA, 4679-7, 2063-4, CMP, FEPR, 2532-0, 2276-4, 4-8, 2131-9, LLPH #### [facility] ([id number]) [address], [address] [place] [address] #### 44947-2, 9622-2 #### [facility] ([id number]) [address] [place] [address] FREE LAMBDA LT CHAINS 1.64 mg/dL Normal 0.57-2.[address] [facility] Comment on above: Performed By: #### C BCA, 4679-7, 2063-4, CMP, FEPR, 2532-0, 2276-4, 2284-8, 2-9, LLPH #### [facility] ([id number]) [address], [address] [place] [address] #### 17033-0, 9622-2 #### [facility] ([id number]) [address] [place] [address] IMMUNOGLOBULINSon 01-24-2024 IgA [Mass/Vol] 183 mg/dL Normal 68-[address] [facility] Comment on above: Performed By: #### C BCA, 4679-7, 4-4, CMP, FEPR, 2532-0, 2276-4, 2284-8, 2131-9, LLPH #### [facility] ([id number]) [address] [place] [address], [address] [place] [address] #### 59357-8, 9622-2 #### [facility] ([id number]) [address] [place] [address]28[address] IgG [Mass/Vol] 1042 mg/dL Normal 635-[address] [facility] Comment on above: Performed By: #### C BCA, 4679-7, 2063-4, CMP, FEPR, 2532-0, 2276-4, 2284-8, 2131-9, LLPH #### [facility] ([id number]) [address] [place] [address], [address] [place] [address] #### 75631-8, 9622-2 #### [facility] ([id number]) [address] [place] [address] IgM [Mass/Vol] 67 mg/dL Normal 45-[address] [facility] Comment on above: Performed By: #### C BCA, 4679-7, 2063-4, CMP, FEPR, 2532-0, 2276-4, 2284-8, 2131-9, LLPH #### [facility] ([id number]) [address] [place] [address], [address] [place] [address] #### 50824-4, 9622-2 #### [facility] ([id number]) [address] [place] [address] LDH [Catalytic activity/Vol] on 01-24-2024 LDH 194 U/L Normal 100-[address] [facility] Comment on above: Performed By: #### C BCA, 4679-7, 4-4, CMP, FEPR, 2532-0, 2276-4, 2284-8, 2131-9, LLPH #### [facility] ([id number]) [address], [address] [place] [address] #### 56557-1, 9622-2 #### [facility] ([id number]) [address] [place] [address] SERUM PROTEIN ELECTROPHORESI Son 01-24-2024 Albumin [Mass/Vol] 4.0 g/dL Normal 3.4-5.3 [facility] Comment on above: Performed By: #### C BCA, 4679-7, 2063-4, CMP, FEPR, 2532-0, 2276-4, 4-8, 2131-9, LLPH #### [facility] ([id number]) [address], [address] [place] [address] #### 93397-0, 9622-2 #### [facility] ([id number]) [address] [place] [address]84[address] ALPHA 1 GLOBULIN 0.4 g/dL Normal 0.1-0.4 [facility] Comment on above: Performed By: #### C BCA, 4679-7, 2063-4, CMP, FEPR, 2532-0, 2276-4, 4-8, 2131-9, LLPH #### [facility] ([id number]) [address], [address] [place] [address] #### 28462-7, 9622-2 #### [facility] ([id number]) [address] [place] [address]32[address] ALPHA 2 GLOBULIN 0.8 g/dL Normal 0.4-1.1 [facility] Comment on above: Performed By: #### C BCA, 4679-7, 2063-4, CMP, FEPR, 2532-0, 2276-4, 2284-8, 2131-9, LLPH #### [facility] ([id number]) [address], [address] [place] [address] #### 15182-7, 9622-2 #### [facility] ([id number]) [address] [place] [address] 71436 BETA GLOBULIN 0.9 g/dL Normal 0.5-1.[address] [facility] Comment on above: Performed By: #### C BCA, 4679-7, 2063-4, CMP, FEPR, 2532-0, 2276-4, 2284-8, 2132-9, LLPH #### [facility] ([id number]) [address], [address] [place] [address] #### 04864-7, 9622-2 #### [facility] ([id number]) [address] [place] [address] GAMMA GLOBULIN 1.0 g/dL Normal 0.5-1.[address] [facility] Comment on above: Performed By: #### C BCA, 4679-7, 2063-4, CMP, FEPR, 2532-0, 2276-4, 2284-8, 2-9, LLPH #### [facility] ([id number]) [address], [address] [place] [address] #### 90698-3, 9622-2 #### [facility] ([id number]) [address] [place] [address] 62190 PROT. ELECTROPHORESIS INTERP Unremarkable protein distribution, no monoclonal bands. Normal [facility] Comment on above: Performed By: #### C BCA, 4679-7, 2063-4, CMP, FEPR, 2532-0, 2276-4, 2284-8, 2132-9, LLPH #### [facility] ([id number]) [address], [address] [place] [address] #### 81456-5, 9622-2 #### [facility] ([id number]) [address] [facility] [place] [address] Protein [Mass/Vol] 7.1 g/dL Normal 6.0-8.0 [facility] Comment on above: Performed By: #### C BCA, 4679-7, 2064-4, CMP, FEPR, 2532-0, 2276-4, 2284-8, 2132-9, LLPH #### [facility] ([id number]) [address] [facility], [address] [place] [address] #### 02557-9, 9622-2 #### [facility] ([id number]) [address] [place] [address] Auth for Release of Medical Recordson 12-27-2023 Auth for Release of Medical Records [id number] Normal [facility] Thyrotropin [Units/volume] i n Serum or PlasmaOrdered By: Robbie Disla on 11-22-2023 TSH Qn 1.31 m[IU]/L Normal 0.45-5.33 [facility] Comment on above: Result Comment: PERF ORMED BY: [place] [address] PATHOLOGIST MOUNTING INSPECTOR ADELINE CHANDRA M.D. Performed By: #### T SH3 #### [address] [place] 10-25-2023 [facility] KALEN PLAZA ([id number]) 1985 F Date Time Provider Department 10/25/23 ROSMERY MACK [facility] During your visit today, we recorded the following information about you: Carola Funez MA 10/25/2023 3:48 PM Signed Patient records received via electronic fax. Uploaded to [employer] via [employer]. Please review in scanned documents tab of chart review. Please view--- Medical Records-[facility] Carola Funez MA Allergies As of Date: 10/25/2023 (No Known Allergies) Date Reviewed: 10/18/2023 Reviewed by: Magi Cristina MA - Fully Assessed Reason for Visit: Medical Records-[facility] [Other] Prescriptions as of 10/25/2023 - [...] Encounter Status:Closed by CAROLA FUNEZ on 10/25/23 Normal [facility] Mine 10-19-2023 CNPN Telephone (GEMMA) KALEN PLAZA ([id number]) 1985 F Date Time Provider Department 10/19/23 ROSMERY MCAK During your visit today, we recorded the [...] Encounter Status:Closed by VALERIE PEREZ on 10/19/23 Normal [facility] CNOVon 10-18-2023 CNOV Office Visit (NUMBHT ) KALEN PLAZA ([id number]) 1985 F Date Time Provider Department 10/18/23 1:00 PM ROSMERY MACK During your visit today, we recorded the following information about you: Temperature Pulse Blood pressure Weight 96.8 degrees 73/minute 113/69 50.6 kg Height Last Period 1.65 m 09/27/23 Rosmery Mack MD 10/18/2023 9:18 PM Signed [facility] New Patient Evaluation Consulting Provider: Keira Heller [address] [place] [address] The patient presents with a chief complaint [...] all these symptoms below, seen in the [facility] for: Paresthesia Fatigue [...] and assessment that I can look at. [place] [facility] and saw Keiraluis Laguerre and also saw physician there - [...] Paresthesias PLAN (more content not included)... Normal [facility] Mine 10-18-2023 LUBNAN Telephone (GEMMA) KALEN PLAZA ([id number]) 1985 F Date Time Provider Department 10/18/23 [...] Status:Closed by PEDRO CALLE on 10/18/23 Normal [facility] Amphetamine Screen Ql (U)Ord ered By: Robbie Disla on 09-28-2023 Amphetamines Ql (U) Positive Negative [facility] Barbiturates [Presence] in U rine by Screen methodOrdered By: Imron Disla on 09-28-2023 Barbiturates Screen Ql (U) Negative Negative [facility] Benzodiazepines Screen Ql (U )Ordered By: Robbie Disla on 09-28-2023 Benzodiazepines Ql (U) Negative Negative [facility] Benzoylecgonine [Presence] i n Urine by Screen methodOrdered By: ron Disla on 09-28-2023 Benzoylecgonine Screen Ql (U) Negative Negative [facility] Cannabinoids [Presence] in U rine by Screen methodOrdered By: Robbie Disla on 09-28-2023 Cannabinoids Screen Ql (U) Negative Negative [facility] Comment on above: These are unconfirme d results and should not be used for legal purposes. Drug Cut-Off Concentration: AMPH 1000 ng/mL PAULA 200 ng/mL ISAAC 200 ng/mL COCM 300 ng/mL OP 300 ng/mL PCP 25 ng/mL THC 20 ng/mL Drug Screen,Urineon 09-28-19 24 Amphetamine Screen,Urine Positive High Negative [facility] Comment on above: Performed By: #### U RDS #### [place] [address] [place] Barbiturate Screen,Urine Negative Normal Negative [facility] Comment on above: Performed By: #### U RDS #### [facility] [address] [place] [address] [place] Benzodiazepines Screen,Urine Negative Normal Negative [facility] Comment on above: Performed By: #### U RDS #### [facility] [address] [place] [address] [place] Cannabinoid Screen,Urine Negative Normal Negative [facility] Comment on above: Result Comment: Thes e are unconfirmed results and should not be used for legal purposes. Drug Cut-Off Concentration: AMPH 1000 ng/mL PAULA 200 ng/mL ISAAC 200 ng/mL COCM 300 ng/mL OP 300 ng/mL PCP 25 ng/mL THC 20 ng/mL PERFORMED BY: [place] [address] PATHOLOGIST MOUNTING INSPECTOR ADELINE CHANDRA M.D. Performed By: #### U RDS #### [address] Cocaine Screen,Urine Negative Normal Negative [facility] Comment on above: Performed By: #### U RDS #### [address] Opiate Screen,Urine Negative Normal Negative [facility] Comment on above: Performed By: #### U RDS #### [address] Phencyclidine Screen,Urine Negative Normal Negative [facility] Comment on above: Performed By: #### U RDS #### [address] HCG ( test) IA.rapi d Ql (U)Ordered By: Imad Asaad on 09-28-2023 HCG ( test) Ql (U) Negative [facility] HCG,Urineon 09-28-2023 Beta HCG ( test) Ql (U) Negative Normal [facility] Comment on above: Result Comment: PERF ORMED BY: [place] [address] PATHOLOGIST MOUNTING INSPECTOR ADELINE CHANDRA M.D. Performed By: #### U HCG #### [address] Opiates [Presence] in Urine by Screen methodOrdered By: Imad Asaad on 09-28-2023 Opiates Screen Ql (U) Negative Negative [facility] Phencyclidine Screen Ql (U)O rdered By: Imad Asaad on 09-28-2023 Phencyclidine Ql (U) Negative Negative [facility] Amphetamine Screen Ql (U)Ord ered By: Imad Asaad on 08-23-2023 Amphetamines Ql (U) Positive Negative [facility] Barbiturates [Presence] in U rine by Screen methodOrdered By: Imad Asaad on 08-23-2023 Barbiturates Screen Ql (U) Negative Negative [facility] Benzodiazepines Screen Ql (U )Ordered By: Imad Asaad on 08-23-2023 Benzodiazepines Ql (U) Negative Negative [facility] Benzoylecgonine [Presence] i n Urine by Screen methodOrdered By: Imad Asaad on 08-23-2023 Benzoylecgonine Screen Ql (U) Negative Negative [facility] Cannabinoids [Presence] in U rine by Screen methodOrdered By: Imad Asaad on 08-23-2023 Cannabinoids Screen Ql (U) Negative Negative [facility] Comment on above: These are unconfirme d results and should not be used for legal purposes. Drug Cut-Off Concentration: AMPH 1000 ng/mL PAULA 200 ng/mL ISAAC 200 ng/mL COCM 300 ng/mL OP 300 ng/mL PCP 25 ng/mL THC 20 ng/mL Drug Screen,Urineon 08-23-19 24 Amphetamine Screen,Urine Positive High Negative [facility] Comment on above: Performed By: #### U RDS #### [address] Barbiturate Screen,Urine Negative Normal Negative [facility] Comment on above: Performed By: #### U RDS #### [place] [address] [place] Benzodiazepines Screen,Urine Negative Normal Negative [facility] Comment on above: Performed By: #### U RDS #### [place] [address] [place] Cannabinoid Screen,Urine Negative Normal Negative [facility] Comment on above: Result Comment: Thes e are unconfirmed results and should not be used for legal purposes. Drug Cut-Off Concentration: AMPH 1000 ng/mL PAULA 200 ng/mL ISAAC 200 ng/mL COCM 300 ng/mL OP 300 ng/mL PCP 25 ng/mL THC 20 ng/mL PERFORMED BY: [place] [address] PATHOLOGIST MOUNTING INSPECTOR ADELINE CHANDRA M.D. Performed By: #### U RDS #### [address] Cocaine Screen,Urine Negative Normal Negative [facility] Comment on above: Performed By: #### U RDS #### [address] Opiate Screen,Urine Negative Normal Negative [facility] Comment on above: Performed By: #### U RDS #### [address] Phencyclidine Screen,Urine Negative Normal Negative [facility] Comment on above: Performed By: #### U RDS #### [address] HCG ( test) IA.rapi d Ql (U)Ordered By: Robbie Disla on 08-23-2023 HCG ( test) Ql (U) Negative [facility] HCG,Urineon 08-23-2023 Beta HCG ( test) Ql (U) Negative Normal [facility] Comment on above: Result Comment: PERF ORMED BY: [place] [address] PATHOLOGIST MOUNTING INSPECTOR ADELINE CHANDRA M.D. Performed By: #### U HCG #### [address] [place] 08-23-2023 L Specimen: [id number] R eceived: 08/23/23 Status: SOUT Req Num: [id number] Spec Type: Surgical Subm Dr: Robbie Disla MD Tissues: A Colon Biopsy (DUODENAL BX R/O CELIAC) B GASTRIC FOR HP (GASTIRC BX R/O H.PYLORI) C Esophagus Biopsy (ESOPHAGUS BX R/O EOE) D Colon Biopsy (RANDOM COLON R/O MICROSCOPIC) Procedures: HE/8, Gross/Micro L4/4, H PYLORI Age/ Patient Sex Location Account Attending Physician Kalen Plaza 37/F [id number] Robbie Disla MD SPEC NUM: [id number] RECD: 08/23/23 STATUS: SOUT REQ NUM: [id number] MONTY: 08/23/[address]: Robbie Disla MD ENTERED: 08/23/232 [facility] DR: SPEC TYPE: Surgical DEPT: S [...] features of microscopic colitis identified ----- Specimen: [id number] Received: 08/23/23 Status: JOANNE Reyes Num: [id number] Spec Type: Surgical Subm Dr: Robbie Disla MD Tissues: A Colon Biopsy (DUODENAL BX R/O CELIAC) B GASTRIC FOR HP (GASTIRC BX R/O H.PYLORI) C Esophagus Biopsy (ESOPHAGUS BX R/O EOE) D Colon Biopsy (RANDOM COLON R/O MICROSCOPIC) Procedures: HE/8, Gross/Micro L4/4, H PYLORI ----- Patient: Yola Plazay [id number] (Continued) ----- Specimen: [id number] Received: 08/23/23 (Continued) Signed (signature on file) Pineda Bright MD 08/24/23 142 ----- Specimen: [id number] Received: 08/23/23 Status: JOANNE Sanchezsamy Num: [id number] Spec Type: Surgical Subm Dr: Robbie Disla MD Tissues: A Colon Biopsy (DUODENAL BX R/O CELIAC) B GASTRIC FOR HP (GASTIRC BX R/O H.PYLORI) C Esophagus Biopsy (ESOPHAGUS BX R/O EOE) D Colon Biopsy (RANDOM COLON R/O MICROSCOPIC) Procedures: HE/8, Gross/Micro L4/4, H PYLORI ----- Patient: Kalen Plaza [id number] (Continued) ----- Specimen: [id number] Received: 08/23/23 (Continued) Clinical Information Nausea, weight loss, change [...] in one cassette labeled D1. CPT Codes [id number] ----- ----- Specimen: [id number] Received: (more content not included)... Normal [facility] Opiates [Presence] in Urine by Screen methodOrdered By: Robbie Disla on 08-23-2023 Opiates Screen Ql (U) Negative Negative [facility] Phencyclidine Screen Ql (U)O rdered By: Robbie Disla on 08-23-2023 Phencyclidine Ql (U) Negative Negative [facility] CT BRAIN WO CONTon CT BRAIN [...] Phelan MD on 08/05/2023 8:50 PM Normal [facility] CBC AND AUTO DIFFon 08-02-19 24 ABSOLUTE BASOPHIL 0.1 X10E9/L Normal 0.0-0.2 [facility] Comment on above: Performed By: #### C BCA, 4679-7, 4-4, CMP, FEPR, 2532-0, 2276-4, 2284-8, 2132-9, LLPH #### [facility] ([id number]) [address] [facility], [address] [place] [address] #### 80443-7, 9622-2 #### [facility] ([id number]) [address] [place] [address] 02475 ABSOLUTE NEUTROPHIL 5.1 X10E9/L Normal 1.5-6.6 [facility] Comment on above: Performed By: #### C BCA, 4679-7, 2063-4, CMP, FEPR, 2532-0, 2276-4, 2284-8, 2-9, LLPH #### [facility] ([id number]) [address] [facility], [address] [place] [address] #### 17282-1, 9622-2 #### [facility] ([id number]) [address] [place] [address] 72076 Basophils/100 WBC (Bld) 1.0 % Normal [facility] Comment on above: Performed By: #### C BCA, 4679-7, 2063-4, CMP, FEPR, 2532-0, 2276-4, 2284-8, 2131-9, LLPH #### [facility] ([id number]) [address] [facility], [address] [place] [address] #### 87213-7, 9622-2 #### [facility] ([id number]) [address] [place] [address] Eosinophils (Bld) [#/Vol] 0.1 10*3/uL Normal 0.0-0.[address] [facility] Comment on above: Performed By: #### C BCA, 4679-7, 2063-4, CMP, FEPR, 2532-0, 2276-4, 2284-8, 2-9, LLPH #### [facility] ([id number]) [address], [address] [place] [address] #### 19508-6, 9622-2 #### [facility] ([id number]) [address] [place] [address] Eosinophils/100 WBC (Bld) 1.4 % Normal [facility] Comment on above: Performed By: #### C BCA, 4679-7, 2063-4, CMP, FEPR, 2532-0, 2276-4, 2284-8, 2-9, LLPH #### [facility] ([id number]) [address] [facility], [address] [place] [address] #### 12932-2, 9622-2 #### [facility] ([id number]) [address] [place] [address]887 Erythrocyte distribution width (RBC) [Ratio] 12.5 % Normal 11.5-15.[address] [facility] Comment on above: Performed By: #### C BCA, 4679-7, 2063-4, CMP, FEPR, 2532-0, 2276-4, 2284-8, 2131-9, LLPH #### [facility] ([id number]) [address] [facility], [address] [place] [address] #### 90576-6, 9622-2 #### [facility] ([id number]) [address] [place] [address]13 Hematocrit (Bld) [Volume fraction] 39.5 % Normal 35-[address] [facility] Comment on above: Performed By: #### C BCA, 4679-7, 2063-4, CMP, FEPR, 2532-0, 2276-4, 2284-8, 2131-9, LLPH #### [facility] ([id number]) [address] [facility], [address] [place] [address] #### 66499-7, 9622-2 #### [facility] ([id number]) [address] [place] [address] 59619 Hemoglobin (Bld) [Mass/Vol] 13.5 g/dL Normal 11.7-15.[address] [facility] Comment on above: Performed By: #### C BCA, 4679-7, 2063-4, CMP, FEPR, 2532-0, 2276-4, 2284-8, 2131-9, LLPH #### [facility] ([id number]) [address], [address] [place] [address] #### 43305-0, 9622-2 #### [facility] ([id number]) [address] [place] [address] 74187 Lymphocytes (Bld) [#/Vol] 2.2 10*3/uL Normal 1.0-3.[address] [facility] Comment on above: Performed By: #### C BCA, 4679-7, 4, CMP, FEPR, 2532-0, 2276-4, 4-8, 2131-9, LLPH #### [facility] ([id number]) [address] [facility], [address] [place] [address] #### 30332-6, 9622-2 #### [facility] ([id number]) [address] [place] [address] 73619 Lymphocytes/100 WBC (Bld) 27.4 % Normal [facility] Comment on above: Performed By: #### C BCA, 4679-7, 2063-4, CMP, FEPR, 2532-0, 2276-4, 4-8, 2131-9, LLPH #### [facility] ([id number]) [address], [address] [place] [address] #### 23314-3, 9622-2 #### [facility] ([id number]) [address] [place] [address] 38860 MCH (RBC) [Entitic mass] 31.2 pg Normal 27-[address] [facility] Comment on above: Performed By: #### C BCA, 4679-7, 2064-4, CMP, FEPR, 2532-0, 2276-4, 2284-8, 2132-9, LLPH #### [facility] ([id number]) [address], [address] [place] [address] #### 77062-9, 9622-2 #### [facility] ([id number]) [address] [place] [address] 31314 MCHC (RBC) [Mass/Vol] 34.0 g/dL Normal 32-[address] [facility] Comment on above: Performed By: #### C BCA, 4679-7, 4-4, CMP, FEPR, 2532-0, 2276-4, 2284-8, 2131-9, LLPH #### [facility] ([id number]) [address], [address] [place] [address] #### 11261-8, 9622-2 #### [facility] ([id number]) [address] [place] [address] 74471 MCV (RBC) [Entitic vol] 92 fL Normal 80-[address] [facility] Comment on above: Performed By: #### C BCA, 4679-7, 2063-4, CMP, FEPR, 2532-0, 2276-4, 2284-8, 2-9, LLPH #### [facility] ([id number]) [address], [address] [place] [address] #### 84549-7, 9622-2 #### [facility] ([id number]) [address] [place] [address] 61563 Monocytes (Bld) [#/Vol] 0.6 10*3/uL Normal 0-0.[address] [facility] Comment on above: Performed By: #### C BCA, 4679-7, 4-4, CMP, FEPR, 2532-0, 2276-4, 2284-8, 2132-9, LLPH #### [facility] ([id number]) [address], [address] [place] [address] #### 50716-1, 9622-2 #### [facility] ([id number]) [address] [place] [address] 69127 Monocytes/100 WBC (Bld) 7.3 % Normal [facility] Comment on above: Performed By: #### C BCA, 4679-7, 2063-4, CMP, FEPR, 2532-0, 2276-4, 2284-8, 2131-9, LLPH #### [facility] ([id number]) [address], [address] [place] [address] #### 06523-1, 9622-2 #### [facility] ([id number]) [address] [place] [address] 30668 Neutrophils/100 WBC (Bld) 62.9 % Normal [facility] Comment on above: Performed By: #### C BCA, 4679-7, 2063-4, CMP, FEPR, 2532-0, 2276-4, 4-8, 9, LLPH #### [facility] ([id number]) [address], [address] [place] [address] #### 70310-1, 9622-2 #### [facility] ([id number]) [address] [place] [address] 32850 Platelet mean volume (Bld) [Entitic vol] 8.2 fL Normal 7-[address] [facility] Comment on above: Performed By: #### C BCA, 4679-7, 2063-4, CMP, FEPR, 2532-0, 2276-4, 2284-8, 2131-9, LLPH #### [facility] ([id number]) [address], [address] [place] [address] #### 95412-3, 9622-2 #### [facility] ([id number]) [address] [place] [address]8855 Platelets (Bld) [#/Vol] 424 10*3/uL Normal 150-[address] [facility] Comment on above: Performed By: #### C BCA, 4679-7, 4-4, CMP, FEPR, 2532-0, 2276-4, 2284-8, 2132-9, LLPH #### [facility] ([id number]) [address], [address] [place] [address] #### 25198-8, 9622-2 #### [facility] ([id number]) [address] [place] [address]69 RBC COUNT 4.31 X10E12/L Normal 3.80-5.[address] [facility] Comment on above: Performed By: #### C BCA, 4679-7, 4-4, CMP, FEPR, 2532-0, 2276-4, 2284-8, 2132-9, LLPH #### [facility] ([id number]) [address], [address] [place] [address] #### 55767-5, 9622-2 #### [facility] ([id number]) [address] [place] [address]007 WBC (Bld) [#/Vol] 8.1 10*3/uL Normal 4.0-11.0 [facility] Comment on above: Performed By: #### C BCA, 4679-7, 4-4, CMP, FEPR, 2532-0, 2276-4, 2284-8, 2132-9, LLPH #### [facility] ([id number]) [address] [facility] [facility], [address] [place] [address] #### 43463-7, 9622-2 #### [facility] ([id number]) [address] [place] [address]68 COMPREHENSIVE METABOLIC PANE Cyrus 08-02-2023 Albumin [Mass/Vol] 4.4 g/dL Normal 3.2-5.3 [facility] Comment on above: Performed By: #### C BCA, 4679-7, 4-4, CMP, FEPR, 2532-0, 2276-4, 2284-8, 2132-9, LLPH #### [facility] ([id number]) [address] [facility], [address] [address] [place] [address] #### 43106-9, 9622-2 #### [facility] ([id number]) [address] [place] [address] 51795 ALP [Catalytic activity/Vol] 58 U/L Normal 39-[address] [facility] Comment on above: Performed By: #### C BCA, 4679-7, 4-4, CMP, FEPR, 2532-0, 2276-4, 2284-8, 2132-9, LLPH #### [facility] ([id number]) [address] [place] [address], [address] [place] [address] #### 92360-6, 9622-2 #### [facility] ([id number]) [address] [place] [address] 47328 ALT [Catalytic activity/Vol] 21 U/L Normal 0-[address] [facility] Comment on above: Performed By: #### C BCA, 4679-7, 4-4, CMP, FEPR, 2532-0, 2276-4, 2284-8, 2132-9, LLPH #### [facility] ([id number]) [address] [place] [address], [address] [place] [address] #### 43223-9, 9622-2 #### [facility] ([id number]) [address] [place] [address] 50678 Anion gap [Moles/Vol] 10 mmol/L Normal 5-[address] [facility] Comment on above: Performed By: #### C BCA, 4679-7, 2063-4, CMP, FEPR, 2532-0, 2276-4, 2284-8, 2131-9, LLPH #### [facility] ([id number]) [address], [address] [place] [address] #### 09700-2, 9622-2 #### [facility] ([id number]) [address] [place] [address] 47093 AST [Catalytic activity/Vol] 23 U/L Normal 0-[address] [facility] Comment on above: Performed By: #### C BCA, 4679-7, 2063-10, CMP, FEPR, 2532-0, 2276-4, 2284-8, 2131-9, LLPH #### [facility] ([id number]) [address] [facility], [address] [place] [address] #### 68210-5, 9622-2 #### [facility] ([id number]) [address] [place] [address] 97725 Bilirubin [Mass/Vol] 0.4 mg/dL Normal 0.3-1.[address] [facility] Comment on above: Performed By: #### C BCA, 4679-7, 2063-4, CMP, FEPR, 2532-0, 2276-4, 2284-8, 2131-9, LLPH #### [facility] ([id number]) [address], [address] [place] [address] #### 42281-7, 9622-2 #### [facility] ([id number]) [address] [place] [address] 31035 Calcium [Mass/Vol] 9.3 mg/dL Normal 8.5-10.5 [facility] Comment on above: Performed By: #### C BCA, 4679-7, 2063-4, CMP, FEPR, 2532-0, 2276-4, 2284-8, 2132-9, LLPH #### [facility] ([id number]) [address], [address] [place] [address] #### 00122-5, 9622-2 #### [facility] ([id number]) [address] [place] [address] 68993 Chloride [Moles/Vol] 104 mmol/L Normal 98-[address] [facility] Comment on above: Performed By: #### C BCA, 4679-7, 2063-4, CMP, FEPR, 2532-0, 2276-4, 2284-8, 2131-9, LLPH #### [facility] ([id number]) [address] [facility], [address] [place] [address] #### 99169-3, 9622-2 #### [facility] ([id number]) [address] [place] [address] 76716 CO2 [Moles/Vol] 26 mmol/L Normal 22-[address] [facility] Comment on above: Performed By: #### C BCA, 4679-7, 2063-4, CMP, FEPR, 2532-0, 2276-4, 2284-8, 2131-9, LLPH #### [facility] ([id number]) [address], [address] [place] [address] #### 29441-1, 9622-2 #### [facility] ([id number]) [address] [place] [address] 77348 Creatinine [Mass/Vol] 0.93 mg/dL Normal 0.40-1.[address] [facility] Comment on above: Result Comment: METH OD TRACEABLE TO IDMS STANDARD Performed By: #### C BCA, 4679-7, 2063-4, CMP, FEPR, 2532-0, 2276-4, 2284-8, 2132-9, LLPH #### [facility] ([id number]) [address] [facility], [facility] [address] [place] [address] #### 38353-0, 9622-2 #### [facility] ([id number]) [address] [place] [address] GFR/1.73 sq M.predicted among non-blacks MDRD (S/P/Bld) [Vol rate/Area] 81 mL/min/{1.73_m2} Normal >[address] [facility] Comment on above: Result Comment: Reported eGFR is based on the CKD-EPI 2020 equation that does not use a race coefficient. Performed By: #### C BCA, 4679-7, 2063-10, CMP, FEPR, 2532-0, 2276-4, 4-8, 9, LLPH #### [facility] ([id number]) [address] [facility], [address] [address] #### 96744-6, 9622-2 #### [facility] ([id number]) [address] [place] [address] 02901 Glucose [Mass/Vol] 87 mg/dL Normal 65-99 [facility] Comment on above: Performed By: #### C BCA, 4679-7, 2063-10, CMP, FEPR, 2532-0, 2276-4, 4-8, 9, LLPH #### [facility] ([id number]) [address] [facility], [address] [place] [address] #### 38553-2, 9622-2 #### [facility] ([id number]) [address] [place] [address] 42436 Potassium [Moles/Vol] 3.7 mmol/L Normal 3.5-5.[address] [facility] Comment on above: Performed By: #### C BCA, 4679-7, 2064-4, CMP, FEPR, 2532-0, 2276-4, 2284-8, 2132-9, LLPH #### [facility] ([id number]) [address], [address] [place] [address] #### 50242-4, 9622-2 #### [facility] ([id number]) [address] [place] [address] 96981 Protein [Mass/Vol] 7.7 g/dL Normal 6.0-8.0 [facility] Comment on above: Performed By: #### C BCA, 4679-7, 2063-4, CMP, FEPR, 2532-0, 2276-4, 2284-8, 2131-9, LLPH #### [facility] ([id number]) [address], [address] [place] [address] #### 70650-4, 9622-2 #### [facility] ([id number]) [address] [place] [address] 49976 Sodium [Moles/Vol] 140 mmol/L Normal 134-146 [facility] Comment on above: Performed By: #### C BCA, 4679-7, 2063-4, CMP, FEPR, 2532-0, 2276-4, 2284-8, 2-9, LLPH #### [facility] ([id number]) [address], [address] [place] [address] #### 20925-1, 9622-2 #### [facility] ([id number]) [address] [place] [address] 65092 Urea nitrogen [Mass/Vol] 11 mg/dL Normal 5-[address] [facility] Comment on above: Performed By: #### C BCA, 4679-7, 4-4, CMP, FEPR, 2532-0, 2276-4, 2284-8, 2132-9, LLPH #### [facility] ([id number]) [address], [address] [place] [address] #### 28827-3, 9622-2 #### [facility] ([id number]) [address] [place] [address] 41759 ESR Photometric method (Bld) [Velocity]on 08-02-2023 ESR, ERYTHROCYTE SEDIMENTATION RATE 8 mm/h Normal 0-[address] [facility] Comment on above: Performed By: #### C BCA, 4679-7, 2063-4, CMP, FEPR, 2532-0, 2276-4, 2284-8, 2131-9, LLPH #### [facility] ([id number]) [address] [facility], [address] [place] [address] #### 05946-5, 9622-2 #### [facility] ([id number]) [address] [place] [address] 58110 FREE LIGHT CHAINSon 08-02-19 24 FREE KAYCEE/LAMBD RATIO 1.61 Normal 0.26-1.[address] [facility] Comment on above: Performed By: #### C BCA, 4679-7, 2063-10, CMP, FEPR, 2532-0, 2276-4, 2284-8, 2131-9, LLPH #### [facility] ([id number]) [address] [facility], [address] [place] [address] #### 36141-6, 9622-2 #### [facility] ([id number]) [address] [place] [address] 55923 FREE KAPPA LT CHAINS 2.81 mg/dL High 0.33-1.[address] [facility] Comment on above: Performed By: #### C BCA, 4679-7, 2063-4, CMP, FEPR, 2532-0, 2276-4, 2284-8, 2131-9, LLPH #### [facility] ([id number]) [address] [place] [address], [address] [place] [address] #### 20071-3, 9622-2 #### [facility] ([id number]) [address] [place] [address] 53649 FREE LAMBDA LT CHAINS 1.74 mg/dL Normal 0.57-2.[address] [facility] Comment on above: Performed By: #### C BCA, 4679-7, 2063-4, CMP, FEPR, 2532-0, 6-4, 2283-8, 9, LLPH #### [facility] ([id number]) [address] [place] [address], [address] [place] [address] #### 33658-0, 9622-2 #### [facility] ([id number]) [address] [place] [address] 29431 Insulin-like growth factor-I [Mass/Vol]on 08-02-2023 IGF 1 See Below Normal [facility] Comment on above: Result Comment: NOTE TEST RESULT FLAG UNIT REF.RANGE ---- Insulin Lik Gr Fac 1 175 ng/mL 80-277 Test Performed By: [facility] [employer] [address] [place] [address] Wine Merchant: Junie Morton III #[id number] Performed By: #### C BCA, 4679-7, 2063-4, CMP, FEPR, 2532-0, 6-4, 2283-8, 9, LLPH #### [facility] ([id number]) [address] [place] [address], [address] [place] [address] #### 20426-2, 9622-2 #### [facility] ([id number]) [address] [place] [address] 89865 LDH [Catalytic activity/Vol] on 08-02-2023 LDH 139 U/L Normal 100-[address] [facility] Comment on above: Performed By: #### C BCA, 4679-7, 2063-4, CMP, FEPR, 2532-0, 2276-4, 2284-8, 2132-9, LLPH #### [facility] ([id number]) [address] [place] [address], [address] [place] [address] #### 65838-0, 9622-2 #### [facility] ([id number]) [address] [place] [address] 08069 PROTIME AND INRon 08-02-2023 INR Coag (PPP) [Relative time] 0.9 {INR} Normal 0.8-1.[address] [facility] Comment on above: Performed By: #### C BCA, 4679-7, 2063-10, CMP, FEPR, 2532-0, 2276-4, 2284-8, 2131-9, LLPH #### [facility] ([id number]) [address] [place] [address], [address] [address] #### 88674-5, 9622-2 #### [facility] ([id number]) [address] [place] [address] 31509 PT Coag (PPP) [Time] 10.6 s Normal 9.8-13.[address] [facility] Comment on above: Result Comment: NEW REFERENCE RANGE Performed By: #### C BCA, 4679-7, 4, CMP, FEPR, 2532-0, 2276-4, 2284-8, 2132-9, LLPH #### [facility] ([id number]) [address] [place] [address], [address] [place] [address] #### 76409-8, 9622-2 #### [facility] ([id number]) [address] [place] [address] 28769 SERUM IMMUNOFIXATIONon 08-02 IgA [Mass/Vol] 191 mg/dL Normal 68-[address] [facility] Comment on above: Performed By: #### C BCA, 4679-7, 4-4, CMP, FEPR, 2532-0, 2276-4, 2284-8, 2132-9, LLPH #### [facility] ([id number]) [address] [facility], [address] [place] [address] #### 72808-8, 9622-2 #### [facility] ([id number]) [address] [place] [address] 81902 IgG [Mass/Vol] 1057 mg/dL Normal 635-[address] [facility] Comment on above: Performed By: #### C BCA, 4679-7, 2063-4, CMP, FEPR, 2532-0, 2276-4, 2284-8, 2132-9, LLPH #### [facility] ([id number]) [address] [facility], [address] [place] [address] #### 32704-5, 9622-2 #### [facility] ([id number]) [address] [place] [address] 20190 IgM [Mass/Vol] 72 mg/dL Normal 45-[address] [facility] Comment on above: Performed By: #### C BCA, 4679-7, 2063-4, CMP, FEPR, 2532-0, 2276-4, 2284-8, 2132-9, LLPH #### [facility] ([id number]) [address] [facility], [address] [place] [address] #### 98121-2, 9622-2 #### [facility] ([id number]) [address] [place] [address] 11447 IMMUNE PROFILE INTERP Unremarkable pattern and quantitation, no monoclonal bands. Normal [facility] Comment on above: Performed By: #### C BCA, 4679-7, 2063-4, CMP, FEPR, 2532-0, 2276-4, 2284-8, 9, LLPH #### [facility] ([id number]) [address], [address] [place] [address] #### 31829-9, 9622-2 #### [facility] ([id number]) [address] [place] [address] 74765 Somatotropin [Mass/Vol]on GROWTH HORMONE 0.963 ng/mL Normal 0.010-3.[address] [facility] Comment on above: Result Comment: This assay is calibrated to the WHO 2nd International Standard for Human Growth Hormone (98/754) Performed By: #### C BCA, 4679-7, 4, CMP, FEPR, 2532-0, 2276-4, 2283-8, 2132-03, LLPH #### [facility] ([id number]) [address], [address] [place] [address] #### 62241-1, 9622-2 #### [facility] ([id number]) [address] [place] [address] 76248 aPTT Coag (PPP) [Time]on aPTT Coag (Bld) [Time] 29 s Normal 26-[address] [facility] Comment on above: Result Comment: NEW REFERENCE RANGE Performed By: #### C BCA, 4679-7, 2063-4, CMP, FEPR, 2532-0, 2276-4, 2284-8, 9, LLPH #### [facility] ([id number]) [address], [address] [place] [address] #### 41641-3, 9622-2 #### [facility] ([id number]) [address] [place], [place] [address], [place] [address] MR ABDOMEN W WO CONTon 07-30 MR [...] Foss MD on 07/30/2023 9:11 AM Normal [facility] US PELVIC WITH TRANSVAGINALo n 07-25-2023 [...] Cohen MD on 07/25/2023 12:40 PM Normal [facility] CRP [Mass/Vol]on 07-20-2023 C REACTIVE PROTEIN 0.2 mg/dL Normal 0.000-0.7 [address] [facility] Comment on above: Performed By: #### C [facility], 2095-5, 2063-4, CMP, FEPR, 2532-0, 2276-4, 2284-8, 2131-9, LLPH #### [facility] ([id number]) [address] [place] [address], [address] [place] [address] #### 00690-4, 9622-2 #### [facility] ([id number]) [address] [facility] [place] [address] Calprotectin (Stl) [Mass/Mas s]on 07-20-2023 CALPROTECTIN STOOL See Below Normal [facility] Comment on above: Result Comment: NOTE TEST RESULT FLAG UNIT REF.RANGE ---- CALPROTECTIN, FECAL QUANTITATIVE 10.9 ug/g <50 CALPROTECTIN, FECAL INTERP Normal Normal On November 22, 2022, [employer] implemented a new fecal calprotectin method, the [employer] Calprotectin assay. For assistance with interpretation of results in patients undergoing serial monitoring, contact Client Services at [phone] or [phone] to discuss options, preferably within 7 days of issuing this report. Interpretation: <50.0 ug/g: Normal 50.0 ug/g - 120.0 ug/g: Borderline elevated. Re-evaluation in 4-6 weeks is recommended if clinically indicated. >120.0 ug/g: Elevated Test Performed By: [employer] [facility] [place] [address] Wine Merchant: Junie Morton III #[id number] Performed By: #### C BCA, 4679-7, 2063-4, CMP, FEPR, 2532-0, 2276-4, 2284-8, 2132-03, LLPH #### [facility] ([id number]) [address] [facility], [address] [place] [address] #### 96566-8, 9622-2 #### [facility] ([id number]) [address] [place] [address] 87102 Cancer Ag 19-9 Qnon 07-20-19 24 CA 19 9 32.0 U/mL Normal 0.0-35.[address] [facility] Comment on above: Result Comment: The method used for this test is Clarissa Wander DXI chemiluminescent immunoassay. Values obtained by different assay methods cannot be used interchangeably. Performed By: #### C BCA, 4679-7, 2063-4, CMP, FEPR, 2532-0, 2276-4, 2283-8, 2132-03, LLPH #### [facility] ([id number]) [address] [place] [address], [address] [place] [address] #### 97626-8, 9622-2 #### [facility] ([id number]) [address] [place] [address] 69549 HAV Ab IA Ql (S)on Anti Hep A IgG Negative Normal NEG [facility] Comment on above: Performed By: #### C ESTHER, 4679-7, 4, CMP, FEPR, 2532-0, 2276-4, 2283-8, 2132-03, LLPH #### [facility] ([id number]) [facility], [address] [place] [address] #### 84245-9, 9622-2 #### [facility] ([id number]) [address] [place] [address] 35004 HAV IgM IA Qlon 07-20-2023 HEPATITIS A IGM Non-Reactive Normal NRCT [facility] Comment on above: Performed By: #### C BCA, 4679-7, 2063-4, CMP, FEPR, 2532-0, 2276-4, 2283-8, 2132-03, LLPH #### [facility] ([id number]) [address] [place] [address], [address] [place] [address] #### 11268-0, 9622-2 #### [facility] ([id number]) [address] [place] [address] 77501 IgA [Mass/Vol]on 07-20-2023 CELIAC DISEASE SEROLOGY [place] SEE COMMENTS 07/21/2023 10:20 PM Normal [facility] Comment on above: Result Comment: NOTE Test Result Flag Unit RefValue Celiac Disease Serology [place] Immunoglobulin A (IgA), S 196 mg/dL 61 - 356 Celiac Disease Interpretation See Note See Comment: Negative serology. Celiac disease unlikely. However, approximately 10% of patients with celiac disease are seronegative. Also, patients who are already adhering to a gluten-free diet may be seronegative. If celiac disease is highly clinically suspected, consider HLA-DQ typing. Test Performed by: [facility] [address] [place] [address] Flatwork Washer: Pedro Mitchell M.D. Ph.D.; CLIA# [id number] Performed By: #### C BCA, 4679-7, 2063-10, CMP, FEPR, 2532-0, 2276-4, 4-8, 2131-9, [facility] #### [facility] ([id number]) [address] [place] [address], [address] [place] [address] #### 24410-0, 9622-2 #### [facility] ([id number]) [address] [place] [address] Laboratory comment Florian (Repo rt)on 07-20-2023 UNLISTED LAB TEST Sent to reference lab Normal [facility] Comment on above: Performed By: #### C BCA, 4679-7, 2064-4, CMP, FEPR, 2532-0, 2276-4, 2284-8, 2132-9, LLPH #### [facility] ([id number]) [address] [facility], [address] [place] [address] #### 26103-1, 9622-2 #### [facility] ([id number]) [address] [place] [address], FIRST [place] [place] [address] [place] [address] GENERIC ORDERon TEST NAME A1APP ALPHA 1 ANTITRYPSIN Normal [facility] TEST RESULT SEE COMMENTS 01:51 PM Abnormal [facility] Comment on above: Result Comment: NOTE Test Result Flag Unit RefValue Udtcy-4-Zimmkzmizba Phenotype MM bands A single M isoform is detected. In the context of a normal evbgt-6-yvnmomqfgjf concentration, this is consistent with an MM phenotype. ADDITIONAL INFORMATION Method: Isoelectric Focusing, This assay identifies the phenotype of the circulating fbonk-7-axlmiwqnodh (A1A) protein. If the patient is on replacement therapy or has been recently transfused, the phenotype will detect patient and replacement or transfused plasma A1A protein. This test also cannot detect a null allele which could be responsible for an A1A deficiency. Ceuak-0-Gmrdqdidjfv, S 216 H mg/dL 100 - 190 ADDITIONAL INFORMATION Method: Nephelometry Test Performed by: [facility] [address] [place] [address] Flat[employer] Washer: Pedro Mitchell M.D. Ph.D.; CLIA# [id number] Reference Lab Test IDon 07-[address] See Below Normal [facility] Comment on above: Result Comment: NOTE TEST RESULT FLAG UNIT REF.RANGE ---- Elastase-1 Concentration >800 ug/g >=200 Interpretation: <100 ug/g: Severe Exocrine Pancreatic Insufficiency 100-199 ug/g: Mild to Moderate Exocrine Pancreatic Insufficiency >=200 ug/g: Normal Elastase Interpretation Normal Normal Test Performed By: [facility] [employer] [address] [place] [address] Wine Merchant: Americo Flanagan III, M.D. CLIA #[id number] Performed By: #### C BCA, 4679-7, 2063-10, CMP, FEPR, 2532-0, 2276-4, 2284-8, 2131-9, LLPH #### [facility] ([id number]) [address] [place] [address], [address] [place] [address] #### 26403-5, 9622-2 #### [facility] ([id number]) [address] [place] [address], [place] [address] tTG IgA IA Qn (S)on 07-20-19 TTG AB IGA <1.2 Normal <4.0 (Negative) [facility] Comment on above: Result Comment: NOTE Test Performed by: [facility] [address] [place] [address] Flatwork Washer: Pedro Mitchell M.D. Ph.D.; CLIA# [id number] Performed By: #### C BCA, 4679-7, 4, CMP, FEPR, 2532-0, 2276-4, 2284-8, 2132-9, LLPH #### [facility] ([id number]) [address] [place] [address], [address] [place] [address] #### 28144-6, 9622-2 #### [facility] ([id number]) [address] [place] [address] 50830 POCT EKGon 07-19-2023 [facility] CBC AND AUTO DIFFon 07-07-19 ABSOLUTE BASOPHIL 0.1 X10E9/L Normal 0.0-0.2 [facility] Comment on above: Performed By: #### C BCA, 4679-7, 2063-4, CMP, FEPR, 2532-0, 2276-4, 2284-8, 2132-9, LLPH #### [facility] ([id number]) [address] [place] [address], [place] [address] #### 45626-5, 9622-2 #### [facility] ([id number]) [address] [place] [address] ABSOLUTE NEUTROPHIL 6.6 X10E9/L Normal 1.5-6.6 [facility] Comment on above: Performed By: #### C BCA, 4679-7, 4, CMP, FEPR, 2532-0, 2276-4, 2284-8, 2-9, LLPH #### [facility] ([id number]) [address] [facility], [address] [place] [address] #### 83618-1, 9622-2 #### [facility] ([id number]) [address] [place] [address] Basophils/100 WBC (Bld) 1.1 % Normal [facility] Comment on above: Performed By: #### C BCA, 4679-7, 2063-4, CMP, FEPR, 2532-0, 2276-4, 2284-8, 2132-9, LLPH #### [facility] ([id number]) [address] [place] [address], [address] [place] [address] #### 63211-6, 9622-2 #### [facility] ([id number]) [address] [place] [address] Eosinophils (Bld) [#/Vol] 0.1 10*3/uL Normal 0.0-0.[address] [facility] Comment on above: Performed By: #### C BCA, 4679-7, 2063-4, CMP, FEPR, 2532-0, 2276-4, 2284-8, 2131-9, LLPH #### [facility] ([id number]) [address] [facility], [address] [place] [address] #### 22159-4, 9622-2 #### [facility] ([id number]) [address] [place] [address] Eosinophils/100 WBC (Bld) 1.2 % Normal [facility] Comment on above: Performed By: #### C BCA, 4679-7, 2063-4, CMP, FEPR, 2532-0, 2276-4, 2284-8, 2131-9, LLPH #### [facility] ([id number]) [address], [address] [place] [address] #### 56985-6, 9622-2 #### [facility] ([id number]) [address] [place] [address] Erythrocyte distribution width (RBC) [Ratio] 12.6 % Normal 11.5-15.[address] [facility] Comment on above: Performed By: #### C BCA, 4679-7, 2063-4, CMP, FEPR, 2532-0, 2276-4, 2284-8, 2131-9, LLPH #### [facility] ([id number]) [address], [address] [place] [address] #### 47395-7, 9622-2 #### [facility] ([id number]) [address] [place] [address] Hematocrit (Bld) [Volume fraction] 38.1 % Normal 35-[address] [facility] Comment on above: Performed By: #### C BCA, 4679-7, 4-4, CMP, FEPR, 2532-0, 2276-4, 2284-8, 2132-9, LLPH #### [facility] ([id number]) [address] [facility], [address] [place] [address] #### 03948-2, 9622-2 #### [facility] ([id number]) [address] [place] [address] Hemoglobin (Bld) [Mass/Vol] 13.1 g/dL Normal 11.7-15.[address] [facility] Comment on above: Performed By: #### C BCA, 4679-7, 2063-4, CMP, FEPR, 2532-0, 2276-4, 2284-8, 2132-9, LLPH #### [facility] ([id number]) [address] [facility], [address] [place] [address] #### 34029-6, 9622-2 #### [facility] ([id number]) [address] [place] [address] Lymphocytes (Bld) [#/Vol] 1.7 10*3/uL Normal 1.0-3.[address] [facility] Comment on above: Performed By: #### C BCA, 4679-7, 2063-4, CMP, FEPR, 2532-0, 2276-4, 2284-8, 2132-9, LLPH #### [facility] [facility] ([id number]) [address] [place] [address], [address] [place] [address] #### 17172-7, 9622-2 #### [facility] ([id number]) [address] [place] [address] 97638 Lymphocytes/100 WBC (Bld) 18.5 % Normal [facility] Comment on above: Performed By: #### C ESTHER, 4679-7, 2063-4, CMP, FEPR, 2532-0, 2276-4, 4-8, 2131-9, LLPH #### [facility] ([id number]) [address], [address] [place] [address] #### 56189-8, 9622-2 #### [facility] ([id number]) [address] [place] [address] 68053 MCH (RBC) [Entitic mass] 31.5 pg Normal 27-[address] [facility] Comment on above: Performed By: #### C ESTHER, 4679-7, 2063-4, CMP, FEPR, 2532-0, 2276-4, 2283-8, 9, LLPH #### [facility] ([id number]) [address], [address] [place] [address] #### 21126-0, 9622-2 #### [facility] ([id number]) [address] [place] [address] 12838 MCHC (RBC) [Mass/Vol] 34.4 g/dL Normal 32-[address] [facility] Comment on above: Performed By: #### C ESTHER, 4679-7, 2063-10, CMP, FEPR, 2532-0, 2276-4, 2283-8, 2131-9, LLPH #### [facility] ([id number]) [address], [address] [place] [address] #### 45406-2, 9622-2 #### [facility] ([id number]) [address] [place] [address] 70927 MCV (RBC) [Entitic vol] 92 fL Normal 80-[address] [facility] Comment on above: Performed By: #### Bro SANTANA, 4679-7, 4-4, CMP, FEPR, 2532-0, 2276-4, 2284-8, 2-9, LLPH #### [facility] ([id number]) [address], [address] [place] [address] #### 94098-8, 9622-2 #### [facility] ([id number]) [address] [place] [address] 61998 Monocytes (Bld) [#/Vol] 0.6 10*3/uL Normal 0-0.[address] [facility] Comment on above: Performed By: #### C BCA, 4679-7, 2063-4, CMP, FEPR, 2532-0, 2276-4, 2284-8, 2131-9, LLPH #### [facility] ([id number]) [address] [facility], [address] [place] [address] #### 39967-1, 9622-2 #### [facility] ([id number]) [address] [place] [address] 98112 Monocytes/100 WBC (Bld) 6.7 % Normal [facility] Comment on above: Performed By: #### C BCA, 4679-7, 2063-4, CMP, FEPR, 2532-0, 2276-4, 2284-8, 2131-9, LLPH #### [facility] ([id number]) [address] [facility], [address] [place] [address] #### 25475-8, 9622-2 #### [facility] ([id number]) [address] [place] [address] 09310 Neutrophils/100 WBC (Bld) 72.5 % Normal [facility] Comment on above: Performed By: #### C BCA, 4679-7, 4-4, CMP, FEPR, 2532-0, 2276-4, 2284-8, 2132-9, LLPH #### [facility] ([id number]) [address], [address] [place] [address] #### 66024-1, 9622-2 #### [facility] ([id number]) [address] [place] [address] 97779 Platelet mean volume (Bld) [Entitic vol] 7.8 fL Normal 7-[address] [facility] Comment on above: Performed By: #### C BCA, 4679-7, 2063-4, CMP, FEPR, 2532-0, 2276-4, 2283-8, 2132-03, LLPH #### [facility] ([id number]) [address], [address] [place] [address] #### 76853-7, 9622-2 #### [facility] ([id number]) [address] [place] [address] 91660 Platelets (Bld) [#/Vol] 384 10*3/uL Normal 150-[address] [facility] Comment on above: Performed By: #### C BCA, 4679-7, 2063-4, CMP, FEPR, 2532-0, 2276-4, 2283-8, 2132-03, LLPH #### [facility] ([id number]) [address], [address] [place] [address] #### 69189-1, 9622-2 #### [facility] ([id number]) [address] [place] [address] 64445 RBC COUNT 4.17 X10E12/L Normal 3.80-5.[address] [facility] Comment on above: Performed By: #### C BCA, 4679-7, 2063-4, CMP, FEPR, 2532-0, 2276-4, 4-8, 2131-9, LLPH #### [facility] ([id number]) [address], [address] [place] [address] #### 97857-1, 9622-2 #### [facility] ([id number]) [address] [place] [address] 06201 WBC (Bld) [#/Vol] 9.1 10*3/uL Normal 4.0-11.0 [facility] Comment on above: Performed By: #### C BCA, 4679-7, 2063-4, CMP, FEPR, 2532-0, 2276-4, 2284-8, 2132-9, LLPH #### [facility] ([id number]) [address], [address] [place] [address] #### 59385-1, 9622-2 #### [facility] ([id number]) [address] [place] [address] 71127 COMPREHENSIVE METABOLIC PANE Cyrus 07-07-2023 Albumin [Mass/Vol] 4.2 g/dL Normal 3.2-5.3 [facility] Comment on above: Performed By: #### C BCA, 4679-7, 2063-4, CMP, FEPR, 2532-0, 2276-4, 2284-8, 2-9, LLPH #### [facility] ([id number]) [address], [address] [place] [address] #### 76222-6, 9622-2 #### [facility] ([id number]) [address] [place] [address] 56468 ALP [Catalytic activity/Vol] 79 U/L Normal 39-[address] [facility] Comment on above: Performed By: #### C BCA, 4679-7, 2063-4, CMP, FEPR, 2532-0, 2276-4, 2284-8, 2132-9, LLPH #### [facility] ([id number]) [address], [address] [place] [address] #### 39267-8, 9622-2 #### [facility] ([id number]) [address] [place] [address] 34979 ALT [Catalytic activity/Vol] 36 U/L High 0-[address] [facility] Comment on above: Performed By: #### C BCA, 4679-7, 2064-4, CMP, FEPR, 2532-0, 2276-4, 2284-8, 2132-9, LLPH #### [facility] ([id number]) [address], [address] [place] [address] #### 53019-8, 9622-2 #### [facility] ([id number]) [address] [place] [address] 38168 Anion gap [Moles/Vol] 9 mmol/L Normal 5-[address] [facility] Comment on above: Performed By: #### C BCA, 4679-7, 4-4, CMP, FEPR, 2532-0, 2276-4, 2284-8, 2132-9, LLPH #### [facility] ([id number]) [address] [facility], [address] [place] [address] #### 78876-6, 9622-2 #### [facility] ([id number]) [address] [place] [address] 00779 AST [Catalytic activity/Vol] 33 U/L Normal 0-[address] [facility] Comment on above: Performed By: #### C BCA, 4679-7, 4-4, CMP, FEPR, 2532-0, 2276-4, 2284-8, 2132-9, LLPH #### [facility] ([id number]) [address], [address] [place] [address] #### 22406-9, 9622-2 #### [facility] ([id number]) [address] [place] [address] 21339 Bilirubin [Mass/Vol] 0.4 mg/dL Normal 0.3-1.[address] [facility] Comment on above: Performed By: #### C BCA, 4679-7, 2063-4, CMP, FEPR, 2532-0, 2276-4, 2284-8, 2132-9, LLPH #### [facility] ([id number]) [address] [facility], [address] [place] [address] #### 34853-4, 9622-2 #### [facility] ([id number]) [address] [place] [address] 55098 Calcium [Mass/Vol] 9.0 mg/dL Normal 8.5-10.5 [facility] Comment on above: Performed By: #### C BCA, 4679-7, 2063-4, CMP, FEPR, 2532-0, 2276-4, 2284-8, 2131-9, LLPH #### [facility] ([id number]) [address] [facility], [address] [place] [address] #### 92368-8, 9622-2 #### [facility] ([id number]) [address] [place] [address] 43899 Chloride [Moles/Vol] 101 mmol/L Normal 98-[address] [facility] Comment on above: Performed By: #### C BCA, 4679-7, 2063-4, CMP, FEPR, 2532-0, 2276-4, 2284-8, 2-9, LLPH #### [facility] ([id number]) [address] [facility], [address] [place] [address] #### 47943-2, 9622-2 #### [facility] ([id number]) [address] [place] [address] 67036 CO2 [Moles/Vol] 28 mmol/L Normal 22-[address] [facility] Comment on above: Performed By: #### C BCA, 4679-7, 4-4, CMP, FEPR, 2532-0, 2276-4, 2284-8, 2131-9, LLPH #### [facility] ([id number]) [address] [place] [address], [facility] [address] [place] [address] #### 34379-3, 9622-2 #### [facility] ([id number]) [address] [place] [address] 69622 Creatinine [Mass/Vol] 1.05 mg/dL High 0.40-1.[address] [facility] Comment on above: Result Comment: METH OD TRACEABLE TO IDMS STANDARD Performed By: #### C BCA, 4679-7, 2063-4, CMP, FEPR, 2532-0, 2276-4, 4-8, 9, LLPH #### [facility] ([id number]) [address] [place] [address], [address] [address] #### 63992-9, 9622-2 #### [facility] ([id number]) [address] [place] [address] 67969 GFR/1.73 sq M.predicted among non-blacks MDRD (S/P/Bld) [Vol rate/Area] 70 mL/min/{1.73_m2} Normal >[address] [facility] Comment on above: Result Comment: Reported eGFR is based on the CKD-EPI 2020 equation that does not use a race coefficient. Performed By: #### C BCA, 4679-7, 2063-4, CMP, FEPR, 2532-0, 2276-4, 2284-8, 9, LLPH #### [facility] ([id number]) [address] [place] [address], [address] [place] [address] #### 39096-9, 9622-2 #### [facility] ([id number]) [address], [place] [address] Glucose [Mass/Vol] 138 mg/dL High 65-99 [facility] Comment on above: Performed By: #### C BCA, 4679-7, 2063-4, CMP, FEPR, 2532-0, 2276-4, 2284-8, 2131-9, LLPH #### [facility] ([id number]) [address], [address] [place] [address] #### 03942-3, 9622-2 #### [facility] ([id number]) [address] [place] [address] 72865 Potassium [Moles/Vol] 3.4 mmol/L Low 3.5-5.[address] [facility] Comment on above: Performed By: #### C BCA, 4679-7, 2063-4, CMP, FEPR, 2532-0, 2276-4, 4-8, 2131-9, LLPH #### [facility] ([id number]) [address], [address] [place] [address] #### 83781-0, 9622-2 #### [facility] ([id number]) [address] [place] [address] 58236 Protein [Mass/Vol] 6.9 g/dL Normal 6.0-8.0 [facility] Comment on above: Performed By: #### C BCA, 4679-7, 2063-4, CMP, FEPR, 2532-0, 2276-4, 4-8, 2131-9, LLPH #### [facility] ([id number]) [address], [address] [place] [address] #### 82946-6, 9622-2 #### [facility] ([id number]) [address] [place] [address] 59267 Sodium [Moles/Vol] 138 mmol/L Normal 134-146 [facility] Comment on above: Performed By: #### C BCA, 4679-7, 4-4, CMP, FEPR, 2532-0, 2276-4, 2284-8, 2132-9, LLPH #### [facility] ([id number]) [address] [place] [address], [address] [place] [address] #### 05242-9, 9622-2 #### [facility] ([id number]) [address] [place] [address] 77849 Urea nitrogen [Mass/Vol] 13 mg/dL Normal 5-[address] [facility] Comment on above: Performed By: #### C BCA, 4679-7, 4-4, CMP, FEPR, 2532-0, 2276-4, 2284-8, 2-9, LLPH #### [facility] ([id number]) [address] [place] [address], [address] [address] #### 60552-5, 9622-2 #### [facility] ([id number]) [address] [place] [address] 45008 Ceruloplasmin [Mass/Vol]on 0 07-07-2023 CERULOPLASMIN 31 mg/dL Normal 18-[address] [facility] Comment on above: Performed By: #### C BCA, 4679-7, 4-4, CMP, FEPR, 2532-0, 2276-4, 2284-8, 2-9, LLPH #### [facility] ([id number]) [address] [place] [address], [address] [place] [address] #### 18834-5, 9622-2 #### [facility] ([id number]) [address] [place] [address] 17455 Clinical Pathology Blood Sme ar Reviewon 07-07-2023 Clinical Pathology Blood Smear Review Normal [facility] Comment on above: Result Comment: [facility] [address] [place] [address]68 Clinical Pathology Report Patient Name:KALEN PLAZA:1985 (Age: 37)Gender:FTaken:07/07/2023eported:07/11/2023hysician(s):Barbara Cabrera, Channing Homey To: Rec. #:[id number]: #[id number] Final Pathologic Diagnosis Peripheral blood smear: Essentially unremarkable peripheral blood smear. Report Electronically Signed Out sps/07/11/2023Desiree Santos MD Interpretation performed at [facility], [address] [place] [address], License number: [id number]. Clinical History D72.829 BLOOD SMEAR EVALUATION CBC [...] Received Blood Smear Review Fee Codes(s): 1; 40387 Copper [Mass/Vol]on 07-07-19 24 COPPER 115 ug/dL Normal 80-[address] [facility] Comment on above: Result Comment: NOTE This test was developed and its performance characteristics determined by [facility]'s [place] [facility] [place] ([facility] It has not been cleared or approved by the FDA. -[facility] is regulated under CLIA as qualified to perform high-complexity testing. This test is used for clinical purposes. It should not be regarded as investigational or for research. Test Performed By: [facility] [employer] [address] [place] [address] Wine Merchant: Americo Flanagan III, M.D. CLIA #[id number] Performed By: #### C BCA, 4679-7, 2064-4, CMP, FEPR, 2532-0, 7806-4, 2284-8, 2-9, LLPH #### [facility] ([id number]) [address] [facility], [facility] [address] [place] [address] #### 88597-7, 9622-2 #### [facility] ([id number]) [address] [place] [address] 58576 FERRITINon 07-07-2023 Ferritin [Mass/Vol] 28 ng/mL Normal 11-307 [facility] Comment on above: Performed By: #### C BCA, 4679-7, 2063-4, CMP, FEPR, 2532-0, 2276-4, 2284-8, 2131-9, LLPH #### [facility] ([id number]) [address] [facility], [address] [address] #### 30256-8, 9622-2 #### [facility] ([id number]) [address] [place] [address] 89363 FLOW CYTOMETRYon 07-07-2023 FLOW CYTOMETRY SEE SEPARATE REPORT, REVIEWED BY PATHOLOGIST Normal [facility] Comment on above: Performed By: #### C BCA, 4679-7, 2063-4, CMP, FEPR, 2532-0, 2276-4, 2284-8, 2131-9, LLPH #### [facility] ([id number]) [address] [facility], [address] [address] #### 00060-4, 9622-2 #### [facility] ([id number]) [address] [place] [address] 74987 Folate [Mass/Vol]on 07-07-19 24 FOLIC ACID >25.0 Normal >5.[address] [facility] Comment on above: Result Comment: NEW REFERENCE RANGE Performed By: #### C BCA, 4679-7, 4-4, CMP, FEPR, 2532-0, 2276-4, 2284-8, 2132-9, LLPH #### [facility] ([id number]) [address], [address] [place] [address] #### 95381-4, 9622-2 #### [facility] ([id number]) [address] [place] [address] 34137 IRON PROFILEon 07-07-2023 Iron [Mass/Vol] 111 ug/dL Normal 50-[address] [facility] Comment on above: Performed By: #### C BCA, 4679-7, 2063-4, CMP, FEPR, 2532-0, 2276-4, 2284-8, 2132-03, LLPH #### [facility] ([id number]) [address], [address] [place] [address] #### 41373-8, 9622-2 #### [facility] ([id number]) [address] [place] [address] 46151 IRON BINDING 325 ug/dL Normal 250-[address] [facility] Comment on above: Performed By: #### C BCA, 4679-7, 2063-4, CMP, FEPR, 2532-0, 2276-4, 4-8, 2132-03, LLPH #### [facility] ([id number]) [address], [address] [place] [address] #### 57356-1, 9622-2 #### [facility] ([id number]) [address] [place] [address] 36708 IRON SATURATION 34 % SATURATION Normal 15-50 [facility] Comment on above: Performed By: #### C BCA, 4679-7, 2063-4, CMP, FEPR, 2532-0, 2276-4, 2284-8, 9, LLPH #### [facility] ([id number]) [address], [address] [place] [address] #### 48550-5, 9622-2 #### [facility] ([id number]) [address] [facility] [place] [address] LDH [Catalytic activity/Vol] on 07-07-2023 LDH 159 U/L Normal 100-[address] [facility] Comment on above: Performed By: #### C BCA, 4679-7, 2064-4, CMP, FEPR, 2532-0, 2276-4, 2284-8, 2132-9, LLPH #### [facility] ([id number]) [address] [place] [address], [address] [place] [address] #### 05393-8, 9622-2 #### [facility] ([id number]) [address] [place] [address] 85884 Narrative diagnostic report Molgen Florian (Bld/Tiss) [Interp]on 07-07-2023 BCR/ABL PCR w/Reflex SEE COMMENTS 07/11/2023 03:25 PM Normal [facility] Comment on above: Result Comment: NOTE Test Result Flag Unit RefValue BCR/ABL1 Reflex, Qual/Quant Specimen Type EDTA WHOLE BLOOD BCR/ABL1 Reflex Result see interpretation Interpretation See Note Peripheral blood, BCR/ABL1 mRNA analysis, qualitative: Negative. No BCR/ABL1 mRNA transcripts were detected. Method summary: The presence or absence of BCR/ABL1 mRNA transcripts was evaluated using a qualitative, reverse container shop welder PCR-based assay. The assay detects nearly all published and theoretical BCR/ABL1 fusion forms including the common e13/e14-a2 (p210) and e1-a2 (p190) transcripts, as well as other rarer variants (e.g. e19-a2 (p230), e13/e14-a3, e1-a3, etc.). The limit of detection for this assay is 0.1%. Please contact the lab at [phone] with questions or if additional testing is required. See [facility] Test Catalog for additional method details. Signing Pathologist: Jeannette Hoffman M.D. ADDITIONAL INFORMATION This test was developed and its performance characteristics determined by [facility] in a manner consistent with CLIA requirements. This test has not been cleared or approved by the U.S. Food and Drug Administration. Test Performed by: [facility] - [address] [address] Flat[place] Washer: Pedro Mitchell M.D. Ph.D.; CLIA# [id number] Performed By: #### C BCA, 4679-7, 2064-4, CMP, FEPR, 2532-0, 2276-4, 2284-8, 2132-9, LLPH #### [facility] ([id number]) [address] [place] [address] [address] [place] [address] #### 81744-9, 9622-2 #### [facility] ([id number]) [address] [place] [address], [place] [address] comment (Bld) [Interp]on 07-07-2023 STAFF REVIEW NOTE Normal [facility] Comment on above: Result Comment: [facility] [address] [place] [address] Clinical Pathology Report Patient Name:KALEN PLAZA:1985 (Age: 37)Gender:FTaken:4Reported:07/11/2023hysician(s):Barbara Cabrera, Channing Homey To: Rec. #:[id number]: #[id number] Final Pathologic Diagnosis Peripheral blood smear: Essentially unremarkable peripheral blood smear. Report Electronically Signed Out sps/07/11/2023Desiree Santos MD Interpretation performed at [address], [place] [address], License number: [id number]. Clinical History D72.829 BLOOD SMEAR EVALUATION CBC [...] Received Blood Smear Review Fee Codes(s): 1; 23958 Phytonadione [Mass/Vol]on VITAMIN K1 0.56 nmol/L Normal 0.22-4.[address] [facility] Comment on above: Result Comment: NOTE INTERPRETIVE INFORMATION: Vitamin K1, Serum Vitamin K concentration is reported as nanomoles per liter (nmol/L). To convert concentration to nanograms per milliliter (ng/mL), multiply the result by 0.45. This test was developed and its performance characteristics determined by [employer]. It has not been cleared or approved by the [place] Food and Drug Administration. This test was performed in a CLIA certified laboratory and is intended for clinical purposes. Performed By: [facility] [address] [place] [address] Wine Merchant: Fan Cordoba MD, PhD CLIA Number: [id number] Performed By: #### C BCA, 4679-7, 4-4, CMP, FEPR, 2532-0, 2276-4, 4-8, 2131-9, LLPH #### [facility] ([id number]) [address] [place] [address], [address] [place] [address] #### 50278-5, 9622-2 #### [facility] ([id number]) [address] [place] [address], [place] [address] Reticulocytes/100 RBC (Bld)o n 07-07-2023 RETICULOCYTE COUNT 0.6 % Normal 0.4-2.2 [facility] Comment on above: Performed By: #### C BCA, 4679-7, 2064-4, CMP, FEPR, 2532-0, 2276-4, 2284-8, 2132-9, LLPH #### [facility] ([id number]) [address] [facility], [address] [place] [address] #### 70631-4, 9622-2 #### [facility] ([id number]) [address] [facility] [place] [address] Surgical Pathologyon 024 Surgical Pathology Normal [facility] Comment on above: Result Comment: [facility] [place], [place] [address] Flow Cytometry Patient Name:KALEN PLAZAAccession #:[id number]. Rec. #:[id number]:[facility] FrTaken:4DOB:1985 (Age: 37)Location:LAB ([facility]) Received:07/08/2023Gender: FBill. Type:Outreach (E)Reported:Priority:RBilling #:[id number] Class:OFC Special Procedure OnlyPhysician(s): Physician Unknown Copy To: Specimen(s) Received Blood for Flowcytometry Status: Signed Out Interpretation Normal peripheral blood immunophenotyping study. Flow cytometric analysis of the peripheral blood leukocytes demonstrates mature hematolymphoid elements. Blasts are not increased on CD45/side scatter analysis or CD34 staining, immature cells are inconspicuous, and aberrant patterns of antigen expression are not seen. Constable on the lymphoid population demonstrates a mixed population of phenotypically unremarkable T-cells, natural killer cells, and polyclonal B-cells, without a detectable monoclonal population. Immunophenotyping antibodies tested: CD2, CD3, CD4, CD5, CD7, CD8, CD10, CD13, CD16, CD19, CD20, CD23, CD33, CD34, CD38, CD43, CD45, CD56, CD117, CD123, CD138, [place], and Lambda. Immunophenotyping Comment: Immunophenotyping has been used in this diagnostic evaluation. This test was developed and its performance characteristics determined by the [facility] Clinical Laboratories Department. It has not [...] perform high-complexity clinical testing. Electronically Signed Out 07/08/2023 Marcus Monsalve MD VITAMIN B12on 07-07-2023 Cobalamin (Vitamin B12) [Mass/Vol] 670 pg/mL Normal 180-[address] [facility] Comment on above: Performed By: #### C BCA, 4679-7, 4-4, CMP, FEPR, 2532-0, 2276-4, 2284-8, 2132-9, LLPH #### [facility] ([id number]) [address] [place] [address], [address] [place] [address] #### 10420-9, 9622-2 #### [facility] ([id number]) [address] [place] [address], [place] [address] Ambulatory Visit Summaryon 07-23-2022 Ambulatory Visit Summary KALEN PLAZA :1985 Visit Date:05/23/2023 Ambulatory Visit Instructions Your Diagnosis Recurrent UTI Tests Performed Urnls Dip Stick Auto w/o Microscopy POC 69149 Your Care Team Attending Physician - FIDELINA [...] SNOW, Mauricio Pineda Where: [facility] Auth for Release of Medical Recordson 05-19-2023 Auth for Release of Medical Records [id number]#1.00TIFF Normal [facility] Consultation Noteon 05-17-20 Consultation Note [id number]#1.00TIFF [facility] Transfer Inon 05-12-2023 Transfer In [id number]#1.00TIFF [facility] PAP ACOG PANEL 2: 30 to 65on 07-16-2022 . . Normal [facility] Comment on above: Result Comment: Perf ormed at: WB Performed By: #### [id number] #### [facility] [address] [address] [address] Eri Bright Age Gdln ACOG Testing 30-65 Normal [facility] Comment on above: Performed By: #### [id number] #### [facility] [facility] [address] [address] [address] Eri Bright DIAGNOSIS: Comment Normal [facility] Comment on above: Result Comment: NEGA TIVE FOR INTRAEPITHELIAL LESION OR MALIGNANCY. Performed at: WB Performed By: #### 4 [id number] #### [facility] [address] [address] [address] Eri Bright HPV Aptima Negative Normal Negative [facility] Comment on above: Result Comment: This nucleic acid amplification test detects fourteen high-risk HPV types (16,18,31,33,35,39,45,51,52,56,58,59,66,68) without differentiation. Performed at: =G Performed By: #### 4 [id number] #### [facility] [address] [address] [address] Eri Bright HPV Genotype Reflex Comment Normal [facility] Comment on above: Result Comment: Crit eria not met, HPV Genotype not performed. Performed at: WB Performed By: #### 4 [id number] #### [facility] [address] [place] [address] Dr. Eri Bright Methodology: Comment [facility] Comment on above: Result Comment: This liquid based ThinPrep(R) pap test was screened with the use of an image guided system. Performed at: WB Performed By: #### 4 [id number] #### [facility] [address] [place] [address] Dr. Eri Bright Note: Comment Normal [facility] Comment on above: Result Comment: The Pap smear is a screening test designed to aid in the detection of premalignant and malignant conditions of the uterine cervix. It is not a diagnostic procedure and should not be used as the sole means of detecting cervical cancer. Both false-positive and false-negative reports do occur. . Performed at: WB Performed By: #### 4 [id number] #### [facility] [address] [place] [address] Dr. Eri Bright Performed by: Comment Normal [facility] Comment on above: Result Comment: Kayy Stone Telegraph And Teletype Operator (ASCP) Performed at: WB Performed By: #### 4 [id number] #### [facility] [address] [place] [address] Dr. Eri Bright Specimen adequacy: Comment [facility] Comment on above: Result Comment: Sati sfactory for evaluation. Endocervical and/or squamous metaplastic cells (endocervical component) are present. Performed at: WB Performed By: #### 4 [id number] #### [facility] [address] [place] [address] Dr. Eri Bright CULTURE URINEon 05-05-2022 CULTURE URINE Culture Observations : NO GROWTH. Normal [facility] Comment on above: Performed By: #### U RCX #### [facility] [address] [place] [address] Dr. 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 Though it is not easy, more than half of all adult smokers have quit. We encourage you to write down all the reasons you should quit smoking and set a quit date for yourself. Ask us how we can help. You may also call 2-526-KRNQ-NOW for free resources and assistance.; Status:Complete - Retrospective Authorization; Done: [id number] Tobacco Use Screening; Status:Complete; Done: [id number] Patient Instructions Please bring all medicines, vitamins, [...] primary or secondary to followed by local hereditary cancer program coordinator Plan 1. I advised the patient to [...] 1 TABLET DIRECTED. Vitamin D3 50 MCG (1999 UT) Oral TabletTake 1 tablet daily Patient [...] VITALSon 02-24-2022 Adult depression screening assessment No [facility] SportsCstr-Sandu joyce 250 DO Work Phone: Tobacco use status CPHS a) Yes [facility] Heart-Sandu joyce 250 DO Work Phone: PHQ-2 VITALS Yes [facility] joyce 250 DO Work Phone: Outside Recordson 07-06-2017 Outside Records [id number] [facility] Coding Summaryon 04-12-2017 Coding Summary CODING DATE: [facility] STATUS: Home PAYOR: Medicaid HMO ADMIT DX: [...] Juany Szymanski Date Saved: 04/12/2017 07:06 am [facility] Coding Summary CODING DATE: 017 [facility] STATUS: Eloped PAYOR: Medicaid HMO ADMIT DX: [...] Juany Szymanski Date Saved: 04/12/2017 07:06 am [facility] C Urineon 04-01-2017 C Urine Urine Culture ordere d as a result of parameters set on specific urine dip and urine microsopic results. 60,000 cfu/ml Mixed skin, or urogenital allan. Clinically insignificant Normal [facility] Comment on above: Performed By: #### 3 [id number], [id number], [id number] ####[facility] (DEFAULT)[address] [place] [address] ED Clinical Summaryon 2016 ED Clinical Summary [facility] - Emergency [address] [id number] ed Clinical SummaryPERSON INFORMATIONName: KALEN PLAZA Age: 31 Years Sex: FEMALEDOB: [birth year] MRN: Acct#:Visit Reason: Pelvic pain; Pelvic pain; PELVIC PAIN Arrival:03/30/17 22:14:00 Discharge: 03/30/17 23:30:00LOS: 000 01:16 Check In: 03/30/17 22:14:00 Checkout:03/30/17 23:30:00Address[facility] [address]DKN: Provider, NonePROVIDER INFORMATIONProvider Role Assigned UnassignedJodee Martinez ED Nurse 03/30/17 22:17:20Tayo Smith DO ED Provider 03/30/17 22:50:26VITALS INFORMATIONVital Sign Triage LatestTemperature TympanicTemperature Temporal ArteryPulse Rate 111 bpm 111 bpmO2 Sat 100 % 100 %Respiratory Rate 20 br/min 20 br/minBlood Pressure 107 mmHg/79 mmHg 107 mmHg/79 mmHgMEDICAL INFORMATIONMedications Given:Allergy Information:No Known Medication AllergiesPHYSICIAN DOCUMENTATIONDISCHARGE INFORMATION:Discharge Disposition: ElopedDischarge Location: HomePATIENT EDUCATION INFORMATIONInstructions:Follo w-Up:DIAGNOSIS:Pain pelvicComment: [facility] ED Note - Physicianon 2016 ED Note - Physician Patient: CONCHITA PLAZA : 31 years Sex: FEMALE : [birth year]Associated Diagnoses: Pain pelvicAuthor: Tayo Smith DOBasic InformationTime seen: Date & time 03/30/17 [...] no ambulatory distress. .Impression and PlanDiagnosisPain pelvic ([id number] R10.2, Discharge, Medical)PlanCondition: Departed without completing treatment: [...] on: 03/31/2017 01:54 EDT] Tayo Smith DO [facility] ED Note-Nursingon 03-31-2017 ED Note-Nursing Patient leaves after speaking with doctor. Doctor Sarah states he would give her a shot of toradol for pain and she did not think that would help her pain. Patient leaves with boyfriend. No further needs. [facility] ED Note-Nursing Urine sent to lab. Michoacano Smith in to see patient. [facility] ED Note-Nursing Patient arrives with c/o right sided pelvic pain that started today with the start of her menstrual cycle. Patient states history of endometriosis. Pain 10/10. Patient took 3 percocet and 2 vicodin this morning with no relief. Vitals stable. Informed doctor will be in to see her. No furt her needs. Normal [facility] ED Patient Education Noteon 03-31-2017 ED Patient Education Note Education Materials Normal [facility] ED Patient Summaryon 017 ED Patient Summary [facility] - Emergency [address] [place] [address] pATIENT DISCHARGE INSTRUCTIONSPatient InformationName: KALEN PLAZA Age: 31 YearsDate of : [birth year]MRN: [id number] For Visit: Pelvic pain; Pelvic pain; PELVIC PAINArrival Time: 03/30/17 22:14:00Phone: Primary Care Physician: Provider, NoneAttending Physician: Tayo Smith DOComment:Visit Diagnosis:Diagnoses This Visit Pain pelvic (R10.2) Pelvic pain ([id number]) Pelvic pain ([id number])If you received any narcotics, sedation, or any [...] and treatment you received today in the [facility] Emergency Department were for an urgent problem and are not intended as complete care. It is important for you to follow up with a doctor, nurse practitioner, or physician?s senior agricultural assistant for ongoing care. If your symptoms become [...] number so we can reach you if necessary.[facility] Emergency Department has provided you with a complete list of medications post discharge. Please inform your webmethods consultant/provider of your visit and for further instruction [...] the Answerwww.cdc.gov/getsmart GET SMART Know When Antibiotics Millicent.S Department of Health and Human ServicesThe University Of Toledo Medical Centerers for Disease Control and Prevention March 2014 [facility] Test Urine 1on U Preg Negative [facility] Comment on above: Performed By: #### 3 [id number], [id number], [id number], [id number] ####[facility] (DEFAULT)[address] [place] [address] U Preg Internal Control Pass [facility] Comment on above: Performed By: #### 3 [id number], [id number], [id number], [id number] ####[facility] (DEFAULT)[address] [place] [address] 14417 UA [id number] 03-31-2017 UA Bacteria 1+ [facility] Comment on above: Order Comment: Urina lysis Microscopic order added on by 27 bards Expert Rules system. Performed By: #### 3 [id number], [id number], [id number], [id number] ####[facility] (DEFAULT)[address] [place] [address] 73742 UA Comment. Clue Cells Seen [facility] Comment on above: Order Comment: Urina lysis Microscopic order added on by 27 bards Expert Rules system. Performed By: #### 3 [id number], [id number], [id number], [id number] ####[facility] (DEFAULT)[address] [place] [address]3741 UA Squam Epi Moderate [facility] Comment on above: Order Comment: Urina lysis Microscopic order added on by 27 bards Expert Rules system. Performed By: #### 3 [id number], [id number], [id number], [id number] ####[facility] (DEFAULT)[address] [place] [address] 43531 UA WBC 0-2 [facility] Comment on above: Order Comment: Urina lysis Microscopic order added on by 27 bards Expert Rules system. Performed By: #### 3 [id number], [id number], [id number], [id number] ####[facility] (DEFAULT)[address] [place] [address]76 Urine, erythrocytes 0-5 Normal [facility] Comment on above: Order Comment: Urina lysis Microscopic order added on by Discern Expert Rules system. Performed By: #### 3 [id number], [id number], [id number], [id number] ####[facility] (DEFAULT)[address] [place] [address] 28921 UA w Culture if Ind Standard on 03-31-2017 Breakpoint UA Normal [facility] Comment on above: Performed By: #### 3 [id number], [id number], [id number], [id number] ####[facility] (DEFAULT)[address] [place] [address] Culture? Indicated Invalid Interpretation Code [facility] Comment on above: Performed By: #### 3 [id number], [id number], [id number], [id number] ####[facility] (DEFAULT)[address] [place] [address] Micro? Indicated Invalid Interpretation Code [facility] Comment on above: Performed By: #### 3 [id number], [id number], [id number], [id number] ####[facility] (DEFAULT)[address] [place] [address] 99952 UA Bilirubin Negative Normal [facility] Comment on above: Performed By: #### 3 [id number], [id number], [id number], [id number] ####[facility] (DEFAULT)[address] [place] [address] 71053 UA Blood TRACE Abnormal NEGATIVE [facility] Comment on above: Performed By: #### 3 [id number], [id number], [id number], [id number] ####[facility] (DEFAULT)[address] [place] [address] 62262 UA Clarity SL CLOUDY Abnormal CLEAR [facility] Comment on above: Performed By: #### 3 [id number], [id number], [id number], [id number] ####[facility] (DEFAULT)[address] [place] [address] 08759 UA Leuk Est Negative Normal NEGATIVE [facility] Comment on above: Performed By: #### 3 [id number], [id number], [id number], [id number] ####[facility] (DEFAULT)[address] [place] [address] 16933 UA Nitrite Negative Normal NEGATIVE [facility] Comment on above: Performed By: #### 3 [id number], [id number], [id number], [id number] ####[facility] (DEFAULT)[address] [place] [address] 98246 UA pH 6.0 Invalid Interpretation Code 5-8 [facility] Comment on above: Performed By: #### 3 [id number], [id number], [id number], [id number] ####[facility] (DEFAULT)[address] [place] [address] 70342 UA Protein Negative Normal NEGATIVE [facility] Comment on above: Performed By: #### 3 [id number], [id number], [id number], [id number] ####[facility] (DEFAULT)[address] [place] [address] 58982 UA Spec Grav <=1.005 Invalid Interpretation Code 1.001-1.[address] [place] [address] Comment on above: Performed By: #### 3 [id number], [id number], [id number], [id number] ####[facility] (DEFAULT)[address] [place] [address] 70588 UA Urobilinogen 0.2 mg/dL Normal 0.2-1.0 [facility] Comment on above: Performed By: #### 3 [id number], [id number], [id number], [id number] ####[facility] (DEFAULT)[address] [place] [address] 25890 Urine Source Clean Catch Normal [facility] Comment on above: Performed By: #### 3 [id number], [id number], [id number], [id number] ####[facility] (DEFAULT)[address] [place] [address] 85065 Urine, color YELLOW Invalid Interpretation Code [facility] Comment on above: Performed By: #### 3 [id number], [id number], [id number], [id number] ####[facility] (DEFAULT)[address] [place] [address] Urine, glucose Negative Invalid Interpretation Code [facility] Comment on above: Performed By: #### 3 [id number], [id number], [id number], [id number] ####[facility] (DEFAULT)[address] [place] [address] Urine, ketones presence Negative Invalid Interpretation Code [facility] Comment on above: Performed By: #### 3 [id number], [id number], [id number], [id number] ####[facility] (DEFAULT)[address] [place] [address] Vital Signs Date Time Vital Sign Value Performing Clinician [facility] 06-24-2024 13:57-0500 Body mass index (BMI) [Ratio] 20.96 kg/m2 Stamped Work Phone: [facility] 06-24-2024 13:57-0500 Body weight 55.39 kg Stamped Work Phone: [facility] 06-24-2024 13:57-0500 Diastolic blood pressure 64 mm[Hg] Brent Remedios DO Work Phone: [facility] 06-24-2024 13:57-0500 Systolic blood pressure 120 mm[Hg] Brent Remedios DO Work Phone: [facility] 06-12-2024 07:28-0500 Body height 162.6 cm David Laguerre MD Work Phone: [facility] 06-12-2024 07:28-0500 Body mass index (BMI) [Ratio] 20.94 kg/m2 David Laguerre MD Work Phone: [facility] 06-12-2024 07:28-0500 Body temperature 98.71 [degF] David Laguerre MD Work Phone: [facility] 06-12-2024 07:28-0500 Body weight 55.34 kg David Laguerre MD Work Phone: [facility] 06-12-2024 07:28-0500 Diastolic blood pressure 74 mm[Hg] David Laguerre MD Work Phone: [facility] 06-12-2024 07:28-0500 Heart rate 110 /min David Laguerre MD Work Phone: [facility] 06-12-2024 07:28-0500 Respiratory rate 22 /min David Laguerre MD Work Phone: [facility] 06-12-2024 07:28-0500 SaO2% (BldA) [Mass fraction] 97 % David Laguerre MD Work Phone: [facility] 06-12-2024 07:28-0500 Systolic blood pressure 112 mm[Hg] David Laguerre MD Work Phone: [facility] 05-24-2024 14:49-0500 Diastolic blood pressure 89 mm[Hg] Rajesh Dobson MD Work Phone: [facility] 05-24-2024 14:49-0500 Heart rate 94 /min Rajesh Dobson MD Work Phone: [facility] 05-24-2024 14:49-0500 Systolic blood pressure 112 mm[Hg] Rajesh Dobson MD Work Phone: [facility] 05-02-2024 08:11-0400 Diastolic blood pressure 76 mm[Hg] Quang Khan MD Work Phone: [facility] 05-02-2024 08:11-0400 Heart rate 115 /min Quang Khan MD Work Phone: [facility] 05-02-2024 08:11-0400 Systolic blood pressure 105 mm[Hg] Quang Khan MD Work Phone: [facility] 05-02-2024 08:08-0400 Body mass index (BMI) [Ratio] 20.08 kg/m2 Quang Khan MD Work Phone: [facility] 05-02-2024 08:08-0400 Body temperature 99 [degF] Quang Khan MD Work Phone: [facility] 05-02-2024 08:08-0400 Body weight 53.07 kg Quang Khan MD Work Phone: [facility] 05-02-2024 08:08-0400 SaO2% (BldA) [Mass fraction] 98 % Quang Khan MD Work Phone: [facility] 03-15-2024 07:17-0400 Body height 162.56 cm MD David Laguerre Work Phone: [facility] 03-15-2024 07:17-0400 Body weight 49.89 kg MD David Laguerre Work Phone: [facility] 02-21-2024 13:43-0400 Body height 162.6 cm Keira Heller LAMP TESTER AND INSPECTOR Work Phone: [facility] 02-21-2024 13:43-0400 Body mass index (BMI) [Ratio] 19.91 kg/m2 Keira Heller LAMP TESTER AND INSPECTOR Work Phone: [facility] 02-21-2024 13:43-0400 Body weight 52.62 kg Keira Heller LAMP TESTER AND INSPECTOR Work Phone: [facility] 02-21-2024 13:43-0400 Diastolic blood pressure 78 mm[Hg] Keira Heller LAMP TESTER AND INSPECTOR Work Phone: [facility] 02-21-2024 13:43-0400 Heart rate 97 /min Keira Heller LAMP TESTER AND INSPECTOR Work Phone: [facility] 02-21-2024 13:43-0400 Systolic blood pressure 110 mm[Hg] Keira Heller LAMP TESTER AND INSPECTOR Work Phone: [facility] 01-26-2024 13:58-0400 Body height 162.56 cm MD David Laguerre Work Phone: [facility] 01-26-2024 13:58-0400 Body mass index (BMI) [Ratio] 19.7 kg/m2 MD David Laguerre Work Phone: [facility] 01-26-2024 13:58-0400 Body temperature 97.2 [degF] MD David Laguerre Work Phone: [facility] 01-26-2024 13:58-0400 Body weight 52.16 kg MD David Laguerre Work Phone: [facility] 01-26-2024 13:58-0400 Diastolic blood pressure 81 mm[Hg] MD David Laguerre Work Phone: [facility] 01-26-2024 13:58-0400 Heart rate 88 /min MD David Laguerre Work Phone: [facility] 01-26-2024 13:58-0400 Respiratory rate 16 /min MD David Laguerre Work Phone: [facility] 01-26-2024 13:58-0400 SaO2% (BldA) [Mass fraction] 99 % MD David Laguerre Work Phone: [facility] 01-26-2024 13:58-0400 Systolic blood pressure 125 mm[Hg] MD David Laguerre Work Phone: [facility] 11-22-2023 13:54-0400 Body height 162.56 cm MD David Laguerre Work Phone: [facility] 11-22-2023 13:54-0400 Body mass index (BMI) [Ratio] 18.8 kg/m2 MD David Laguerre Work Phone: [facility] 11-22-2023 13:54-0400 Body weight 49.89 kg MD David Laguerre Work Phone: [facility] 11-22-2023 13:54-0400 Diastolic blood pressure 66 mm[Hg] MD David Laguerre Work Phone: [facility] 11-22-2023 13:54-0400 Heart rate 94 /min MD David Laguerre Work Phone: [facility] 11-22-2023 13:54-0400 Systolic blood pressure 105 mm[Hg] MD David Laguerre Work Phone: [facility] 10-18-2023 13:04-0400 Body height 165 cm Rosmery Mack MD Work Phone: [facility] 10-18-2023 13:04-0400 Body temperature 96.8 [degF] Rosmery Mack MD Work Phone: [facility] 10-18-2023 13:04-0400 Body weight 50.6 kg Rosmery Mack MD Work Phone: [facility] 10-18-2023 13:04-0400 Diastolic blood pressure 69 mm[Hg] Rosmery Mack MD Work Phone: [facility] 10-18-2023 13:04-0400 Heart rate 73 /min Rosmery Mack MD Work Phone: [facility] 10-18-2023 13:04-0400 Systolic blood pressure 113 mm[Hg] Rosmery Mack MD Work Phone: [facility] 09-28-2023 11:30-0400 Diastolic blood pressure 73 mm[Hg] MD David Laguerre Work Phone: [facility] 09-28-2023 11:30-0400 Heart rate 78 /min MD David Laguerre Work Phone: [facility] 09-28-2023 11:30-0400 Respiratory rate 16 /min MD David Laguerre Work Phone: [facility] 09-28-2023 11:30-0400 SaO2% (BldA) [Mass fraction] 98 % MD David Laguerre Work Phone: [facility] 09-28-2023 11:30-0400 Systolic blood pressure 93 mm[Hg] MD David Laguerre Work Phone: [facility] 09-28-2023 08:50-0400 Body height 162.56 cm MD David Laguerre Work Phone: [facility] 09-28-2023 08:50-0400 Body weight 49.89 kg MD David Laguerre Work Phone: [facility] 09-15-2023 08:57-0400 Body height 162.6 cm Marty Richardson MD Work Phone: [facility] 09-15-2023 08:57-0400 Body mass index (BMI) [Ratio] 19.19 kg/m2 Marty Richardson MD Work Phone: [facility] 09-15-2023 08:57-0400 Body weight 50.71 kg Marty Richardson MD Work Phone: [facility] 09-15-2023 08:57-0400 Diastolic blood pressure 76 mm[Hg] Marty Richardson MD Work Phone: [facility] 09-15-2023 08:57-0400 Heart rate 88 /min Marty Richardson MD Work Phone: [facility] 09-15-2023 08:57-0400 SaO2% (BldA) [Mass fraction] 99 % Marty Richardson MD Work Phone: [facility] 09-15-2023 08:57-0400 Systolic blood pressure 108 mm[Hg] Marty Richardson MD Work Phone: [facility] 08-23-2023 10:28-0500 Diastolic blood pressure 70 mm[Hg] MD David Laguerre Work Phone: [facility] 08-23-2023 10:28-0500 Heart rate 63 /min MD David Laguerre Work Phone: [facility] 08-23-2023 10:28-0500 Respiratory rate 16 /min MD David Laguerre Work Phone: [facility] 08-23-2023 10:28-0500 SaO2% (BldA) [Mass fraction] 100 % MD David Laguerre Work Phone: [facility] 08-23-2023 10:28-0500 Systolic blood pressure 126 mm[Hg] MD David Laguerre Work Phone: [facility] 08-23-2023 08:19-0500 Body height 162.56 cm MD David Laguerre Work Phone: [facility] 08-23-2023 08:19-0500 Body weight 49.89 kg MD David Laguerre Work Phone: [facility] 07-28-2023 14:54-0500 Body height 162.56 cm MD David Laguerre Work Phone: [facility] 07-28-2023 14:54-0500 Body mass index (BMI) [Ratio] 18.8 kg/m2 MD David Laguerre Work Phone: [facility] 07-28-2023 14:54-0500 Body temperature 98 [degF] MD David Laguerre Work Phone: [facility] 07-28-2023 14:54-0500 Body weight 49.89 kg MD David Laguerre Work Phone: [facility] 07-28-2023 14:54-0500 Diastolic blood pressure 81 mm[Hg] MD David Laguerre Work Phone: [facility] 07-28-2023 14:54-0500 Heart rate 88 /min MD David Laguerre Work Phone: [facility] 07-28-2023 14:54-0500 Respiratory rate 20 /min MD David Laguerre Work Phone: [facility] 07-28-2023 14:54-0500 SaO2% (BldA) [Mass fraction] 98 % MD David Laguerre Work Phone: [facility] 07-28-2023 14:54-0500 Systolic blood pressure 128 mm[Hg] MD David Laguerre Work Phone: [facility] 07-27-2023 14:17-0500 Diastolic blood pressure 82 mm[Hg] Kika Edmonds MD Work Phone: [facility] Risk Ident 07-27-2023 14:17-0500 Heart rate 76 /min Kika Edmonds MD Work Phone: [facility] Risk Ident 07-27-2023 14:17-0500 Systolic blood pressure 116 mm[Hg] Kika Edmonds MD Work Phone: [facility] Risk Ident 07-27-2023 14:16-0500 Body height 162.6 cm Kika Edmonds MD Work Phone: [facility] Risk Ident 07-27-2023 14:16-0500 Body mass index (BMI) [Ratio] 18.81 kg/m2 Kika Edmonds MD Work Phone: [facility] Risk Ident 07-27-2023 14:16-0500 Body weight 49.71 kg Kika Edmonds MD Work Phone: [facility] Risk Ident 07-27-2023 14:16-0500 Respiratory rate 18 /min Kika Edmonds MD Work Phone: [facility] Risk Ident 07-19-2023 14:15-0500 Body height Imad Asaad Other [employer] Other 07-19-2023 14:15-0500 Body height 162.56 cm MD David Laguerre Work Phone: [facility] 07-19-2023 14:15-0500 Body mass index (BMI) [Ratio] 19.81 kg/m2 Imad Asaad Other [employer] Other 07-19-2023 14:15-0500 Body weight 52.35 kg Imad Asaad Other [employer] Other 07-19-2023 14:15-0500 Body weight 52.34 kg MD David Laguerre Work Phone: [facility] 07-19-2023 09:09-0500 Body height 162.6 cm Marty Richardson MD Work Phone: [facility] [employer] [facility] 07-19-2023 09:09-0500 Body mass index (BMI) [Ratio] 19.57 kg/m2 Marty Richardson MD Work Phone: [facility] [employer] [facility] 07-19-2023 09:09-0500 Body weight 51.71 kg Marty Richardson MD Work Phone: [facility] 07-19-2023 09:09-0500 Diastolic blood pressure 80 mm[Hg] Marty Richardson MD Work Phone: [facility] [employer] [facility] 07-19-2023 09:09-0500 Heart rate 125 /min Marty Richardson MD Work Phone: [facility] 07-19-2023 09:09-0500 SaO2% (BldA) [Mass fraction] 98 % Marty Richardson MD Work Phone: [facility] 07-19-2023 09:09-0500 Systolic blood pressure 110 mm[Hg] Marty Richardson MD Work Phone: [facility] 07-05-2023 13:13-0500 Body temperature 98.5 [degF] MD David Laguerre Work Phone: [facility] 07-05-2023 13:13-0500 Diastolic blood pressure 75 mm[Hg] MD David Laguerre Work Phone: [facility] 07-05-2023 13:13-0500 Heart rate 105 /min MD David Laguerre Work Phone: [facility] 07-05-2023 13:13-0500 Respiratory rate 20 /min MD David Laguerre Work Phone: [facility] 07-05-2023 13:13-0500 SaO2% (BldA) [Mass fraction] 100 % MD David Laguerre Work Phone: [facility] 07-05-2023 13:13-0500 Systolic blood pressure 112 mm[Hg] MD David Laguerre Work Phone: [facility] 06-13-2022 14:52-0500 Blood Pressure Location Mauricio KITCHEN [facility] 06-13-2022 14:52-0500 Diastolic blood pressure 89 mm[Hg] Mauricio KITCHEN [facility] 06-13-2022 14:52-0500 Heart rate 103 /min Mauricio KITCHEN [facility] 06-13-2022 14:52-0500 Systolic blood pressure 124 mm[Hg] Mauricio KITCHEN [facility] 02-24-2022 14:10-0400 Diastolic blood pressure 70 mm[Hg] David Laguerre Work Phone: [facility] DO Work Phone: 02-24-2022 14:10-0400 Diastolic blood pressure 60 mm[Hg] David Laguerre Work Phone: [facility] DO Work Phone: 02-24-2022 14:10-0400 Systolic blood pressure 100 mm[Hg] David Quirogar Work Phone: [facility] DO Work Phone: 02-24-2022 14:10-0400 Systolic blood pressure 90 mm[Hg] David Laguerre Work Phone: [facility] DO Work Phone: 02-24-2022 14:01-0400 Diastolic blood pressure 80 mm[Hg] David Hunter Naderer Work Phone: [facility] DO Work Phone: 02-24-2022 14:01-0400 Systolic blood pressure 104 mm[Hg] David Hunter Naderer Work Phone: [facility] DO Work Phone: 02-24-2022 13:56-0400 Body height 162.56 cm David Hunter Naderer Work Phone: [facility] DO Work Phone: 02-24-2022 13:56-0400 Body mass index (BMI) [Ratio] 19.91 kg/m2 David Hunter Naderer Work Phone: [facility] DO Work Phone: 02-24-2022 13:56-0400 Body surface area Derived from formula 1.55 m2 David Hunter Naderer Work Phone: [facility] DO Work Phone: 02-24-2022 13:56-0400 Body weight 52.62 kg David Hunter Naderer Work Phone: [facility] DO Work Phone: 02-24-2022 13:56-0400 Diastolic blood pressure 88 mm[Hg] David A Naderer Work Phone: [facility] DO Work Phone: 02-24-2022 13:56-0400 Heart rate 97 /min David A Naderer Work Phone: [facility] DO Work Phone: 02-24-2022 13:56-0400 Systolic blood pressure 110 mm[Hg] David Laguerre Work Phone: [facility] DO Work Phone: Encounters Encounter Date Encounter Type Care Provider Facility Start: 07-16-2024 End: 07-16-2024 Telephone encounter Sugey Lowe CMA [facility] Start: 07-12-2024 End: 07-12-2024 Telephone encounter Rajesh Dobson MD Work Phone: Neurology Start: 06-24-2024 End: 06-24-2024 Bamboo flowsheet Brent Remedios DO Work Phone: [facility] Start: 06-24-2024 End: 06-24-2024 Bamboo flowsheet Brent Remedios DO Work Phone: [facility] Start: 06-24-2024 End: 06-24-2024 Office outpatient visit 15 minutes Brent Remedios DO Work Phone: [facility] Comment on above: Vaginal discharge; Enlarged lymph nodes in armpit; Pelvic pain in female Start: 06-24-2024 End: 06-24-2024 ambulatory BRENT REMEDIOS Not Available Start: 06-17-2024 End: 06-17-2024 Refill David Laguerre MD Work Phone: [facility] Comment on above: Postural orthostatic tachycardia syndrome Start: 06-12-2024 End: 06-12-2024 Bamboo flowsheet David Laguerre MD Work Phone: [facility] Start: 06-12-2024 End: 06-12-2024 Bamboo flowsheet David Laguerre MD Work Phone: [facility] Start: 06-12-2024 End: 06-12-2024 Office outpatient visit 25 minutes David Laguerre MD Work Phone: [facility] Comment on above: Depressed bipolar I disorder (CMS/HCC) (Primary Dx); Generalized anxiety disorder (CMS/HCC); POTS (postural orthostatic tachycardia syndrome); Sherri-Danlos syndrome (CMS/HCC) Start: 06-12-2024 End: 06-12-2024 ambulatory DAVID LAGUERRE Not Available Start: 05-28-2024 End: 05-29-2024 Telephone encounter Sugey Lowe [facility] Comment on above: Sherri-Danlos syndro me (Primary Dx) Start: 05-27-2024 End: 05-27-2024 Telephone encounter Sugey Lowe [facility] Start: 05-24-2024 End: 05-24-2024 ambulatory RAJESH DOBSON Facility:[facility] Start: 05-24-2024 End: 05-24-2024 Patient encounter procedure Rajesh Dobson MD Work Phone: Neurology Comment on above: Nonruptured cerebral aneurysm (Primary Dx); Encounter for screening for cardiovascular disorders; Syncope and collapse; Seizure-like activity (HCC); Cerebral aneurysm; Syringomyelia and syringobulbia (HCC) Start: 05-21-2024 End: 05-21-2024 Refill David Laguerre MD Work Phone: [facility] Comment on above: Postural orthostatic tachycardia syndrome Start: 05-02-2024 End: 05-02-2024 Office outpatient visit 25 minutes Quang Khan MD Work Phone: [facility] Comment on above: Hematuria, unspecifi ed type (Primary Dx); Proteinuria, unspecified type; Calcium oxalate crystals in urine; Elevated serum immunoglobulin free light chains Start: 05-01-2024 End: 05-01-2024 Orders Only Tonia Stanford [facility] Comment on above: Stage 3 chronic kidn ey disease, unspecified whether stage 3a or 3b CKD (CMS-HCC) (Primary Dx) Start: 04-26-2024 End: 04-26-2024 Orders Only David Laguerre MD Work Phone: [facility] Comment on above: Postural orthostatic tachycardia syndrome Start: 04-01-2024 End: 04-01-2024 ambulatory MARTY RICHARDSON [facility] Start: 03-29-2024 End: 03-29-2024 Refill David Laguerre MD Work Phone: [facility] Comment on above: Postural orthostatic tachycardia syndrome Start: 03-20-2024 End: 03-22-2024 ambulatory [facility] Start: 03-15-2024 End: 03-15-2024 Patient encounter procedure MD David Laguerre Work Phone: [facility] [place] Work Phone: Start: 03-15-2024 End: 03-15-2024 ambulatory MD David Laguerre Work Phone: [facility] Work Phone: Start: 03-07-2024 End: 03-07-2024 ambulatory [facility] Start: 02-29-2024 End: 02-29-2024 Refill David Laguerre MD Work Phone: [facility] Comment on above: Postural orthostatic tachycardia syndrome Start: 02-26-2024 End: 02-26-2024 ambulatory MICHELL Miriam TANNER [facility] Start: 02-24-2024 End: 02-25-2024 Emergency department patient visit ZULMA CUELLO [facility] Start: 02-21-2024 End: 02-21-2024 Office outpatient visit 25 minutes Keira Heller NP Work Phone: [facility] Comment on above: Paresthesia (Primary Dx); POTS (postural orthostatic tachycardia syndrome); Cervical radiculopathy; Thoracic back pain, unspecified back pain laterality, unspecified chronicity; Weakness of both lower extremities; Urinary incontinence, unspecified type; History of drug use; Sensory ataxia Start: 02-21-2024 End: 02-21-2024 ambulatory KEIRA HELLER Not Available Start: 02-07-2024 End: 02-07-2024 ambulatory DAVID LAGUERRE [facility] Start: 02-07-2024 End: 02-07-2024 ambulatory DAVID LAGUERRE Not Available Start: 01-26-2024 End: 01-26-2024 Patient encounter procedure MD David Laguerre Work Phone: [facility] Work Phone: Start: 01-26-2024 Registered Recurring MD David joiner Work Phone: [facility] Work Phone: Start: 01-26-2024 ambulatory David Laguerre Facility:[facility] Start: 01-24-2024 End: 01-24-2024 ambulatory TAYO J [facility] Start: 12-07-2023 End: 12-07-2023 ambulatory BRENT WHITTAKER Not Available Start: 11-28-2023 End: 11-28-2023 ambulatory [facility] Start: 11-22-2023 End: 11-22-2023 Patient encounter procedure MD David Laguerre Work Phone: [facility] [place] Work Phone: Start: 11-22-2023 End: 11-22-2023 ambulatory MD David Laguerre Work Phone: [facility] Work Phone: Start: 11-22-2023 End: 11-22-2023 Patient encounter procedure MD David Laguerre Work Phone: [facility] Work Phone: Start: 11-06-2023 End: 11-06-2023 ambulatory DAVID LAGUERRE Not Available Start: 10-26-2023 End: 10-26-2023 ambulatory [facility] Start: 10-25-2023 Telephone encounter Rosmery Mack MD Work Phone: [facility] Comment on above: Medical Records[facility] Start: 10-19-2023 Telephone encounter Rosmery Mack MD Work Phone: [facility] Comment on above: Letter Start: 10-18-2023 Telephone encounter Rosmery Mack MD Work Phone: [facility] Start: 10-18-2023 End: 10-18-2023 ambulatory KEIRA HELLER Facility:[facility] Start: 10-18-2023 End: 10-18-2023 Patient encounter procedure Rosemry Mack MD Work Phone: [facility] Comment on above: Paresthesia (Primary Dx); POTS (postural orthostatic tachycardia syndrome); Syncope, unspecified syncope type; Tremor, unspecified; Retro-orbital pain of both eyes Start: 09-28-2023 Non-patient / Non-visit MD Kaycee Laguerre Work Phone: [facility] Work Phone: Start: 09-28-2023 End: 09-28-2023 Admission to same day surgery center MD David Laguerre Work Phone: [facility] Work Phone: Start: 09-28-2023 End: 09-28-2023 ambulatory MD David Laguerre Work Phone: [facility] Work Phone: Start: 09-18-2023 Telephone encounter Jeniffer PENA [facility] Start: 09-15-2023 End: 09-15-2023 Office outpatient visit 15 minutes Marty Richardson MD Work Phone: [facility] Comment on above: Sinus tachycardia (P rimary Dx) Start: 09-15-2023 End: 09-15-2023 ambulatory MARTY RICHARDSON [facility] Start: 09-14-2023 Telephone encounter Jerilyn Santos CMA [facility] Start: 09-05-2023 End: 09-05-2023 ambulatory [facility] Start: 08-23-2023 Non-patient / Non-visit MD Kaycee Laguerre Work Phone: [facility] Work Phone: Start: 08-23-2023 End: 08-23-2023 Admission to same day surgery center MD David Laguerre Work Phone: [facility] Work Phone: Start: 08-23-2023 End: 08-23-2023 ambulatory MD David Laguerre Work Phone: [facility] Work Phone: Start: 08-14-2023 End: 08-14-2023 Phys/qhp telephone evaluation 5-10 min Brent Remedios DO Work Phone: [facility] Comment on above: Pelvic pain in femal e (Primary Dx) Start: 08-14-2023 End: 08-14-2023 ambulatory BRENT REMEDIOS Not Available Start: 08-11-2023 Refill David Ríos Work Phone: [facility] Comment on above: Postural orthostatic tachycardia syndrome Start: 08-07-2023 End: 08-07-2023 ambulatory DAVID LAGUERRE Not Available Start: 08-05-2023 End: 08-06-2023 Emergency department patient visit DONI MIMS [facility] Start: 08-03-2023 End: 09-01-2023 ambulatory KEIRA HELLER [facility] Start: 08-02-2023 End: 08-02-2023 ambulatory ALEJANDRA ONTIVEROS [facility] Start: 07-28-2023 End: 07-28-2023 ambulatory MD David Laguerre Work Phone: [facility] Work Phone: Start: 07-28-2023 End: 07-28-2023 Patient encounter procedure MD David Laguerre Work Phone: [facility] Amb[facility] Work Phone: Start: 07-28-2023 End: 07-28-2023 ambulatory [facility] Start: 07-28-2023 Registered Recurring MD David joiner Work Phone: [facility] Work Phone: Start: 07-27-2023 End: 07-29-2023 ambulatory [facility] Start: 07-27-2023 End: 07-27-2023 Office outpatient visit 15 minutes Kika Edmonds MD Work Phone: [facility] Comment on above: Varicose veins of bi lateral lower extremities with pain (Primary Dx); Sinus tachycardia; POTS (postural orthostatic tachycardia syndrome); PVC's (premature ventricular contractions); PAC (premature atrial contraction); Venous insufficiency of both lower extremities Start: 07-25-2023 End: 07-25-2023 ambulatory DANY TOVAR Facility:[facility] Start: 07-24-2023 End: 07-24-2023 ambulatory [facility] Start: 07-20-2023 End: 07-20-2023 ambulatory [facility] Start: 07-19-2023 Office outpatient ne w 60 minutes [facility] Start: 07-19-2023 End: 07-19-2023 Office outpatient visit 25 minutes Marty Richardson MD Work Phone: [facility] Comment on above: Tachycardia (Primary Dx); PVC's (premature ventricular contractions); PAC (premature atrial contraction); Syncope, unspecified syncope type; Sinus tachycardia Start: 07-19-2023 End: 07-19-2023 ambulatory MARTY RICHARDSON [facility] [employer] Other Start: 07-19-2023 End: 07-19-2023 Patient encounter procedure MD David Laguerre Work Phone: [facility] Start: 07-18-2023 Telephone encounter Jerilyn Santos [facility] Start: 07-18-2023 End: 07-18-2023 ambulatory [place] Renetta GREY [facility] Start: 07-10-2023 End: 08-03-2023 ambulatory KEIRA SUE [facility] Start: 07-07-2023 End: 07-07-2023 ambulatory WILLIAM HALL [facility] Start: 06-22-2023 End: 07-03-2023 ambulatory CHLOE TESFAYE [facility] Start: 06-15-2023 End: 07-03-2023 ambulatory KEIRA HELLER [facility] Start: 05-23-2023 End: 05-23-2023 ambulatory Mauricio KITCHEN Facility:[facility] Start: 05-23-2023 End: 05-23-2023 Patient encounter procedure Mauricio KITCHEN [facility] Start: 02-03-2023 [facility] Start: 07-20-[address] Lino Suazo Facility: Start: 07-12-2022 End: 07-12-[address] BRENT WHITTAKER Facility:[facility] Start: 06-13-2022 End: 06-13-2022 Patient encounter procedure Mauricio KITCHEN [facility] Start: 05-31-[address] Lino Suazo Facility: Start: 05-05-2022 End: 05-05-[address] DAVID LAGUERRE Facility:[facility] Start: 02-24-[address] David Laguerre Facility: Start: 02-24-2022 Office outpatient ne w 60 minutes David Laguerre Work Phone: [facility] DO Work Phone: Start: 03-31-2017 End: 03-31-2017 Ambulatory Tayo Smith Facility:[facility] Start: 03-31-2017 End: 03-31-2017 Emergency department patient visit Tayo Smith Facility:[facility] Procedures Date Procedure Procedure Detail Performing Clinician Start: 03-27-2024 Adult depression scr eening assessment Tonia Abdoulaye KIRBY Start: 03-15-2024 MRI of head MD David mcclendon Work Phone: Start: 09-28-2023 Colonoscopy MD David mcclendon Work Phone: Start: 09-15-2023 Follow-up visit Follow-up MARTY RICHARDSON Start: 08-23-2023 Esophagogastroduodenoscopy MD David Laguerre Work Phone: Start: 07-27-2023 Follow-up visit Follow-up KIKA EDMONDS Start: 07-19-2023 Ecg routine ecg w/le ast 12 lds w/i&r Marty Richardson MD Work Phone: Start: 08-02-2022 Cystoscopy Mauricio URIBE Start: 07-12-2022 Microscopic observat ion [Identifier] in Cervix by Cyto stain Kika Edmonds MD Work Phone: Excision of neoplasm David Laguerre Work Phone: Lymphocytes (Bld) [#/Vol] William KITCHEN Operation on uterus David joiner Work Phone: Tonsillectomy David Laguerre Work Phone: Tonsillectomy Mauricio KITCHEN NEGATED: Highlighted row has not occurred! Total colonoscopy David Laguerre Work Phone: Plan of Treatment Date Care Activity Detail Author Start: 07-12-2027 Screening for malign ant neoplasm of cervix [facility] Start: 07-12-2025 Screening for malign ant neoplasm of cervix Pap Smear [facility] Start: 05-02-2025 Adult BMI Screening Adult BMI Screen ing [facility] Start: 05-02-2025 Tobacco Screening Tobacco Screening [facility] Start: 04-01-2025 Adult BMI Screening Adult BMI Screen ing [facility] Start: 04-01-2025 Tobacco Screening Tobacco Screening [facility] Start: 03-27-2025 Depression Screening Depression Scre ening [facility] Start: 09-14-2024 Adult BMI Screening Adult BMI Screen ing [facility] Start: 09-14-2024 Tobacco Screening Tobacco Screening [facility] Start: 09-10-2024 End: 09-10-2024 Patient encounter procedure 09/10/2024 1:00 PM EDT Office Visit [facility] [address] [place] [address] David Laguerre MD [address] [place] [address] [facility] Start: 09-04-2024 Tobacco Screening Tobacco Screening [facility] Start: 08-05-2024 Adult BMI Screening Adult BMI Screen ing [facility] Start: 08-01-2024 End: 08-01-2024 Patient encounter procedure 08/01/2024 3:00 PM EST Office Visit Mikaela Mata [facility] [address] [place] [phone] Chloe Tesfaye MD [address] [place] [address] Mikaela Mata [facility] Start: 07-29-2024 End: 07-29-2024 Patient encounter procedure 07/29/2024 3:00 PM EST Office Visit [facility] [address] [facility] [address] [place] [address] Ryan Verde MD [address] [place] [address], [place] [address] [facility] Start: 07-29-2024 End: 07-29-2024 Telemedicine consultation with patient 07/29/2024 3:00 PM EST Telemedicine [facility] [address] [facility] [address] [place] [phone] Ryan Verde MD [address] [facility], [address] [place], [place] [id number] [facility] Start: 07-27-2024 Adult BMI Screening Adult BMI Screen ing [facility] Start: 07-27-2024 Tobacco Screening Tobacco Screening [facility] Start: 07-23-2024 End: 07-23-2024 Patient encounter procedure 07/23/2024 2:00 PM EST Office Visit [facility] [address] [facility] [address] [place] [address] Carlos Cordova MD [address] [facility] [address] [place] [address] [facility] Start: 07-19-2024 Adult BMI Screening Adult BMI Screen ing [facility] Start: 07-19-2024 Tobacco Screening Tobacco Screening [facility] Start: 07-18-2024 End: 07-18-2024 Patient encounter procedure 07/18/2024 10:30 AM EST Office Visit [facility] [address] [place] [phone] Dhruv uBstillos MD [address], [facility] [address] [place] [address] [facility] Start: 06-24-2024 End: 06-24-2025 US Axilla US Axilla Imaging Routine Enlarged lymph nodes in armpit Expected: 06/24/2024, Expires: 06/24/2025 [facility] Comment on above: Expected: 06/24/2024 , Expires: 06/24/2025 Start: 06-24-2024 End: 06-24-2025 US for US PELVIS-TRANSVAG IF INDICATED Imaging Routine Pelvic pain in female Expected: 06/24/2024 (Approximate), Expires: 06/24/2025 [facility] Comment on above: Expected: 06/24/2024 (Approximate), Expires: 06/24/2025 Start: 06-24-2024 End: 06-24-2024 Patient encounter procedure [facility] Comment on above: Arrived Start: 06-15-2024 Adult BMI Screening Adult BMI Screen ing [facility] Start: 06-12-2024 End: 06-12-2024 Patient encounter procedure [facility] Comment on above: Arrived Start: 06-02-2024 Tobacco Screening Tobacco Screening [facility] Start: 05-20-2024 End: 05-20-2024 Patient encounter procedure 05/20/2024 9:30 AM EST Office Visit [facility] [address] [place] [id number] Ryan Verde MD [address] [place] [address], [address] [place] [id number] [facility] Start: 05-13-2024 End: 05-13-2024 Patient encounter procedure 05/13/2024 2:00 PM EST Office Visit [facility] [address] [place] [phone] David Laguerre MD [address] [place] [phone] [facility] Start: 05-02-2024 End: 05-02-2024 Patient encounter procedure 05/02/2024 8:30 AM EDT Office Visit [facility] [address] [place] [phone] Quang Khan MD [address] [place] [address] [facility] Start: 04-01-2024 End: 04-01-2024 Patient encounter procedure 04/01/2024 8:00 AM EDT Office Visit [facility] [address] [place] [phone] John Evans MD [address] [place] [address] [facility] Start: 03-03-2024 Covid-19 Vaccine ( season) Covid-19 Vaccine ( season) [facility] Start: 03-03-2024 Influenza vaccination [facility] Start: 01-10-2024 End: 01-10-2024 Patient encounter procedure 01/10/2024 2:00 PM EDT Office Visit [facility] [address] [place] [address] Nadine Jimenez, CELL BIOLOGY SCIENTIST-TIME MOTION ANALYST [address] [place] [address] [facility] Start: 12-27-2023 End: 12-27-2023 Patient encounter procedure 12/27/2023 12:00 PM EDT Office Visit [facility] [address] [place] [address] [place] [address] [place] [address] Return in about 2 months (around 12/18/2023). [facility] Comment on above: Return in about 2 mo nths (around 12/18/2023). Start: 11-14-2023 End: 11-14-2023 Patient encounter procedure 11/14/2023 2:00 PM EDT Office Visit [facility] [address] [place] [phone] Brent Whittaker DO [address] [place] [address] [facility] Start: 11-06-2023 End: 11-06-2023 Patient encounter procedure 11/06/2023 1:30 PM EDT Office Visit [facility] [address] [place] [address] David Laguerre MD [address] [place] [address] [facility] Start: 10-26-2023 End: 10-26-2023 Patient encounter procedure 10/26/2023 11:10 AM EDT Office Visit [facility] [address] [place] [address] Dhruv Bustillos MD [address], [facility] [address] [place] [address] [facility] Start: 09-28-2023 [facility] Start: 09-15-2023 End: 09-15-2023 Patient encounter procedure 09/15/2023 9:15 AM EDT Office Visit [facility] [address] [facility] [address] [place] [phone] Marty Richardson MD [address] [place] [address] [facility] Start: 08-23-2023 [facility] Start: 08-14-2023 End: 08-14-2023 Telemedicine consultation with patient 08/14/2023 3:30 PM EST Telemedicine [facility] [address] [facility] [address] [place] [address] Airam Matthew MD [address] [facility] [address] [place] [address] [facility] Start: 08-03-2023 End: 08-03-2023 Patient encounter procedure 08/03/2023 1:45 PM EST Appointment [facility] [address] [facility] [place] [phone] [facility] Start: 07-27-2023 End: 07-27-2023 Patient encounter procedure 07/27/2023 10:50 AM EST Office Visit [facility] [address] [place] [address] Kika Edmonds MD [address] , [address] [address] [facility] Start: 07-19-2023 End: 07-19-2023 Patient encounter procedure 07/19/2023 9:30 AM EST Office Visit [facility] [address] [phone] Marty Richardson MD [address] [place] [address] [facility] Start: 07-18-2023 Subsequent hospital visit by physician 07/18/2023 2:00 PM EST Hospital Encounter [facility] [address] [place] [phone] [facility] Start: 07-03-2023 Behavioral Health Screening Behavioral Health Screening [facility] Start: 03-03-2023 Covid-19 Vaccine ( season) Covid-19 Vaccine ( season) [facility] Start: 03-03-2023 Influenza vaccination P [facility] Start: 05-31-2022 FUV, Provider: Lino Suazo, Status: Pen, Time: 3:20 PM FUV, Provider: Lino Suazo, Status: Pen, Time: 3:20 PM [place] [address] DO Work Phone: Start: 10-08-2015 Screening for malign ant neoplasm of cervix HPV Testing [facility] Start: 2006 Screening for malign ant neoplasm of cervix [facility] Start: 2004 DTaP,Tdap and Td Vaccines (1 - Tdap) DTaP,Tdap and Td Vaccines (1 - Tdap) [facility] Start: 2004 Hepatitis B Vaccine (1 of 3 - 19+ 3-dose series) Hepatitis B Vaccine (1 of 3 - 19+ 3-dose series) [facility] Start: 2004 Pneumococcal vaccination Pneumococcal Vaccine (1 of 2 - PCV) [facility] Start: 2004 Urine microalbumin profile DTaP,Tdap,Td Vaccine (1 - Tdap) [facility] Start: 10-08-2003 Anxiety Screening Anxiety Screening [facility] Start: 10-08-2003 Depression Screening Depression Scre ening [facility] Start: 10-08-2003 HIV screening HIV Screening [facility] Start: 1997 Depression Screening Depression Scre ing [facility] Start: 10-08-1991 Pneumococcal vaccination Pneumococcal Vaccine (1 of 2 - PCV) [facility] Start: 1985 Tobacco Counseling Tobacco Counselin g [facility] aPTT in Platelet poo r plasma by Coagulation assay [facility] End: 05-01-2025 Basic metabolic 2000 panel - Serum or Plasma Basic Metabolic Panel Lab Routine Stage 3 chronic kidney disease, unspecified whether stage 3a or 3b CKD ([facility]) 1 Occurrences starting 05/01/2024 until 05/01/2025 [facility] Work Phone: Comment on above: 1 Occurrences starti ng 05/01/2024 until 05/01/2025 Basic metabolic 2000 panel - Serum or Plasma Basic Metabolic Panel Lab Routine Stage 3 chronic kidney disease, unspecified whether stage 3a or 3b CKD ([facility]) 05/01/2024 11:25 AM EDT [facility] [employer] [facility] [employer] Work Phone: Ceruloplasmin [Mass/volume] in Serum or Plasma [facility] CHLAMYDIA TRACHOMATI S (GENITO/STI) CHLAMYDIA TRACHOMATIS (GENITO/STI) Lab Routine Vaginal discharge Ordered: 06/24/2024 [employer] Comment on above: Ordered: 06/24/2024 Comprehensive metabo lic 1999 panel - Serum or Plasma [facility] Comprehensive metabo lic 1999 panel - Serum or Plasma [facility] Copper measurement [facility] CT Neck W contrast IV CTA NECK W IVCON Radiology Routine Encounter for screening for cardiovascular disorders Syncope and collapse Ordered: 05/24/2024 [facility] Comment on above: Ordered: 05/24/2024 CTA Head vessels WO and W contrast IV CTA HEAD WO/W IVCON Radiology Routine Nonruptured cerebral aneurysm Syncope and collapse Cerebral aneurysm Ordered: 05/24/2024 [facility] Work Phone: Comment on above: Ordered: 05/24/2024 EPIL EEG ROUTINE EPIL EEG ROUTIN E NEUROLOGY Routine Seizure-like activity (HCC) Ordered: 05/24/2024 [facility] Comment on above: Ordered: 05/24/2024 End: 05-01-2025 Magnesium [Mass/volume] in Serum or Plasma Magnesium Lab Routine Stage 3 chronic kidney disease, unspecified whether stage 3a or 3b CKD ([facility]) 1 Occurrences starting 05/01/2024 until 05/01/2025 [facility] Comment on above: 1 Occurrences starti ng 05/01/2024 until 05/01/2025 Magnesium [Mass/volu me] in Serum or Plasma Magnesium Lab Routine Stage 3 chronic kidney disease, unspecified whether stage 3a or 3b CKD ([facility]) 05/01/2024 11:25 AM EDT [employer] MR Brain WO and W contrast IV MR brain w and wo contrast routine Imaging Routine Paresthesia Weakness of both lower extremities Urinary incontinence, unspecified type Sensory ataxia Ordered: 02/21/2024 [facility]: Comment on above: Ordered: 02/21/2024 MR Lumbar spine WO a nd W contrast IV MRI LUMBAR SPINE WO/W IVCON Radiology Routine Syringomyelia and syringobulbia (HCC) Ordered: 05/24/2024 [facility] Comment on above: Ordered: 05/24/2024 MR Thoracic spine WO and W contrast IV MRI THORACIC SPINE WO/W IVCON Radiology Routine Syringomyelia and syringobulbia (HCC) Ordered: 05/24/2024 [facility] Comment on above: Ordered: 05/24/2024 Neisseria gonorrhoea e DNA [Presence] in Unspecified specimen by JOSE with probe detection Neisseria gonorrhea DNA probe, direct Lab Routine Vaginal discharge Ordered: 06/24/2024 [employer] Comment on above: Ordered: 06/24/2024 Parathyrin.intact [Mass/volume] in Serum or Plasma Parathyroid Hormone, intact Lab Routine Stage 3 chronic kidney disease, unspecified whether stage 3a or 3b CKD [place] 05/01/2024 11:25 AM EDT [facility] End: 05-01-2025 Parathyroid Hormone, intact Parathyroid Hormone, intact Lab Routine Stage 3 chronic kidney disease, unspecified whether stage 3a or 3b CKD [place] 1 Occurrences starting 05/01/2024 until 05/01/2025 [facility] Comment on above: 1 Occurrences starti ng 05/01/2024 until 05/01/2025 Patient Education Gastritis (DC) [facility] Work Phone: End: 05-01-2025 Phosphate [Mass/volume] in Serum or Plasma Phosphorus Lab Routine Stage 3 chronic kidney disease, unspecified whether stage 3a or 3b CKD ([facility] 1 Occurrences starting 05/01/2024 until 05/01/2025 [facility] Comment on above: 1 Occurrences starti ng 05/01/2024 until 05/01/2025 Phosphate [Mass/volu me] in Serum or Plasma Phosphorus Lab Routine Stage 3 chronic kidney disease, unspecified whether stage 3a or 3b CKD ([facility] 05/01/2024 11:25 AM EDT [employer] [facility] Phytonadione [Mass/volume] in Serum or Plasma [facility] Serum vitamin K measurement [facility] SURESWAB(R) ADVANCED VAGINITIS PLUS, TMA SURESWAB(R) ADVANCED VAGINITIS PLUS, TMA Pathology and Cytology Routine Vaginal discharge Ordered: 06/24/2024 [facility] Work Phone: Comment on above: Ordered: 06/24/2024 End: 05-01-2025 Vitamin D 25 hydroxy Vitamin D 25 hydroxy Lab Routine Stage 3 chronic kidney disease, unspecified whether stage 3a or 3b CKD ([facility] 1 Occurrences starting 05/01/2024 until 05/01/2025 [facility] Comment on above: 1 Occurrences starti ng 05/01/2024 until 05/01/2025 Vitamin D+Metabolite s [Mass/volume] in Serum or Plasma Vitamin D 25 hydroxy Lab Routine Stage 3 chronic kidney disease, unspecified whether stage 3a or 3b CKD ([facility]) 05/01/2024 11:25 AM EDT [facility] Immunizations Immunization Date Immunization Notes Care Provider Génesis griffith NEGATED: Highlighted row has not occurred!06-13-2022 SARS-CoV-2 mRNA (tozinameran 5y-11y) vaccine Mauricio KITCHEN [facility] Payers Date Payer Category Payer Self-pay [id number] 2022 Medicaid [facility] [id number] 2017 Medicaid [id number] 2017 Private Health [facility] [id number] 2017 Unknown 2017 Medicaid [id number] 2.16.840.1.662866.19 1985 Unknown [id number] 2.16.840.1.959727.3.579.2. 593 1985 Unknown [id number] 2.16.840.1.927101.3.579.2. 593 1985 Unknown [id number] 2.16.840.1.941841.3.579.2. 356 1985 Unknown [id number] 2.16.840.1.425891.3.579.2. 356 1985 Unknown [id number] 2.16.840.1.820268.3.579.2. 356 1985 Unknown [id number] 2.16.840.1.434184.3.579.2. 1286 1985 Unknown [id number] 2.16.840.1.410906.3.579.2. 1285 1985 Unknown [id number] 2.16.840.1.346432.3.579.2. 727 1985 Unknown [id number] 2.16.840.1.757547.3.579.2. 727 1985 Unknown [id number] 2.16.840.1.228262.3.579.2. 727 1985 Unknown [id number] 2.16.840.1.818014.3.579.2. 128 1985 Unknown [id number] 2.16.840.1.861128.3.579.2. 1286 1985 Unknown [id number] 2.16.840.1.976694.3.579.2. 1285 1985 Unknown [id number] 2.840.1.432015.3.579.2. 1285 1985 Unknown [id number] 2.840.1.912171.3.579.2. 1285 1985 Unknown [id number] 2.840.1.270886.3.579.2. 1285 1985 Unknown [id number] 2.0.1.540274.3.579.2. 1285 1985 Unknown [id number] 2.0.1.118215.3.579.2. 1285 1985 Unknown [id number] 2.0.1.385398.3.579.2. 1285 1985 Unknown [id number] 2.0.1.345389.3.579.2. 1285 1985 Unknown [id number] 2.0.1.452220.3.579.2. 1285 1985 Unknown [id number] 2.0.1.543677.3.579.2. 1285 1985 Unknown [id number] 2.0.1.030203.3.579.2. 1285 1985 Unknown [id number] 2.0.1.853905.3.579.2. 1285 1985 Unknown [id number] 2.0.1.515185.3.579.2. 1285 1985 Unknown [id number] 2.0.1.201263.3.579.2. 1285 1985 Unknown [id number] 2.840.1.832684.3.579.2. 1285 1985 Unknown [id number] 2.840.1.951611.3.579.2. 1285 1985 Unknown [id number] 2.840.1.153795.3.579.2. 1285 1985 Unknown [id number] 2.16.840.1.174393.3.579.2. 1285 1985 Unknown [id number] 2.16.840.1.038443.3.579.2. 1285 1985 Unknown [id number] 2.16.840.1.490980.3.579.2. 1285 1985 Unknown [id number] 2.16.840.1.753805.3.579.2. 1285 1985 Unknown [id number] 2.16.840.1.454318.3.579.2. 1285 1985 Unknown [id number] 2.840.1.612140.3.579.2. 1285 1985 Unknown [id number] 2.840.1.645385.3.579.2. 1285 1985 Unknown [id number] 2.16840.1.419315.3.579.2. 1285 1985 Unknown [id number] 2.840.1.111894.3.579.2. 1258 1985 Unknown [id number] 2.16840.1.246839.3.579.2. 1258 1985 Unknown [id number] 2.16840.1.650105.3.579.2. 1258 1985 Unknown [id number] 2.16840.1.278906.3.579.2. 1258 1985 Unknown [id number] 2.16840.1.935881.3.579.2. 1258 1985 Unknown [id number] 2.16840.1.335890.3.579.2. 1258 1985 Unknown [id number] 2.16.840.1.837261.3.579.2. 1258 1985 Unknown [id number] 2.16840.1.234619.3.579.2. 1259 1985 Unknown [id number] 2.16.840.1.738822.3.579.2. 1259 1959 Medicaid [id number] Unknown [id number] 2.16.840.1.521909.3.579.2. 531 Unknown [id number] 2.16.840.1.717536.3.579.2. 531 Unknown [id number] 2.16.840.1.298798.3.579.2. 531 Unknown [id number] 2.16.840.1.986645.3.579.2. 531 Unknown [id number] 2.16.840.1.602927.3.579.2. 531 Social History Date Type Detail Facility Start: 08-13-2020 End: 10-24-2022 No alcohol use No alcohol use [facility] Comment on above: pop 3 cans daily cof fee 1 cup daily; 1 ppd; Start: 06-13-2022 End: 08-02-2022 Tobacco smoking status Heavy tobacco smoker (finding) [facility] Start: 08-13-2020 End: 06-02-2023 Sex Assigned At Female [place] End: 07-03-2023 Tobacco smoking status Smoker (finding) [facility] Tobacco smoking status Never [facility] Start: 07-05-2023 End: 05-24-2024 Tobacco smoking status NHIS Current some day smoker [facility] Start: 1985 Sex Assigned At Female [facility] Start: 10-24-2022 End: 08-07-2023 Tobacco smoking status ALIS Smokes tobacco daily [facility] End: 07-03-2023 History of tobacco use Cigarette Smoker [facility] Start: 10-24-2022 End: 10-26-2023 Tobacco use and exposure Smokeless tobacco non-user [facility] Start: 06-06-2023 End: 05-02-2024 Alcohol intake Current drinker of alcohol (finding) [facility] Start: 11-19-2020 Alcohol Comment RARELY [facility] Start: 1985 Sex Assigned At Not on file P [facility] Start: 08-23-2023 End: 10-26-2023 Tobacco smoking status NHIS Ex-smoker (finding) [facility] Start: 10-18-2023 End: 05-24-2024 Alcohol intake Lifetime non-drinker (finding) [facility] Do you belong to any clubs or organizations such as catholic groups, unions, fraSpry or athletic groups, or school groups? No [facility] Are you now , , , , never or living with a partner? Never [facility] How often to you hav e a drink containing alcohol? Never [facility] Do you feel stress - tense, restless, nervous, or anxious, or unable to sleep at night because your mind is troubled all the time - these days [OSQ] Not at all [facility] (I/We) worried wheth er (my/our) food would run out before (I/we) got money to buy more. Never true [facility] Start: 04-04-2024 Gender identity Identifies as female gender (finding) [facility] Start: 04-04-2024 Sexual orientation Heterosexual (fin yanira) [facility] Start: 02-05-2015 Sex Female (finding) [facility] Goals Date Patient Goal Desired Activity /State Functional Status Date Assessment Result Facility 06-13-2022 Functional Status N/A [facility] Clinical Notes 06-13-2022 to 07-16-2024 Telephone Encounter - Sugey Lowe, [facility] - 07/16/2024 10:27 AM ESTTelephone Encounter - Sugey Lowe, [facility] - 07/16/2024 10:27 AM ESTTelephone Encounter - Jerilyn Mosquera LPN - 07/12/2024 3:15 PM EST Note Date & Type Note Facility 07-16-2024 Miscellaneous Notes Pt called requestinga video visit because unknowingly pulls machine off talked to strap setter about sleep walking she dont use machine afraid to damage machine strap setter told her that you maybe able to do other testing she needs a video visit because she faint when she stands up. brain aneurysm rescheduled to video visit documented in this encounter [facility] 07-16-2024 Telephone encounter Note Pt called requestinga video visit because unknowingly pulls machine off talked to strap setter about sleep walking she dont use machine afraid to damage machine strap setter told her that you maybe able to do other testing she needs a video visit because she faint when she stands up. brain aneurysm rescheduled to video visit [facility] 07-12-2024 Telephone encounter Note 07/12/2024 Request for last last office visit note from Dr. Dobson to assist with PA for ordered MRI. Securely faxed to [phone] with confirmation of receipt received. Jerilyn Mosquera LPN July 12, 2024 3:16 PM [facility] 07-12-2024 Miscellaneous Notes 07/12/2024 Request for last last office visit note from Dr. Dobson to assist with PA for ordered MRI. Securely faxed to [phone] with confirmation of receipt received. Jerilyn Mosquera LPN July 12, 2024 3:16 PM documented in this encounter [facility] 06-24-2024 History of Presen t illness Narrative Reason for Appointment: Patient ID: Kalen Plaza is a 38 y.o. female who presents for vaginal issues Patient presents today for Consult appointment. MEDICATIONS Current Outpatient Medications Medication Instructions amphetamine-dextroamphetamine (Adderall) 20 MG tablet 2 PO every morning, 1 PO every afternoon atorvastatin (LIPITOR) 40 mg, Oral, Nightly bisoprolol (ZEBETA) 5 mg, Daily buprenorphine-naloxone (Suboxone) 2-0.5 MG per sublingual film Every 24 hours cholecalciferol (VITAMIN D3) 50 mcg, Daily RT desogestrel-ethinyl estradiol (Enskyce) 0.15-30 MG-MCG tablet 1 tablet, Oral, Daily folic acid (FOLVITE) 1,000 mcg, Oral, Daily gabapentin (NEURONTIN) 800 mg, 3 times daily levalbuterol (Xopenex) 45 MCG/ACT inhaler 2 puffs, Daily PRN magnesium oxide (MAG-OX) 400 mg, Daily midodrine (PROAMATINE) 10 mg, Oral, 3 times daily potassium chloride CR (K-Tab) 20 MEQ ER tablet 20 mEq, Oral, Daily predniSONE (DELTASONE) 5 mg, Daily pyridostigmine (Mestinon) 30 MG tablet TAKE 1 TABLET BY MOUTH EVERY MORNING 1 TABLET EVERY EVENING AND 1 TABLET AT BEDTIME Restasis 0.05 % ophthalmic emulsion varenicline (Chantix) 1 MG tablet venlafaxine XR (Effexor XR) 150 MG 24 hr capsule TAKE 1 CAPSULE(150 MG) BY MOUTH IN THE MORNING ALLERGIES No Known Allergies PROBLEMS Active Ambulatory Problems Diagnosis Date Noted Arthralgia 06/13/2023 Depressed bipolar I disorder ([facility]) 06/13/2023 Neuropathy, cervical (radicular) 06/13/2023 Dysfunctional uterine bleeding 06/13/2023 Dyslipidemia ([facility]) 06/13/2023 Fatigue 06/13/2023 Folic acid deficiency (non anemic) 06/13/2023 Generalized anxiety disorder ([facility]) 06/13/2023 Papanicolaou smear of cervix with high grade squamous intraepithelial lesion (HGSIL) 06/13/2023 Hypersomnia, unspecified 06/13/2023 Hypokalemia 06/13/2023 [place]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[facility]) 06/13/2023 Myalgia 06/13/2023 Opioid abuse ([facility]) 06/13/2023 Paresthesia 06/13/2023 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) 06/13/2023 Thoracic radiculopathy 06/13/2023 Vitamin D deficiency 06/13/2023 POTS (postural orthostatic tachycardia syndrome) 05/18/2023 Pelvic pain in female 08/14/2023 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 POLO (obstructive sleep apnea) 09/05/2023 Dyspnea 12/12/2023 Enlarged lymph nodes in armpit 12/12/2023 Breast lump on right side at 10 o'clock position 12/12/2023 Cough 02/07/2024 Easy bruising 02/07/2024 Resolved Ambulatory Problems Diagnosis Date Noted MDD (major depressive disorder), recurrent episode, mild (HCC) (CMS/HCC) 08/07/2023 RLS (restless legs syndrome) 02/07/2024 Past Medical History: Diagnosis Date Abnormal finding on diagnostic imaging of kidney Autonomic dysfunction Bipolar 1 disorder (CMS/HCC) Cervical neuropathic pain Endometriosis Folic acid deficiency ZANDRA (generalized anxiety disorder) (CMS/HCC) High grade squamous intraepithelial cervical dysplasia Palpitation Right ovarian cyst Seizure disorder (CMS/HCC) Syncope Tobacco user Underweight HISTORY PAST MEDICAL HISTORY SOCIAL HISTORY Past Medical History: Diagnosis Date Abnormal finding on diagnostic imaging of kidney Arthralgia Autonomic dysfunction Bipolar 1 disorder (CMS/HCC) Cervical neuropathic pain Dysfunctional uterine bleeding Dyslipidemia (CMS/HCC) Endometriosis Fatigue Folic acid deficiency ZANDRA (generalized anxiety disorder) (CMS/HCC) High grade squamous intraepithelial cervical dysplasia Hypokalemia [place]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CMS/HCC) Myalgia Opioid abuse (CMS/HCC) Palpitation Paresthesia Right ovarian cyst Secondary adrenal insufficiency (CMS/HCC) Seizure disorder (CMS/HCC) Syncope Doctors do not know what is causing this. Thoracic radiculopathy Tobacco user Underweight Vitamin D deficiency Social History Tobacco Use Smoking status: Every Day Current packs/day: 1.00 Types: Cigarettes Smokeless tobacco: Never Substance Use Topics Alcohol use: Not on file Drug use: Not on file FAMILY HISTORY Family History Problem Relation Name Age of Onset Thyroid disease Mother Hyperlipidemia Mother Mental illness Mother Bipolar disorder Mother Hyperlipidemia Father Mental illness Father Hypertension Father Heart disease Father Kidney disease Father Hepatitis Father Thyroid disease Sister Heart failure Maternal Grandfather SURGICAL HISTORY Past Surgical History: Procedure Laterality Date CERVICAL BIOPSY W/ LOOP ELECTRODE EXCISION 2011 LAPAROTOMY OOPHERECTOMY 2018 LYMPH NODE DISSECTION 2013 TONSILLECTOMY 2000 REVIEW OF SYSTEMS Review of Systems: Review of Systems All other systems reviewed and are negative. OBJECTIVE Objective: Physical Exam Constitutional: Appearance: Normal appearance. She is well-developed. Cardiovascular: Rate and Rhythm: Normal rate and regular rhythm. Pulmonary: Effort: Pulmonary effort is normal. Breath sounds: Normal breath sounds. Abdominal: General: Bowel sounds are normal. There is no distension. Palpations: Abdomen is soft. Tenderness: There is no abdominal tenderness. There is no guarding or rebound. Musculoskeletal: General: No swelling. Normal range of motion. Right lower leg: No edema. Left lower leg: No edema. Neurological: Mental Status: She is alert and oriented to person, place, and time. Skin: General: Skin is warm and dry. Psychiatric: Mood and Affect: Mood normal. Behavior: Behavior normal. Vitals and nursing note reviewed. Exam conducted with a senior outside sales representative present. Vitals: Estimated body mass index is 20.96 kg/m as calculated from the following: Height as of 06/12/24: 5' 4 . Weight as of this encounter: 122 lb 1.9 oz. BP: 120/64 Patient's last menstrual period was 06/24/2024. ASSESSMENT & PLAN ICD-10-CM 1. Vaginal discharge N89.8 SURESWAB(R) ADVANCED VAGINITIS PLUS, TMA CHLAMYDIA TRACHOMATIS (GENITO/STI) Neisseria gonorrhea DNA probe, direct Patient presents to office today for vaginal discharge & also stated that she saw urology and gastro who stated that the vaginal bleeding is from vagina verses her bladder. Patient also voiced that insurance will still not cover her CT--advised patient that ultrasound of axillary bilaterally and see if results will then warrant a CT scan. Patient to call office and ask for Desiree's voicemail so then she is able to be placed on schedule to have straight cath for urine sample. Patient to obtain US of axillary bilaterally and Pelvic US. Documented by Desiree Santacruz LPN on behalf of: Brent Whittaker DO documented in this encounter [facility] 06-12-2024 History of Presen t illness Narrative Associated Problem(s): POTS (postural orthostatic tachycardia syndrome) Tachycardia improved with bisoprolol and continue. Increase fluid intake and continue midodrine. Continue adderall for fatigue. Associated Problem(s): Generalized anxiety disorder (CMS/HCC) Mood stable and continue effexor. Associated Problem(s): Sherri-Danlos syndrome (CMS/HCC) Follow with specialists. Associated Problem(s): Depressed bipolar I disorder (CMS/HCC) Mood stable and continue effexor. Images from the original note were not included. Subjective Patient ID: Kalen Plaza is a 38 y.o. female who presents for Follow-up (3 m). Follow up bipolar, anxiety, POTS, and EDS. Mood stable. Continues to have symptoms and upset with poor health. Upset with symptoms and not able to be active. Feels like making progress with specialists and hopeful will be able to improve quality of life. At times down and sad but tolerable with medication. Anxiety stable. Not as stressed out or overwhelmed. Not as nervous or worry as much. Not as norton or irritable. Continues to have POTS and frequently lightheaded and dizzy. Symptoms worse when changing positions. On bisoprolol and not having tachycardia. Seen by neurology and vascular and feels like has EDS. Scheduled with [facility] administrator. Review of Systems Respiratory: Negative for cough, shortness of breath and wheezing. Cardiovascular: Negative for chest pain and palpitations. Gastrointestinal: Negative for abdominal pain, diarrhea, nausea and vomiting. Genitourinary: Negative for dysuria. Objective Physical Exam Constitutional: General: She is not in acute distress. Appearance: Normal appearance. HENT: Head: Normocephalic. Right Ear: Tympanic membrane normal. Left Ear: Tympanic membrane normal. Eyes: Extraocular Movements: Extraocular movements intact. Pupils: Pupils are equal, round, and reactive to light. Cardiovascular: Rate and Rhythm: Normal rate and regular rhythm. Heart sounds: No murmur heard. No friction rub. No gallop. Pulmonary: Effort: Pulmonary effort is normal. Breath sounds: Normal breath sounds. No wheezing, rhonchi or rales. Abdominal: General: Bowel sounds are normal. There is no distension. Palpations: Abdomen is soft. Tenderness: There is no abdominal tenderness. There is no guarding or rebound. Musculoskeletal: Cervical back: Neck supple. Right lower leg: No edema. Left lower leg: No edema. Neurological: Mental Status: She is alert. Assessment/Plan Problem List Items Addressed This Visit Depressed bipolar I disorder (CMS/HCC) - Primary Mood stable and continue effexor. Generalized anxiety disorder (CMS/HCC) Mood stable and continue effexor. POTS (postural orthostatic tachycardia syndrome) Tachycardia improved with bisoprolol and continue. Increase fluid intake and continue midodrine. Continue adderall for fatigue. Sherri-Danlos syndrome (CMS/HCC) Follow with specialists. documented in this encounter [facility] 05-28-2024 Miscellaneous Notes Spoke with patient of Dr. Robbins who had left message for Elvia. Patient in [place] office who he had referred for genetic testing. The testing was denied by [facility] and patient was requesting to get a referral to [facility] for Genetic Counseling as this was noted as a reason for denial, that patient had no record of genetic counseling. Staff put in referral per the patient request, and message sent back to patient by Rei Hunter that this was completed. She acknowledged receipt of referral and was advised to call the medical oncology office to confirm if they can perform the testing. She was also notified that Dr. Bustillos does see patients in the [place] office so she is able to schedule there in the future as she is a [place] resident. Rei Du documented in this encounter [facility] 05-28-2024 Telephone encounter Note Spoke with patient of Dr. Robbins who had left message for Elvia. Patient in [place] office who he had referred for genetic testing. The testing was denied by [facility] and patient was requesting to get a referral to [facility] for Genetic Counseling as this was noted as a reason for denial, that patient had no record of genetic counseling. Staff put in referral per the patient request, and message sent back to patient by Rei Hunter that this was completed. She acknowledged receipt of referral and was advised to call the medical oncology office to confirm if they can perform the testing. She was also notified that Dr. Bustillos does see patients in the [place] office so she is able to schedule there in the future as she is a [place] resident. Rei Du [facility] 05-28-2024 Miscellaneous Notes Pt called saying someone scheduled her for jun 03 and I informed her that I do not have an open appt till July 29, 2024 at 3:00PM phone hung up so I called her back and I scheduled her for and if she can not make that appt please call back to reschedule she stated she is wanting to see him for sleep walking. Pt will come to [facility] to see leonardo documented in this encounter [facility] 05-28-2024 Telephone encounter Note Pt called saying someone scheduled her for jun 03 and I informed her that I do not have an open appt till July 29, 2024 at 3:00PM phone hung up so I called her back and I scheduled her for and if she can not make that appt please call back to reschedule she stated she is wanting to see him for sleep walking. Pt will come to [facility] to see emilyng [facility] 05-28-2024 Miscellaneous Notes LVM for patient to inform her if her neurologist is managing her sleep related concerns there is no reason for her to schedule a future appt. with us, although if she is wanting us to manage her care she can call back and schedule an appt. documented in this encounter [facility] 05-28-2024 Telephone encounter Note LVM for patient to inform her if her neurologist is managing her sleep related concerns there is no reason for her to schedule a future appt. with us, although if she is wanting us to manage her care she can call back and schedule an appt. [facility] 05-27-2024 Miscellaneous Notes LVM for pt that she was scheduled 05/20/2024 and was a no show, lvm for her to call back and reschedule so she dont miss her 31-90 day compliance documented in this encounter [facility] 05-27-2024 Telephone encounter Note LVM for pt that she was scheduled 05/20/2024 and was a no show, lvm for her to call back and reschedule so she dont miss her 31-90 day compliance [facility] 05-24-2024 History and physical note NEUROLOGY CONSULT NOTE PATIENT NAME: Kalen Plaza DATE: May 24, 2024 PRIMARY CARE PHYSICIAN: David Laguerre MD REASON FOR CONSULT: Multiple symptoms REQUESTING PHYSICIAN: No ref. provider found My final recommendations will be communicated to the requesting health care provider by way of shared medical record for internal providers. ASSESSMENT: This is Kalen Plaza is a 38 year old female with a history of POTS, syncope, cerebral aneurysm, syringomyelia, lumbar cyst, seizure-like activity who presents with multiple symptoms. 1. 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 Syncope/seizure-like activity 3. Cerebral aneurysm 4. Ataxia/lower extremity tremor with tandem walking PLAN: MRI of the thoracic and lumbar spine with and without contrast ordered. EEG, CT angiogram of the head and neck ordered as well. Also discussed with patient today about functional movement disorder clinic which may be an option. Any problems or concerns to call me or primary care physician immediately or go straight to the emergency department HISTORY OF PRESENT ILLNESS: Kalen Plaza is a 38 year old female, with a history of POTS, syncope, cerebral aneurysm, syringomyelia, lumbar cyst, seizure-like activity who presents with multiple symptoms. Mom is here as well today. About the last year the patient had symptoms of fainting and passing out. There was note of seizure-like activity as well. She had been worked up at an outside facility at the local neurologist office. She was worked up with an MRI of the brain which per history came back unremarkable. She had an MRI of the cervical thoracic and lumbar spine questionably showing a syrinx and syringomyelia in the lumbar cyst. Initially she was diagnosed to have POTS she has seen cardiology and this may have been ruled out. She has seen numerous physicians. She was also told that she through the workup that she has a cerebral aneurysm. She would feel tremulous in her lower extremities and ataxia has difficulty tandem walking but able to walk normally otherwise. She actually has been seen by a colleague of [facility] in the past this is the first time I am seeing this patient.. COMPLETE REVIEW OF SYSTEMS: GENERAL: No weight loss, malaise or fevers RESPIRATORY: Negative for cough, hemoptysis, wheezing, COPD, dyspnea or shortness of breath CARDIOVASCULAR: Negative for chest pain, leg swelling, hypertension, CHF or palpitations GI: No nausea, vomiting, or diarrhea See HPI. All other systems reviewed and are negative. No past medical history on file. No past surgical history on file. No family history on file. Social History Tobacco Use Smoking status: Some Days Current packs/day: 0.00 Types: Cigarettes Last attempt to quit: 07/2023 Years since quittin.8 Smokeless tobacco: Never Vaping Use Vaping status: Never Used Substance Use Topics Alcohol use: Never Drug use: Not Currently Types: Marijuana, Opiates Comment: 7yrs ago MEDICATIONS: Current Outpatient Medications Medication Sig Dispense Refill gabapentin (NEURONTIN) 800 mg tablet Take 800 [...] dextroamphetamine-amphetamine (ADDERALL) 20 mg tablet As Directed iv contrast (will be provided with radiology test) CTA Head/Neck WO/W No IV access, insert saline lock prior to the sedation, infusion, injection for imaging exam. Discontinue saline lock post exam. If Pt. has a central line or IVAD, may access for administration according to line specific nursing protocol. Once exam is complete flush line and de-access according to line specific nursing protocol in the CT contrast administration guidelines link. 1 Each 0 iv contrast (will be provided with radiology test) MRI TSP Inject, intravenously, once for 1 dose. No IV access, insert saline lock prior to the beginning of sedation, infusion, injection of imaging exam. Discontinue saline lock post exam. If Pt. has a central line or IVAD, may access for administration according to line specific nursing protocol. Once exam is complete flush line and de-access according to line specific nursing protocol in the MR contrast administration guidelines link. 1 Each 0 iv contrast (will be provided with radiology test) MRI LSP Inject, intravenously, once for 1 dose. No IV access, insert saline lock prior to the beginning of sedation, infusion, injection of imaging exam. Discontinue saline lock post exam. If Pt. has a central line or IVAD, may access for administration according to line specific nursing protocol. Once exam is complete flush line and de-access according to line specific nursing protocol in the MR contrast administration guidelines link. 1 Each 0 No current facility-administered medications for this visit. Problem List There is no problem list on file for this patient. ALLERGIES: ALLERGIES No Known Allergies PHYSICAL EXAM: BP 112/89 Pulse 94 LMP 05/19/2024 General appearance: well appearing, alert, and in no acute distress Skin: skin color, texture, turgor normal, no rashes or lesions Head: normal Carotid Auscultation: Without bruits Lungs: lungs clear to auscultation no wheezing or rhonchi CVS: Negative. RRR without murmur Neurological exam: Mental Status: Alert, oriented to person, place and time and Follows commands. Language: Comprehension intact? (simple commands - Yes, complex commands Yes), Fluency intact? Yes, repetition intact? Yes, reading intact? Yes, naming intact? Yes. Cranial Nerves: CNII: Visual acuity normal, Visual pittman full to confrontation CNIII, IV, : Pupils equal, round and reactive to light, full extraoccular movements without nystagmus CN V: Facial sensation intact bilaterally to fine touch and pinprick, masseter 5/5 CN VII: Facial muscles symmetric and strong CN VIII: Hears finger rub well bilaterally CN IX: Deferred CN X: Palate elevates symmetrically CN XI: Full strength shoulder shrug bilaterally CN XII: Tongue protrusion full and midline Non-Dilated Fundiscopic Examination: Deferred Deferred Examination Motor Exam: Muscle bulk: Normal b/l Muscle Tone: Normal Muscle Power: Muscle Power: Moved all four extremities spontaneously with no focal motor weakness Reflexes: Symmetrically present Plantars: equivocal Sensation: Sensation is intact to light touch Coordination: Finger-to- nose-finger intact bilaterally. Gait: Patient's gait is normal, could not tandem walk, would have tremulousness up-and-down movement of her lower extremities when she does this. But can normally walk without walking in a straight line tandem walking. ASSESSMENT/PLAN: 1. Nonruptured cerebral aneurysm - ICD9: 437.3, ICD10: I67.1 (primary diagnosis) - CTA HEAD WO/W IVCON 2. Encounter for screening for cardiovascular disorders - ICD9: V81.2, ICD10: Z13.6 - CTA NECK W IVCON 3. Syncope and collapse - ICD9: 780.2, ICD10: R55 - CTA HEAD WO/W IVCON - CTA NECK W IVCON - IV CONTRAST (RADIOLOGY PROCEDURE) 4. Seizure-like activity (HCC) - ICD9: 780.39, ICD10: R56.9 - EPIL EEG ROUTINE 5. Cerebral aneurysm - ICD9: 437.3, ICD10: I67.1 - CTA HEAD WO/W IVCON 6. Syringomyelia and syringobulbia (HCC) - ICD9: 336.0, ICD10: G95.0 - MRI THORACIC SPINE WO/W IVCON - MRI LUMBAR SPINE WO/W IVCON Rajesh Dobson MD I spent a total of 45 minutes on the date of the service which included preparing to see the patient, [id number] patient care, completing clinical documentation, obtaining and/or reviewing separately obtained history, performing a medically appropriate examination, counseling and educating the patient/family/caregiver, and ordering medications, tests, or procedures. Signature Rajesh Dobson MD Staff, Neurology May 24, 2024 3:18 PM [facility] 05-24-2024 History and physical note NEUROLOGY CONSULT NOTE PATIENT NAME: Kalen Plaza DATE: May 24, 2024 PRIMARY CARE PHYSICIAN: David Laguerre MD REASON FOR CONSULT: Multiple symptoms REQUESTING PHYSICIAN: No ref. provider found My final recommendations will be communicated to the requesting health care provider by way of shared medical record for internal providers. ASSESSMENT: This is Kalen Plaza is a 38 year old female with a history of POTS, syncope, cerebral aneurysm, syringomyelia, lumbar cyst, seizure-like activity who presents with multiple symptoms. 1. 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 Syncope/seizure-like activity 3. Cerebral aneurysm 4. Ataxia/lower extremity tremor with tandem walking PLAN: MRI of the thoracic and lumbar spine with and without contrast ordered. EEG, CT angiogram of the head and neck ordered as well. Also discussed with patient today about functional movement disorder clinic which may be an option. Any problems or concerns to call me or primary care physician immediately or go straight to the emergency department HISTORY OF PRESENT ILLNESS: Kalen Plaza is a 38 year old female, with a history of POTS, syncope, cerebral aneurysm, syringomyelia, lumbar cyst, seizure-like activity who presents with multiple symptoms. Mom is here as well today. About the last year the patient had symptoms of fainting and passing out. There was note of seizure-like activity as well. She had been worked up at an outside facility at the local neurologist office. She was worked up with an MRI of the brain which per history came back unremarkable. She had an MRI of the cervical thoracic and lumbar spine questionably showing a syrinx and syringomyelia in the lumbar cyst. Initially she was diagnosed to have POTS she has seen cardiology and this may have been ruled out. She has seen numerous physicians. She was also told that she through the workup that she has a cerebral aneurysm. She would feel tremulous in her lower extremities and ataxia has difficulty tandem walking but able to walk normally otherwise. She actually has been seen by a colleague of mine in the past this is the first time I am seeing this patient.. COMPLETE REVIEW OF SYSTEMS: GENERAL: No weight loss, malaise or fevers RESPIRATORY: Negative for cough, hemoptysis, wheezing, COPD, dyspnea or shortness of breath CARDIOVASCULAR: Negative for chest pain, leg swelling, hypertension, CHF or palpitations GI: No nausea, vomiting, or diarrhea See HPI. All other systems reviewed and are negative. No past medical history on file. No past surgical history on file. No family history on file. Social History Tobacco Use Smoking status: Some Days Current packs/day: 0.00 Types: Cigarettes Last attempt to quit: 07/2023 Years since quittin.8 Smokeless tobacco: Never Vaping Use Vaping status: Never Used Substance Use Topics Alcohol use: Never Drug use: Not Currently Types: Marijuana, Opiates Comment: 7yrs ago MEDICATIONS: Current Outpatient Medications Medication Sig Dispense Refill gabapentin (NEURONTIN) 800 mg tablet Take 800 [...] dextroamphetamine-amphetamine (ADDERALL) 20 mg tablet As Directed iv contrast (will be provided with radiology test) CTA Head/Neck WO/W No IV access, insert saline lock prior to the sedation, infusion, injection for imaging exam. Discontinue saline lock post exam. If Pt. has a central line or IVAD, may access for administration according to line specific nursing protocol. Once exam is complete flush line and de-access according to line specific nursing protocol in the CT contrast administration guidelines link. 1 Each 0 iv contrast (will be provided with radiology test) MRI TSP Inject, intravenously, once for 1 dose. No IV access, insert saline lock prior to the beginning of sedation, infusion, injection of imaging exam. Discontinue saline lock post exam. If Pt. has a central line or IVAD, may access for administration according to line specific nursing protocol. Once exam is complete flush line and de-access according to line specific nursing protocol in the MR contrast administration guidelines link. 1 Each 0 iv contrast (will be provided with radiology test) MRI LSP Inject, intravenously, once for 1 dose. No IV access, insert saline lock prior to the beginning of sedation, infusion, injection of imaging exam. Discontinue saline lock post exam. If Pt. has a central line or IVAD, may access for administration according to line specific nursing protocol. Once exam is complete flush line and de-access according to line specific nursing protocol in the MR contrast administration guidelines link. 1 Each 0 No current facility-administered medications for this visit. Problem List There is no problem list on file for this patient. ALLERGIES: ALLERGIES No Known Allergies PHYSICAL EXAM: BP 112/89 Pulse 94 LMP 05/19/2024 General appearance: well appearing, alert, and in no acute distress Skin: skin color, texture, turgor normal, no rashes or lesions Head: normal Carotid Auscultation: Without bruits Lungs: lungs clear to auscultation no wheezing or rhonchi CVS: Negative. RRR without murmur Neurological exam: Mental Status: Alert, oriented to person, place and time and Follows commands. Language: Comprehension intact? (simple commands - Yes, complex commands Yes), Fluency intact? Yes, repetition intact? Yes, reading intact? Yes, naming intact? Yes. Cranial Nerves: CNII: Visual acuity normal, Visual pittman full to confrontation CNIII, IV, : Pupils equal, round and reactive to light, full extraoccular movements without nystagmus CN V: Facial sensation intact bilaterally to fine touch and pinprick, masseter 5/5 CN VII: Facial muscles symmetric and strong CN VIII: Hears finger rub well bilaterally CN IX: Deferred CN X: Palate elevates symmetrically CN XI: Full strength shoulder shrug bilaterally CN XII: Tongue protrusion full and midline Non-Dilated Fundiscopic Examination: Deferred Deferred Examination Motor Exam: Muscle bulk: Normal b/l Muscle Tone: Normal Muscle Power: Muscle Power: Moved all four extremities spontaneously with no focal motor weakness Reflexes: Symmetrically present Plantars: equivocal Sensation: Sensation is intact to light touch Coordination: Finger-to- nose-finger intact bilaterally. Gait: Patient's gait is normal, could not tandem walk, would have tremulousness up-and-down movement of her lower extremities when she does this. But can normally walk without walking in a straight line tandem walking. ASSESSMENT/PLAN: 1. Nonruptured cerebral aneurysm - ICD9: 437.3, ICD10: I67.1 (primary diagnosis) - CTA HEAD WO/W IVCON 2. Encounter for screening for cardiovascular disorders - ICD9: V81.2, ICD10: Z13.6 - CTA NECK W IVCON 3. Syncope and collapse - ICD9: 780.2, ICD10: R55 - CTA HEAD WO/W IVCON - CTA NECK W IVCON - IV CONTRAST (RADIOLOGY PROCEDURE) 4. Seizure-like activity (HCC) - ICD9: 780.39, ICD10: R56.9 - EPIL EEG ROUTINE 5. Cerebral aneurysm - ICD9: 437.3, ICD10: I67.1 - CTA HEAD WO/W IVCON 6. Syringomyelia and syringobulbia (HCC) - ICD9: 336.0, ICD10: G95.0 - MRI THORACIC SPINE WO/W IVCON - MRI LUMBAR SPINE WO/W IVCON Rajesh Dobson MD I spent a total of 45 minutes on the date of the service which included preparing to see the patient, [id number] patient care, completing clinical documentation, obtaining and/or reviewing separately obtained history, performing a medically appropriate examination, counseling and educating the patient/family/caregiver, and ordering medications, tests, or procedures. Signature Rajesh Dobson MD Staff, Neurology May 24, 2024 3:18 PM documented in this encounter [facility] 05-24-2024 Note HNO ID: [id number] Author: RAJESH DOBSON MD Service: ? Author Type: Physician Type: Progress Notes Filed: 05/24/2024 15:24 Note Text: [facility] 05-24-2024 History of Presen t illness Narrative documented in this encounter [facility] 05-02-2024 History of Presen t illness Narrative Images from the original note were not included. Date of Service: 05/02/24 PCP: DAVID LAGUERRE MD History of Present Illness Kalen Plaza is a 38 y.o. female, who is following with us for renal hematuria and proteinuria on urine dipstick. The patient has been evaluated in our office the in the past for hematuria and proteinuria. Extensive serologies and imaging were unremarkable. She continues to be concerned about her abnormal random urine protein and abnormal urine dipstick and for which she did come back to see us today for further discussion for her abnormal urine dipstick. On blood work from May 01, 2024 CBC was within normal limits, basic metabolic panel was within normal limits including potassium serum CO2 calcium BUN creatinine magnesium and phosphorus. 25 (OH) Vitamin-D level was 39.4. PTH was 47. Urine dipstick revealed a concentrated urine with specific gravity of 1.03 with calcium oxalate mucus trace protein trace hemoglobin however there was only 2 RBCs per high-power field and random urine protein to creatinine ratio was 0.1 grams/gram. Problem List Hematuria on urine dipstick with workup including gas CT of the abdomen and bowel was from a December 2022 which revealed no evidence of nephrolithiasis and normal kidneys, from January 12, 2023 right kidney was 9.7 cm left of 9.2 cm with no evidence of stones or abnormalities, from July 30, 2023 MRI of the abdomen revealed done normal kidneys. Proteinuria on urine dipstick with the random urine protein to creatinine ratio on multiple occasions which has been within normal limits specific on May 01, 2024 and 0.1 grams/gram. From January of 2024 serum protein electrophoresis was negative monoclonal bands, from March of 2023 RADHA C Anca p-ANCA anti MPO anti PR3 and anti-GBM were all negative, from December of 2022 rheumatoid factor was negative, from March of 2023 C3 was 146 and C4 was 36, free kappa to lambda ratio on March 2020 April 04, 2019July 05, 2023 and January of 2024 were all within normal limits and specifically from January of 2024 was 1.32 and a from July 2023 immunofixation was unremarkable. From March of 2023 hepatitis-B and C were negative and HIV was negative. Sinus Tachycardia following up with Cardiology in being treated with bisoprolol. Postural orthostatic tachycardia syndrome History of vasodepressor syncope Hypomagnesemia Adrenal insufficiency Bipolar disorder Endometriosis History of opioid abuse with withdrawal as well as her with addiction Palpitations with tachycardia Right ovarian cyst Seizure disorder D&C Ovarian cyst removal Tonsillectomy Medical, Surgical, Family & Social History Medical History: Past Medical History: Diagnosis Date Anxiety [place] [place] Depression Dyspareunia, female Endometriosis Endometriosis Gardnerella vaginitis Gastroenteritis, acute H/O LEEP [place] [place] HPV (human papilloma virus) infection Lump of breast, right Opio[place] with [place] [place] Palpitations Right ovarian cyst Seizure disorder [place] [place] Surgical History: Past Surgical History: Procedure Laterality Date DILATION AND CURETTAGE OF UTERUS LAPAROSCOPY LYMPH NODE DISSECTION OVARIAN CYST REMOVAL TONSILLECTOMY Social History: Social History Socioeconomic History Marital status: Single Spouse name: Not on file Number of children: Not on file Years of education: Not on file Highest education level: Not on file Occupational History Not on file Tobacco Use Smoking status: Former Current packs/day: 0.00 Types: Cigarettes Quit date: 06/2023 Years since quittin.9 Smokeless tobacco: Never Vaping Use Vaping status: Never Used Substance and Sexual Activity Alcohol use: Yes Comment: RARELY Drug use: Not Currently Types: Cocaine, Methamphetamines, Heroin Comment: history of use, denies current Sexual activity: Defer Other Topics Concern Caffeine Use Yes Social History Narrative Not on file Social Drivers of Health Financial Resource Strain: Patient Declined (02/05/2024) Received from [facility] Overall Financial Resource Strain (CARDIA) Difficulty of Paying Living Expenses: Patient declined Food Insecurity: No Food Insecurity (04/01/2024) Hunger Screening Food Insecurity - Worry: Never True Food Insecurity - Inability: Never True Transportation Needs: No Transportation Needs (02/05/2024) Received from [facility] PRAPARE - Transportation Lack of Transportation (Medical): No Lack of Transportation (Non-Medical): No Physical Activity: Inactive (02/05/2024) Received from [facility] Exercise Vital Sign Days of Exercise per Week: 0 days Minutes of Exercise per Session: 0 min Stress: No Stress Concern Present (02/05/2024) Received from [facility] of Occupational Health - Occupational Stress Questionnaire Feeling of Stress : Not at all Social Connections: Socially Isolated (02/05/2024) Received from [facility] Social Connection and Isolation Panel [NHANES] Frequency of Communication with Friends and Family: Once a week Frequency of Social Gatherings with Friends and Family: Never Attends Caodaism Services: Never Active Member of Clubs or Organizations: No Attends Club or Organization Meetings: Never Marital Status: Never Interpersonal Safety: Not on file Housing Instability: Low Risk (02/05/2024) Received from [facility] Housing Stability Vital Sign Unable to Pay for Housing in the Last Year: No Number of Times Moved in the Last Year: 0 Homeless in the Last Year: No Family History: Family History Problem Relation Age of Onset Hypertension Mother Hyperlipidemia Mother Bipolar disorder Mother Thyroid disease Mother Heart disease Father Hypertension Father Hepatitis Father Hyperlipidemia Father Kidney disease Father Thyroid disease Sister Breast cancer Neg Hx Allergies & Medications Allergies: No Known Allergies Current Meds: Current Outpatient Medications Medication Sig Dispense Refill [...] take 1 tablet by mouth once daily folic acid (FOLVITE) 1 mg tablet Take [...] by mouth 3 (three) times a day. predniSONE (DELTASONE) 5 mg tablet Take 1 tablet (5 mg total) by mouth in the morning. Take 5 mg in the am and 1/2 tablet in pm. pyRIDostigmine [...] No current facility-administered medications for this visit. Review of Systems Review of Systems Constitutional: Negative for chills, diaphoresis, fatigue and fever. HENT: Negative for congestion, ear discharge, ear pain, facial swelling and hearing loss. Eyes: Negative for pain, discharge, redness and itching. Respiratory: Negative for cough, shortness of breath and wheezing. Cardiovascular: Positive for leg swelling. Negative for chest pain and palpitations. Gastrointestinal: Negative for abdominal pain, constipation, diarrhea, nausea and vomiting. Endocrine: Positive for polydipsia and polyuria. Negative for polyphagia. Genitourinary: Positive for difficulty urinating and hematuria. Negative for decreased urine volume, dysuria, flank pain, frequency and urgency. Musculoskeletal: Positive for joint swelling. Negative for arthralgias and myalgias. Skin: Negative for pallor, rash and wound. Neurological: Positive for dizziness, tremors, syncope and weakness. Negative for seizures, light-headedness, numbness and headaches. Hematological: Negative for adenopathy. Bruises/bleeds easily. Physical Exam Vital Signs: Vitals: 05/02/24 0808 05/02/24 0811 BP: 105/77 105/76 BP Site: Right Arm Right Arm BP Postition: Sitting Standing BP CUFF SIZE: M (9-13 inches) M (9-13 inches) Pulse: 104 115 Temp: 37.2 C (99 F) TempSrc: Oral SpO2: 98% Weight: 53.1 kg (117 lb) BMI: Body mass index is 20.08 kg/m . General appearance: alert in no apparent distress. Psychiatric: Oriented to place, time and person HEENT: atraumatic, supple, moist oral mucosa, no JVD Cardiovascular: normal S1-S2 Respiratory: No respiratory distress with no use of accessory muscles. Clear to auscultation bilaterally with no wheezes or crackles Abdomen: soft, no tenderness, no guarding, positive bowel sounds and no hepato or splenomegaly Vascular: adequate pulses and no carotid bruits. Musculoskeletal: no joint swelling or tenderness. Neurologic: No focal deficit in upper or lower extremities Lymphatic: no cervical or axillary lymphadenopathy. Laboratory Studies Chemistry: Lab Results Component Value Date SODIUM 139 05/01/2024 SODIUM 139 02/26/2024 SODIUM 131 (L) 02/24/2024 SODIUM 139 01/24/2024 SODIUM 140 08/02/2023 K 3.6 05/01/2024 K 3.4 (L) 02/26/2024 K 4.7 02/24/2024 K 3.1 (L) 01/24/2024 K 3.7 08/02/2023 CL 105 05/01/2024 CL 102 02/26/2024 CL 99 02/24/2024 CL 100 01/24/2024 CL 104 08/02/2023 CO2 22 05/01/2024 CO2 26 02/26/2024 CO2 26 02/24/2024 CO2 29 01/24/2024 CO2 26 08/02/2023 ANIONGAP 12 05/01/2024 ANIONGAP 11 02/26/2024 ANIONGAP 6 02/24/2024 ANIONGAP 10 01/24/2024 ANIONGAP 10 08/02/2023 BUN 14 05/01/2024 BUN 16 02/26/2024 BUN 16 02/24/2024 BUN 13 01/24/2024 BUN 11 08/02/2023 CREATININE 0.92 05/01/2024 CREATININE 0.94 02/26/2024 CREATININE 0.89 02/24/2024 CREATININE 0.94 01/24/2024 CREATININE 0.93 08/02/2023 EGFR 82 05/01/2024 EGFR 80 02/26/2024 EGFR 85 02/24/2024 EGFR 80 01/24/2024 EGFR 81 08/02/2023 CALCIUM 8.7 05/01/2024 CALCIUM 9.1 02/26/2024 CALCIUM 9.2 02/24/2024 CALCIUM 9.1 01/24/2024 CALCIUM 9.3 08/02/2023 MG 1.9 05/01/2024 MG 1.7 (L) 04/20/2023 MG 1.8 03/16/2023 MG 2.0 01/06/2023 MG 2.1 12/25/2022 PHOSPHORUS 3.5 05/01/2024 PHOSPHORUS 3.1 04/20/2023 PHOSPHORUS 1.9 (L) 03/16/2023 Lab Results Component Value Date TOTALPROTEI 8.0 02/24/2024 TOTALPROTEI 7.1 01/24/2024 TOTALPROTEI 7.4 01/24/2024 ALBUMIN 4.0 02/24/2024 ALBUMIN 4.0 01/24/2024 ALBUMIN 4.2 01/24/2024 AST 40 02/24/2024 AST 22 01/24/2024 ALT 34 (H) 02/24/2024 ALT 17 01/24/2024 BILIRUBIN Negative 05/01/2024 BILIRUBIN Negative 02/26/2024 ALKPHOS 104 02/24/2024 ALKPHOS 87 01/24/2024 Hematology: Lab Results Component Value Date WBC 9.4 05/01/2024 WBC 8.0 02/24/2024 HGB 12.6 05/01/2024 HGB 12.8 02/24/2024 HCT 37.1 05/01/2024 HCT 37.5 02/24/2024 PLT 346 05/01/2024 PLT 381 02/24/2024 Anemia Studies: Lab Results Component Value Date IRONSAT 16 05/01/2024 IRONSAT 34 07/07/2023 FERRITIN 28 07/07/2023 [id number] 07/07/2023 [id number] 339 01/06/2023 FOLATE >25.0 07/07/2023 FOLATE 4.8 (L) 01/06/2023 Mineral and Bone Labs: Lab Results Component Value Date CALCIUM 8.7 05/01/2024 CALCIUM 9.1 02/26/2024 PHOSPHORUS 3.5 05/01/2024 PHOSPHORUS 3.1 04/20/2023 VITD25 39.4 05/01/2024 VITD25 46.4 04/20/2023 PTH 47 05/01/2024 PTH 27 04/20/2023 Urine Studies: Lab Results Component Value Date COLOR YELLOW 05/01/2024 TURBIDITY CLEAR 05/01/2024 SPECIFICGRA 1.031 05/01/2024 NITRITE Negative 05/01/2024 PHURINE 6.0 05/01/2024 LEUKOCYTE Negative 05/01/2024 PROTEIN Trace (A) 05/01/2024 KETONES Negative 05/01/2024 UROBILINOGEN <1.1 05/01/2024 BLOODHGB Trace (A) 05/01/2024 Lab Results Component Value Date UPROCRTRAT 0.10 05/01/2024 UPROCRTRAT 0.08 02/26/2024 UPROCRTRAT 0.09 04/20/2023 UPROCRTRAT 0.08 03/30/2023 UPROCRTRAT 0.07 03/16/2023 Immunology Profile Lab Results Component Value Date PROTELECTR 01/24/2024 Unremarkable protein distribution, no monoclonal bands. SEDRATE 7 01/24/2024 CRP 0.2 07/20/2023 ANASCREEN Negative 03/30/2023 C3 146 03/30/2023 C4 36 03/30/2023 ANCA See Below 03/30/2023 MYELOP <0.2 03/30/2023 PROTEINASE3 <0.2 03/30/2023 ANTIGLOMERU <0.2 03/30/2023 Lab Results Component Value Date HEPAIGM Non-Reactive 07/20/2023 HEPBIGM Negative 02/05/2018 HEPBCAB Negative 03/30/2023 Imaging Echocardiogram: Echo complete W/O contrast Result Date: 03/24/2023 Left Ventricle: Systolic function is normal with an ejection fraction of 55-60%. No obvious regional wall motion abnormalities. Right Ventricle: Systolic function is low normal. Abnormal tricuspid annular plane systolic excursion. Tricuspid Valve: The right ventricular systolic pressure normal. RVSP calculated at 16 mmHg. RVSP is based on RA pressure of 3 mmHg. Assessment and Plan 1. Hematuria and proteinuria on urine dipstick likely related to concentrated urine specimen with elevated specific gravity. Random urine protein creatinine ratio on multiple occasions has with been within normal limits and so the patient does not have any abnormal amount of protein in the urine. Her up microscopy revealed the 0-2 RBCs per high-power field which is within normal limits. At this time, and given her occasional issues with gross hematuria, I did advise her that this is not renal in etiology especially with multiple urine microscopy is that revealed less than 5 RBCs per high-power field random urine protein to creatinine ratio within normal limits and normal kidney function and normal renal imaging on ultrasound CT and MRI. Her gross hematuria could be or tubing machine tender in etiology and for which she will need to discuss that with the her urologist and development system efficiency manager. 2. Discrepancy in the kidney sizes on renal ultrasound. I did inform the patient that the at 0.5 cm difference between the 2 kidneys is a normal variant and nothing abnormal to be investigated or to be concerned about. However she does see vascular surgery and I did inform her that she could discuss this with her vascular surgeon however I would not advise proceeding with vascular imaging of her kidneys with an only 0.5 cm difference between 2 kidneys and absence of renal dysfunction or hypertension. 3. Elevated free kappa light chains on multiple occasions however her kappa to lambda ratio has been within normal limits on multiple occasions and immunofixation on 2 separate occasions most recent was in July 2023 were all unremarkable and within normal limits. This is not an abnormal issue that needs any further investigation or evaluation. 4. Calcium oxalate crystals on urine dipstick: The patient's specific gravity is elevated. Her urine is concentrated. I did advise her that she is at high risk to develop kidney stones given that she does not drink enough fluids and her urine is always concentrated and she also has calcium oxalate crystals. I did advise her to increase her free water intake to about 2 L daily to decrease the risk of worsening of the calcium oxalate crystals and development of kidney stones. At this time, given her normal kidney function and absence of abnormal amount of RBCs in the urine dipstick and normal urine protein to creatinine ratio, there is no renal abnormality noted that requires any further investigation or follow-up. Thank you DAVID LAGUERRE MD for the allowing us to continue participant in the care of this patient. Please contact me at [phone] (Office) or [phone] (Answering service) with any questions. Quang Khan MD [facility] This note was created with the assistance of a speech-recognition program. Although the intention is to generate a document that actually reflects the content of the visit, no guarantees can be provided that every mistake has been identified and corrected by editing. documented in this encounter [facility] 02-21-2024 History of Presen t illness Narrative Images from the original note were not included. Chief Complaint Patient presents with Neck Pain Weakness, Gen BLE Numbness Subjective Kalen Mela, 38 y.o., female Patient is here for follow up and initially presents alone though her mother does join the visit at a later time. She admits following with [facility] neurology since last seen but does not wish to return. The patient presents today with concern for progressive worsening of symptoms. She states that she has self-performed heel to perez testing, finger to nose testing and tandem walking and states she cannot perform any of these. She also reports worsening complaints of pain that starts between the shoulder blades which radiates down the left arm. This is described as a pinching sensation. She believes this is related to abnormal finding on her previous EMG. She reports that her general pain, muscle weakness and fatigue have worsened. Her mother admits that she continues to require assistance to get out of bed and has to use a commode because she can't make it to the bathroom. The patient admits that she now has to use a cane for ambulation and admits to falls. Admits mood disturbance. Denies further concern today. Currently follows with nephrology (Dr. Ontiveros), addiction therapist, endocrinology, cardiology, and previously followed by rheumatology. Also reports previous evaluation with vascular and ENT. Review of Systems Constitutional: Negative for appetite change, fatigue and fever. Respiratory: Negative for cough, shortness of breath and wheezing. Cardiovascular: Negative for chest pain, palpitations and leg swelling. Gastrointestinal: Negative for abdominal pain, constipation, diarrhea and nausea. Musculoskeletal: Positive for gait problem, myalgias and neck pain. Negative for arthralgias. Neurological: Positive for tremors, weakness and numbness. Negative for dizziness and headaches. Past Medical History: Diagnosis Date Abnormal finding on diagnostic imaging of kidney Arthralgia Autonomic dysfunction Bipolar 1 disorder (CMS/HCC) Cervical neuropathic pain Dysfunctional uterine bleeding Dyslipidemia (CMS/HCC) Endometriosis Fatigue Folic acid deficiency ZANDRA (generalized anxiety disorder) (CMS/HCC) High grade squamous intraepithelial cervical dysplasia Hypokalemia [place]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CMS/HCC) Myalgia Opioid abuse (CMS/HCC) Palpitation Paresthesia Right ovarian cyst Secondary adrenal insufficiency (CMS/HCC) Seizure disorder (CMS/HCC) Syncope Doctors do not know what is causing this. Thoracic radiculopathy Tobacco user Underweight Vitamin D deficiency Past Surgical History: Procedure Laterality Date CERVICAL BIOPSY W/ LOOP ELECTRODE EXCISION 2011 LAPAROTOMY OOPHERECTOMY 2018 LYMPH NODE DISSECTION 2013 TONSILLECTOMY 2000 Family History Problem Relation Name Age of Onset Thyroid disease Mother Hyperlipidemia Mother Mental illness Mother Bipolar disorder Mother Hyperlipidemia Father Mental illness Father Hypertension Father Heart disease Father Kidney disease Father Hepatitis Father Thyroid disease Sister Heart failure Maternal Grandfather Social History Tobacco Use Smoking status: Every Day Current packs/day: 1.00 Types: Cigarettes Smokeless tobacco: Never Substance Use Topics Alcohol use: Not on file Allergies: Patient has no known allergies. Vitals: 02/21/24 1343 BP: 110/78 Pulse: 97 Body mass index is 19.91 kg/m . weight: 116 lb Neurologic exam: Mental status: Well nourished, well developed, Tearful and anxious Grossly oriented to person, place and time. Recent and remote memory are intact. Language is fluent without aphasia. Attention and concentration are normal. Fund of knowledge is appropriate for level of education. Cranial nerves: CN II: Visual acuity is normal. Visual p[place]man full to confrontation. CN III, IV, : pupils equal round and reactive to light. Extraocular movements intact. No ptosis present. CN V: Facial sensation is normal. CN VII: Full and symmetric facial movement. CN VIII: Hearing is intact. CN IX and X: Palate elevates symmetrically. CN XI: Shoulder shrug is normal bilaterally. CN XII: Tongue is midline without atrophy or fasciculation. Motor: RUE Strength deltoid, , biceps , triceps , wrist extensors , wrist flexor , family support worker strength 5/5. LUE Strength deltoid , biceps , triceps , wrist extensors , wrist flexor , family support worker strength 5/5. RLE Strength illopsoas, quadriceps, tibialis anterior, and gastrocnemius strength 4+/5. LLE Strength illopsoas, quadriceps, tibialis anterior, and gastrocnemius strength 4+/5. Normal tone x4 extremities. Lhermitte sign negative. The patient does demonstrate that she has tremoring of the legs though this is not present throughout the remainder of the exam. Sensory: Sensation is intact to light touch throughout distal extremities. Reflexes: Deep tendon reflexes are 2+ and symmetric throughout. Orozco's Sign negative. Coordination: [id number] testing is abnormal bilaterally, not present previously on exams. Gait: Cane Review and summary of old records: Per [facility] neurology note at [facility] (Dr. Viridiana MD) on 10/18/2023: MRI of the head, thoracic spine, and lumbar spine were reviewed on the patients phone. The thoracic spine syrinx have been there for some time and is stable without any increase in size. The patient was told to collect remaining records and return 1 more time to see me again if indeed all the workup has been done after my review and her exam is normal then she will be sent to functional Neurology. Per [place] neurology at [facility] (Dr. Marek SNOW) note on 08/31/23: multiple complaints of no clear localizing value from a neurological point of view. Examination is unremarkable. MRI of the lumbar spine without contrast on 05/19/23: disc herniation at L3-4, which produces moderate left neural foraminal narrowing. No abnormality of the cauda equina. MRI of the cervical spine without contrast on 02/16/23: Essentially unremarkable MRI of the cervical spine with minimal degenerative changes and 1 cm dilation of the central canal at C6/7. MRI of the thoracic spine on 02/16/23: No significant interval change in thoracic syrinx without evidence of cord compression or pathologic enhancement. EMG of the BUE on 11/22/22: A remote motor radiculopathy on the left, which is very mild in degree electrically. No evidence of brachial plexopathy, or entrapment mononeuropathy. EMG of the BLE on 11/03/2022: Normal EMG. Brain MRI with and without contrast on 10/14/2022: Unremarkable enhanced and unenhanced MRI of the brain. [place] Total on 08/23/22: Unremarkable. Assessment/Plan Diagnoses and all orders for this visit: Paresthesia The patient has complaints of paresthesias and significant fatigue. Brain MRI was unremarkable. MRI of the C spine with minimal degenerative changes. MRI of the T spine does show syrinx without which seems unchanged since imaging in 2014. No evidence of chiari. EMGs did not identify any coexistent mononeuropathy. Lumbar MRI with a lefward disc herniation at L3-4 resulting in moderate left neural foraminal narrowing. She does have a number of symptoms that do not seem to correlate with any single process and do not seem consistent with the workup thus far. I do have ongoing consideration that these symptoms may be nonneurological in nature. She did have a second opinion with neurology at [facility] in [place] who felt her constelation of symptoms had no clear localizing value from a neurological standpoint. We did refer her to [facility] neurology and the patient did go for initial consult though she has not returned. The patient is adamant that symptoms have been progressively worsening. As such we will update brain imaging and I have advised her to reach out to [facility] to schedule follow up given the overall unremarkable work up thus far. PLAN: - I will order an MRI of the brain to evaluate for intracranial changes such as a tumor, mass, or lesion that would contribute to his symptoms. - I have recommended the patient obtain the MRI discs of her MRIs and take them with her to follow up with [facility] neurology Ataxia The patient does demonstrate ataxia with finger to nose testing bilaterally that has not been observed with previous evaluations. I have considered that this may be functionally enhanced although I cannot rule out an intracranial pathology which could be life threatening if not correctly identified. PLAN: - MRI of the brain as above Cervical radiculopathy Though mild the EMG does identify radiculopathy. MRI with minimal degenerative changes. Previously completed PT without benefit PLAN: - We have offered to refer the patient to pain management and she has declined for now but will continue to consider this. Thoracic back pain, unspecified back pain laterality, unspecified chronicity The patient reports ongoing thoracic pain which is worse when performing twisting movements. She has completed PT and reports this worsened her pain. Certainly her paresthesias may be cervical in nature though this would not account for thoracic pain thus we did image this with MRI. Thoracic MRI did demonstrate a syrinx though with no changes from prior imaging in 2014 and not likely to be causative for her symptoms and was otherwise unremarkable. Weakness of both lower extremities The patient reports progressive weakness of the lower extremities with more recent episodes of urinary incontinence. She has completed PT without benefit. Lumbar MRI with a lefward disc herniation at L3-4 resulting in moderate left neural foraminal narrowing. No abnormality of the cauda equina. While her MRI may explain some of her left sided pain it would not explain her right sided symptoms or reported incontinence. She reports unremarkable workup from urology. Given her workup thus far consideration has been given to a functional disorder. Today the patient is walking with a cane. PLAN: - Referred to [facility] neuro as above. Urinary incontinence, unspecified type See above. POTS (postural orthostatic tachycardia syndrome) The patient has a reported history of orthostatic tachycardia and is on treatment for this. I have suggested she maintain close follow-up with her POTs team as many of her symptoms certainly could be related to POTs. Previous brain MRI was unremarkable History of drug use The patient has a history of drug use including heroin and Percocet use. She denies previous IV drug use. She has reportedly been drug free for 6 years. She continues to follow with an addiction therapist. Important clinical history as we will need to take this into consideration for future prescribing purposes. Service was performed by Keira GRAF in collaboration with Dr. Osorio who is present in the office and also personally consulted with the patient today. Follow up in 1 month following MRI or sooner if symptoms worsen, fail to improve, or should a new neurological concern arise. Pt has been fully educated on their diagnosis, treatment options, follow up plan, and return instructions documented in this encounter [facility] 11-22-2023 Evaluation note Authored November 22, 2023 [...] twice or three times daily if needed. [facility] Work Phone: [phone] Telephone encounter Note* Telephone Encounter - Carola Funez MA - 10/25/2023 3:46 PM EDT Patient records received via electronic fax. Uploaded to [employer] via [employer]. Please review in scanned documents tab of chart review. Please view--- Medical Records-[facility] Inc[facility]ivek Funez MA [facility]04-24-2024 Miscellaneous Notes* Telephone Encounter - Carola Funez MA - 10/25/2023 3:46 PM EDT Patient records received via electronic fax. Uploaded to [employer] via [employer]. Please review in scanned documents tab of chart review. Please view--- Medical Records-[facility] Carola Funez MA documented in this encounterHarrison [facility] Hospital04-18-2024 Miscellaneous Notes* Telephone Encounter - Valerie Perez RN - 10/19/2023 9:12 AM EDTSummary: Letter Letter printed and mailed as requested by provider. documented in this encounterHarrison [facility] Hospital04-17-2024 Miscellaneous Notes* Telephone Encounter - Pedro Calle OCCA - 10/18/2023 2:23 PM EDT Faxed a request for medical records (authorization to disclose) because they couldn't be reached onthe phone including: MRI of spine and brain, sleep study and cardiology testing... transmission [place] documented in this encounterHarrison [facility] Hospital04-17-2024 History of Present illness Narrative* Rosmery Mack MD - 10/18/2023 1:00 PM EDT Images from the original note were not included. [facility] New Patient Evaluation Consulting Provider: Keira Heller [address] [place] [address] The patient presents with a chief complaint [...] or assisted with the encounter were: Kalen Mack MD Chief Complaint/Issues: Kalen Plaza is a 38 year old RH female with hx of ADHD, HLD, history of depression, fatigue and all these symptoms below, seen in the [facility] for: Paresthesia Fatigue [...] and assessment that I can look at. [facility] and saw Keira Laguerre and also saw [...] has had a cyst noted in the 2014 MR of Lumbar spine. Patient was told [...] and sometimes leaks, she is seeing a demo coordinator at [facility] Hematologic/Lymphatic: Negative. Allergic/Immunologic: Negative. Psychiatric: Positive for [...] which included preparing to see the patient, [id number] patient care, completing clinical documentation, obtaining and/or reviewing separately obtained history, performing a medically appropriate examination, counseling and educating the pat ient/family/caregiver, and communicating with other HCPs (not separately reported). Rosmery Mack MD documented in this encounterHarrison Community Hospital04-17-2024 NoteHNO ID: [id number] Author: ROSMERY MACK MD Service: ? Author Type: Physician Type: Progress Notes Filed: 10/18/2023 21:18 Note Text: [facility] New Patient Evaluation Consulting Provider: Keira Heller [address] [facility] [address] The patient presents with a chief complaint as listed below and is seen in consultation requested by TIME MOTION ANALYST Ms. Postluis Heller for an opinion regarding these symptoms. [...] all these symptoms below, seen in the [facility] for: Paresthesia Fatigue [...] and assessment that I can look at. [facility] and saw Keira Laguerre and also saw [...] spine syrinx has be (more content not included)...[facility]03-28-2024 Procedure [facility]03-18-2024 Miscellaneous Notes* Telephone Encounter - Jeniffer Valdez LPN - 09/18/2023 4:18 PM EDT Spoke with patient and apologized that Auto P[employer] order had not been faxed to [facility] in [facility] 09/05/23 after her video visit with . Patient understanding and verified DME company of [facility] in [place] and notified that order will be faxed now. Auto PAP: 5-20 and supplies order, demographics, last office notes and PSG results faxed to [facility]. At [phone] documented in this encounterUniversity Hospitals [facility]03-18-2024 Telephone encounter Note* Telephone Encounter - Jeniffer Valdez LPN - 09/18/2023 4:18 PM EDT Spoke with patient and apologized that Auto PAP order had not been faxed to [facility] in [facility] 09/05/23 after her video visit with . Patient understanding and verified DME company of [facility] in [place] and notified that order will be faxed now. Auto PAP: 5-20 and supplies order, demographics, last office notes and PSG results faxed to [facility]. At [phone] [facility]03-15-2024 History of Present illness Narrative* Marty Richardson MD - 09/15/2023 9:15 AM EDT Kalen Plaza Date of visit: 09/15/2023 Date of : 1985 Age: 37 y.o. Patient Active Problem List Diagnosis Varicose veins of bilateral lower extremities with pain Sinus tachycardia POTS (postural orthostatic tachycardia syndrome) PVC's (premature ventricular contractions) PAC (premature atrial contraction) Syncope Mixed hyperlipidemia Depressed bipolar I disorder (CMS-HCC) Folic acid deficiency (non anemic) Generalized anxiety disorder [place]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[facility]) MDD (major depressive disorder), recurrent episode, mild ([facility]) Opioid abuse ([facility]) Secondary adrenal insufficiency ([facility]) Vitamin D deficiency POLO (obstructive sleep apnea) [...] History: Diagnosis Date Anxiety Bipolar 1 disorder [place] Depression Dyspareunia, female Endometriosis Endometriosis Gardnerella vaginitis Gastroenteritis, acute H/O LEEP Heroin addiction [place] HPV (human papilloma virus) infection Lump of breast, right Opioid abuse with withdrawal [place] Palpitations Right ovarian cyst Seizure disorder ([facility] Past Surgical History: Procedure Laterality Date DILATION [...] Referring Physician: David Laguerre MD [address] [place] [address] documented in this [facility]03-14-2024 Miscellaneous Notes* Telephone Encounter - Jerilyn Santos CMA - 09/14/2023 3:53 PM EDT Left message for patient to remind them to bring their most current medication list with them to their appointment. documented in this [facility]03-14-2024 Telephone encounter Note* Telephone Encounter - Jerilyn Santos CMA - 09/14/2023 3:53 PM EDT Left message for patient to remind them to bring their most current medication list with them to their appointment. [facility]02-[facility] History of Present illness Narrative* Brent Whittaker DO - 08/14/2023 4:10 PM EST Reason for Appointment: Patient ID: Kalen Plaza is a 37 y.o. female who presents for No chief complaint on file. Patient presents today via telephone call for a telehealth appointment. Patients Phone #: [phone] (mobile) Current Medications: has a current medication [...] ([facility]GSIL) 06/13/2023 Hypersomnia, unspecified 06/13/2023 Hypokalemia 06/13/2023 [place]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CMS/HCC) 06/13/2023 Myalgia 06/13/2023 Opioid abuse (CMS/HCC) 06/13/2023 Paresthesia 06/13/2023 Secondary adrenal insufficiency (CMS/HCC) 06/13/2023 Thoracic radiculopathy 06/13/2023 Vitamin D deficiency 06/13/2023 POTS (postural orthostatic tachycardia syndrome) 05/18/2023 MDD (major depressive disorder), recurrent episode, mild (HCC) (CMS/HCC) 08/07/2023 Resolved Ambulatory Problems Diagnosis Date Noted [...] Date CERVICAL BIOPSY W/ LOOP ELECTRODE EXCISION 2011 LAPAROTOMY OOPHERECTOMY 2018 LYMPH NODE DISSECTION 2013 [...] of: Brent Whittaker DO documented in this encounterI-70 Community [id number] History of Present illness Narrative* Kika Edmonds MD - 07/27/2023 10:50 AM EST CHIEF COMPLAINT: Chief Complaint Patient presents with Follow-up Follow up with testing completed in [place]. Patient notes vericose and spider veins. Per [...] on an as-needed basis. documented in this encounterCleveland Clinic Marymount HospitalAgile Sciences [facility] [id number] Evaluation note* Encounter Date Diagnosis Assessment Notes Treatment Notes Treatment Clinical Notes Jul, Weight loss (ICD-10 - R63.4) Labs and imaging ordered Pt to proceed with EGD/ colon Jul, Change in bowel habits (ICD-10 - R19.4) Jul, Nausea (ICD-10 - R11.0) Jul, Generalized abdominal pain (ICD-10 - R10.84) Jul, Liver lesion (ICD-10 - K76.9) [facility] Other 01-17-2024 History of Present illness Narrative* Marty Richardson MD - 07/19/2023 9:30 AM EST Kalen [...] History: Diagnosis Date Anxiety Bipolar 1 disorder [place] Depression Dyspareunia, female Endometriosis Endometriosis Gardnerella vaginitis Gastroenteritis, acute H/O LEEP Heroin addiction [place] HPV (human papilloma virus) infection Lump of breast, right Opioid abuse with withdrawal [place] Palpitations Right ovarian cyst Seizure disorder ([facility] Past Surgical History: Procedure Laterality Date DILATION [...] Referring Physician: David Laguerre MD [address] [place] [address] documented in this encounterUniversity Hospitals Geauga [facility]01-17-2024 Instructions* Patient Instructions* Marty Richardson MD - 07/19/2023 9:30 AM EST Great work on quitting smoking Attention to adequate hydration/compression socks/nutrition/exercise/adequate sleep Discontinue diltiazem Start bisoprolol Are You Ready To Kick The Habit? Free Tobacco Cessation Resources [facility] Services [facility] provide all employees with free tobacco cessation services that include: Counseling to understand nicotine addiction Education about medications that can help you successfully quit Assistance with developing a plan to quit Call to set up an individual appointment or find out when group classes will be held: [facility]: [phone] [facility]: [phone] [facility]: [phone] [facility]: [phone] Quit Smoking Action Plan and Resources [facility] offers an eight-week, online smoking cessation plan to all [facility] employees, regardless of whether [place] is your medical insurance provider. Go to www.[email or web address].[email or web address]/employeewellness and click the Health Risk Assessment and Resources link to get started. In the Zesid0Tjowcm menu, click Action Plans instead of Health Risk Assessment to access the Quit Smoking Action Plan. Additional smoking cessation resources are also available to all [facility] employees on the Dizop[employer]Skylpi web page at www.SyndicatePlus/quitsmoking. [place] Tobacco Cessation Program If [place] is your medical insurance provider, there are more free resources available to you, including: No copays or deductibles on local tobacco cessation counseling services to help you quit Prescription assistance for tobacco cessation medications to help you quit For details about the tobacco cessation program available to [place] members, go to www.Traddr.com.TekLinks (Search: Tobacco Cessation Program). [place] Tobacco Quit Line 1-848-WANH-NOW ( ) is a toll-free, telephonic service that helps [place] residents quit smoking and using tobacco. It is staffed by experts who tailor a quit plan for you and provide you with advice. [place] Tobacco Quit Line 4-649-QUZF-NOW ( ) is a toll-free, telephonic service that helps [place] residents quit smoking and using tobacco. It is staffed by experts who tailor a quit plan for you and provide you with advice. Two weeks of nicotine replacement therapy may be provided at no charge, if needed. Additional Resources These national organizations also offer free information and resources to help you quit tobacco: [place] [employer]--www.cancer.org/healthy/stayawayfromtobacco [place] Heart Association--www.heart.org (Search: Quit Smoking) Centers for Disease Control and Prevention--www.cdc.gov/tobacco [place] Lung Association--www.lungusa.org documented in this encounterUniversity Hospitals Geauga Medical Center01-16-2024 Miscellaneous Notes* Telephone Encounter - Wilbur Sellers - 07/18/2023 10:05 AM EST Called patient to r/s with Dr costa. No answer, left vm. Can be added to 08/31 documented in this encounterUniversity Hospitals Geauga [facility] Center01-16-2024 Telephone encounter Note* Telephone Encounter - Wilbur Sellers - 07/18/2023 10:05 AM EST Called patient to r/s with Dr costa. No answer, left vm. Can be added to 08/31 [facility]01-16-2024 Miscellaneous Notes* Telephone Encounter - Jerilyn Santos CMA - 07/18/2023 9:43 AM EST Left message for patient to remind them to bring their most current medication list with them to their appointment. documented in this encounterCleveland Clinic Marymount HospitalCREATIV.COM01-16-2024 Telephone encounter Note* Telephone Encounter - Jerilyn Santos CMA - 07/18/2023 9:43 AM EST Left message for patient to remind them to bring their most current medication list with them to their appointment. [facility] Risk [id number] Hospital Discharge instructions Patient Education 06/13/2022 15:30:12 [...] including vitamins, herbs, eye drops, creams, and zesj-sxw-wfkamqk medicines. ?Whether you are or may be [...] 04/15/2008 Document Revised: 10/08/2019 Document Reviewed: 04/23/2018 Doculynx Patient Education 2020 [employer]. Follow Up Care 05/11/2022 11:42:46 With:FIDELINA SNOW, Mauricio Pineda, URL Address: [facility] [address], [place] [address]- When: Unknown [facility] chiyq complaint Narrative - ReportedKALEN PLAZA is being seen for an initial evaluation of dizziness.[facility] 250 DO Work Phone: Evaluation + Plan note Future Appointments Appointment Date:08/02/2022 02:30:00 PM Scheduled Provider:Mauricio KITCHEN MD Location:[facility] Appointment Type:URO Procedure 15 min [facility] evaluation + Plan note Future Appointments Appointment Date:07/24/2023 02:30:00 PM Scheduled Provider:Mauricio KITCHEN MD Location:[facility] Appointment Type:URO Office Visit [facility] evaluation noteNo assessment information available [facility] Work Phone: evaluation note* Diagnosis Tachycardia- Primary Unspecified tachycardia PVC's (premature ventricular contractions) Other premature beats PAC (premature atrial contraction) Supraventricular premature beats Syncope, unspecified syncope type Sinus tachycardia Other specified cardiac dysrhythmias documented in this encounter [facility]* Diagnosis Onset Date Resolution Status Elevated serum immunoglobulin free light chain level acute Elevated serum immunoglobulin free light chain level acute [facility] Work Phone: evaluation note* Diagnosis Varicose veins of bilateral lower extremities with pain- Primary Sinus tachycardia Other specified cardiac dysrhythmias POTS (postural orthostatic tachycardia syndrome) Unspecified tachycardia PVC's (premature ventricular contractions) Other premature beats PAC (premature atrial contraction) Supraventricular premature beats Venous insufficiency of both lower extremities documented [facility] this encounter [facility]* Diagnosis Postural orthostatic tachycardia syndrome Unspecified tachycardia documented in this encounter [facility]* Diagnosis Pelvic pain in female- Primary Unspecified symptom associated with female genital organs documented in this encounter [facility]* Diagnosis Sinus tachycardia- Primary Other specified cardiac dysrhythmias documented in this encounter [facility]* Diagnosis Paresthesia- Primary Disturbance of skin sensation POTS (postural orthostatic tachycardia syndrome) Tachycardia, unspecified Syncope, unspecified syncope type Tremor, unspecified Retro-orbital pain of both eyes documented in this encounter [facility]* Diagnosis Onset Date Resolution Status Elevated serum immunoglobulin free light chain level acute [facility] Work Phone: evaluation note* Diagnosis POTS (postural orthostatic tachycardia syndrome)- Primary Unspecified tachycardia [place]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CMS/HCC) Multiple myeloma, without mention of having achieved remission Generalized anxiety disorder (CMS/HCC) Generalized anxiety disorder MDD (major depressive disorder), recurrent episode, mild (HCC) (CMS/HCC) MDD (major depressive disorder), recurrent episode, mild (HCC) (CMS/HCC)- Primary Generalized anxiety disorder (CMS/HCC) Generalized anxiety disorder POTS (postural orthostatic tachycardia syndrome) Unspecified tachycardia Paresthesia Disturbance of skin sensation Chronic fatigue Other malaise and fatigue Chronic cough- Primary Cough Easy bruising Other symptoms involving skin and integumentary tissues POTS (postural orthostatic tachycardia syndrome) Unspecified tachycardia RLS (restless legs syndrome) Restless legs syndrome (RLS) Depressed bipolar I disorder (CMS/HCC) Bipolar I disorder, most recent episode (or current) depressed, unspecified Generalized anxiety disorder (CMS/HCC) Generalized anxiety disorder Opioid abuse (CMS/HCC) Nondependent opioid abuse, unspecified Secondary adrenal insufficiency (CMS/HCC) Postural orthostatic tachycardia syndrome Unspecified tachycardia documented in this encounter [facility] HealthcareEvaluation [facility]* Diagnosis Sherri-Danlos syndrome- Primary Varicose veins of bilateral lower extremities with pain- Primary Dizziness Dizziness and giddiness EDS (Sherri-Danlos syndrome) Sherri-Danlos syndrome Stage 3 chronic kidney disease, unspecified whether stage 3a or 3b CKD (CMS-HCC)- Primary [facility] Diagnosis Sherri-Danlos syndrome- Primary Varicose veins of bilateral lower extremities with pain- Primary Dizziness Dizziness and giddiness EDS (Sherri-Danlos syndrome) Sherri-Danlos syndrome Hematuria, unspecified type- Primary Proteinuria, unspecified type Calcium oxalate crystals in urine Elevated serum immunoglobulin free light chains documented [facility] this [facility]* Diagnosis POTS (postural orthostatic tachycardia syndrome)- Primary Unspecified tachycardia [place]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CMS/HCC) Multiple myeloma, without mention of having achieved remission Generalized anxiety disorder (CMS/HCC) Generalized anxiety disorder MDD (major depressive disorder), recurrent episode, mild (HCC) (CMS/HCC) MDD (major depressive disorder), recurrent episode, mild (HCC) (CMS/HCC)- Primary Generalized anxiety disorder (CMS/HCC) Generalized anxiety disorder POTS (postural orthostatic tachycardia syndrome) Unspecified tachycardia Paresthesia Disturbance of skin sensation Chronic fatigue Other malaise and fatigue Chronic cough- Primary Cough Easy bruising Other symptoms involving skin and integumentary tissues POTS (postural orthostatic tachycardia syndrome) Unspecified tachycardia RLS (restless legs syndrome) Restless legs syndrome (RLS) Depressed bipolar I disorder (CMS/HCC) Bipolar I disorder, most recent episode (or current) depressed, unspecified Generalized anxiety disorder (CMS/HCC) Generalized anxiety disorder Opioid abuse (CMS/HCC) Nondependent opioid abuse, unspecified Secondary adrenal insufficiency (CMS/HCC) Postural orthostatic tachycardia syndrome Unspecified tachycardia documented in this encounter [facility]* Diagnosis Nonruptured cerebral aneurysm- Primary Cerebral aneurysm, nonruptured Encounter for screening for cardiovascular disorders Screening for other and unspecified cardiovascular conditions Syncope and collapse Seizure-like activity (HCC) Other convulsions Cerebral aneurysm Cerebral aneurysm, nonruptured Syringomyelia and syringobulbia (HCC) Syringomyelia and syringobulbia documented in this encounter [facility] HospitalEvaluation note* Diagnosis Sherri-Danlos syndrome- Primary Varicose veins of bilateral lower extremities with pain- Primary Dizziness Dizziness and giddiness 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 [facility] Diagnosis POTS (postural orthostatic tachycardia syndrome)- Primary Unspecified tachycardia [place]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CMS/HCC) Multiple myeloma, without mention of having achieved remission Generalized anxiety disorder (CMS/HCC) Generalized anxiety disorder MDD (major depressive disorder), recurrent episode, mild (HCC) (CMS/HCC) MDD (major depressive disorder), recurrent episode, mild (HCC) (CMS/HCC)- Primary Generalized anxiety disorder (CMS/HCC) Generalized anxiety disorder POTS (postural orthostatic tachycardia syndrome) Unspecified tachycardia Paresthesia Disturbance of skin sensation Chronic fatigue Other malaise and fatigue Chronic cough- Primary Cough Easy bruising Other symptoms involving skin and integumentary tissues POTS (postural orthostatic tachycardia syndrome) Unspecified tachycardia RLS (restless legs syndrome) Restless legs syndrome (RLS) Depressed bipolar I disorder (CMS/HCC) Bipolar I disorder, most recent episode (or current) depressed, unspecified Generalized anxiety disorder (CMS/HCC) Generalized anxiety disorder Opioid abuse (CMS/HCC) Nondependent opioid abuse, unspecified Secondary adrenal insufficiency (CMS/HCC) Depressed bipolar I disorder (CMS/HCC)- Primary Bipolar I disorder, most recent episode (or current) depressed, unspecified Generalized anxiety disorder ([facility]/HCC) Generalized anxiety disorder POTS (postural orthostatic tachycardia syndrome) Unspecified tachycardia Sherri-Danlos syndrome ([facility]) Sherri-Danlos syndrome [facility] Diagnosis POTS (postural orthostatic tachycardia syndrome)- Primary Unspecified tachycardia [place]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[facility]) Multiple myeloma, without mention of having achieved remission Generalized anxiety disorder ([facility]) Generalized anxiety disorder MDD (major depressive disorder), recurrent episode, mild (HCC) ([facility]) MDD (major depressive disorder), recurrent episode, mild (HCC) ([facility])- Primary Generalized anxiety disorder ([facility]) Generalized anxiety disorder POTS (postural orthostatic tachycardia syndrome) Unspecified tachycardia Paresthesia Disturbance of skin sensation Chronic fatigue Other malaise and fatigue Chronic cough- Primary Cough Easy bruising Other symptoms involving skin and integumentary tissues POTS (postural orthostatic tachycardia syndrome) Unspecified tachycardia RLS (restless legs syndrome) Restless legs syndrome (RLS) Depressed bipolar I disorder ([facility]) Bipolar I disorder, most recent episode (or current) depressed, unspecified Generalized anxiety disorder ([facility]) Generalized anxiety disorder Opioid abuse ([facility]) Nondependent opioid abuse, unspecified Secondary adrenal insufficiency ([facility]) Depressed bipolar I disorder ([facility])- Primary Bipolar I disorder, most recent episode (or current) depressed, unspecified Generalized anxiety disorder ([facility]) Generalized anxiety disorder POTS (postural orthostatic tachycardia syndrome) Unspecified tachycardia Sherri-Danlos syndrome ([facility]) Sherri-Danlos syndrome Postural orthostatic tachycardia syndrome Unspecified tachycardia documented [facility] Diagnosis Paresthesia- Primary Disturbance of skin sensation POTS (postural orthostatic tachycardia syndrome) Unspecified tachycardia Cervical radiculopathy Brachial neuritis or radiculitis nos Thoracic back pain, unspecified back pain laterality, unspecified chronicity Weakness of both lower extremities Urinary incontinence, unspecified type History of drug use Sensory ataxia Lack of coordination documented in this encounter [facility] Diagnosis Postural orthostatic tachycardia syndrome Unspecified tachycardia documented in this encounter [facility] Diagnosis POTS (postural orthostatic tachycardia syndrome)- Primary Unspecified tachycardia [place]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CMS/HCC) Multiple myeloma, without mention of having achieved remission Generalized anxiety disorder (CMS/HCC) Generalized anxiety disorder MDD (major depressive disorder), recurrent episode, mild (HCC) (CMS/HCC) MDD (major depressive disorder), recurrent episode, mild (HCC) (CMS/HCC)- Primary Generalized anxiety disorder (CMS/HCC) Generalized anxiety disorder POTS (postural orthostatic tachycardia syndrome) Unspecified tachycardia Paresthesia Disturbance of skin sensation Chronic fatigue Other malaise and fatigue Chronic cough- Primary Cough Easy bruising Other symptoms involving skin and integumentary tissues POTS (postural orthostatic tachycardia syndrome) Unspecified tachycardia RLS (restless legs syndrome) Restless legs syndrome (RLS) Depressed bipolar I disorder (CMS/HCC) Bipolar I disorder, most recent episode (or current) depressed, unspecified Generalized anxiety disorder (CMS/HCC) Generalized anxiety disorder Opioid abuse ([facility]/HCC) Nondependent opioid abuse, unspecified Secondary adrenal insufficiency (CMS/HCC) Depressed bipolar I disorder (CMS/HCC)- Primary Bipolar I disorder, most recent episode (or current) depressed, unspecified Generalized anxiety disorder (CMS/HCC) Generalized anxiety disorder POTS (postural orthostatic tachycardia syndrome) Unspecified tachycardia Sherri-Danlos syndrome (CMS/HCC) Sherri-Danlos syndrome Vaginal discharge Leukorrhea, not specified as infective Enlarged lymph nodes in armpit Enlargement of lymph nodes Pelvic pain in female Unspecified symptom associated with female genital organs documented in this encounter [facility] note Author Robbie Disla [facility] August 23, 2023 9:15am Note Date/Time August 23, 2023 9:15am [facility] [address] [place] [address] Gastroenterology H&P Signed Patient: Kalen Plaza MR#: [id number] : 1985 Acct:[id number] Age/Sex: 37 / F Adm Date: 4 Loc: Room: Type: [facility] Attending Dr: Robbie Disla MD [...] By: <Electronically signed by Robbie Disla MD> 08/23/23914 [facility] Work Phone: History and physical note Author Robbie Disla [facility] September 28, 2023 10:38am Note Date/Time September 28, 2023 10: 38am [facility] [address] [place] [address] Gastroenterology H&P Signed Patient: Kalen Plaza MR#: [id number] : 1985 Acct:[id number] Age/Sex: 37 / F Adm Date: 4 Loc: Room: Type: [facility] Attending Dr: Robbie Disla MD [...] signed by Robbie Disla MD> 09/28/23 1038 [facility] Work Phone: History general Narrative - Reported* Type Description Date Medical History manic depressive Medical History anxiety Medical History endometriosis Surgical History cervical sx 2009 Hospitalization History see above TCHO Other History of Present illness Narrative* Patient [...] primary or secondary to followed by local hereditary cancer program coordinator * Plan * 1. I advised the [...] in 2 to 3 months [facility] Work Phone: Hospital course Narrative No data available for this section [facility] Hospital Discharge instructions No data available for this section [facility] Hospital Discharge instructions Additional Instructions DISCHARGE [...] NOT operate machinery such as power tools, [employer] mowers, snow blowers, sewing machines, etc. for [...] pantoprazole 40 mg daily - Office number [phone]. [facility] Work Phone: Hospital Discharge instructions Additional [...] needed. -Follow up with PCP. -Office number [phone]. [facility] Work Phone: InstructionsNot on filedocumented in [...] available for this section [facility] reason for visit NarrativePATIENT IS HERE AT THE REQUEST OF DR LAGUERRE FOR DIARRHEA. [facility] [employer] Other Summary Purpose Family History No Family [...] Complaint and Reason for Visit Chief Complaint [place] Light Chain Reason for Visit Elevated serum immun oglobulin free light chain level Elevated serum immunoglobulin free light chain level Chief Complaint Consult: Diarrhea Re f: Dr Laguerre [place] Nausea, Weight Loss, Change in Bowel Habits, Abd P Nausea, Weight Loss, Change in Bowel Habits, Abd P Reason for Visit Elevated serum immun oglobulin free light chain level Elevated serum immunoglobulin free light chain level Chief Complaint Consult: Diarrhea Re f: Dr Laguerre [place] Nausea, Weight Loss, Change in [...] for Visit Constipation, chroni c Chief Complaint [place] Light Chain R20.2 R29.898 R32 R27.8 Reason for Visit Elevated serum immun oglobulin free light chain level Reason for Referral Specialty Diagnoses / Procedures Referred By Contac t Referred To Contact Diagnoses Paresthesia Weakness of both lower extremities Urinary incontinence, unspecified type Sensory ataxia Procedures MR brain w and wo contrast routine Keira Heller, DASHAWN [address] [place] [address] [facility] [place] [address] Referral ID Status Reason Start Date Expiration Date V isits Requested Visits Authorized [id number] Pending Review 02/21/2024 08/19/2024 1 1 Specialty Diagnoses / Procedures Referred By Contac t Referred To Contact MR IMAGING Diagnoses Syringomyelia and syringobulbia (HCC) Procedures MRI LUMBAR SPINE WO/W IVCON MRI SPINAL CANAL LUMBAR W/O & [place] [address] [place] [address] [place] [address] Referral ID Status Reason Start Date Expiration Date Visits Requested Visits Authorized [id number] New Request Auto-Generat ed Referral 4 06/23/2025 1 1 Specialty Diagnoses / Procedures Referred By Contac t Referred To Contact MR IMAGING Diagnoses Syringomyelia and syringobulbia (HCC) Procedures MRI THORACIC SPINE WO/W IVCON MRI SPINAL CANAL THORACIC W/O & W/[place] [id number] [place] [address] [place] [address] Referral ID Status Reason Start Date Expiration Date Visits Requested Visits Authorized [id number] New Request Auto-Generat ed Referral 06/23/2025 1 1 Specialty Diagnoses / Procedures Referred By Contac t Referred To Contact [facility] Diagnoses Seizure-like activity (HCC) Procedures EPIL EEG ROUTINE ELECTROENCEPHALOGRAM REC COMA/[place] [address] [place] [address] [facility] [place] [address] [place] [address] Referral ID Status Reason Start Date Expiration Date Visits Requested Visits Authorized [id number] New Request Auto-Generat ed Referral 4 05/24/2025 1 1 Specialty Diagnoses / Procedures Referred By Contac t Referred To Contact CT IMAGING Diagnoses Encounter for screening for cardiovascular disorders Syncope and collapse Procedures CTA NECK W IVCON CT ANGIOGRAPHY NECK W/CONTRAST/[place] [address] [place] [address] [place] [address] Referral ID Status Reason Start Date Expiration Date Visits Requested Visits Authorized [id number] New Request Auto-Generat ed Referral 4 06/23/2025 1 1 Specialty Diagnoses / Procedures Referred By Leia ramirez Referred To Contact CT IMAGING Diagnoses Nonruptured cerebral aneurysm Syncope and collapse Cerebral aneurysm Procedures CTA HEAD WO/W IVCON CT ANGIOGRAPHY HEAD W/CONTRAST/[place] [address] [place] [address] [place] [address] Referral ID Status Reason Start Date Expiration Date Visits Requested Visits Authorized [id number] New Request Auto-Generat ed Referral 4 06/23/2025 1 1 Specialty Diagnoses / Procedures Referred By Leia ramirez Referred To Contact Diagnoses Postural orthostatic tachycardia syndrome David Laguerre MD [address] [place] [address] Referral ID Status Reason Start Date Expiration Date V isits Requested Visits Authorized [id number] Pending Review 1 1 Additional Source Comments INFORMATION SOURCE (unrecogn ized section and content) DATE CREATED AUTHOR 12/26/2017 [facility] DATE CREATED AUTHOR AUTHOR'S ORGANIZ ATION 02/26/2022 [facility] DATE CREATED AUTHOR AUTHOR'S ORGANIZ ATION 07/18/2022 [facility] DATE CREATED AUTHOR AUTHOR'S ORGANIZ ATION 07/26/2022 [facility] DATE CREATED AUTHOR AUTHOR'S ORGANIZ ATION 10/27/2023 [facility] DATE CREATED AUTHOR AUTHOR'S ORGANIZ ATION 12/28/2023 [facility] DATE CREATED AUTHOR AUTHOR'S ORGANIZ ATION 03/09/2024 [facility] DATE CREATED AUTHOR AUTHOR'S ORGANIZ ATION 03/23/2024 [facility] DATE CREATED AUTHOR AUTHOR'S ORGANIZ ATION 05/03/2024 [facility] DATE CREATED AUTHOR AUTHOR'S ORGANIZ ATION 06/26/2024 [facility] Special[facility] DATE CREATED AUTHOR AUTHOR'S ORGANIZ ATION 07/17/2024 [facility] Patient Care team informatio n (unrecognized section and content) Team Status: Active Member Role Status Dates David Laguerre MD Primary Care Provider Active Team Status: Active Member Role Status Dates Barbara Cabrera APRN Active Start: January 25 David Laguerre MD Primary Care Provide r, Referring Provider Active Start: January 26, 2024 Tayo Barajas II, DO Attending Provider Active Start: January 26, 2024 Team Status: Inactive Member Role Status Dates David Laguerre MD Primary Care Provider Active S tart: January 26, 2024 End: January 26, 2024 Taoy Barajas II, DO Attending Provider Active Start: January 26, 2024 End: January 26, 2024 Team Status: Inactive Member Role Status Dates David Laguerre MD Primary Care Provider Active S tart: March 15, 2024 End: March 15, 2024 DANIEL Turner Attending Provide r, Referring Provider Active Start: [...] Other Provider Active Start: August 23, 2023 Manager Shell Relationship Specialty Start Date End Date David Laguerre MD [address] [place] [facility] [place] [address] PCP - General Family Medicine 12/25/22 Manager Shell Relationship Specialty Start Date End Date David Laguerre MD [address] [place] [facility] [place] [address] PCP - General Family Medicine 12/25/22 Manager Shell Relationship Specialty Start Date End Date David Laguerre MD [address] [place] [facility] [place] [address] PCP - General Family Medicine 12/25/22 Manager Shell Relationship Specialty Start Date End Date David Laguerre MD [address] [place] [facility] [place] [address] PCP - General Family Medicine 12/25/22 Manager Shell Relationship Specialty Start Date End Date David Laguerre MD PCP - General Family Medicine 01/27/23 Manager Shell Relationship Specialty Start Date End Date David Laguerre MD PCP - General Family Medicine 01/27/23 Manager Shell Relationship Specialty Start Date End Date David Laguerre MD [address] [place] [facility] [place] [address] PCP - General Family Medicine 12/25/22 Manager Shell Relationship Specialty Start Date End Date David Laguerre MD [address] [place] [facility] [place] [address] PCP - General Family Medicine 12/25/22 Manager Shell Relationship Specialty Start Date End Date David Laguerre MD [address] [place], [place] [address] PCP - General Family Medicine 12/25/22 Team [...] Provider Act jordana Start: September 28, 2023 Manager Shell Relationship Specialty Start Date End Date David Laguerre [address] [place] [address] PCP - General Family Medicine 10/18/23 Keira Heller CNP [address] [address] Referring Family Medicine 04/20/23 Manager Shell Relationship Specialty Start Date End Date David Laguerre [address] [place] [address] PCP - General Family Medicine 10/18/23 Keira Heller CNP [address] [address] Referring Family Medicine 04/20/23 Manager Shell Relationship Specialty Start Date End Date David Laguerre [address] [place] [address] PCP - General Family Medicine 10/18/23 Keira Heller CNP [address] [place], [place] [id number] Referring Family Medicine 04/20/23 Manager Shell Relationship Specialty Start Date End Date David Laguerre [address] [place] [address] PCP - General Family Medicine 10/18/23 Keira Heller CNP [address] [place] [address] Referring Family Medicine 04/20/23 Team Status: Inactive Member Role Status Dates David Laguerre MD Primary Care Provider Active S tart: November 22, 2023 End: November 22, 2023 Robbie Disla MD Attending Provider Active Start: November 22, 2023 End: November 22, 2023 Manager Shell Relationship Specialty Start Date End Date David Laguerre MD [address] [place] [address] PCP - General Family Medicine 01/27/23 Manager Shell Relationship Specialty Start Date End Date David Laguerre MD [address] [place] [address] PCP - General Family Medicine 05/01/24 Manager Shell Relationship Specialty Start Date End Date David Laguerre MD [address] [place] [address] PCP - General Family Medicine 05/01/24 Manager Shell Relationship Specialty Start Date End Date David Laguerre MD [address] [place] [address] PCP - General Family Medicine 01/27/23 Manager Shell Relationship Specialty Start Date End Date David Laguerre MD [address] [place] [address] PCP - General Family Medicine 10/18/23 Keira Heller CNP [address] [place] [address] Referring Family Medicine 04/20/23 Manager Shell Relationship Specialty Start Date End Date David Laguerre MD [address] [place] [address] PCP - General Family Medicine 05/01/24 Manager Shell Relationship Specialty Start Date End Date David Laguerre MD [address] [place] [address] PCP - General Family Medicine 05/01/24 Manager Shell Relationship Specialty Start Date End Date David Laguerre MD [address] [place] [address] PCP - General Family Medicine 05/01/24 Manager Shell Relationship Specialty Start Date End Date David Laguerre MD [address] [place] [address] PCP - General Family Medicine 01/27/23 Manager Shell Relationship Specialty Start Date End Date David Laguerre MD [address] [place] [address] PCP - General Family Medicine 01/27/23 Manager Shell Relationship Specialty Start Date End Date David Laguerre MD [address] [place] [address] PCP - General Family Medicine 01/27/23 Manager Shell Relationship Specialty Start Date End Date David Laguerre MD [address] [place] [address] PCP - General Family Medicine 01/27/23 Manager Shell Relationship Specialty Start Date End Date David Laguerre MD [address] [place] [address] PCP - General Family Medicine 01/27/23 Manager Shell Relationship Specialty Start Date End Date David Laguerre MD [address] [place] [address] PCP - General Family Medicine 01/27/23 Manager Shell Relationship Specialty Start Date End Date David Laguerre MD [address] [place] [address] PCP - General Family Medicine 01/27/23 Manager Shell Relationship Specialty Start Date End Date David Laguerre MD [address] [place] [address] PCP - General Family Medicine 10/18/23 Keira Heller CNP [address] [place] [address] Referring Family Medicine 04/20/23 Manager Shell Relationship Specialty Start Date End Date David Laguerre MD [address] [place] [address] PCP - General Family Medicine 05/01/24 Goals (unrecognized section and content) Goals may be documented in a n alternate section Reason for Visit (unrecogniz ed section and content) Reason Comments Follow-up EST PT EARLY FU NEED TO DISCUSS LOOP RECORDER PER SER MD ONLY Reason Comments Follow-up Follow up with miguel wagner completed in [place]. Patient notes vericose and spider veins. Per patient she notices more bruising to her ankle areas. Reason Onset Date Comments Med Refill 08/11/2023 Reason Comments Follow-up OV F/U SOB, SWEATING , HR ISSUES PER PT NO TESTS L/S LLD SCHED W/PT Reason Comments Parathese Reason Comments Letter Reason Comments Medical Records-[facility] Reason Onset Date Comments Med Refill 05/21/2024 Reason Comments New Patient Per patient statemen t, I faint when I go to stand up , tunnel vision, tremors to both hand and both feet, muscle weakness to BLE, 's, possible seizures. New Patient Evaluation Fall Gait Problem Neuropathy Tremor Seizures Numbness/Tingling Memory Loss Balance Reason Comments Follow-up 3 m Reason Onset Date Comments Med Refill 06/17/2024 Reason Comments Neck Pain Weakness, Gen BLE Numbness Reason Onset Date Comments Med Refill 02/29/2024 Reason Onset Date Comments Med Refill 03/29/2024 Reason Comments vaginal issues Source Comments (unrecognize d section and content) In the event this informatio n is protected by the Federal Confidentiality of Alcohol and Drug Abuse Patient Records regulations: The Federal rules restrict any use of the information to criminally investigate or prosecute any alcohol or drug abuse patient.[facility] the event this information is protected by the Federal Confidentiality of Alcohol and Drug Abuse Patient Records regulations: The Federal rules restrict any use of the information to criminally investigate or prosecute any alcohol or drug abuse patient.[facility] the event this information is protected by the Federal Confidentiality of Alcohol and Drug Abuse Patient Records regulations: The Federal rules restrict any use of the information to criminally investigate or prosecute any alcohol or drug abuse patient.[facility] the event this information is protected by the Federal Confidentiality of Alcohol and Drug Abuse Patient Records regulations: The Federal rules restrict any use of the information to criminally investigate or prosecute any alcohol or drug abuse patient.[facility] the event this information is protected by the Federal Confidentiality of Alcohol and Drug Abuse Patient Records regulations: The Federal rules restrict any use of the information to criminally investigate or prosecute any alcohol or drug abuse patient.[facility] the event this information is protected by the Federal Confidentiality of Alcohol and Drug Abuse Patient Records regulations: The Federal rules restrict any use of the information to criminally investigate or prosecute any alcohol or drug abuse patient.[facility] FOR RECORDS PERTAINING TO PATIENTS WHO [...] BE BASED ON THE PRIMARY CLINICAL RECORDS. [facility] [employer] [facility]. provides no warranty or guarantee of the accuracy or completeness of information in this document.
== END 2024-07-18 08:31 | disposition home or self-care (01) ==
LOC: US 08:30
PROVIDERS: Visit Provider Obstetrics & Gynecology
DX: R59.0 Localized enlarged lymph nodes (principal); R10.2 Pelvic and perineal pain
CPT/HCPCS: 76830; 76882